=== PATIENT | female | born 1950 | race Caucasian/White ===

== ENCOUNTER → 2017-07-19 | Outpatient (CLI) | payer OTHER ==
[~2017-07-19] MED LIST: ATOR10TA82 PO; BSP/5 PO; BUPR200T2 PO; CETI10TA84 PO
[2017-07-19 13:04] LABS: BLOOD UREA NITROGEN 17 mg/dl (7-18); BUN/CREATININE RATIO 17.2 (10-20); CALCIUM 8.8 mg/dl (8.5-10.1); CARBON DIOXIDE 24 mmol/L (21-32); CHLORIDE 106 mmol/L (98-107); CREATININE 0.99 mg/dl (0.60-1.20); GLUCOSE 88 mg/dl (70-99); SODIUM 138 mmol/L (136-145)
[2017-07-19 13:10] LABS: CHOLESTEROL 180 mg/dl (0-200); CHOLESTEROL/HDL RATIO 3.9; HDL CHOLESTEROL 46 mg/dl; LDL CHOLESTEROL CALCULATED 110 mg/dl; TRIGLYCERIDES 121 mg/dl (0-150); VERY LOW DENSITY LIPOPROT CALC 24 mg/dl
== END | disposition home or self-care (01) ==
LOC: C.LABPBG 08:06
PROVIDERS: ATTEND Family Medicine
DX: E78.5 Hyperlipidemia, unspecified (principal); I10 Essential (primary) hypertension

== ENCOUNTER → 2017-12-26 | Outpatient (CLI) | payer OTHER ==
[2017-12-26 18:56] LABS: BLOOD UREA NITROGEN 10 mg/dl (7-18); CALCIUM 8.7 mg/dl (8.5-10.1); CARBON DIOXIDE 28 mmol/L (21-32); CREATININE 0.91 mg/dl (0.60-1.20); GLUCOSE 101 mg/dl (70-99); POTASSIUM 3.9 mmol/L (3.5-5.1); SODIUM 139 mmol/L (136-145)
[2017-12-26 19:00] LABS: ALT/SGPT 18 U/L (12-78); CHOLESTEROL 126 mg/dl (0-200); LDL CHOLESTEROL CALCULATED 71 mg/dl
== END | disposition home or self-care (01) ==
LOC: C.LABPBG 12:58
PROVIDERS: ATTEND Family Medicine
DX: F32.9 Major depressive disorder, single episode, unspecified (principal); E78.5 Hyperlipidemia, unspecified

== ENCOUNTER → 2018-01-03 | Outpatient (CLI) | payer OTHER ==
--- NOTE | 2018-01-03 09:32 | DIAGNOSTIC IMAGING REPORT ---
CT LUNG SCREENING, LOW DOSE WITH COMPUTER-AIDED DETECTION (CAD) CLINICAL HISTORY: Significant smoking history. Nicotine dependence. COMPARISON STUDY: Chest CT October 11, 2010. CT DOSE: 77.10 mGycm TECHNIQUE: Low-dose helical CT was acquired without intravenous contrast from lung apices to bases and reconstructed at 2.5 mm every 2 mm. CAD was utilized for this study. A dose lowering technique was utilized adhering to the principles of ALARA. FINDINGS: The size of the heart is normal. There is no pericardial effusion. A mildly enlarged precarinal lymph node measures 1.1 cm in short axis diameter. No pneumothorax or pleural effusion is noted. No suspicious pulmonary nodules are noted. There is mild upper lobe predominant emphysema. There is mild consolidation within the right lower lobe with irregular airspace opacity. Bronchial wall thickening and secretions within the airways are noted. There is no cavitation. No suspicious osseous lesion is identified within the bony thorax. Note is made of a mild compression deformities of the superior endplates of T4 and T5. Lobulated contour of the liver surface with enlargement of the lateral segment is again noted. IMPRESSION: 1. Mild right lower lobe consolidation which suggests pneumonia. A follow-up chest CT in 6-8 weeks to ensure resolution is recommended. 2. No suspicious pulmonary nodules. This is considered a Lung-RADS 2 exam. If follow-up chest CT demonstrates resolution of pneumonia, continued annual screening low dose CT in 12 months on January 03, 2019 is recommended. 3. Mild emphysema. 4. Mildly enlarged precarinal lymph node which may be reactive. This can be assessed on follow-up CT. CAD FINDINGS: Overall Lung RADS Category: Lung RADS Management Recommendation: Continue annual lung cancer screening. Lung RADS Follow Up Date: Lung RADS Nodule ID: Electronically signed by: Elia Johnston M.D. 01/03/2018 9:31 AM Dictated Date/Time: 01/03/2018 9:06 AM
== END | disposition home or self-care (01) ==
LOC: C.CTS 08:26
PROVIDERS: ATTEND Family Medicine
DX: Z87.891 Personal history of nicotine dependence (principal); Z12.2 Encounter for screening for malignant neoplasm of respiratory organs

== ENCOUNTER → 2018-03-26 | Outpatient (CLI) | payer OTHER ==
[~2018-03-26] MED LIST changes: +OPTIRAY 320 IV PRN
--- NOTE | 2018-03-26 11:49 | DIAGNOSTIC IMAGING REPORT ---
CT ANGIOGRAM OF THE ABDOMEN, PELVIS, BILATERAL LOWER EXTREMITIES HISTORY: Peripheral vascular disease. Bilateral leg pain. TECHNIQUE: Multiaxial CT images of the abdomen, pelvis, bilateral large ovaries were performed following the use of intravenous contrast to evaluate the major dural structures. Maximum intensity projection images also obtained. COMPARISON STUDY: Abdomen and pelvis CT 09/27/2010. FINDINGS: The heart is mildly enlarged. Mild to moderate calcified plaque within the normal caliber abdominal aorta and common iliac arteries. There is also mild right and moderate left proximal renal artery calcification. However, no significant stenosis. The celiac, superior mesenteric, and inferior mesenteric arteries are patent. Moderate calcified plaque within the bilateral external iliac and common femoral arteries. There is a segment of 70% stenosis within the mid to distal left external iliac artery best seen on image 314. Mild narrowing of less than 50% within the mid to distal right external iliac artery. Less than 50% narrowing throughout the bilateral common femoral arteries. With in the left lower extremity there is calcified plaque throughout the arterial system resulting in multifocal areas of mild narrowing. No high-grade stenosis or occlusion identified within the left lower extremity arterial system. There is 3 vessel runoff within the left leg. Within the right lower extremity there is a long stent within the proximal to mid right superficial femoral artery. Proximal to the stent there is approximately 70% focal stenosis best seen on image 388. There is thrombus within the stent resulting in multifocal areas of mild to moderate narrowing. This is most pronounced on image 463 which demonstrates approximately 70-80% focal stenosis. Scattered calcified plaque within the distal superficial femoral artery and remaining distal right lower extremity arterial structures. This results in areas of multifocal mild narrowing. No high-grade stenosis or occlusion identified within the remaining portions of the right lower extremity. There is 3 vessel runoff within the right lower leg. The lung bases are clear. No pneumoperitoneum. No pneumatosis. No fractures within the visualized osseous structures. Scattered subcentimeter hypervascular foci within the liver. These are indeterminate on this study but could represent small flash filling hemangiomas or transient hepatic attenuation differences. The spleen, right adrenal gland, and pancreas are unremarkable. There are few punctate stones within the gallbladder. There is mild left adrenal gland thickening. Bilateral cortical renal scarring. No hydronephrosis. Punctate stone within the right kidney. Subcentimeter retroperitoneal and mesenteric lymph nodes do not meet CT criteria for pathologic involvement. There are few mildly enlarged periportal and gastrohepatic lymph nodes which are nonspecific and unchanged. The long-term stability favors a benign process. Borderline bladder wall thickening, unchanged. The uterus is surgically absent. No bowel wall thickening or obstruction. Normal appendix. IMPRESSION: 1. There is a long stent within the proximal to mid right superficial femoral artery which contains thrombus and multifocal narrowing to up to 70-80% stenosis. 2. There is 70% focal stenosis within the proximal right superficial femoral artery immediately proximal to the stent. 3. Otherwise, the remaining bilateral lower extremity arterial systems demonstrate multifocal areas of mild narrowing with bilateral three-vessel runoff. 4. There is 70% stenosis involving the mid to distal left external iliac artery. 5. Additional findings as described above. Electronically signed by: Destin Clifton M.D. 03/26/2018 11:48 AM Dictated Date/Time: 03/26/2018 11:24 AM
== END | disposition home or self-care (01) ==
LOC: C.CTS 10:44
PROVIDERS: ATTEND Internal Medicine Interventional Cardiology
DX: T82.868A Thrombosis due to vascular prosthetic devices, implants and grafts, initial encounter (principal); Y83.1 Surgical operation with implant of artificial internal device as the cause of abnormal reaction of the patient, or of later complication, without mention of misadventure at the time of the procedure; I70.291 Other atherosclerosis of native arteries of extremities, right leg; I70.8 Atherosclerosis of other arteries

== ENCOUNTER → 2018-04-25 | Outpatient (CLI) | payer OTHER ==
[~2018-04-25] MED LIST changes: +ASPI81TA28 PO; +CLOP1TAB15 PO; +LISI-729 PO; -OPTIRAY 320 IV PRN
[2018-04-25 16:42] LABS: HEMATOCRIT 43.5 % (37-47); HEMOGLOBIN 13.9 g/dL (12.0-16.0); MEAN CELL VOLUME 92.4 fL (80-100); MEAN CORPUSCULAR HEMOGLOBIN 29.5 pg (25-34); MEAN PLATELET VOLUME 9.3 fL (7.4-10.4); PLATELET COUNT 242 K/uL (130-400); RED CELL DISTRIBUTION WIDTH CV 14.3 % (11.5-14.5); RED CELL DISTRIBUTION WIDTH SD 48.5 fL (36.4-46.3); WHITE BLOOD COUNT 7.14 K/uL (4.8-10.8)
[2018-04-25 16:52] LABS: BLOOD UREA NITROGEN 19 mg/dl (7-18); CALCIUM 8.6 mg/dl (8.5-10.1); CARBON DIOXIDE 27 mmol/L (21-32); CREATININE 0.98 mg/dl (0.60-1.20); GLUCOSE 79 mg/dl (70-99); POTASSIUM 4.9 mmol/L (3.5-5.1); SODIUM 140 mmol/L (136-145)
[2018-04-25 16:53] LABS: INR 0.9 (0.9-1.1); PTT PATIENT 27.5 SECONDS (21.0-31.0)
== END | disposition home or self-care (01) ==
LOC: C.LABPBG 11:06
PROVIDERS: ATTEND Internal Medicine Interventional Cardiology
DX: Z01.818 Encounter for other preprocedural examination (principal)

== ENCOUNTER 2023-12-15 17:07 | Inpatient (IN) ==
--- NOTE | 2023-12-15 17:52 | Emergency Department Note ---
Impression & Plan Acute GI bleeding, Abdominal pain, Nausea & vomiting ED Provider Note HISTORY OF PRESENT ILLNESS: Patient is a 73-year-old female presenting with nausea, generalized abdominal pain and dark tarry stools. Patient reports that she has been feeling generally unwell for the last 48 hours. She starts that she started having dark, tarry stools in the last 48 hours. She is on Plavix. She denies any chest pain but does report some associated shortness of breath with exertion. She reports feeling nauseous and has had multiple episodes of vomiting. Denies any recent fevers. Denies any history of abdominal surgeries. Locates the pain diffusely across her abdomen. Denies any recent sick contact exposures. She does report some diarrhea, and states that this is black and tarry in color. ROS: as above PHYSICAL EXAM: Constitutional: Patient appears in no acute distress. HENT: Head: Normocephalic and atraumatic. Eyes: EOMI, PERRL Mouth/Throat: Mucous membranes moist. Neck: Trachea midline. Neck supple. Cardiovascular: RRR, No murmurs, rubs or gallops. Intact distal pulses. Pulmonary/Chest: No respiratory distress. Breath sounds clear and equal bilaterally. No wheezes or rales. Abdominal: Abdomen soft, no rebound or guarding. Generalized tenderness to palpation Rectal: Chaperoned by nursing staff. No palpable masses or hemorrhoids. Wisam melena on glove. Hemoccult positive. Musculoskeletal: No edema, tenderness or deformity noted. Skin: Warm and dry. No rash, erythema, pallor or cyanosis Psychiatric: Appropriate mood and affect for situation. Neurological: Alert and keenly responsive. CN II-XII grossly intact, moving all extremities equally and fully. MDM: - Vitals signs stable - History obtained via patient. History as above. - Chronic conditions affecting care: HTN; HLD; peripheral artery disease (s/p stents. on plavix); COPD - Differential diagnoses include, but are not limited to: upper GI bleed; duodenal bleed; hemorrhoids; diverticulitis; small bowel obstruction - Order placed for continuous cardiac monitoring. At this time, monitor showed rate of 110 bpm with normal sinus rhythm, per my interpretation. - External medical records reviewed. Primary care visit note dated 12/04/2023 was reviewed. Patient follows in their clinic for low back pain and COPD. - Laboratory workup interpreted by myself showed normal WBC; chronic anemia; elevated anion gap (13 - likely from vomiting); elevated troponin (15.4); normal lipase - CT abdomen/pelvis with IV contrast negative for bowel obstruction. Noted to have chronic renal artery stenosis. - Patient given 1L NS, 40 mg IV protonix and 4 mg IV zofran in ER. - Patient is on plavix and having obvious melena. Will admit to hospitalist service for GI consultation and further evaluation and management - Discussion was had with field nurse case manager about patient's case and need for - Hospitalist consulted for admission - Patient admitted to [facility] hospitalist service for further evaluation and management. 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 "well controlled" Lung nodule s/p radiation treatments Following with [facility] radiation oncology- monitoring, "stable" Esophageal reflux Occasional Osteoporosis Anxiety Hx of cirrhosis Hx ETOH abuse/alcoholism per records (0-2 drinks/wine per day per PAT RN phone assessment 05/01/23) Peripheral artery disease S/P SFA stent (2013) S/P right femoral artery endarterectomy/stent (2017) Taking Plavix Depression Hypertension Hyperlipidemia Hepatic encephalopathy Remote hx Surgical History (Updated 12/04/23 @ 20:02 by Katarina Jimenes MD) S/P excision of lipoma (05/09/23) Excision of Intramuscular Back Lipoma - Suraj Kincaid, DO, FACS History of dilatation and curettage History of knee surgery R knee repair (patella fracture) History of back surgery lumbar discectomy History of foot surgery Debridement of left foot ulcer (09/09/18): LMA#4.0 unique, atraumatic at [facility] H/O adenoidectomy History of surgery Radical removal of vulva, partial History of laryngoscopy With biopsy History of tooth extraction History of endarterectomy Right femoral artery endarterectomy/stent (05/31/18): Grade view 1, MAC#3, ETT 7.5 at [facility] History of surgery SFA stent (2013) per records Hx of hysterectomy + USO History of throat surgery Benign growth removal History of tonsillectomy Family History Mother , 72yo Smoker "Bad circulation" Father , in his 70s Alzheimer disease Brother No problems noted. Sister No problems noted. Sister No problems noted. Son No problems noted. Daughter No problems noted. Daughter No problems noted. Aunt Cancer Other No pertinent family history Denies family history of Ovarian cancer Prostate cancer Myocardial infarction Breast cancer Colorectal cancer Social History Smoking Status: Current every day smoker Tobacco Type: Cigarettes Age Started Using Tobacco: 15; packs per day: 0.5; Cigarettes Per Day: 0.5ppd; Second Hand Exposure: Yes; Do You Dip or Chew Tobacco: No; Hx Alcohol Use: Yes Alcohol type: wine Alcohol Intake Frequency: 4 or More x per/Week Alcohol Intake Frequency Comment: 2 glasses at dinner. Hx Substance Use: No Preferred Language: Ukrainian Communication Ability: Effective Visual Impairment: No Limitations Hearing Ability: Normal Internal Specialist Required: No Beliefs That Will Affect Care: None marital status: Current Living Situation: Spouse and Family Current Living Situation Comment: her 2 daughters and 1 granddaughter also live with her current occupational status: retired current occupation: Retired [employer] Feels Safe at Home: Yes Childhood Exposure to Second-Hand Smoke: Yes Diet: regular caffeine: Yes (coffee) during the past year weight has: remained stable Dental Care, Regularly: No Physical Activity Frequency: Does not Exercise Seatbelt Use: always Sunscreen Use: No Assistive Devices: Denture - Upper Allergies Allergies Allergy/AdvReac Type Severity Reaction Status Date / Time hydromorphone [From Dilaudid] AdvReac Intermediate Vomiting Verified 12/04/23 10:40 baclofen AdvReac Confusion Verified 12/04/23 10:40 Home Meds Home Medications Medication Instructions Recorded Confirmed aspirin 81 mg tablet,delayed 81 mg PO QAM 05/16/18 12/15/23 release acetaminophen 500 mg capsule 1,000 mg PO Q8H PRN Pain 02/17/22 12/15/23 ibuprofen 600 mg tablet 600 mg PO Q8H PRN Pain 11/08/23 12/15/23 methocarbamol 750 mg tablet 750 mg PO TID PRN Muscle Spasm 12/04/23 12/15/23 albuterol sulfate 90 mcg/actuation 2 puff inhalation UD PRN as 12/15/23 12/15/23 aerosol inhaler (Ventolin HFA) directed clonidine HCl 0.2 mg tablet 0.2 mg PO BID PRN Anxiety 12/15/23 12/15/23 lisinopril 20 mg tablet 20 mg PO QAM 12/15/23 12/15/23 Previous Rx's Medication Instructions Recorded clopidogrel 75 mg tablet (Plavix) 75 mg PO QAM #30 tabs 06/19/23 bupropion HCl 150 mg tablet,12 hr 150 mg PO BID #60 ea 08/13/23 sustained-release atorvastatin 20 mg tablet 20 mg PO QAM #90 tabs 11/26/23 gabapentin 300 mg capsule 300 mg PO TID #90 caps 12/04/23 levalbuterol tartrate 45 2 inh inhalation Q4H PRN shortness 12/07/23 mcg/actuation aerosol inhaler of breath or wheezing #15 grams Results & Data (ED) Vital Signs Vital Signs - 24 hr 12/15/23 17:10 12/15/23 17:43 12/15/23 17:43 Temperature 36.2 C L Temperature Source Temporal Artery Scan Pulse Rate 72 Pulse Rate [Apical] 107 H Pulse Rhythm Regular Pulse Rhythm [Apical] Pulse Strength Normal Pulse Strength [Apical] Respiratory Rate 20 24 Respiratory Effort / Characteristics Non-Labored Spontaneous Respiratory Depth Normal Blood Pressure 128/52 L Blood Pressure [Right Arm] 170/90 H Blood Pressure Mean 77 Blood Pressure Mean [Right Arm] 116 Pulse Oximetry 100 98 Oxygen Delivery Method Room Air Room Air Room Air Sepsis Recent Fever Within 48 Hours No Sepsis New/Unexplained Change in Mental Status N/A Sepsis Action Taken by Nursing No Action Required 12/15/23 18:03 12/15/23 19:13 Temperature Temperature Source Pulse Rate 105 H Pulse Rate [Apical] 111 H Pulse Rhythm Pulse Rhythm [Apical] Regular Pulse Strength Pulse Strength [Apical] Normal Respiratory Rate 22 Respiratory Effort / Characteristics Non-Labored Spontaneous Respiratory Depth Normal Blood Pressure Blood Pressure [Right Arm] 157/108 H Blood Pressure Mean Blood Pressure Mean [Right Arm] 124 Pulse Oximetry 99 Oxygen Delivery Method Room Air Sepsis Recent Fever Within 48 Hours Sepsis New/Unexplained Change in Mental Status Sepsis Action Taken by Nursing Laboratory Data 12/15/23 17:38 12/15/23 17:38 Lab Results 12/15/23 Range/Units 17:38 WBC 9.07 (4.8-10.8) K/ul RBC 3.80 L (4.20-5.40) M/uL Hgb 10.0 L (12.0-16.0) g/dl Hct 32.8 L (37.0-47.0) % MCV 86.3 (80.0-100.0) fL MCH 26.3 (25.0-34.0) pg MCHC 30.5 L (32.0-36.0) g/dL RDW Std Deviation 46.5 H (36.4-46.3) fL RDW Coeff of Narendra 14.8 H (11.5-14.5) % Plt Count 486 H (130-400) K/uL MPV 8.4 L (9.4-12.4) fL Immature Gran % (Auto) 1.0 % Neut % (Auto) 78.6 % Lymph % (Auto) 12.3 % [place] % (Auto) 7.1 % Eos % (Auto) 0.3 % Baso % (Auto) 0.7 % Neut # (Auto) 7.13 H (1.40-6.50) K/uL Lymph # (Auto) 1.12 L (1.20-3.40) K/uL [place] # (Auto) 0.64 H (0.11-0.59) K/uL Eos # (Auto) 0.03 (0.00-0.50) K/uL Baso # (Auto) 0.06 (0.00-0.20) K/uL Immature Gran # (Auto) 0.09 (0.01-0.20) K/uL PT 10.3 (9.0-12.0) Seconds INR 0.9 (0.9-1.1) Sodium 133 L (136-145) mmol/L Potassium 5.0 (3.5-5.1) mmol/L Chloride 101 (98-107) mmol/L Carbon Dioxide 19 L (21-32) mmol/L Anion Gap 13 H (3-11) BUN 21 (6-23) mg/dl Creatinine 0.91 (0.6-1.2) mg/dl Est Cr Clr Drug Dosing Not Reportable Est GFR ( Amer) 73.1 ml/min Est GFR (Non-Af Amer) 63.0 ml/min BUN/Creatinine Ratio 23.1 H (10-20) Glucose 100 H (70-99(Fasting)) mg/dl Calcium 8.7 (8.6-10.3) mg/dl Total Bilirubin 0.2 (0.2-1.0) mg/dl AST 23 (13-39) U/L ALT 16 (7-52) U/L Alkaline Phosphatase 94 (34-104) U/L Troponin I High Sens 15.4 H (0-14) pg/ml Total Protein 7.8 (6.0-8.3) gm/dl Albumin 4.9 (3.4-5.0) gm/dl Globulin 2.9 (2.5-4.0) gm/dl Albumin/Globulin Ratio 1.7 (0.9-2) Lipase 20 (11-82) U/L Blood Type A Negative Antibody Screen NEGATIVE Administered Medications Sodium Chloride (Nss) 1,000 mls @ 999 mls/hr IV .Q1H1M ONE Stop: 12/15/23 20:02 Last Admin: 12/15/23 19:10 Dose: 999 mls/hr Documented By: STEPHANIE Discontinued Medications Pantoprazole Sodium 40 mg/ (Syringe) 10 mls @ 5 mls/min IV NOW ONE Stop: 12/15/23 17:53 Last Admin: 12/15/23 19:10 Dose: 5 mls/min Documented By: STEPHANIE Ioversol (Optiray 320 100ml) 93 ml IV ONCE ONE Stop: 12/15/23 18:38 Last Admin: 12/15/23 18:39 Dose: 93 ml Documented By: NEYMAR Ondansetron HCl (Ondansetron Inj 2 Mg/Ml 2 Ml Vial) 4 mg IV NOW STA Stop: 12/15/23 17:53 Last Admin: 12/15/23 17:59 Dose: 4 mg Documented By: [facility] Imaging Data Radiologist's Impression: Abdomen/Pelvis CT 12/15/23 18:[address] WITH IV CONTRAST CT DOSE: 500.5 mGy.cm HISTORY: Acute generalized abdominal pain with nausea and vomiting generalized abdominal pain; vomiting TECHNIQUE: Multiaxial CT images of the abdomen and pelvis were performed following the IV administration of 93 cc of Optiray, A dose lowering technique was utilized adhering to the principles of ALARA. COMPARISON STUDY: Chest CT 06/28/2023, PET/CT 01/24/2001, CT abdomen and pelvis 11/20/2020 FINDINGS: Partially imaged chronic tree-in-bud and groundglass densities of the basal right lower lobe. No free air. Markable spleen, mildly atrophic pancreas and right adrenal gland. Left adrenal gland thickening suggestive of hyperplasia again noted. Cholelithiasis. Hepatic steatosis. No biliary ductal dilation or hepatic mass. Patency of the hepatic and portal veins. Multifocal cortical scarring with areas of parenchymal thinning again noted within the bilateral kidneys. Bilateral renal calcifications are redemonstrated, most of which appear to be vascular in origin. Heterogeneous enhancement of the kidneys is a chronic finding. Ureteral calculi or hydronephrosis. Partially decompressed bladder with wall thickening, most pronounced anteriorly. Hysterectomy. Atherosclerosis of the aorta with multifocal high-grade stenoses of the left greater than right renal arteries again noted. A right femoral graft is suboptimally evaluated secondary to phase of contrast however appears to be occluded. There is multifocal high-grade stenoses of the bilateral external iliac and left femoral arteries. No bowel obstruction or bowel wall thickening. Colonic diverticulosis. Normal appendix. No ascites or mesenteric inflammation. Tiny fat filled umbilical hernia. Unchanged mild lymphadenopathy within the periportal distribution. No acute fracture. Lumbar levoscoliosis. IMPRESSION: 1. No bowel obstruction, bowel wall thickening or pneumoperitoneum 2. Chronic renal arterial stenosis, left greater than right with multifocal cortical scarring and parenchymal thinning of the kidneys demonstrating heterogeneous enhancement. 3. Cholelithiasis. 4. Hepatic steatosis. 5. Age-indeterminate occlusion of the right superficial femoral arterial stent, new from the 2020 comparison. 6. Additional findings as above. ACT 112: Negative or not required by law. The above report was generated using voice recognition software. It may contain grammatical, syntax or spelling errors. Electronically signed by: Musa Saini M.D. 12/15/2023 6:58 PM Discharge Plan Visit Data Chief Complaint: Vomiting Stated Complaint: BACK PAIN, VOMITING, BLACK EMESIS & STOOL ED Provider: Lluvia Saeed Discharge Problem: Acute GI bleeding, Abdominal pain, Nausea & vomiting Forms Stand Alone Forms: [facility] Prescriptions Prescriptions: No Action acetaminophen 500 mg capsule 1,000 mg PO Q8H PRN (Reason: Pain) Rx Instructions: Take 3 times per day to lessen pain. ibuprofen 600 mg tablet 600 mg PO Q8H PRN (Reason: Pain) methocarbamol 750 mg tablet 750 mg PO TID PRN (Reason: Muscle Spasm) gabapentin 300 mg capsule 300 mg PO TID Qty: 90 5RF clopidogrel [Plavix] 75 mg tablet 75 mg PO QAM Qty: 30 5RF Hold Instructions: Resume on 05/10/23. bupropion HCl 150 mg tablet sustained-release 12 hr 150 mg PO BID Qty: 60 5RF atorvastatin 20 mg tablet 20 mg PO QAM Qty: 90 1RF levalbuterol tartrate 45 mcg/actuation HFA aerosol inhaler 2 inh inhalation Q4H PRN (Reason: shortness of breath or wheezing) Qty: 15 2RF aspirin 81 mg Tablet,Delayed Release (Dr/Ec) 81 mg PO QAM albuterol sulfate [Ventolin HFA] 90 mcg/actuation HFA aerosol inhaler 2 puff INHALATION UD PRN (Reason: as directed) clonidine HCl 0.2 mg tablet 0.2 mg PO BID PRN (Reason: Anxiety) Rx Instructions: TAKE ONE TABLET BY MOUTH TWICE DAILY NEEDED for anxiety lisinopril 20 mg tablet 20 mg PO QAM Referrals Referrals: Katarina Jimenes MD [Primary Care Provider] -
[2023-12-15] MEDS: ONDANSETRON INJ 2 MG/ML 2 ML VIAL IV STA ×2 (17:59→20:38)
[2023-12-15 18:04] LABS: Basophils # (auto) 0.06 K/uL (0.00-0.20); Basophils % (auto) 0.7 %; Eosinophils # (auto) 0.03 K/uL (0.00-0.50); Eosinophils % (auto) 0.3 %; Hematocrit (blood only) 32.8 % (37.0-47.0); Immature Granulocytes # (auto) 0.09 K/uL (0.01-0.20); Lymphocytes # (auto) 1.12 K/uL (1.20-3.40); Lymphocytes % (auto) 12.3 %; Mean Corpuscular Hemoglobin 26.3 pg (25.0-34.0); Mean Corpuscular Hgb Conc 30.5 g/dL (32.0-36.0); Mean Corpuscular Volume 86.3 fL (80.0-100.0); Mean Platelet Volume 8.4 fL (9.4-12.4); Monocytes # (auto) 0.64 K/uL (0.11-0.59); Monocytes % (auto) 7.1 %; Neutrophils # (auto) 7.13 K/uL (1.40-6.50); Neutrophils % (auto) 78.6 %; Platelet Count 486 K/uL (130-400); RDW Coefficient of Variation 14.8 % (11.5-14.5); RDW Standard Deviation 46.5 fL (36.4-46.3); White Blood Count 9.07 K/ul (4.8-10.8)
[2023-12-15 18:21] LABS: Alanine Aminotransferase 16 U/L (7-52); Albumin Globulin Ratio 1.7 (0.9-2); Albumin Level 4.9 gm/dl (3.4-5.0); Alkaline Phosphatase 94 U/L (34-104); Anion Gap 13 (3-11); Aspartate Aminotransferase 23 U/L (13-39); BUN Creatinine Ratio 23.1 (10-20); Bilirubin,Total 0.2 mg/dl (0.2-1.0); Blood Urea Nitrogen 21 mg/dl (6-23); Calcium 8.7 mg/dl (8.6-10.3); Carbon Dioxide 19 mmol/L (21-32); Chloride 101 mmol/L (98-107); Est GFR (African American) 73.1 ml/min; Globulin 2.9 gm/dl (2.5-4.0); Glucose 100 mg/dl (70-99(Fasting)); Lipase 20 U/L (11-82); Sodium 133 mmol/L (136-145); Total Protein 7.8 gm/dl (6.0-8.3)
[2023-12-15 18:28] LABS: Troponin I High Sensitivity 15.4 pg/ml (0-14)
[2023-12-15 18:38] LABS: INR 0.9 (0.9-1.1); Prothrombin Time 10.3 Seconds (9.0-12.0)
[2023-12-15] MEDS: OPTIRAY 320 100ml IV ONE (18:39)
--- NOTE | 2023-12-15 19:01 | CT Scan Report ---
ABDOMEN AND PELVIS CT WITH IV CONTRAST CT DOSE: 500.5 mGy.cm HISTORY: Acute generalized abdominal pain with nausea and vomiting generalized abdominal pain; vomit ing TECHNIQUE: Multiaxial CT images of the abdomen and pelvis were performed following the IV administrat ion of 93 cc of Optiray, A dose lowering technique was utilized adhering to the principles of ALARA. COMPARISON STUDY: Chest CT 06/28/2023, PET/CT 01/24/2001, CT abdomen and pelvis 11/20/2020 FINDINGS: Partially imaged chronic tree-in-bud and groundglass densities of the basal right lower lob e. No free air. Markable spleen, mildly atrophic pancreas and right adrenal gland. Left adrenal gland thickening suggestive of hyperplasia again noted. Cholelithiasis. Hepatic steatosis. No biliary duct al dilation or hepatic mass. Patency of the hepatic and portal veins. Multifocal cortical scarring with areas of parenchymal thinning again noted within the bilateral kidn eys. Bilateral renal calcifications are redemonstrated, most of which appear to be vascular in origin . Heterogeneous enhancement of the kidneys is a chronic finding. Ureteral calculi or hydronephrosis. Partially decompressed bladder with wall thickening, most pronounced anteriorly. Hysterectomy. Athero sclerosis of the aorta with multifocal high-grade stenoses of the left greater than right renal arter ies again noted. A right femoral graft is suboptimally evaluated secondary to phase of contrast howev er appears to be occluded. There is multifocal high-grade stenoses of the bilateral external iliac an d left femoral arteries. No bowel obstruction or bowel wall thickening. Colonic diverticulosis. Normal appendix. No ascites or mesenteric inflammation. Tiny fat filled umbilical hernia. Unchanged mild lymphadenopathy within the periportal distribution. No acute fracture. Lumbar levoscoliosis. IMPRESSION: 1. No bowel obstruction, bowel wall thickening or pneumoperitoneum 2. Chronic renal arterial stenosis, left greater than right with multifocal cortical scarring and par enchymal thinning of the kidneys demonstrating heterogeneous enhancement. 3. Cholelithiasis. 4. Hepatic steatosis. 5. Age-indeterminate occlusion of the right superficial femoral arterial stent, new from the 2020 [facility]. 6. Additional findings as above. ACT 112: Negative or not required by law. The above report was generated using voice recognition software. It may contain grammatical, syntax o r spelling errors. Electronically signed by: Musa Saini M.D. 12/15/2023 6:58 PM
[2023-12-15] MEDS: SODIUM CHLORIDE 0.9% 1,000 ML IV ONE (19:10)
[2023-12-15] MEDS: PANTOprazole 40 MG in SYRINGE 0 ML IV ONE (19:10)
--- NOTE | 2023-12-15 19:40 | History & Physical Report ---
Date of Service December 15, 2023 Assessment & Plan (1) Acute GI bleeding: Plan: Acute onset of generalized abdominal pain on 12/14 Patient's daughter noticed black, tarry stool in the a.m. that morning; patient denies any BRB in stool Patient's notes diarrhea x 2 days Patient reports she has been taking ibuprofen 200mg x ~6tabs daily for her ongoing upper back pain A/P CT revealed no bowel obstruction, but did note chronic renal artery stenosis, and occlusion of right superficial femoral artery stent BUN/creatinine elevated at 23.1 Hgb 10.0-->8.4 on arrival Suspect upper GI bleed in the setting of recent NSAID use Given significant generalized abdominal pain out of proportion to exam, also suspect a component of vasculopathy A/P CT was done with contrast, but would consider CTA for new/worsening of symptoms No prior hx of blood transfusion Trend H&H q4h Blood form consent obtained; 2u pRBCs ordered, held Given pre-existing coronary artery disease, recommend transfusion at <8g/dL Strict n.p.o., including p.o. medications (except clonidine) Protonix drip Zofran as needed for nausea/vomiting Gastroenterology consulted A.m. CBC, BMP (2) Peripheral artery disease: Plan: S/p SFA stent in 2013 S/p right femoral artery endarterectomy and stent in 2018 Patient takes aspirin and Plavix daily for her stents Hold antiplatelets in setting of acute GI bleed (3) Thoracic back pain: Plan: Patient endorses 10/10 upper back pain on arrival Per , this pain in her upper back is not new, has been ongoing issue for the past year Last chest CT in June 2023 revealed extensive coronary artery calcifications, and atherosclerosis of the thoracic aorta without aneurysm Heat application daily Lidocaine patch as needed Acetaminophen and Morphine for pain Note: Dilaudid listed in patient's allergy list (4) Hypocalcemia: Plan: Ca 8.7-->7.5 on arrival Corrected Ca for albumin (of 4.9) would be Ca 6.8 ?Secondary to hyperventilation Could be contributing factor to muscle spasms Calcium gluconate 1 g IV ordered Trend calcium q4h overnight (5) Smoker: Plan: Patient is a current everyday tobacco cigarette smoker; <1 PPD She would like a nicotine patch 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 HS (and as needed) for anxiety This could be clonidine withdrawal syndrome / rebound HTN Discussed with Dr. Yeung; will give night-time p.o. dose x 1 rather than attempt transition to clonidine patch PCU status (8) Anxiety: Plan: Normally takes clonidine 0.2mg p.o. HS and as needed; will give 0.2mg x 1, then hold for now Valium 2mg IV q6h PRN (9) Sinus tachycardia: Plan Disposition: Admit to PCU telemetry DNR/DNI Keep strict n.p.o. for now VTE PPx: hold chemical DVT PPx in setting of acute upper GI bleed; hold mechanical DVT PX in the setting of extensive leg PAD History of Present Illness Chief Complaint: Dry heaves, upper back pain, generalized abdominal pain Primary Care Provider: Katarina Jimenes MD Lilibeth is a 73-year-old female with PMH of HLD, COPD, anxiety, PAD, and HTN. She presented for dark stools x 2 days, as well as abdominal pain, upper back pain, nausea, and dry heaves the morning of 12/14. Patient is writhing in pain at time of admission. Both patient's and daughter are in the room and provide most of the history; they report that this is the "worst pain they have ever seen her in". Patient endorses 10/10 upper left back pain at present. Patient also endorses generalized abdominal pain that started acutely this morning. Patient started feeling sick to her stomach last night, but then daughter found her on the ground this afternoon. Patient denies falling, but reports she was just too weak and went slowly to the ground. Daughter found dark, tarry stool in the bathroom. No orion or bright red blood in stool. Patient has been having ongoing back pain over the past year ever since she had a lipoma from her left upper back. She has been applying medicated patches, as well as a heating pad with the pain, that comes and goes intermittently. She is also been taking ibuprofen 200 mg x 6 tablets daily for the pain; as well as methocarbamol TID for muscle spasms. Patient has not vomited today, she endorses nausea, hacking cough with mucus, and constant dry heaves. She is a current everyday tobacco cigarette smokers; she rolls her own cigarettes; < 1 PPD. Patient is unsure if she took her regular morning medicines today; no recent change in medicines, but she does note she takes aspirin and Plavix daily for the stent in her right leg. Stent was placed "years ago". Patient also drinks 1 to 2 glasses of wine per day. She takes clonidine at bedtime (and as needed) for her anxiety. Patient's does note that she started having diarrhea 2 days ago. Patient is hypertensive at 157/108 and tachycardic at 111bpm at time of evaluation. ED course: NSS 1000 mL IV Protonix 40 mg IV Zofran 4 mg IV ROS: Patient endorses chills, intractable upper back pain, acute onset of generalized abdominal pain, dry heaving, gagging, nausea, Patient denies fever, night-sweats, dizziness, lightheadedness, GARCIA, vomiting, hematemesis, Allergies Allergy/AdvReac Type Severity Reaction Status Date / Time hydromorphone [From Dilaudid] AdvReac Intermediate Vomiting Verified 12/04/23 10:40 baclofen AdvReac Confusion Verified 12/04/23 10:40 Home Medications Medication Instructions Recorded Confirmed Type aspirin 81 mg tablet,delayed 81 mg PO QAM 05/16/18 12/15/23 History release acetaminophen 500 mg capsule 1,000 mg PO Q8H PRN Pain 02/17/22 12/15/23 History clopidogrel 75 mg tablet (Plavix) 75 mg PO QAM #30 tabs 06/19/23 12/15/23 Rx bupropion HCl 150 mg tablet,12 hr 150 mg PO BID #60 ea 08/13/23 12/15/23 Rx sustained-release ibuprofen 600 mg tablet 600 mg PO Q8H PRN Pain 11/08/23 12/15/23 History atorvastatin 20 mg tablet 20 mg PO QAM #90 tabs 11/26/23 12/15/23 Rx gabapentin 300 mg capsule 300 mg PO TID #90 caps 12/04/23 12/15/23 Rx levalbuterol tartrate 45 2 inh inhalation Q4H PRN shortness 12/07/23 12/15/23 Rx mcg/actuation aerosol inhaler of breath or wheezing #15 grams albuterol sulfate 90 mcg/actuation 2 puff inhalation UD PRN as 12/15/23 12/15/23 History aerosol inhaler (Ventolin HFA) directed clonidine HCl 0.2 mg tablet 0.2 mg PO BID PRN Anxiety 12/15/23 12/15/23 History lisinopril 20 mg tablet 20 mg PO QAM 12/15/23 12/15/23 History methocarbamol 750 mg tablet 750 mg PO TID PRN Muscle Spasm #45 12/15/23 Rx tabs Past Med/Surg History Medical History (Updated 12/15/23 @ 23:36 by Destin Sunshine PA-C) Myofascial pain Thoracic back pain History of ankle fracture (10/13/22) Right ankle, Distal fibula avulsion fx, chronic anterior tibia avulsion fx History of anemia Ankle fracture 10/2022, recommended boot > ASO brace per ortho records Sciatica Footdrop Left Vulvar cancer Remote hx "years ago", treated surgically Cervical cancer Approximately 1979, treated surgically Degenerative disc disease, lumbar Chronic sinusitis 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 "well controlled" Lung nodule s/p radiation treatments [facility]ology- monitoring, "stable" Esophageal reflux Occasional Osteoporosis Anxiety Hx of cirrhosis Hx ETOH abuse/alcoholism per records (0-2 drinks/wine per day per PAT RN phone assessment 05/01/23) Peripheral artery disease S/P SFA stent (2013) S/P right femoral artery endarterectomy/stent (2017) Taking Plavix Depression Hypertension Hyperlipidemia Hepatic encephalopathy Remote hx Surgical History (Updated 12/04/23 @ 20:02 by Katarina Jimenes MD) S/P excision of lipoma (05/09/23) Excision of Intramuscular Back Lipoma - Suraj Kincaid, DO, FACS History of dilatation and curettage History of knee surgery R knee repair (patella fracture) History of back surgery lumbar discectomy History of foot surgery Debridement of left foot ulcer (09/09/18): LMA#4.0 unique, atraumatic at [facility] H/O adenoidectomy History of surgery Radical removal of vulva, partial History of laryngoscopy With biopsy History of tooth extraction History of endarterectomy Right femoral artery endarterectomy/stent (05/31/18): Grade view 1, MAC#3, ETT 7.5 at [facility] History of surgery SFA stent (2013) per records Hx of hysterectomy + USO History of throat surgery Benign growth removal History of tonsillectomy Family History Mother , 72yo Smoker "Bad circulation" Father , in his 70s Alzheimer disease Brother No problems noted. Sister No problems noted. Sister No problems noted. Son No problems noted. Daughter No problems noted. Daughter No problems noted. Aunt Cancer Other No pertinent family history Denies family history of Ovarian cancer Prostate cancer Myocardial infarction Breast cancer Colorectal cancer Social History Smoking Status: Current every day smoker Tobacco Type: Cigarettes Age Started Using Tobacco: 15; packs per day: 0.5; Cigarettes Per Day: 20; Second Hand Exposure: Yes; Do You Dip or Chew Tobacco: No; Hx Alcohol Use: Yes Alcohol type: wine Alcohol Intake Frequency: 4 or More x per/Week Alcohol Intake Frequency Comment: 2 glasses at dinner. Hx Substance Use: No Preferred Language: Nepali Communication Ability: Effective Visual Impairment: No Limitations Hearing Ability: Normal Frame Tender Required: No Beliefs That Will Affect Care: None marital status: Current Living Situation: Spouse Current Living Situation Comment: From home with current occupational status: retired current occupation: Retired [employer] Other Information That Helps Us Care for You: No Feels Safe at Home: Yes Safety Concerns: Feels Safe At This Time Childhood Exposure to Second-Hand Smoke: Yes Diet: regular caffeine: Yes (coffee) during the past year weight has: remained stable Dental Care, Regularly: No Physical Activity Frequency: Does not Exercise Seatbelt Use: always Sunscreen Use: No Assistive Devices: Denture - Upper Review of Systems Review of Systems: See HPI above Physical Exam Physical Exam: General: Patient is writhing in pain; anxious; SpO2 100% on RA HEENT: normocephalic, atraumatic; no scleral icterus; PERRLA w/ EOMs intact; moist mucus membrane; vision and hearing grossly intact Neck: supple; no lymphadenopathy; trachea midline Skin: warm, dry without signs of tenting; no cyanosis; no rashes, bruising, lesions, or erythema noted CV: chest wall NTP; RR, tachycardic around 110bpm; S1/S2 normal; no mu rmurs/rubs/gallops; pulses intact and symmetric at radial, DP, and PT Lungs: Hacking, mucousy cough; conversationally dyspneic; symmetrical chest wall expansion; clear breath sounds across all lung krishnamurthy w/o adventitious sounds; no wheezing ABD: Soft, NTP; generalized abdominal pain NTP, and patient appears to be having pain out of proportion to clinical exam; BS present; no rebound/guarding; moderate distention; no signs of bruising, rashes, or active bleeding Back: Scar on upper left back at site where lipoma was removed; upper spine NTP; lower spine NTP; negative CVA tenderness MSK: no tics or fasciculations; no edema noted in the LEs b/l, nonerythematous Neuro: A&Ox3; no focal deficits; sensation grossly intact in the LEs b/l Results & Data Results & Data Vital Signs (Past 12 Hours) Vital Signs Temp Pulse Pulse Resp BP BP Pulse Ox 12/15/23 19:13 111 H 22 157/108 H 99 12/15/23 18:03 105 H 12/15/23 17:43 12/15/23 17:43 107 H 24 170/90 H 98 12/15/23 17:10 36.2 C L 72 20 128/52 L 100 O2 Del Method 12/15/23 19:13 Room Air 12/15/23 18:03 12/15/23 17:43 Room Air 12/15/23 17:43 Room Air 12/15/23 17:10 Room Air Laboratory Results Abnormal lab results 12/15/23 Range/Units 17:38 RBC 3.80 L (4.20-5.40) M/uL Hgb 10.0 L (12.0-16.0) g/dl Hct 32.8 L (37.0-47.0) % MCHC 30.5 L (32.0-36.0) g/dL RDW Std Deviation 46.5 H (36.4-46.3) fL RDW Coeff of Narendra 14.8 H (11.5-14.5) % Plt Count 486 H (130-400) K/uL MPV 8.4 L (9.4-12.4) fL Neut # (Auto) 7.13 H (1.40-6.50) K/uL Lymph # (Auto) 1.12 L (1.20-3.40) K/uL [place] # (Auto) 0.64 H (0.11-0.59) K/uL Sodium 133 L (136-145) mmol/L Carbon Dioxide 19 L (21-32) mmol/L Anion Gap 13 H (3-11) BUN/Creatinine Ratio 23.1 H (10-20) Glucose 100 H (70-99(Fasting)) mg/dl Troponin I High Sens 15.4 H (0-14) pg/ml Diagnostic Findings Abdomen/Pelvis CT 12/15/23 18:[address] WITH IV CONTRAST CT DOSE: 500.5 mGy.cm HISTORY: Acute generalized abdominal pain with nausea and vomiting generalized abdominal pain; vomiting TECHNIQUE: Multiaxial CT images of the abdomen and pelvis were performed following the IV administration of 93 cc of Optiray, A dose lowering technique was utilized adhering to the principles of ALARA. COMPARISON STUDY: Chest CT 06/28/2023, PET/CT 01/24/2001, CT abdomen and pelvis 11/20/2020 FINDINGS: Partially imaged chronic tree-in-bud and groundglass densities of the basal right lower lobe. No free air. Markable spleen, mildly atrophic pancreas and right adrenal gland. Left adrenal gland thickening suggestive of hyperplasia again noted. Cholelithiasis. Hepatic steatosis. No biliary ductal dilation or hepatic mass. Patency of the hepatic and portal veins. Multifocal cortical scarring with areas of parenchymal thinning again noted within the bilateral kidneys. Bilateral renal calcifications are redemonstrated, most of which appear to be vascular in origin. Heterogeneous enhancement of the kidneys is a chronic finding. Ureteral calculi or hydronephrosis. Partially decompressed bladder with wall thickening, most pronounced anteriorly. Hysterectomy. Atherosclerosis of the aorta with multifocal high-grade stenoses of the left greater than right renal arteries again noted. A right femoral graft is suboptimally evaluated secondary to phase of contrast however appears to be occluded. There is multifocal high-grade stenoses of the bilateral external iliac and left femoral arteries. No bowel obstruction or bowel wall thickening. Colonic diverticulosis. Normal appendix. No ascites or mesenteric inflammation. Tiny fat filled umbilical hernia. Unchanged mild lymphadenopathy within the periportal distribution. No acute fracture. Lumbar levoscoliosis. IMPRESSION: 1. No bowel obstruction, bowel wall thickening or pneumoperitoneum 2. Chronic renal arterial stenosis, left greater than right with multifocal cortical scarring and parenchymal thinning of the kidneys demonstrating heteroge neous enhancement. 3. Cholelithiasis. 4. Hepatic steatosis. 5. Age-indeterminate occlusion of the right superficial femoral arterial stent, new from the 2020 comparison. 6. Additional findings as above. ACT 112: Negative or not required by law. The above report was generated using voice recognition software. It may contain grammatical, syntax or spelling errors. Electronically signed by: Musa Saini M.D. 12/15/2023 6:58 PM ECG Additional Comments: ECG revealed sinus tachycardia with occasional PVCs at 107 bpm; QTc 464 Per review of past EKGs, unclear if worsening of T wave inversion in the anterior lateral leads; tall, peaked T waves in V6 on prior EKGs Code Status & VTE Plan Code Status DNR/DNI (discussed with patient, patient's daughter, and patient's at bedside; patient was of sound mind at this time) VTE Prophylaxis Plan VTE Prophylaxis will be ordered: Yes Critical Care Time 45 minutes of critical care time spent managing this patient directly. Supervising Physician Co-Signing Physician Notes Patient seen and examined, chart reviewed, case discussed with BEN Sunshine and I agree with the assessment and plan as above. In brief, patient is a 73yo female with history of PAD, chronic pain, COPD, GERD, HTN and HLP presenting with GIB. Patient has had dark stools x 2 days as well as upper abdominal pain, nausea and dry heaving which started today. She has had dome weakness as well. Patient has been having worsening upper back pain for which she has been taking Ibuprofen 200mg tablets x 6 daily. Patient also on ASA and Plavix for a stent in her right leg. Patient's main complaint conveyed to BEN Sunshine is upper back pain which is severe 10/10. During my encounter, patient's states that her back pain is chronic and intermittent and she follows with pain management. She mostly reported lower abdominal pain to me, 10/10, cramping. She later reported to nursing that her main complaint was leg spasms in her upper thighs. In the ER she is tachycardic and hypertensive, in moderate distress secondary to various pains described above. No further episodes of melena witnessed by nursing She has been given - Zofran 4mg IV x 2, Protonix 40mg IV then 80mg IV followed by drip, NSS x 1L, Acetaminophen 1gm IV, Lidoderm patch, Phenergan 6.25mg, Morphine 2mg, Labetalol 5mg IV, Calcium gluconate 1gm IV, Clonidine 0.2mg IV On exam patient is uncomfortable, able to answer some questions HEENT -MMM, Neck supple, MMM Heart - +S1/S2, regular, tachycardic, no m/r/g Lungs - CTA, no rales/rhonchi/wheezes Abd - +BS, diminished, soft, tender in the lower abdomen with some voluntary guarding, no masses or organomegaly Pain with palpation of thoracic paraspinal musculature, tense muscles Ext - warm, well perfused Neuro - moving all extremities, answers questions appropriately Labs and images reviewed Normochromic/normocytic anemia with Hgb of 10 --> 8.4 --> 8 following 1L fluid Normal WBC count, elevated N:L indicative of systemic stress VBG with metabolic acidosis, pH=7.31, pCO2=37 (no respiratory component, no anion gap on repeat chemistry) Lactate - concern for mesenteric ischemia - normal at 1.9 Troponin 15.4 --> 18.1 CT of the abdomen as above with chronic changes. No acute findings to explain patient's pain EKG with ST at 107, PVCs, no acute ischemic changes Assessment/Plan Suspect UGIB, likely secondary to increased NSAID use for upper back pain. Patient is on ASA and Plavix for PAD. She has note of cirrhosis in her chart, however, imaging and laboratory findings do not support this diagnosis. She does have fatty liver on CT, no evidence of synthetic liver dysfunction on labs. -Protonix gtt -Trend CBC. Transfuse for active bleed, symptomatic anemia or Hgb <8 -GI consult appreciated Back pain -Heat, Lidoderm, IV Tylenol and morphine PRN -Valium PRN muscle spasm/pain Hypertension -Pain control as above, morphine PRN -Labetalol 5mg IV q 4 hours PRN -Patient takes nightly Clonidine for anxiety - will continue to avoid rebound hypertension -Monitor for EtOH withdrawal - patient reports drinking 2 drinks daily. Will give 100mg thiamine now x 1 dose Remainder as above PG Care Time/CCT Total # of Minutes Spent Total Time Spent with Patient: Total time spent is greater than 50% in coordination of care (as documented) at patient's floor/unit and/or counseling patient: Coding Level of Care Code Established Pt None Patient Type Established Medical Decision Making High Complexity Diagnoses Acute GI bleeding K92.2 Peripheral artery disease I73.9 Chronic bilateral thoracic back pain M54.6; G89.29 Back pain laterality: bilateral Chronicity: chronic Hypocalcemia E83.51 Smoker F17.200 Elevated troponin R79.89 Hypertension I10 Hypertension type: essential hypertension Anxiety F41.9 Sinus tachycardia R00.0 (3) Thoracic back pain Back pain laterality: bilateral Chronicity: chronic Qualified Code(s): M54.6 - Pain in thoracic spine; G89.29 - Other chronic pain (7) Hypertension Hypertension type: essential hypertension Qualified Code(s): I10 - Essential (primary) hypertension
[2023-12-15] MEDS ORDERED: SODIUM CHLORIDE 0.9% 250 ML IV PRN (20:20)
[2023-12-15] MEDS: ACETAMINOPHEN 1,000 MG/100 ML VIAL IV STA (20:38)
[2023-12-15] MEDS: LIDOCAINE 5% 1 PATCH TD STA (20:38)
[2023-12-15] MEDS: LIDOCAINE 5% 1 PATCH TD ONE (20:39)
[2023-12-15] MEDS: PROMETHAZINE 6.25 MG/50.25 ML BAG IV STA (21:01)
[2023-12-15 21:42] LABS: HCO3 VBG 19 mmol/L; Oxygen Saturation VBG < 60.0 %; PCO2 VBG 37 mmHg (38-50); PO2 VBG 32 mmHg; pH VBG 7.31 (7.36-7.41)
[2023-12-15 21:50] LABS: Hematocrit (blood only) 27.3 % (37.0-47.0); Hemoglobin 8.4 g/dl (12.0-16.0)
[2023-12-15 22:08] LABS: BUN Creatinine Ratio 27.2 (10-20); Calcium 7.5 mg/dl (8.6-10.3); Creatinine Clr Calc Pharmacy 49.7 ml/min; Est GFR (African American) 84.1 ml/min; Est GFR (Non-African American) 72.6 ml/min; Potassium 4.7 mmol/L (3.5-5.1)
[2023-12-15] MEDS ORDERED: PANTOPRAZOLE BOLUS/DRIP IV STA (22:15)
[2023-12-15 22:16] LABS: Troponin I High Sensitivity 18.1 pg/ml (0-14)
[2023-12-15] MEDS: MoRPHine SULFATE 2 MG/ML CARP IV STA (22:27)
[2023-12-15] MEDS ORDERED: STAT IV/IM STA (22:40)
[2023-12-15 23:04] LABS: Magnesium 1.8 mg/dl (1.7-2.4)
[2023-12-15] MEDS ORDERED: diazePAM 5 MG/ML 10ML VIAL IV PRN (23:37)
[2023-12-15] MEDS ORDERED: ONDANSETRON INJ 2 MG/ML 2 ML VIAL IV PRN (23:37)
[2023-12-15] MEDS ORDERED: MoRPHine SULFATE 4 MG/ML 1 ML CARP\\VIAL IV PRN (23:37)
[2023-12-15] MEDS ORDERED: MoRPHine SULFATE 2 MG/ML CARP IV PRN (23:37)
[2023-12-15] MEDS ORDERED: LEVALBUTEROL TARTRATE 15 GM HFA.AER.AD INH PRN (23:37)
[2023-12-15] MEDS ORDERED: ALBUTEROL HFA 8 GM INHALER INH PRN (23:37)
[2023-12-15] MEDS ORDERED: ACETAMINOPHEN 1,000 MG/100 ML VIAL IV PRN (23:37)
[2023-12-15] MEDS: PANTOprazole 80 MG in DEXTROSE 5% 100 ML IV ONE (23:41)
[2023-12-15] MEDS: PANTOprazole 40 MG in DEXTROSE 5% MINI-B 100 ML IV SCH (23:57)
[2023-12-15] MEDS: LABETALOL HCL IV 5 MG/ML 20ML IV STA (23:59)
[2023-12-16] MEDS: CALCIUM GLUCONATE 1,000 MG/60 ML BAG IV ONE (00:21)
[2023-12-16] MEDS: cloNIDine HCL 0.1 MG TAB PO ONE (00:42)
[2023-12-16] MEDS: diazePAM 5 MG/ML 10ML VIAL IV STA (00:55)
[2023-12-16 01:40] LABS: Appearance Urine Clear (Clear); Bacteria Urine Automated None Seen (None Seen); Bilirubin Urine Negative (Negative); Blood Urine Trace (Negative); Cast Urine Automated 0-2 /lpf (0-2); Color Urine Yellow; Epithelial Cell Urine Auto 0-2 /hpf (0-2); Glucose Urine UA Negative (Negative); Ketones Urine Trace (Negative); Leukocyte Esterase Urine Negative (Negative); Nitrite Urine Negative (Negative); Protein Urine Trace (Negative); RBC Urine Automated 0-2 /hpf (0-2); Specific Gravity Urine 1.037 (1.000-1.030); Urobilinogen Urine Negative (Negative); WBC Urine Automated 0-5 /hpf (0-5)
[2023-12-16 01:52] LABS: Hematocrit (blood only) 25.8 % (37.0-47.0)
[2023-12-16] MEDS: THIAMINE HCL 100 MG in SYRINGE 9 ML IV STA (03:19)
[2023-12-16 06:46] LABS: Basophils # (auto) 0.03 K/uL (0.00-0.20); Basophils % (auto) 0.4 %; Hematocrit (blood only) 24.1 % (37.0-47.0); Hemoglobin 7.6 g/dl (12.0-16.0); Immature Granulocytes # (auto) 0.03 K/uL (0.01-0.20); Immature Granulocytes % (auto) 0.4 %; Lymphocytes # (auto) 1.14 K/uL (1.20-3.40); Lymphocytes % (auto) 13.9 %; Mean Corpuscular Hemoglobin 26.7 pg (25.0-34.0); Mean Corpuscular Hgb Conc 31.5 g/dL (32.0-36.0); Mean Corpuscular Volume 84.6 fL (80.0-100.0); Mean Platelet Volume 8.6 fL (9.4-12.4); Monocytes # (auto) 1.33 K/uL (0.11-0.59); Monocytes % (auto) 16.3 %; Neutrophils # (auto) 5.65 K/uL (1.40-6.50); Platelet Count 326 K/uL (130-400); RDW Coefficient of Variation 14.7 % (11.5-14.5); RDW Standard Deviation 45.8 fL (36.4-46.3); Red Blood Count 2.85 M/uL (4.20-5.40); White Blood Count 8.18 K/ul (4.8-10.8)
[2023-12-16] MEDS ORDERED: SODIUM CHLORIDE 0.9% 250 ML IV PRN (06:58)
--- NOTE | 2023-12-16 07:03 | Hospitalist Progress Note ---
Date of Service December 16, 2023 Assessment & Plan (1) Acute GI bleeding: Plan: Acute onset of generalized abdominal pain on 12/14 with black, tarry stool, diarrhea in setting of ibuprofen 200mg x ~6tabs daily A/P CT IV contrast:chronic renal artery stenosis, and occlusion of right superficial femoral artery stent BUN/creatinine elevated at 23.1 Hgb 10.0-->7.6, in setting of CAD was transfused 1U blood 1U blood on hold, recommend transfusion at <8g/dL Protonix drip Zofran as needed for nausea/vomiting Gastroenterology consulted clear liquid diet for now NPO midnight plan EGD repeat H&H 10pm (2) Peripheral artery disease: Plan: S/p SFA stent in 2013 S/p right femoral artery endarterectomy and stent in 2017 Patient takes aspirin and Plavix daily for her stents Hold antiplatelets in setting of acute GI bleed (3) Thoracic back pain: Plan: Patient endorses 10/10 upper back pain, chronic Last chest CT in June 2023 revealed extensive coronary artery calcifications, and atherosclerosis of the thoracic aorta without aneurysm Heat application daily Lidocaine patch as needed Acetaminophen and Morphine for pain (4) Hypocalcemia: Plan: repleted (5) Smoker: Plan: Patient is a current everyday tobacco cigarette smoker; <1 PPD She would like a nicotine patch while inpatient 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 HS (and as needed) for anxiety This could be clonidine withdrawal syndrome / rebound HTN, hold off any transition to clonidine patch at this time. PCU status (8) Anxiety: Plan: Normally takes clonidine 0.2mg p.o. HS and as needed; will give 0.2mg x 1, then hold for now Valium 2mg IV q6h PRN (9) Sinus tachycardia: Plan Disposition: Admit to PCU telemetry DNR/DNI clear liquid diet, NPO midnight VTE PPx: hold chemical DVT PPx in setting of acute upper GI bleed; hold mechanical DVT PX in the setting of extensive leg PAD Admission and Anticipated Discharge Date Admission Date: December 15, 2023 Supervising Physician Co-Signing Physician Notes I personally examined the patient and verified all james points of history and exam, discussed case, and agree with decision making with Dr Miranda Feeling better. Stomach pain better. Tolerating clear liquids without pain or difficulty. Back pain currently better, leg pain currently better. Vitals noted, in general she is awake and alert pleasant no distress. HEENT normocephalic atraumatic mucous membranes moist. Abdomen is soft she does have mild epigastric tenderness with very mild voluntary guarding no rebound no rigidity. Bilateral lower extremities show no cyanosis clubbing or edema no calf tenderness no cords. Neuro without focal deficits. Upper GI bleeding, presumed PUDimproved on Protonix drip. Acute blood loss anemia requiring 1 unit transfusion earlier todayappears to be hemodynamically stable and symptoms appear to have resolved. Continue current care, anticipate EGD tomorrow. Will need to work on alternate regimen for back pain to avoid NSAIDs. Discussed smoke cessation. DVT proph -pharmacologic obviously contraindicated due to GI bleeding. Ambulation as possible. (mechanical of dubious benefit and possible risks (falls/skin breakdown) Subjective Patient seen at bedside, calm comfortable cooperative. Pain well controlled at this time. Denies any SOB fever N/V D/C. Understands we are awaiting GI for possible colonoscopy/EGD Physical Exam Constitutional: WD/WN, vitals as above ENMT: external ear and nose normal, oropharynx normal Respiratory: normal respiratory effort, lungs clear to auscultation Cardiovascular: Rate/Rhythm: regular rate and regular rhythm Gastrointestinal (Abdomen): Inspection/Auscultation: abdomen normal to inspection Percussion/Palpation: abdomen soft; abdomen nontender Skin: no rashes, warm and dry Results & Data Results & Data Vital Signs (Past 12 Hours) Vital Signs Temp Pulse Pulse Resp BP BP Pulse Ox 12/16/23 02:38 37.3 C 98 H 20 193/79 H 98 12/16/23 00:15 101 H 208/92 H 12/15/23 23:59 106 H 209/80 H 12/15/23 23:45 12/15/23 23:38 108 H 12/15/23 23:37 37.1 C 106 H 20 209/80 H 99 12/15/23 23:22 12/15/23 21:01 109 H 22 182/94 H 100 12/15/23 19:13 111 H 22 157/108 H 99 O2 Del Method 12/16/23 02:38 Room Air 12/16/23 00:15 12/15/23 23:59 12/15/23 23:45 Room Air 12/15/23 23:38 12/15/23 23:37 Room Air 12/15/23 23:22 Room Air 12/15/23 21:01 Room Air 12/15/23 19:13 Room Air Resident Activity Tracking Resident Involvement: Resident Care Provided Care Provided: Adult Hospital Medicine (3) Thoracic back pain Back pain laterality: bilateral Chronicity: chronic Qualified Code(s): M54.6 - Pain in thoracic spine; G89.29 - Other chronic pain (7) Hypertension Hypertension type: essential hypertension Qualified Code(s): I10 - Essential (primary) hypertension
[2023-12-16 07:12] LABS: BUN Creatinine Ratio 21.2 (10-20); Calcium 8.5 mg/dl (8.6-10.3); Creatinine Clr Calc Pharmacy 47.3 ml/min; Est GFR (African American) 79.3 ml/min; Est GFR (Non-African American) 68.5 ml/min; Potassium 4.5 mmol/L (3.5-5.1)
--- NOTE | 2023-12-16 07:18 | Electrocardiogram Report ---
Test Reason : Blood Pressure : / mmHG Vent. Rate : 107 BPM Atrial Rate : 107 BPM P-R Int : 154 ms QRS Dur : 072 ms QT Int : 348 ms P-R-T Axes : 083 064 082 degrees QTc Int : 464 ms Sinus tachycardia with occasional Premature ventricular complexes Otherwise normal ECG When compared with ECG of 09-MAY-2023 09:47, No significant change was found Confirmed by Americo Grey ([id number]) on 12/16/2023 7:18:13 AM Referred By: REFERRED SELF Confirmed By:Troy Grey
[2023-12-16 07:22] LABS: Troponin I High Sensitivity 30.5 pg/ml (0-14)
[2023-12-16] MEDS: NICOTINE 14 MG/24 HR PATCH TD SCH (08:51)
[2023-12-16] MEDS: buPROPion SR 150 MG TABCR PO SCH (08:51)
[2023-12-16 09:15] LABS: RBC Morphology Unremarkable
--- NOTE | 2023-12-16 13:06 | Gastrointestinal Consultation ---
Date of Consultation December 16, 2023 Assessment & Plan (1) Melena: No signs of ongoing GI bleeding VSS, actually quite hypertensive Ok with Liquids, NPO after MN EGD with Dr. Dewitt or [facility] in the AM Continue ppi gtt would suggest chest/thoracic imaging given history of suspected lung ca and upper back pain Call with questions History of Present Illness Attending Physician: Cm Sanchez, DO History of Present Illness 73 yo with below past medical history but specifically a nonbx but suspected bronchogenic carcinoma s/p isolated radiation treatment who has had c/o 1 week of severe upper back pain followed by nausea, non bilious non bloody emesis, diarrhea, and concern of melena based upon description of dark stools occurring frequently but none since 430 pm yesterday She presented with a drop in her hb of 8.4 down from 10 falling to 7.6 today without any output and iv hydration. She is receiving 1 unit during interview and is very frustrated about being in the hospital as well as having her BP checked so frequently. She has significant vascular disease as well complicating her history and has been taking ibuprofen for these back pains for quite some time. Feels overall improved, started on PPI gtt, no further GI oupt since admission. Allergies Allergy/AdvReac Type Severity Reaction Status Date / Time hydromorphone [From Dilaudid] AdvReac Intermediate Vomiting Verified 12/04/23 10:40 baclofen AdvReac Confusion Verified 12/04/23 10:40 Home Medications Medication Instructions Recorded Confirmed Type aspirin 81 mg tablet,delayed 81 mg PO QAM 05/16/18 12/15/23 History release acetaminophen 500 mg capsule 1,000 mg PO Q8H PRN Pain 02/17/22 12/15/23 History clopidogrel 75 mg tablet (Plavix) 75 mg PO QAM #30 tabs 06/19/23 12/15/23 Rx bupropion HCl 150 mg tablet,12 hr 150 mg PO BID #60 ea 08/13/23 12/15/23 Rx sustained-release ibuprofen 600 mg tablet 600 mg PO Q8H PRN Pain 11/08/23 12/15/23 History atorvastatin 20 mg tablet 20 mg PO QAM #90 tabs 11/26/23 12/15/23 Rx gabapentin 300 mg capsule 300 mg PO TID #90 caps 12/04/23 12/15/23 Rx levalbuterol tartrate 45 2 inh inhalation Q4H PRN shortness 12/07/23 12/15/23 Rx mcg/actuation aerosol inhaler of breath or wheezing #15 grams albuterol sulfate 90 mcg/actuation 2 puff inhalation UD PRN as 12/15/23 12/15/23 History aerosol inhaler (Ventolin HFA) directed clonidine HCl 0.2 mg tablet 0.2 mg PO BID PRN Anxiety 12/15/23 12/15/23 History lisinopril 20 mg tablet 20 mg PO QAM 12/15/23 12/15/23 History methocarbamol 750 mg tablet 750 mg PO TID PRN Muscle Spasm #45 12/15/23 Rx tabs Patient History Medical History Myofascial pain Thoracic back pain History of ankle fracture (10/13/22) Right ankle, Distal fibula avulsion fx, chronic anterior tibia avulsion fx History of anemia Ankle fracture 10/2022, recommended boot > ASO brace per ortho records Sciatica Footdrop Left Vulvar cancer Remote hx "years ago", treated surgically Cervical cancer Approximately 1979, treated surgically Degenerative disc disease, lumbar Chronic sinusitis 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 "well controlled" Lung nodule s/p radiation treatments Following with [facility] [place] oncology- monitoring, "stable" Esophageal reflux Occasional Osteoporosis Anxiety Hx of cirrhosis Hx ETOH abuse/alcoholism per records (0-2 drinks/wine per day per PAT RN phone assessment 05/01/23) Peripheral artery disease S/P SFA stent (2013) S/P right femoral artery endarterectomy/stent (2017) Taking Plavix Depression Hypertension Hyperlipidemia Hepatic encephalopathy Remote hx Surgical History S/P excision of lipoma (05/09/23) Excision of Intramuscular Back Lipoma - Suraj Kincaid, DO, FACS History of dilatation and curettage History of knee surgery R knee repair (patella fracture) History of back surgery lumbar discectomy History of foot surgery Debridement of left foot ulcer (09/09/18): LMA#4.0 unique, atraumatic at [facility] H/O adenoidectomy History of surgery Radical removal of vulva, partial History of laryngoscopy With biopsy History of tooth extraction History of endarterectomy Right femoral artery endarterectomy/stent (05/31/18): Grade view 1, MAC#3, ETT 7.5 at [facility] History of surgery SFA stent (2013) per records Hx of hysterectomy + USO History of throat surgery Benign growth removal History of tonsillectomy Family History Mother , 72yo Smoker "Bad circulation" Father , in his 70s Alzheimer disease Brother No problems noted. Sister No problems noted. Sister No problems noted. Son No problems noted. Daughter No problems noted. Daughter No problems noted. Aunt Cancer Other No pertinent family history Denies family history of Ovarian cancer Prostate cancer Myocardial infarction Breast cancer Colorectal cancer Social History Smoking Status: Current every day smoker Tobacco Type: Cigarettes Age Started Using Tobacco: 15; packs per day: 0.5; Cigarettes Per Day: 20; Second Hand Exposure: Yes; Do You Dip or Chew Tobacco: No; Hx Alcohol Use: Yes Alcohol type: wine Alcohol Intake Frequency: 4 or More x per/Week Alcohol Intake Frequency Comment: 2 glasses at dinner. 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 Other Information That Helps Us Care for You: No Feels Safe at Home: Yes Safety Concerns: Feels Safe At This Time Childhood Exposure to Second-Hand Smoke: Yes Diet: regular caffeine: Yes (coffee) during the past year weight has: remained stable Dental Care, Regularly: No Physical Activity Frequency: Does not Exercise Seatbelt Use: always Sunscreen Use: No Assistive Devices: Denture - Upper Review of Systems Review of Systems: 10 system view negative except for as ab ove Physical Exam Physical Exam: restless nad RRR CTABL Nabs/soft/nt/nd no edema Results & Data Vital Signs (Past 12 Hours) Vital Signs Temp Pulse Pulse Resp BP BP Pulse Ox 12/16/23 11:01 36.7 C 88 20 142/77 H 99 12/16/23 10:51 101 H 175/99 H 12/16/23 10:30 99 H 183/103 H 12/16/23 10:00 99 H 163/87 H 12/16/23 09:45 95 H 171/75 H 12/16/23 09:27 37.1 C 103 H 175/74 H 98 12/16/23 07:08 37.0 C 100 H 20 163/74 H 100 12/16/23 02:38 37.3 C 98 H 20 193/79 H 98 O2 Del Method 12/16/23 11:01 Room Air 12/16/23 10:51 12/16/23 10:30 12/16/23 10:00 12/16/23 09:45 12/16/23 09:27 12/16/23 07:08 Room Air 12/16/23 02:38 Room Air
--- NOTE | 2023-12-16 14:28 | Billing Data ---
Date of Service December 16, 2023 Coding Level of Care Code 39493 SUB INP/OBS CARE MIN
[2023-12-16 14:46] LABS: Hematocrit (blood only) 29.3 % (37.0-47.0); Hemoglobin 9.5 g/dl (12.0-16.0)
[2023-12-16] MEDS: LABETALOL HCL IV 5 MG/ML 20ML IV PRN (22:59)
[2023-12-16] MEDS: cloNIDine HCL 0.1 MG TAB PO PRN (23:25)
[2023-12-16 23:33] LABS: Hematocrit (blood only) 31.2 % (37.0-47.0); Hemoglobin 9.9 g/dl (12.0-16.0)
[2023-12-17 07:19] LABS: Basophils # (auto) 0.03 K/uL (0.00-0.20); Basophils % (auto) 0.5 %; Eosinophils # (auto) 0.05 K/uL (0.00-0.50); Eosinophils % (auto) 0.9 %; Hematocrit (blood only) 30.2 % (37.0-47.0); Hemoglobin 9.5 g/dl (12.0-16.0); Immature Granulocytes # (auto) 0.02 K/uL (0.01-0.20); Immature Granulocytes % (auto) 0.4 %; Mean Corpuscular Hgb Conc 31.5 g/dL (32.0-36.0); Mean Corpuscular Volume 85.8 fL (80.0-100.0); Mean Platelet Volume 8.6 fL (9.4-12.4); Monocytes # (auto) 0.75 K/uL (0.11-0.59); Monocytes % (auto) 13.3 %; Neutrophils # (auto) 3.89 K/uL (1.40-6.50); Neutrophils % (auto) 68.9 %; Platelet Count 276 K/uL (130-400); RDW Coefficient of Variation 14.9 % (11.5-14.5); RDW Standard Deviation 46.2 fL (36.4-46.3); Red Blood Count 3.52 M/uL (4.20-5.40); White Blood Count 5.64 K/ul (4.8-10.8)
[2023-12-17 07:41] LABS: BUN Creatinine Ratio 11.1 (10-20); Calcium 8.6 mg/dl (8.6-10.3); Creatinine Clr Calc Pharmacy 55.9 ml/min; Est GFR (Non-African American) 83.7 ml/min; Potassium 3.8 mmol/L (3.5-5.1)
--- NOTE | 2023-12-17 08:12 | Anesthesiology Consultation ---
Date of Service December 17, 2023 Assessment & Plan Chart Review Chart Review: Acceptable Risk for Surgery and Patient NOT seen in Pre Admission Testing Consults Requested none ASA ASA4 Proposed Anesthesia Anesthesia Type: MAC History Surgery Operation Date: 12/17/23 16:30 Proposed Procedures p Esophagogastroduodenoscopy Dr Dewitt - Ap [place] Case, DO Height/Weight Height: 5 ft 2 in Weight: 57.2 kg Allergies Allergy/AdvReac Type Severity Reaction Status Date / Time hydromorphone [From Dilaudid] AdvReac Intermediate Vomiting Verified 12/04/23 10:40 baclofen AdvReac Confusion Verified 12/04/23 10:40 Medications Home Medications Medication Instructions Recorded Confirmed Last Taken aspirin 81 mg tablet,delayed 81 mg PO QAM 05/16/18 12/15/23 05/02/23 release acetaminophen 500 mg capsule 1,000 mg PO Q8H PRN Pain 02/17/22 12/15/23 05/08/23 08:30 clopidogrel 75 mg tablet (Plavix) 75 mg PO QAM #30 tabs 06/19/23 12/15/23 Unknown bupropion HCl 150 mg tablet,12 hr 150 mg PO BID #60 ea 08/13/23 12/15/23 Unknown sustained-release ibuprofen 600 mg tablet 600 mg PO Q8H PRN Pain 11/08/23 12/15/23 Unknown atorvastatin 20 mg tablet 20 mg PO QAM #90 tabs 11/26/23 12/15/23 Unknown gabapentin 300 mg capsule 300 mg PO TID #90 caps 12/04/23 12/15/23 Unknown levalbuterol tartrate 45 2 inh inhalation Q4H PRN shortness 12/07/23 12/15/23 Unknown mcg/actuation aerosol inhaler of breath or wheezing #15 grams albuterol sulfate 90 mcg/actuation 2 puff inhalation UD PRN as 12/15/23 12/15/23 Unknown aerosol inhaler (Ventolin HFA) directed clonidine HCl 0.2 mg tablet 0.2 mg PO BID PRN Anxiety 12/15/23 12/15/23 Unknown lisinopril 20 mg tablet 20 mg PO QAM 12/15/23 12/15/23 Unknown methocarbamol 750 mg tablet 750 mg PO TID PRN Muscle Spasm #45 12/15/23 Unknown tabs Active Medications Generic Name Dose Route Start Last Admin Trade Name Freq PRN Reason Stop Dose Admin Bupropion HCl 150 mg 12/16/23 09:00 12/17/23 07:50 Bupropion Sr 150 Mg Tabcr PO 01/15/24 08:59 150 mg BID RONNIE Administration Clonidine HCl 0.2 mg 12/16/23 02:50 12/16/23 23:25 Clonidine Hcl 0.1 Mg Tab PO 01/15/24 02:49 0.2 mg BID PRN Administration Anxiety Pantoprazole Sodium 40 mg/ 100 mls @ 20 mls/hr 12/15/23 22:45 12/17/23 04:14 Dextrose IV 01/14/24 22:44 8 mg/hr Q5H RONNIE 20 mls/hr Administration 8 MG/HR Labetalol HCl 5 mg 12/16/23 04:00 12/16/23 22:59 Labetalol Hcl Iv 5 Mg/Ml 20ml IV 01/15/24 03:59 5 mg Q4H PRN Administration HTN emergency Miscellaneous 1 each 12/16/23 09:00 12/17/23 07:51 Remove Lidoderm Patch N/A 01/15/24 08:59 1 each DAILY@0900 RONNIE Administration Miscellaneous 1 each 12/16/23 08:59 12/17/23 07:50 Remove Nicoderm Patch N/A 01/15/24 08:58 1 each DAILY@0859 RONNIE Administration Nicotine 14 mg 12/16/23 09:00 12/17/23 07:50 Nicotine 14 Mg/24 Hr Patch TD 01/15/24 08:59 14 mg QAM RONNIE Administration Past Medical History Medical History Myofascial pain Thoracic back pain History of ankle fracture (10/13/22) Right ankle, Distal fibula avulsion fx, chronic anterior tibia avulsion fx History of anemia Ankle fracture 10/2022, recommended boot > ASO brace per ortho records Sciatica Footdrop Left Vulvar cancer Remote hx "years ago", treated surgically Cervical cancer Approximately 1979, treated surgically Degenerative disc disease, lumbar Chronic sinusitis 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 "well controlled" Lung nodule s/p radiation treatments Following with [facility] [place] radiation oncology- monitoring, "stable" Esophageal reflux Occasional Osteoporosis Anxiety Hx of cirrhosis Hx ETOH abuse/alcoholism per records (0-2 drinks/wine per day per PAT RN phone assessment 05/01/23) Peripheral artery disease S/P SFA stent (2013) S/P right femoral artery endarterectomy/stent (2017) Taking Plavix Depression Hypertension Hyperlipidemia Hepatic encephalopathy Remote hx Exercise / Class Metabolic Activity III < 4 Walking/Shop/Light housework Past Family History Family History Mother , 72yo Smoker "Bad circulation" Father , in his 70s Alzheimer disease Brother No problems noted. Sister No problems noted. Sister No problems noted. Son No problems noted. Daughter No problems noted. Daughter No problems noted. Aunt Cancer Other No pertinent family history Denies family history of Ovarian cancer Prostate cancer Myocardial infarction Breast cancer Colorectal cancer Past Surgical History Surgical History S/P excision of lipoma (05/09/23) Excision of Intramuscular Back Lipoma - Suraj Kincaid, DO, FACS History of dilatation and curettage History of knee surgery R knee repair (patella fracture) History of back surgery lumbar discectomy History of foot surgery Debridement of left foot ulcer (09/09/18): LMA#4.0 unique, atraumatic at [facility] H/O adenoidectomy History of surgery Radical removal of vulva, partial History of laryngoscopy With biopsy History of tooth extraction History of endarterectomy Right femoral artery endarterectomy/stent (05/31/18): Grade view 1, MAC#3, ETT 7.5 at [facility] History of surgery SFA stent (2013) per records Hx of hysterectomy + USO History of throat surgery Benign growth removal History of tonsillectomy Past Anesthesia History No Hx of Anesthesia Complications and No Family Hx of Anesthesia Complications History of PONV No Hx of PONV and No Hx of Motion Sickness Social History Smoking Status: Current every day smoker tobacco type: cigarettes Smoking cigarettes per day: 20 Do You Dip or Chew Tobacco: No Hx Alcohol Use: Yes Alcohol type: wine alcohol intake frequency: 3 or more drinks per day Alcohol Intake Frequency Comment: Last drink 12/15/23 1000 Hx Substance Use: No substance use type: does not use Physical Exam Vital Signs Last Vital Signs Temp 36.8 C 12/17/23 07:07 Pulse 90 12/17/23 07:07 Resp 18 12/17/23 07:07 BP 185/80 H 12/17/23 07:07 Pulse Ox 96 12/17/23 07:07 O2 Del Method Room Air 12/17/23 07:07 Testing Laboratory Results 12/17/23 06:22 12/17/23 06:22 PT 10.3 Seconds (9.0-12.0) 12/15/23 17:38 INR 0.9 (0.9-1.1) 12/15/23 17:38 Urine Color Yellow 12/16/23 01:26 Urine Appearance Clear (Clear) 12/16/23 01:26 Urine pH 6.0 (4.5-7.5) 12/16/23 01:26 Ur Specific [place] 1.037 (1.000-1.030) H 12/16/23 01:26 Urine Protein Trace (Negative) H 12/16/23 01:26 Urine Glucose (UA) Negative (Negative) 12/16/23 01:26 Urine Ketones Trace (Negative) H 12/16/23 01:26 Urine Nitrite Negative (Negative) 12/16/23 01:26 Ur Leukocyte Esterase Negative (Negative) 12/16/23 01:26 Urine WBC (Auto) 0-5 /hpf (0-5) 12/16/23 01:26 Urine RBC (Auto) 0-2 /hpf (0-2) 12/16/23 01:26 U Hyaline Cast (Auto) 0-2 /lpf (0-2) 12/16/23 01:26 U Epithel Cells (Auto) 0-2 /hpf (0-2) 12/16/23 01:26 Urine Bacteria (Auto) None Seen (None Seen) 12/16/23 01:26 Blood Type A Negative 12/15/23 17:38 Antibody Screen NEGATIVE 12/15/23 17:38 Electrocardiogram Date: 12/15/23 Findings: + ST @ (@ 107 w/ occas. pvc's) Chest X-Ray Date: 04/23/23 Findings: + atherosclerosis of thoracic aorta c/w copd/emphysema Pulmonary Function Test Date: 02/21/22 Findings: + DLCO (mildly decreased) moderate obstruction
[2023-12-17] MEDS ORDERED: ePHEDrine sulfate 50 MG/ML AMP IV PRN (08:20)
[2023-12-17] MEDS ORDERED: ATROPINE SULFATE 0.1 MG/ML 10ML SYR IV PRN (08:20)
--- NOTE | 2023-12-17 08:49 | Communication Note ---
Date of Service: December 17, 2023 S: No further melena. No abd pain, fevers, chills, nausea, vomiting or diarrhea. She states that she feels better today. O: Gen: A+O x3, cooperative CVS: RRR Pulm: CTA b/l Abd: Soft, NT, ND, +BS A/P: 73 yo CF who presented with acute blood loss anemia and melena. Continue current therapy and supportive care Proceed with EGD now.
--- NOTE | 2023-12-17 09:13 | GI REPORT ---
Patient Name: Lilibeth Yeager Procedure Date: 12/17/2023 8:43 AM Date of : 1950 Admit Type: Inpatient Age: 73 Gender: Female Attending MD: pA Dewitt DO, Procedure: Upper GI endoscopy Providers: Ap Dewitt DO Referring MD: Cm Sanchez Indications: Acute post hemorrhagic anemia, Melena Medicines: Monitored Anesthesia Care Complications: No immediate complications. Estimated Blood Loss: Estimated blood loss: none. Procedure: Pre-Anesthesia Assessment: - Prior to the procedure, a History and Physical was performed, and patient medications and allergies were reviewed. The patient's tolerance of previous anesthesia was also reviewed. The risks and benefits of the procedure and the sedation options and risks were discussed with the patient. All questions were answered, and informed consent was obtained. Prior Anticoagulants: The patient has taken Plavix (clopidogrel), last dose was 2 days prior to procedure. ASA Grade Assessment: IV - A patient with severe systemic disease that is a constant threat to life. After reviewing the risks and benefits, the patient was deemed in satisfactory condition to undergo the procedure. After obtaining informed consent, the endoscope was passed under direct vision. Throughout the procedure, the patient's blood pressure, pulse, and oxygen saturations were monitored continuously. The Endoscope was introduced through the mouth, and advanced to the second part of duodenum. The upper GI endoscopy was accomplished without difficulty. The patient tolerated the procedure well. Findings: The esophagus was normal. A small hiatal hernia was present. Localized mild inflammation characterized by erythema was found in the gastric antrum. The examined duodenum was normal. Impression: - Normal esophagus. - Small hiatal hernia. - Gastritis. - Normal examined duodenum. - No specimens collected. Recommendation: - Return patient to [facility] for [facility] care. - Advance diet as tolerated. - Continue present medications. Ap Dewitt DO 12/17/2023 9:12:52 AM This report has been signed electronically. Note Initiated On: 12/17/2023 8:43 AM Number of Addenda: 0 I attest to the content of the Intraoperative Record and orders documented therein, exceptions below {[id number]}
[2023-12-17 09:29] VITALS: RESP 18
--- NOTE | 2023-12-17 09:33 | Anesthesiology Progress Note ---
Date of Service December 17, 2023 Anesthesia Post Procedure Vital Signs Vital Signs: Temp Pulse Pulse Pulse Resp BP BP 12/17/23 09:25 81 18 178/73 H 12/17/23 09:10 90 16 152/97 H 12/17/23 08:03 36.8 C 99 H 16 197/92 H 12/17/23 07:07 36.8 C 90 18 185/80 H 12/17/23 02:49 36.7 C 77 18 165/77 H 12/16/23 23:16 81 205/71 H 12/16/23 22:59 95 H 227/86 H 12/16/23 22:56 36.7 C 95 H 20 227/86 H 12/16/23 22:26 91 H 12/16/23 19:56 12/16/23 19:00 36.9 C 92 H 16 204/81 H 12/16/23 15:39 36.9 C 91 H 18 196/80 H 12/16/23 13:56 12/16/23 11:01 36.7 C 88 20 142/77 H 12/16/23 10:51 101 H 175/99 H 12/16/23 10:30 99 H 183/103 H 12/16/23 10:00 99 H 163/87 H 12/16/23 09:45 95 H 171/75 H Pulse Ox O2 Del Method 12/17/23 09:25 98 Room Air 12/17/23 09:10 100 Room Air 12/17/23 08:03 99 Room Air 12/17/23 07:07 96 Room Air 12/17/23 02:49 97 Room Air 12/16/23 23:16 12/16/23 22:59 12/16/23 22:56 98 Room Air 12/16/23 22:26 12/16/23 19:56 Room Air 12/16/23 19:00 95 Room Air 12/16/23 15:39 97 Room Air 12/16/23 13:56 Room Air 12/16/23 11:01 99 Room Air 12/16/23 10:51 12/16/23 10:30 12/16/23 10:00 12/16/23 09:45 Transfer of Care Handoff Completed per policy Notes Mental Status: alert / awake / arousable Patient Amnestic to Procedure: Yes Nausea / Vomiting: adequately controlled Pain: adequately controlled Airway Patency, RR, SpO2: stable & adequate BP & HR: stable & adequate Hydration State: stable & adequate Anesthetic Complications: no major complications apparent
[2023-12-17] MEDS: SODIUM CHLORIDE 0.9% 500 ML IV SCH (10:03)
[2023-12-17] MEDS: LIDOCAINE 2% 2 ML VIAL/AMP(20MG/ML) INFIL ONE (10:04)
[2023-12-17] MEDS: PROPOFOL IV EMULSION 10 MG/ML 20 ML VIAL IV ONE (10:04)
[2023-12-17 15:57] VITALS: BP 189/99; TEMP 98.2; O2SAT 99
[2023-12-17 16:09] VITALS: PULSE 99
--- NOTE | 2023-12-17 16:37 | Discharge Summary ---
Discharge Summary Date of Service December 17, 2023 Notes For Next Care Provider Medication Changes From Visit asa/plavix on hold for now; protonix 40mg bid; stop ibuprofen Admission HPI Per Admitting Provider Lilibeht is a 73-year-old female with PMH of HLD, COPD, anxiety, PAD, and HTN. She presented for dark stools x 2 days, as well as abdominal pain, upper back pain, nausea, and dry heaves the morning of 12/14. Patient is writhing in pain at time of admission. Both patient's and daughter are in the room and provide most of the history; they report that this is the "worst pain they have ever seen her in". Patient endorses 10/10 upper left back pain at present. Patient also endorses generalized abdominal pain that started acutely this morning. Patient started feeling sick to her stomach last night, but then daughter found her on the ground this afternoon. Patient denies falling, but reports she was just too weak and went slowly to the ground. Daughter found dark, tarry stool in the bathroom. No orion or bright red blood in stool. Patient has been having ongoing back pain over the past year ever since she had a lipoma from her left upper back. She has been applying medicated patches, as well as a heating pad with the pain, that comes and goes intermittently. She is also been taking ibuprofen 200 mg x 6 tablets daily for the pain; as well as methocarbamol TID for muscle spasms. Patient has not vomited today, she endorses nausea, hacking cough with mucus, and constant dry heaves. She is a current everyday tobacco cigarette smokers; she rolls her own cigarettes; < 1 PPD. Patient is unsure if she took her regular morning medicines today; no recent change in medicines, but she does note she takes aspirin and Plavix daily for the stent in her right leg. Stent was placed "years ago". Patient also drinks 1 to 2 glasses of wine per day. She takes clonidine at bedtime (and as needed) for her anxiety. Patient's does note that she started having diarrhea 2 days ago. Patient is hypertensive at 157/108 and tachycardic at 111bpm at time of evaluation. ED course: NSS 1000 mL IV Protonix 40 mg IV Zofran 4 mg IV ROS: Patient endorses chills, intractable upper back pain, acute onset of generalized abdominal pain, dry heaving, gagging, nausea, Patient denies fever, night-sweats, dizziness, lightheadedness, GARCIA, vomiting, hematemesis, Principal Dx & Hospital Course #1 = Principal Diagnosis (1) Acute GI bleeding: Acute onset of generalized abdominal pain on 12/14 with black, tarry stool, diarrhea in setting of ibuprofen 200mg x ~6tabs daily A/P CT IV contrast:chronic renal artery stenosis, and occlusion of right superficial femoral artery stent EGD w gastritis ---improved on protonix; hold asa/plavix for now, continue protonix --->stop ibuprofen (and ideally smoking) entirely indefinitely; if doing well can resume plavix in a few days (suggested 12/19) and asa by next week (if PCP f/u, repeat CBC suggests she's doing well) --->strongly consider colo somewhat electively as outpt ---had acute blood loss anemia w hemodynamics requiring 1 unit PRBC (2) Peripheral artery disease: S/p SFA stent in 2013 S/p right femoral artery endarterectomy and stent in 2018 Patient takes aspirin and Plavix daily for her stents having to hold antiplatelets for now given bleeding requiring transfusion - resume as quickly as safely can since severe PAD (3) Thoracic back pain: following actively w pain management; endorses no concern on being off ibuprofen. for MRI this week and follow up w pain management in near future. discussed high likelihood of biomechanical pain and benefit of trigger point injections if this is the case (can also refer for OMT if trigger point management alone isn't enough) (4) Hypocalcemia: repleted (5) Smoker: Patient is a current everyday tobacco cigarette smoker; <1 PPD repeatedly encouraged smoke cessation (6) Elevated troponin: very mild demand ischemia due to bleeding. troponin peaked at 30.5 (7) Hypertension: outpt f/u, home meds for now (8) Anxiety: (9) Sinus tachycardia: Plan safe/stable for home, outpt f/u Discharge Exam gen aaox3 pleasant nad heent nc at mmm breathing unlabored no accessory muscles good efffort skin no rashes no pallor or icterus neuro no focal deficits Updated Medication List Medication Instructions Recorded Confirmed Type aspirin 81 mg tablet,delayed 81 mg PO QAM 05/16/18 12/15/23 History release acetaminophen 500 mg capsule 1,000 mg PO Q8H PRN Pain 02/17/22 12/15/23 History clopidogrel 75 mg tablet (Plavix) 75 mg PO QAM #30 tabs 06/19/23 12/15/23 Rx bupropion HCl 150 mg tablet,12 hr 150 mg PO BID #60 ea 08/13/23 12/15/23 Rx sustained-release atorvastatin 20 mg tablet 20 mg PO QAM #90 tabs 11/26/23 12/15/23 Rx gabapentin 300 mg capsule 300 mg PO TID #90 caps 12/04/23 12/15/23 Rx levalbuterol tartrate 45 2 inh inhalation Q4H PRN shortness 12/07/23 12/15/23 Rx mcg/actuation aerosol inhaler of breath or wheezing #15 grams albuterol sulfate 90 mcg/actuation 2 puff inhalation UD PRN as 12/15/23 12/15/23 History aerosol inhaler (Ventolin HFA) directed clonidine HCl 0.2 mg tablet 0.2 mg PO BID PRN Anxiety 12/15/23 12/15/23 History lisinopril 20 mg tablet 20 mg PO QAM 12/15/23 12/15/23 History methocarbamol 750 mg tablet 750 mg PO TID PRN Muscle Spasm #45 12/15/23 Rx tabs pantoprazole 40 mg tablet,delayed 40 mg PO BID #60 tabs 12/17/23 Rx release Hospital Stay Data Consultations 12/15/23 19:23 ED Decision to Admit Stat 12/15/23 23:37 Consult Gastroenterology Routine Procedures Performed Operation Date: 12/17/23 16:30 Actual Procedures p Esophagogastroduodenoscopy - Ap [place] Case, DO Diagnostic Imagining Performed 12/15/23 18:14 CT Abd and Pelvis [CT abd pelvis IV con only] Stat Pending Results Patient Have Any Pending Studies at Discharge: No Discharge Instructions Given to Patient (Per Discharging Provider) gastritis - gastritis is essentially a breakdown of your stomach lining, if you think of an ulcer as a gallops, think of gastritis like a "brush burn"this was most likely where the bleeding was coming from. Fortunately the bleeding appears to have stopped, your vital signs look good, and your blood counts came up nicely with the transfusion. - The main reasons you would get gastritis/the main reasons you would have your stomach lining breakdown would be the effects of anti-inflammatories (the ibuprofen far more than the aspirin, but with elements of both) and the impaired blood flow that comes from smoking (making it harder for your stomach to heal over) - definitely stop taking the ibuprofen (see below under "back pain") and ideally stop smoking - we will have you on Protonix (pantoprazole) a medicine that reduces how acidic the environment is in your stomachand allow things to heal over faster. You will be on it 40 mg twice a day for a month, and then depending on how you are doing, most likely Dr. Jimenes will be able to reduce it to daily in a month, and hopefully be able to stop it altogether in a few months. - We will have you follow-up in Dr. Jimenes's office next weekand in the office follow-up today we will check lab work (CBCblood counts). - For now, hold off on both your aspirin and Plavix (clopidogrel). By (12/19) as long as you are feeling well/stomach is feeling better/you have not noticed any more dark/black stoolsresume your Plavix (clopidogrel). After you have been seen in the office/after Dr. Jimenes has been able to review your lab work, you will likely be able to resume your aspirin as soon as next week - as we discussed, the gastritis is most likely the "smoking gun" for the bleeding, but you were blood loss seemed a little bit disproportionate to the severity of the gastritis seen. It is still most likely that the gastritis is the culprit, but as we discussed, it would be fairly reasonable to consider having a colonoscopy done sometime in the next several months simply to round out the picture. Back pain - follow through with the MRI that Ned Ramesh has set up. If he sees anything that requires direct intervention based off the MRI, follow his guidance. If there is nothing on the MRI that really directly explains her pain, it is exceedingly common that people with chronic low back pain have much more of a muscular and ligamentous pain then a bone/disc/nerve pain. In that respect, Ned is also very skilled trigger point injections, and that is a very effective way at getting ahead of the muscular side of back pain. If it appears to be muscular, and trigger point injections alone are not helping enough, Dr. Jimenes could refer you within her office to Dr. Oden who, as a DO, does a lot of manipulative medicine to work on muscular back pain. To Do: -stop ibuprofen -stop smoking -don't take aspirin or plavix for the next few days -take protonix (pantoprazole) 40mg twice a day until directed otherwise by Dr Jimenes --->if things are going well start plavix on 12/19 -follow up at Dr Jimenes's office next week for a follow up visit and labwork (CBC) ---->if she "gives you the green light" then restart aspirin next week ---->consider / discuss w Dr Jimenes possibly a colonoscopy in the next few months to round out the picture Total Time Total Time Spent Total Time Spent (In Minutes): <30
--- NOTE | 2023-12-17 16:43 | Billing Data ---
Date of Service December 17, 2023 Coding Level of Care Code 38912 IN/OBS DISCH 30 MIN/LESS
== END 2023-12-17 16:38 | disposition home or self-care (01) | DRG 378 ==
LOC: SUATTDRO → ED 17:07 → 2S 21:34 → SUATTDRO 21:34 → 2S 23:22

== ENCOUNTER 2024-02-17 22:40 | Observation (INO) ==
[2024-02-17] MEDS: SODIUM CHLORIDE 0.9% 1,000 ML IV ONE (23:02)
[2024-02-17 23:16] LABS: Basophils # (auto) 0.05 K/uL (0.00-0.20); Basophils % (auto) 0.5 %; Eosinophils # (auto) 0.09 K/uL (0.00-0.50); Eosinophils % (auto) 0.8 %; Hematocrit (blood only) 29.7 % (37.0-47.0); Hemoglobin 9.6 g/dl (12.0-16.0); Immature Granulocytes # (auto) 0.12 K/uL (0.01-0.20); Immature Granulocytes % (auto) 1.1 %; Lymphocytes # (auto) 0.99 K/uL (1.20-3.40); Lymphocytes % (auto) 9.2 %; Mean Corpuscular Hemoglobin 26.3 pg (25.0-34.0); Mean Corpuscular Hgb Conc 32.3 g/dL (32.0-36.0); Mean Corpuscular Volume 81.4 fL (80.0-100.0); Mean Platelet Volume 9.3 fL (9.4-12.4); Monocytes % (auto) 10.2 %; Neutrophils # (auto) 8.41 K/uL (1.40-6.50); Neutrophils % (auto) 78.2 %; Nucleated RBC # (auto) 0.03 K/uL (0.00-0.12); Nucleated RBC % (auto) 0.3 %; Platelet Count 315 K/uL (130-400); RDW Coefficient of Variation 18.4 % (11.5-14.5); RDW Standard Deviation 53.1 fL (36.4-46.3); Red Blood Count 3.65 M/uL (4.20-5.40); White Blood Count 10.76 K/ul (4.8-10.8)
[2024-02-17 23:32] LABS: Albumin Globulin Ratio 1.6 (0.9-2); Albumin Level 4.6 gm/dl (3.4-5.0); BUN Creatinine Ratio 40.2 (10-20); Bilirubin,Total 0.5 mg/dl (0.2-1.0); Calcium 10.3 mg/dl (8.6-10.3); Creatinine Clr Calc Pharmacy 46.2 ml/min; Est GFR (African American) 77.1 ml/min; Est GFR (Non-African American) 66.6 ml/min; Globulin 2.8 gm/dl (2.5-4.0); Potassium 4.7 mmol/L (3.5-5.1); Total Protein 7.4 gm/dl (6.0-8.3)
[2024-02-17 23:39] LABS: Prothrombin Time 10.8 Seconds (9.0-12.0)
--- NOTE | 2024-02-17 23:47 | Emergency Department Note ---
Impression & Plan Acute upper gastrointestinal bleeding, Melena, Coffee ground emesis ED Provider Note HISTORY OF PRESENT ILLNESS: Patient is a 73-year-old female presenting with dark tarry stool and dark vomitus. Reports that symptoms started at 1800 this evening. She states she has not been having any dark tarry stools in the last 48 hours, today was her first bowel movement at 6 PM. States that she is on Plavix. She does report feeling generally unwell in the last 48 hours, with nausea and some upper abdominal discomfort. Denies any chest pain or shortness of breath. She does report that she has felt dizzy and lightheaded this evening, and with her dark discolored vomit she decided to come get evaluated. She does have a history of a GI bleed. She was admitted previously to the hospital and had a blood transfusion at that time. ROS: as above PHYSICAL EXAM: Constitutional: Patient appears in no acute distress. HENT: Head: Normocephalic and atraumatic. Eyes: EOMI, PERRL Mouth/Throat: Mucous membranes moist. Neck: Trachea midline. Neck supple. Cardiovascular: Tachycardic with regular rhythm. No murmurs, rubs or gallops. Intact distal pulses. Pulmonary/Chest: No respiratory distress. Breath sounds clear and equal bilaterally. No wheezes or rales. Abdominal: Abdomen soft, no tenderness, rebound or guarding. Rectal: Gross melena on glove. Hemoccult positive. Musculoskeletal: No edema, tenderness or deformity noted. Skin: Warm and dry. No rash, erythema, pallor or cyanosis Psychiatric: Appropriate mood and affect for situation. Neurological: Alert and keenly responsive. CN II-XII grossly intact, moving all extremities equally and fully. MDM: - Vitals signs showed hypertension and tachycardia - History obtained via patient. History as above. - Chronic conditions affecting care: COPD; PAD (S/p stent); HTN; HLD - Differential diagnoses include, but are not limited to: bleeding gastric ulcer; duodenal ulcer; gastritis; ACS - Order placed for continuous cardiac monitoring. At this time, monitor showed rate of 92 bpm with normal sinus rhythm, per my interpretation. - External medical records reviewed. Discharge summary dated 12/17/2023 was reviewed. Patient was admitted at that time for acute GI bleeding. EGD performed showed gastritis. EMS run sheet was reviewed. Patient was brought in by [facility]. She was tachycardic and route with them with a heart rate ranging from 100 to 106 bpm. She was given 4 mg of Zofran prehospital. - EKG interpreted by myself showed normal sinus rhythm. Rate tachycardic at 112 bpm. QT 306. No acute ischemic changes. - Laboratory workup interpreted by myself showed normal WBC; chronic anemia (Hgb 9.6); normal PT/INR; stable electrolytes; elevated BUN (35); normal creatinine; normal lipase; elevated glucose (121) - CXR negative for pneumonia, per my interpretation - Patient given 1L NS, 80 mg IV protonix and 20 mg IV pepcid. - Viral respiratory panel negative. - Discussion was had with briefcase sewer about patient's case and need for admission - Hospitalist consulted for admission - Patient admitted to [facility] for further evaluation and management. ASSESSMENT AND PLAN: Diagnosis: upper GI bleed; melena; coffee ground emesis Plan: admit Past Med/Surg History Problem List (Updated 02/18/24 @ 01:10 by Lluvia Saeed MD) Coffee ground emesis (Acute) Melena (Acute) Acute upper gastrointestinal bleeding (Acute) Thoracic facet syndrome Melena Sinus tachycardia Hypocalcemia Acute GI bleeding (Acute) Myofascial pain Thoracic back pain Smoker Chronic obstructive pulmonary disease Footdrop Left Lung nodule (Chronic) s/p radiation treatments [place] [facility], "stable" Anxiety Peripheral artery disease S/P SFA stent (2013) S/P right femoral artery endarterectomy/stent (2017) Taking Plavix Hypertension Hyperlipidemia Medical History (Updated 02/18/24 @ 01:10 by Lluvia Saeed MD) History of left foot drop "not anymore, resolved" Hypocalcemia pt unsure about this dx, "stated it may have been when she was in the hospital in december 2023" Peripheral arterial disease S/P SFA stent (2013) S/P right femoral artery endarterectomy/stent (2017) Taking Plavix Lung nodule s/p radiation treatments [place] [facility] [place] [place] monitoring, "stable" Hyperlipidemia Hypertension Anxiety History of GI bleed 12/2023, had EGD Hx of sinus tachycardia no occupational therapist aide, 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 Cardiac murmur "has had since she was a child, no issues with"; no occupational therapist aide Thoracic facet syndrome History of ankle fracture (10/13/22) Right ankle, Distal fibula avulsion fx, chronic anterior tibia avulsion fx History of anemia Sciatica ongoing Vulvar cancer Remote hx "years ago", treated surgically Cervical cancer Approximately 1979, treated surgically Degenerative disc disease, lumbar Chronic sinusitis Lumbar disc herniation sx to correct COPD (chronic obstructive pulmonary disease) with emphysema "well controlled"; inh prn x2>uses maybe twice per week if at all Esophageal reflux Occasional Osteoporosis Hx of cirrhosis Hx ETOH abuse/alcoholism per records (0-2 drinks/wine per day per PAT RN phone assessment 05/01/23) Depression Hepatic encephalopathy Remote hx Surgical History History of left cataract extraction History of esophagogastroduodenoscopy (EGD) S/P excision of lipoma (05/09/23) Excision of Intramuscular Back Lipoma - Suraj Kincaid, DO, FACS History of dilatation and curettage History of knee surgery R knee repair (patella fracture) History of back surgery lumbar discectomy History of foot surgery Debridement of left foot ulcer (09/09/18): LMA#4.0 unique, atraumatic at [facility] H/O adenoidectomy removed w/tonsils History of surgery Radical removal of vulva, partial History of laryngoscopy With biopsy History of tooth extraction History of endarterectomy Right femoral artery endarterectomy/stent (05/31/18): Grade view 1, MAC#3, ETT 7.5 at [facility] History of surgery SFA stent (2013) per records Hx of hysterectomy + USO History of throat surgery Benign growth removal History of tonsillectomy Family History Mother Smoker Father Alzheimer disease Brother No problems noted. Sister No problems noted. Sister No problems noted. Son No problems noted. Daughter No problems noted. Daughter No problems noted. Aunt Cancer Other No pertinent family history Denies family history of Ovarian cancer Prostate cancer Myocardial infarction Breast cancer Colorectal cancer Social History Smoking Status: Current every day smoker Tobacco Type: Cigarettes Age Started Using Tobacco: 15; packs per day: 0.5; Cigarettes Per Day: 10; Second Hand Exposure: Yes; Do You Dip or Chew Tobacco: No; Hx Alcohol Use: Yes Alcohol type: wine Alcohol Intake Frequency: 4 or More x per/Week Alcohol Intake Frequency Comment: 2 glasses at dinner. 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 Feels Safe at Home: Yes Childhood Exposure to Second-Hand Smoke: Yes Diet: regular caffeine: Yes (coffee) during the past year weight has: remained stable Dental Care, Regularly: No Physical Activity Frequency: Does not Exercise Seatbelt Use: always Sunscreen Use: No Assistive Devices: Denture - Upper Allergies Allergies Allergy/AdvReac Type Severity Reaction Status Date / Time hydromorphone [From Dilaudid] AdvReac Intermediate Vomiting Verified 02/12/24 11:21 baclofen AdvReac Confusion Verified 02/12/24 11:21 Home Meds Home Medications Medication Instructions Recorded Confirmed aspirin 81 mg tablet,delayed 81 mg PO QAM 05/16/18 02/18/24 release acetaminophen 500 mg capsule 1,000 mg PO Q8H PRN Pain 02/17/22 02/18/24 albuterol sulfate 90 mcg/actuation 2 puff inhalation UD PRN as 12/15/23 02/18/24 aerosol inhaler (Ventolin HFA) directed clonidine HCl 0.2 mg tablet 0.2 mg PO BID PRN Anxiety 12/15/23 02/18/24 levalbuterol tartrate 45 2 inh inhalation Q4H PRN shortness 01/17/24 02/18/24 mcg/actuation aerosol inhaler of breath or wheezing pantoprazole 40 mg tablet,delayed 40 mg PO QAM 01/18/24 02/18/24 release moxifloxacin 0.5 % eye drops See Rx Instructions .Route .COMPLEX 02/18/24 02/18/24 prednisolone acetate 1 % eye See Rx Instructions .Route .COMPLEX 02/18/24 02/18/24 drops,suspension Previous Rx's Medication Instructions Recorded atorvastatin 20 mg tablet 20 mg PO QAM #90 tabs 11/26/23 gabapentin 300 mg capsule 300 mg PO TID #90 caps 12/04/23 clopidogrel 75 mg tablet (Plavix) 75 mg PO QAM #30 tabs 12/26/23 lisinopril 20 mg tablet 20 mg PO QAM #90 tabs 01/23/24 bupropion HCl 150 mg tablet,12 hr 150 mg PO BID #180 ea 01/29/24 sustained-release tizanidine 2 mg tablet 2 mg PO TID PRN muscle spasticity 02/16/24 #270 tabs Results & Data (ED) Vital Signs Vital Signs - 24 hr 02/17/24 22:45 02/17/24 22:49 02/17/24 22:54 Temperature 36.9 C Temperature Source Oral Pulse Rate 107 H 108 H Pulse Rate [Apical] 107 H Respiratory Rate 16 22 Blood Pressure 170/132 H Blood Pressure [Right Arm] 170/132 H Blood Pressure Mean 144 Blood Pressure Mean [Right Arm] 144 Pulse Oximetry 96 97 Oxygen Delivery Method Room Air Room Air Sepsis Recent Fever Within 48 Hours No Sepsis New/Unexplained Change in Mental Status N/A Sepsis Action Taken by Nursing No Action Required 02/17/24 22:58 02/18/24 00:00 Temperature Temperature Source Pulse Rate 113 H Pulse Rate [Apical] 92 H Respiratory Rate 21 14 Blood Pressure Blood Pressure [Right Arm] 168/129 H Blood Pressure Mean Blood Pressure Mean [Right Arm] 142 Pulse Oximetry 97 98 Oxygen Delivery Method Room Air Room Air Sepsis Recent Fever Within 48 Hours Sepsis New/Unexplained Change in Mental Status Sepsis Action Taken by Nursing Laboratory Data 02/17/24 22:50 02/17/24 22:50 Lab Results 02/17/24 02/17/24 Range/Units 22:50 22:59 WBC 10.76 (4.8-10.8) K/ul RBC 3.65 L (4.20-5.40) M/uL Hgb 9.6 L (12.0-16.0) g/dl Hct 29.7 L (37.0-47.0) % MCV 81.4 (80.0-100.0) fL MCH 26.3 (25.0-34.0) pg MCHC 32.3 (32.0-36.0) g/dL RDW Std Deviation 53.1 H (36.4-46.3) fL RDW Coeff of Narendra 18.4 H (11.5-14.5) % Plt Count 315 (130-400) K/uL MPV 9.3 L (9.4-12.4) fL Immature Gran % (Auto) 1.1 % Neut % (Auto) 78.2 % Lymph % (Auto) 9.2 % Barrow % (Auto) 10.2 % Eos % (Auto) 0.8 % Baso % (Auto) 0.5 % Neut # (Auto) 8.41 H (1.40-6.50) K/uL Lymph # (Auto) 0.99 L (1.20-3.40) K/uL Barrow # (Auto) 1.10 H (0.11-0.59) K/uL Eos # (Auto) 0.09 (0.00-0.50) K/uL Baso # (Auto) 0.05 (0.00-0.20) K/uL Immature Gran # (Auto) 0.12 (0.01-0.20) K/uL Absolute Nucleated RBC 0.03 (0.00-0.12) K/uL Nucleated RBC % (auto) 0.3 % PT 10.8 (9.0-12.0) Seconds INR 1.0 (0.9-1.1) Sodium 137 (136-145) mmol/L Potassium 4.7 (3.5-5.1) mmol/L Chloride 100 (98-107) mmol/L Carbon Dioxide 27 (21-32) mmol/L Anion Gap 10 (3-11) BUN 35 H (6-23) mg/dl Creatinine 0.87 (0.6-1.2) mg/dl Est Cr Clr Drug Dosing 46.2 ml/min Est GFR ( Amer) 77.1 ml/min Est GFR (Non-Af Amer) 66.6 ml/min BUN/Creatinine Ratio 40.2 H (10-20) Glucose 121 H (70-99(Fasting)) mg/dl Calcium 10.3 (8.6-10.3) mg/dl Total Bilirubin 0.5 (0.2-1.0) mg/dl AST 21 (13-39) U/L ALT 16 (7-52) U/L Alkaline Phosphatase 76 (34-104) U/L Total Protein 7.4 (6.0-8.3) gm/dl Albumin 4.6 (3.4-5.0) gm/dl Globulin 2.8 (2.5-4.0) gm/dl Albumin/Globulin Ratio 1.6 (0.9-2) Lipase 29 (11-82) U/L Adenovirus (PCR) Not Detected (NotDetected) B. pertussis DNA (PCR) Not Detected (NotDetected) B.parapertussis DNA PCR Not Detected (NotDetected) C. pneumoniae DNA (PCR) Not Detected (NotDetected) Coronavirus OC43 (PCR) Not Detected (NotDetected) Coronavirus HKU1 (PCR) Not Detected (NotDetected) Coronavirus 229E (PCR) Not Detected (NotDetected) SARS-CoV-2 (PCR) Not Detected (NotDetected) Coronavirus NL63 (PCR) Not Detected (NotDetected) Human Metapneumovir PCR Not Detected (NotDetected) Influenza Type A (PCR) Not Detected (NotDetected) Influenza Type B (PCR) Not Detected (NotDetected) M. pneumoniae (PCR) Not Detected (NotDetected) Parainfluenza 1 (PCR) Not Detected (NotDetected) Parainfluenza 2 (PCR) Not Detected (NotDetected) Parainfluenza 3 (PCR) Not Detected (NotDetected) Parainfluenza 4 (PCR) Not Detected (NotDetected) RSV (PCR) Not Detected (NotDetected) Entero/Rhino (PCR) Not Detected (NotDetected) Administered Medications Discontinued Medications Sodium Chloride (Nss) 1,000 mls @ 999 mls/hr IV .Q1H1M ONE Stop: 02/17/24 23:55 Last Infusion: 02/18/24 00:56 Dose: Infused Documented By: Admin: 02/17/24 23:02 Dose: 999 mls/hr Documented By: CÉSAR Pantoprazole Sodium 80 mg/ (Dextrose) 120 mls @ 480 mls/hr IV ONE STA Stop: 02/17/24 23:46 Last Infusion: 02/18/24 00:56 Dose: Infused Documented By: Admin: 02/18/24 00:22 Dose: 480 mls/hr Documented By: CÉSAR Famotidine (Pepcid 20mg Iv Push) 20 mg in 5 mls @ 2.5 mls/min IV NOW STA Stop: 02/17/24 23:33 Last Admin: 02/18/24 00:22 Dose: 2.5 mls/min Documented By: CÉSAR Discharge Plan Visit Data Chief Complaint: GI Assessment Stated Complaint: Near Syncope, Coffee Ground Emesis, Diarrhea ED Provider: Lluvia Saeed Discharge Problem: Acute upper gastrointestinal bleeding, Melena, Coffee ground emesis Forms Stand Alone Forms: [facility] Prescriptions Prescriptions: No Action acetaminophen 500 mg capsule 1,000 mg PO Q8H PRN (Reason: Pain) Rx Instructions: Take 3 times per day to lessen pain. gabapentin 300 mg capsule 300 mg PO TID Qty: 90 5RF levalbuterol tartrate 45 mcg/actuation HFA aerosol inhaler 2 inh inhalation Q4H PRN (Reason: shortness of breath or wheezing) Patient Comments: per pt she never picked up atorvastatin 20 mg tablet 20 mg PO QAM Qty: 90 1RF clopidogrel [Plavix] 75 mg tablet 75 mg PO QAM Qty: 30 5RF Hold Instructions: UNTIL 12/19 lisinopril 20 mg tablet 20 mg PO QAM Qty: 90 1RF bupropion HCl 150 mg tablet sustained-release 12 hr 150 mg PO BID Qty: 180 1RF tizanidine 2 mg tablet 2 mg PO TID PRN (Reason: muscle spasticity) Qty: 270 1RF aspirin 81 mg Tablet,Delayed Release (Dr/Ec) 81 mg PO QAM Hold Instructions: UNTIL SEEN BY PCP/REPEAT LABS albuterol sulfate [Ventolin HFA] 90 mcg/actuation HFA aerosol inhaler 2 puff INHALATION UD PRN (Reason: as directed) clonidine HCl 0.2 mg tablet 0.2 mg PO BID PRN (Reason: Anxiety) Rx Instructions: TAKE ONE TABLET BY MOUTH TWICE DAILY NEEDED for anxiety pantoprazole 40 mg tablet,delayed release (DR/EC) 40 mg PO QAM prednisolone acetate 1 % drops,suspension See Rx Instructions .ROUTE .COMPLEX Rx Instructions: drp moxifloxacin 0.5 % drops See Rx Instructions .ROUTE .COMPLEX Rx Instructions: drp Referrals Referrals: Katarina Jimenes MD [Primary Care Provider] -
[2024-02-18] MEDS: PANTOprazole 80 MG in DEXTROSE 5% 100 ML IV STA (00:22)
[2024-02-18] MEDS: FAMOTIDINE 20MG IV PUSH 20 MG/5 ML SYR IV STA (00:22)
[2024-02-18 01:23] LABS: Adenovirus PCR Not Detected (NotDetected); Bordetella parapertussis PCR Not Detected (NotDetected); Bordetella pertussis PCR Not Detected (NotDetected); Chlamydia pneumoniae PCR Not Detected (NotDetected); Coronavirus 229E PCR Not Detected (NotDetected); Coronavirus CoV-2 (COVID19)PCR Not Detected (NotDetected); Coronavirus HKU1 PCR Not Detected (NotDetected); Coronavirus NL63 PCR Not Detected (NotDetected); Coronavirus OC43PCR Not Detected (NotDetected); Human Metapneumovirus PCR Not Detected (NotDetected); Influenza A PCR Not Detected (NotDetected); Influenza B PCR Not Detected (NotDetected); Mycoplasma pneumoniae PCR Not Detected (NotDetected); Parainfluenza Virus 1 PCR Not Detected (NotDetected); Parainfluenza Virus 2 PCR Not Detected (NotDetected); Parainfluenza Virus 3 PCR Not Detected (NotDetected); Parainfluenza Virus 4 PCR Not Detected (NotDetected); Respiratory Syncytial VirusPCR Not Detected (NotDetected); Rhinovirus/Enterovirus PCR Not Detected (NotDetected)
[2024-02-18 01:59] LABS: Appearance Urine Clear (Clear); Bacteria Urine Automated None Seen (None Seen); Bilirubin Urine Negative (Negative); Blood Urine Negative (Negative); Cast Urine Automated 0-2 /lpf (0-2); Color Urine Yellow; Epithelial Cell Urine Auto 0-2 /hpf (0-2); Glucose Urine UA Negative (Negative); Ketones Urine Trace (Negative); Leukocyte Esterase Urine Negative (Negative); Nitrite Urine Negative (Negative); Protein Urine Trace (Negative); RBC Urine Automated 0-2 /hpf (0-2); Specific Gravity Urine 1.016 (1.000-1.030); Urobilinogen Urine Negative (Negative); WBC Urine Automated 0-5 /hpf (0-5)
[2024-02-18] MEDS ORDERED: ONDANSETRON INJ 2 MG/ML 2 ML VIAL IV PRN (02:00)
--- NOTE | 2024-02-18 02:12 | History & Physical Report ---
Date of Service February 18, 2024 Assessment & Plan (1) Coffee ground emesis: (2) Melena: (3) Acute upper gastrointestinal bleeding: (4) Chronic obstructive pulmonary disease: (5) Anxiety: (6) Peripheral artery disease: (7) Hypertension: (8) Hyperlipidemia: Plan Coffee-ground emesis/melena- The patient will be admitted to telemetry for serial cardiac enzymes, serial EKG's, cardiac rhythm monitoring and a 2-D echocardiogram with Dopplers. The patient was most recently admitted to [facility] from 12/14-12/17/2023 for upper GI bleed EGD on 12/17/2023 showed a small hiatal hernia and gastritis. Since that time patient has been taking pantoprazole 40 mg daily, and avoided ibuprofen or any other NSAIDs. Patient has continued to take Plavix and aspirin for her PAD, which will be held for now NPO Received pantoprazole 80 mg IV and famotidine 20 mg IV from the ED Pantoprazole 40 mg IV every 12 hours Ceftriaxone 1 g IV every 24 hours H&H every 4 hours Hemoglobin is 9.6 on admission, with most recent 9.5. Platelets are normal at 315 Patient reports that she had 48 hours of a prodrome type of symptoms, and BioFire testing performed was negative today Consult gastroenterology Case PAD- History of SFA stent in 2013 and right FA stent in 2018 Patient has continued on Plavix and aspirin since that time Consideration for consult to vascular surgery regarding continued need for Plavix and aspirin Hypertension- While n.p.o., hold clonidine and lisinopril Lopressor 5 mg IV every 4 hours Tobacco use disorder- NicoDerm patch History of Present Illness Chief Complaint: The patient reports about 48 hours of the general not feeling well, and then developed dizziness and lightheadedness this a.m. Later today she coffee-ground emesis, and had dark tarry stools. This was similar to an episode that required admission from 12/14-12/17/2023, but the previous episode had more pain, and this episode had coffee-ground emesis. Primary Care Provider: Katarina Jimenes MD The patient is a 73-year-old female with a past medical history including tobacco use, COPD, foot drop, anxiety, PAD status post SFA stent in 2013 and right femoral artery stent in 2018, hypertension, hyperlipidemia and admission from 12/14-12/17/2023 for upper GI bleed. EGD on 12/17/2023 showed small hiatal hernia, gastritis and at which time she had ibuprofen use, which she has not had since that time. Allergies Allergy/AdvReac Type Severity Reaction Status Date / Time hydromorphone [From Dilaudid] AdvReac Intermediate Vomiting Verified 02/12/24 11:21 baclofen AdvReac Confusion Verified 02/12/24 11:21 Home Medications Medication Instructions Recorded Confirmed Type aspirin 81 mg tablet,delayed 81 mg PO QAM 05/16/18 02/18/24 History release acetaminophen 500 mg capsule 1,000 mg PO Q8H PRN Pain 02/17/22 02/18/24 History atorvastatin 20 mg tablet 20 mg PO QAM #90 tabs 11/26/23 02/18/24 Rx gabapentin 300 mg capsule 300 mg PO TID #90 caps 12/04/23 02/18/24 Rx albuterol sulfate 90 mcg/actuation 2 puff inhalation UD PRN as 12/15/23 02/18/24 History aerosol inhaler (Ventolin HFA) directed clonidine HCl 0.2 mg tablet 0.4 mg PO HS 12/15/23 02/18/24 History clopidogrel 75 mg tablet (Plavix) 75 mg PO QAM #30 tabs 12/26/23 02/18/24 Rx pantoprazole 40 mg tablet,delayed 40 mg PO QAM 01/18/24 02/18/24 History release lisinopril 20 mg tablet 20 mg PO QAM #90 tabs 01/23/24 02/18/24 Rx bupropion HCl 150 mg tablet,12 hr 150 mg PO BID #180 ea 01/29/24 02/18/24 Rx sustained-release tizanidine 2 mg tablet 2 mg PO TID PRN muscle spasticity 02/16/24 02/18/24 Rx #270 tabs ketorolac 0.5 % eye drops 1 drp ophthalmic (eye) UD 02/18/24 02/18/24 History lidocaine 4 % topical patch 1 patch topical QAM 02/18/24 02/18/24 History (Salonpas (lidocaine)) moxifloxacin 0.5 % eye drops 1 drp ophthalmic (eye) UD 02/18/24 02/18/24 History prednisolone acetate 1 % eye 1 drp ophthalmic (eye) UD 02/18/24 02/18/24 History drops,suspension Past Med/Surg History Problem List (Updated 02/18/24 @ 01:10 by Lluvia Saeed MD) Coffee ground emesis (Acute) Melena (Acute) Acute upper gastrointestinal bleeding (Acute) Thoracic facet syndrome Melena Sinus tachycardia Hypocalcemia Acute GI bleeding (Acute) Myofascial pain Thoracic back pain Smoker Chronic obstructive pulmonary disease Footdrop Left Lung nodule (Chronic) s/p radiation treatments [place] [facility] [place]- monitoring, "stable" Anxiety Peripheral artery disease S/P SFA stent (2013) S/P right femoral artery endarterectomy/stent (2018) Taking Plavix Hypertension Hyperlipidemia Medical History (Updated 02/18/24 @ 01:10 by Lluvia Saeed MD) History of left foot drop "not anymore, resolved" Hypocalcemia pt unsure about this dx, "stated it may have been when she was in the hospital in december 2023" Peripheral arterial disease S/P SFA stent (2013) S/P right femoral artery endarterectomy/stent (2017) Taking Plavix Lung nodule s/p radiation treatments [place] [facility] [place]- monitoring, "stable" Hyperlipidemia Hypertension Anxiety History of GI bleed 12/2023, had EGD Hx of sinus tachycardia no game technician, 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 Cardiac murmur "has had since she was a child, no issues with"; no game technician Thoracic facet syndrome History of ankle fracture (10/13/22) Right ankle, Distal fibula avulsion fx, chronic anterior tibia avulsion fx History of anemia Sciatica ongoing Vulvar cancer Remote hx "years ago", treated surgically Cervical cancer Approximately 1979, treated surgically Degenerative disc disease, lumbar Chronic sinusitis Lumbar disc herniation sx to correct COPD (chronic obstructive pulmonary disease) with emphysema "well controlled"; inh prn x2>uses maybe twice per week if at all Esophageal reflux Occasional Osteoporosis Hx of cirrhosis Hx ETOH abuse/alcoholism per records (0-2 drinks/wine per day per PAT RN phone assessment 05/01/23) Depression Hepatic encephalopathy Remote hx Surgical History History of left cataract extraction History of esophagogastroduodenoscopy (EGD) S/P excision of lipoma (05/09/23) Excision of Intramuscular Back Lipoma - Suraj Kincaid, DO, FACS History of dilatation and curettage History of knee surgery R knee repair (patella fracture) History of back surgery lumbar discectomy History of foot surgery Debridement of left foot ulcer (09/09/18): LMA#4.0 unique, atraumatic at [facility] H/O adenoidectomy removed w/tonsils History of surgery Radical removal of vulva, partial History of laryngoscopy With biopsy History of tooth extraction History of endarterectomy Right femoral artery endarterectomy/stent (05/31/18): Grade view 1, MAC#3, ETT 7.5 at [facility] History of surgery SFA stent (2013) per records Hx of hysterectomy + USO History of throat surgery Benign growth removal History of tonsillectomy Family History Mother Smoker Father Alzheimer disease Brother No problems noted. Sister No problems noted. Sister No problems noted. Son No problems noted. Daughter No problems noted. Daughter No problems noted. Aunt Cancer Other No pertinent family history Denies family history of Ovarian cancer Prostate cancer Myocardial infarction Breast cancer Colorectal cancer Social History Smoking Status: Current every day smoker Tobacco Type: Cigarettes Age Started Using Tobacco: 15; packs per day: 0.5; Cigarettes Per Day: 10; Second Hand Exposure: Yes; Do You Dip or Chew Tobacco: No; Hx Alcohol Use: Yes Alcohol type: wine Alcohol Intake Frequency: 4 or More x per/Week Alcohol Intake Frequency Comment: 2 glasses at dinner. 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 Feels Safe at Home: Yes Childhood Exposure to Second-Hand Smoke: Yes Diet: regular caffeine: Yes (coffee) during the past year weight has: remained stable Dental Care, Regularly: No Physical Activity Frequency: Does not Exercise Seatbelt Use: always Sunscreen Use: No Assistive Devices: Denture - Upper Review of Systems Review of Systems: The patient denies chest pain, palpitations, shortness of breath, dyspnea on exertion, cough, lower extremity swelling, sore throat, fevers, chills, sweats, diarrhea, constipation, abdominal pain, pelvic pain, blood in urine or stool, dysuria, urinary frequency or urgency, memory loss, loss of consciousness, imbalance, focal weakness, numbness or tingling in arms or legs, generalized arthralgias or myalgias, back or neck pain, or night sweats. The review of systems is otherwise negative other than for that already noted above, and at least 10 systems have been reviewed. Physical Exam Physical Exam: The patient is awake, alert and oriented 3, well developed and well nourished, normocephalic and atraumatic, lying in bed and in no acute distress. HEENT--PERRL, EOMI, mucous membranes and oropharynx dry. Neck--supple. No JVD. No bruits. Thyroid normal, trachea midline, no adenopathy. Heart--normal S1 and S2. No murmurs, rubs or gallops. Lungs--clear bilaterally, no respiratory distress, no accessory muscle use. Abdomen--normal bowel sounds and soft. Nontender. Nondistended Extremities--No edema. Dermatologic--normal skin turgor, normal color, no abnormal lymph nodes, no rash. Neurologic--cranial nerves II through XII grossly intact. Rheumatologic--normal range of motion. Psychiatric--normal affect. Results & Data Results & Data Vital Signs (Past 12 Hours) Vital Signs Temp Pulse Pulse Resp BP BP Pulse Ox 02/18/24 00:00 92 H 14 168/129 H 98 02/17/24 22:58 113 H 21 97 02/17/24 22:54 108 H 02/17/24 22:49 107 H 22 170/132 H 97 02/17/24 22:45 36.9 C 107 H 16 170/132 H 96 O2 Del Method 02/18/24 00:00 Room Air 02/17/24 22:58 Room Air 02/17/24 22:54 02/17/24 22:49 Room Air 02/17/24 22:45 Room Air Laboratory Results Laboratory Results WBC 10.76 K/ul (4.8-10.8) 02/17/24 22:50 RBC 3.65 M/uL (4.20-5.40) L 02/17/24 22:50 Hgb 9.6 g/dl (12.0-16.0) L 02/17/24 22:50 Hct 29.7 % (37.0-47.0) L 02/17/24 22:50 MCV 81.4 fL (80.0-100.0) 02/17/24 22:50 MCH 26.3 pg (25.0-34.0) 02/17/24 22:50 MCHC 32.3 g/dL (32.0-36.0) 02/17/24 22:50 RDW Std Deviation 53.1 fL (36.4-46.3) H 02/17/24 22:50 RDW Coeff of Narendra 18.4 % (11.5-14.5) H 02/17/24 22:50 Plt Count 315 K/uL (130-400) 02/17/24 22:50 MPV 9.3 fL (9.4-12.4) L 02/17/24 22:50 Immature Gran % (Auto) 1.1 % 02/17/24 22:50 Neut % (Auto) 78.2 % 02/17/24 22:50 Lymph % (Auto) 9.2 % 02/17/24 22:50 [place] % (Auto) 10.2 % 02/17/24 22:50 Eos % (Auto) 0.8 % 02/17/24 22:50 Baso % (Auto) 0.5 % 02/17/24 22:50 Neut # (Auto) 8.41 K/uL (1.40-6.50) H 02/17/24 22:50 Lymph # (Auto) 0.99 K/uL (1.20-3.40) L 02/17/24 22:50 [place] # (Auto) 1.10 K/uL (0.11-0.59) H 02/17/24 22:50 Eos # (Auto) 0.09 K/uL (0.00-0.50) 02/17/24 22:50 Baso # (Auto) 0.05 K/uL (0.00-0.20) 02/17/24 22:50 Immature Gran # (Auto) 0.12 K/uL (0.01-0.20) 02/17/24 22:50 Absolute Nucleated RBC 0.03 K/uL (0.00-0.12) 02/17/24 22:50 Nucleated RBC % (auto) 0.3 % 02/17/24 22:50 PT 10.8 Seconds (9.0-12.0) 02/17/24 22:50 INR 1.0 (0.9-1.1) 02/17/24 22:50 Sodium 137 mmol/L (136-145) 02/17/24 22:50 Potassium 4.7 mmol/L (3.5-5.1) 02/17/24 22:50 Chloride 100 mmol/L (98-107) 02/17/24 22:50 Carbon Dioxide 27 mmol/L (21-32) 02/17/24 22:50 Anion Gap 10 (3-11) 02/17/24 22:50 BUN 35 mg/dl (6-23) H 02/17/24 22:50 Creatinine 0.87 mg/dl (0.6-1.2) 02/17/24 22:50 Est Cr Clr Drug Dosing 46.2 ml/min 02/17/24 22:50 Est GFR ( Amer) 77.1 ml/min 02/17/24 22:50 Est GFR (Non-Af Amer) 66.6 ml/min 02/17/24 22:50 BUN/Creatinine Ratio 40.2 (10-20) H 02/17/24 22:50 Glucose 121 mg/dl (70-99(Fasting)) H 02/17/24 22:50 Calcium 10.3 mg/dl (8.6-10.3) 02/17/24 22:50 Total Bilirubin 0.5 mg/dl (0.2-1.0) 02/17/24 22:50 AST 21 U/L (13-39) 02/17/24 22:50 ALT 16 U/L (7-52) 02/17/24 22:50 Alkaline Phosphatase 76 U/L (34-104) 02/17/24 22:50 Total Protein 7.4 gm/dl (6.0-8.3) 02/17/24 22:50 Albumin 4.6 gm/dl (3.4-5.0) 02/17/24 22:50 Globulin 2.8 gm/dl (2.5-4.0) 02/17/24 22:50 Albumin/Globulin Ratio 1.6 (0.9-2) 02/17/24 22:50 Lipase 29 U/L (11-82) 02/17/24 22:50 Urine Color Yellow 02/18/24 01:37 Urine Appearance Clear (Clear) 02/18/24 01:37 Urine pH 7.0 (4.5-7.5) 02/18/24 01:37 Ur Specific [place] 1.016 (1.000-1.030) 02/18/24 01:37 Urine Protein Trace (Negative) H 02/18/24 01:37 Urine Glucose (UA) Negative (Negative) 02/18/24 01:37 Urine Ketones Trace (Negative) H 02/18/24 01:37 Urine Blood Negative (Negative) 02/18/24 01:37 Urine Nitrite Negative (Negative) 02/18/24 01:37 Urine Bilirubin Negative (Negative) 02/18/24 01:37 Urine Urobilinogen Negative (Negative) 02/18/24 01:37 Ur Leukocyte Esterase Negative (Negative) 02/18/24 01:37 Urine WBC (Auto) 0-5 /hpf (0-5) 02/18/24 01:37 Urine RBC (Auto) 0-2 /hpf (0-2) 02/18/24 01:37 U Hyaline Cast (Auto) 0-2 /lpf (0-2) 02/18/24 01:37 U Epithel Cells (Auto) 0-2 /hpf (0-2) 02/18/24 01:37 Urine Bacteria (Auto) None Seen (None Seen) 02/18/24 01:37 Adenovirus (PCR) Not Detected (NotDetected) 02/17/24 22:59 B. pertussis DNA (PCR) Not Detected (NotDetected) 02/17/24 22:59 B.parapertussis DNA PCR Not Detected (NotDetected) 02/17/24 22:59 C. pneumoniae DNA (PCR) Not Detected (NotDetected) 02/17/24 22:59 Coronavirus OC43 (PCR) Not Detected (NotDetected) 02/17/24 22:59 Coronavirus HKU1 (PCR) Not Detected (NotDetected) 02/17/24 22:59 Coronavirus 229E (PCR) Not Detected (NotDetected) 02/17/24 22:59 SARS-CoV-2 (PCR) Not Detected (NotDetected) 02/17/24 22:59 Coronavirus NL63 (PCR) Not Detected (NotDetected) 02/17/24 22:59 Human Metapneumovir PCR Not Detected (NotDetected) 02/17/24 22:59 Influenza Type A (PCR) Not Detected (NotDetected) 02/17/24 22:59 Influenza Type B (PCR) Not Detected (NotDetected) 02/17/24 22:59 M. pneumoniae (PCR) Not Detected (NotDetected) 02/17/24 22:59 Parainfluenza 1 (PCR) Not Detected (NotDetected) 02/17/24 22:59 Parainfluenza 2 (PCR) Not Detected (NotDetected) 02/17/24 22:59 Parainfluenza 3 (PCR) Not Detected (NotDetected) 02/17/24 22:59 Parainfluenza 4 (PCR) Not Detected (NotDetected) 02/17/24 22:59 RSV (PCR) Not Detected (NotDetected) 02/17/24 22:59 Entero/Rhino (PCR) Not Detected (NotDetected) 02/17/24 22:59 Code Status & VTE Plan Code Status Full code VTE Prophylaxis Plan VTE Prophylaxis will be ordered: Yes PG Care Time/CCT Total # of Minutes Spent Total Time Spent with Patient: Total time spent is greater than 50% in coordination of care (as documented) at patient's floor/unit and/or counseling patient: Coding Level of Care Code 55881 INT INP/OBS CARE 3/75MIN Diagnoses Coffee ground emesis K92.0 Melena K92.1 Acute upper gastrointestinal bleeding K92.2 Chronic obstructive pulmonary disease J44.9 Anxiety F41.9 Peripheral artery disease I73.9 Hypertension I10 Hypertension type: essential hypertension Hyperlipidemia E78.5 (7) Hypertension Hypertension type: essential hypertension Qualified Code(s): I10 - Essential (primary) hypertension
[2024-02-18] MEDS: cefTRIAXone SODIUM 1,000 MG/50 ML BAG IV STA (03:37)
[2024-02-18] MEDS: SODIUM CHLORIDE 0.9% 1,000 ML IV SCH (04:42)
[2024-02-18] MEDS ORDERED: Nursing to Pharmacy Communication SCH (05:00)
[2024-02-18] MEDS: NICOTINE 14 MG/24 HR PATCH TD STA (06:03)
[2024-02-18 06:33] LABS: Hematocrit (blood only) 24.1 % (37.0-47.0); Hemoglobin 7.6 g/dl (12.0-16.0)
[2024-02-18 06:53] LABS: Albumin Level 3.8 gm/dl (3.4-5.0); BUN Creatinine Ratio 43.2 (10-20); Calcium 8.7 mg/dl (8.6-10.3); Creatinine Clr Calc Pharmacy 54.3 ml/min; Est GFR (African American) 93.8 ml/min; Est GFR (Non-African American) 80.9 ml/min; Magnesium 1.7 mg/dl (1.7-2.4); Phosphorus 3.7 mg/dl (2.5-4.9); Potassium 4.5 mmol/L (3.5-5.1)
--- NOTE | 2024-02-18 07:23 | XRay Report ---
XR chest 1V portable HISTORY: 73 years-old Female vomiting; epigastric pain COMPARISON: 04/23/2023 TECHNIQUE: AP view of the chest FINDINGS: Atherosclerosis of the aorta. Cardiac size is unchanged. Edema. No pneumothorax, pleural effusion or pulmonary edema. Bones appear grossly intact. IMPRESSION: Emphysema without acute process of the chest. ACT 112: Negative or not required by law. The above report was generated using voice recognition software. It may contain grammatical, syntax o r spelling errors. Electronically signed by: Musa Saini M.D. 02/18/2024 7:22 AM
[2024-02-18] MEDS: PANTOprazole 40 MG in SYRINGE 0 ML IV SCH (08:16)
[2024-02-18] MEDS: NICOTINE 14 MG/24 HR PATCH TD SCH (08:16)
[2024-02-18] MEDS: METOPROLOL TARTRATE 1 MG/ML VIAL IV SCH (08:16)
--- NOTE | 2024-02-18 08:23 | Hospitalist Progress Note ---
Date of Service February 18, 2024 Assessment & Plan (1) Coffee ground emesis: Plan: concern for acute upper GI bleed, with also c/o melena The patient was most recently admitted to [facility] [address] from 12/14-12/17/2023 for upper GI bleed EGD on 12/17/2023 showed a small hiatal hernia and gastritis. Since that time patient has been taking pantoprazole 40 mg daily, and avoided ibuprofen or any other NSAIDs. Patient has continued to take Plavix and aspirin for her PAD, which will be held for now Received pantoprazole 80 mg IV and famotidine 20 mg IV from the ED Pantoprazole 40 mg change to po daily Ceftriaxone 1 g IV every 24 hours will continue in case this is a lower GI bleed awaiting stability of hemoglobin and resolution of melena Hemoglobin is 9.6 on admission, with most recent 9.5. Platelets are normal at 315 Patient reports that she had 48 hours of a upper respiratory prodrome type of symptoms, and BioFire testing performed was negative today Consult gastroenterology EGD performed the afternoon of 02/17 without source of upper GI bleed (2) Peripheral artery disease: Plan: PAD- History of SFA stent in 2013 and right FA stent in 2018 Patient has continued on Plavix and aspirin since that time will likely hold antiplatelet agents with the presumption she is a lower GI bleed and resume likely in 1 week (3) Hypertension: Plan: resume clonidine and lisinopril discontinue IV metoprolol continue IV hydralazine as needed for blood pressure control (4) Chronic obstructive pulmonary disease: Plan: Continued tobacco use, not typically on inhalers follows with Rad onc for pulmonary nodules Admission and Anticipated Discharge Date Admission Date: February 18, 2024 Subjective Patient was seen prior to endoscopy she had no persistent hematemesis or hematochezia. She is having some chronic daily back pain and requests reinstitution of medications as soon as possible. Throughout the day having difficulty controlling blood pressure with reinstitution of oral antihypertensive medications will be a big help Physical Exam Physical Exam: Despite having a low hemoglobin patient is not pale appearing She is not tachycardic but is receiving beta-pilar card exam sounds to be regular Lungs are clear without wheezes or crackles Abdomen NABS she is not having any epigastric tenderness or left lower quadrant tenderness Results & Data Results & Data Vital Signs (Past 12 Hours) Vital Signs Temp Pulse Pulse Resp BP BP Pulse Ox 02/18/24 07:25 91 H 02/18/24 07:18 99.1 F 100 H 19 171/74 H 96 02/18/24 05:12 96 H 02/18/24 04:55 98.6 F 94 H 173/70 H 99 02/18/24 03:00 94 H 20 129/94 97 02/18/24 02:52 96 H 02/18/24 00:00 92 H 14 168/129 H 98 02/17/24 22:58 113 H 21 97 02/17/24 22:54 108 H 02/17/24 22:49 107 H 22 170/132 H 97 02/17/24 22:45 98.4 F 107 H 16 170/132 H 96 O2 Del Method 02/18/24 07:25 02/18/24 07:18 Room Air 02/18/24 05:12 02/18/24 04:55 Room Air 02/18/24 03:00 02/18/24 02:52 02/18/24 00:00 Room Air 02/17/24 22:58 Room Air 02/17/24 22:54 02/17/24 22:49 Room Air 02/17/24 22:45 Room Air Laboratory Results Reviewed CBC, had patient signed blood consent as her hemoglobin is in the mid sevens. Repeat in the afternoon was also stable Reviewed chemistry Reviewed EGD report no sources of upper GI blood loss was identified PG Care Time/CCT Total # of Minutes Spent Total Time Spent with Patient: Total time spent is greater than 50% in coordination of care (as documented) at patient's floor/unit and/or counseling patient: Coding Level of Care Code 49886 SUB INP/OBS CARE 3/50MIN Diagnoses Coffee ground emesis K92.0 Peripheral artery disease I73.9 Hypertension I10 Hypertension type: essential hypertension Chronic obstructive pulmonary disease J44.9 (3) Hypertension Hypertension type: essential hypertension Qualified Code(s): I10 - Essential (primary) hypertension
--- NOTE | 2024-02-18 11:06 | Gastrointestinal Consultation ---
Date of Consultation February 18, 2024 Assessment & Plan (1) Coffee ground emesis: (2) Anemia: Plan -Keep NPO -Proceed with EGD today -Continue to monitor H/H -Continue IV Protonix 40 mg BID for now. Can make further recommendations pending EGD results. Supervising Physician Co-Signing Physician Notes Recent hematemesis and worsening of chronic anemia. ? History of alcoholic liver disease, cirrhosis as per patient. The most recent EGD from 12/2023 was unremarkable without esophageal varices. Labs show chronic anemia, platelet count of 300 k and normal LFTs. Agree with EGD today History of Present Illness Reason for Consultation: Coffee ground emesis, tarry stools Attending Physician: Wilber Chan MD History of Present Illness Patient is a 73 yo female with PMH of COPD, tobacco abuse, anxiety, PAD s/p SFA stent in 2013 and R femoral artery stent in 2017, HTN, and HLD who presents due to coffee ground emesis & dark tarry stools that occurred on 02/17/24. She notes this was similar to previous episodes that led to an admission in December. At that time, she had an EGD without findings to explain her symptoms. She notes she wasn't having as much abdominal pain this time, but rather just felt generally not well. She notes lightheadedness. She was taking Protonix 40 mg daily at home. She is on Aspirin 81 mg and Plavix daily. She denies heartburn or reflux at present. H/H is down from previously. Hgb was 9.6, but this AM she is noted to have an H/H of 7.6/24.1. BUN 32. She notes she has been NPO since 02/17/24. She denies further episodes at present. BP is high at 170/108. Allergies Allergy/AdvReac Type Severity Reaction Status Date / Time hydromorphone [From Dilaudid] AdvReac Intermediate Vomiting Verified 02/18/24 14:07 baclofen AdvReac Confusion Verified 02/18/24 14:07 Home Medications Medication Instructions Recorded Confirmed Type aspirin 81 mg tablet,delayed 81 mg PO QAM 05/16/18 02/18/24 History release acetaminophen 500 mg capsule 1,000 mg PO Q8H PRN Pain 02/17/22 02/18/24 History atorvastatin 20 mg tablet 20 mg PO QAM #90 tabs 03/25/24 06/17/24 Rx gabapentin 300 mg capsule 300 mg PO TID #90 caps 12/04/23 02/18/24 Rx albuterol sulfate 90 mcg/actuation 2 puff inhalation UD PRN as 12/15/23 02/18/24 History aerosol inhaler (Ventolin HFA) directed clonidine HCl 0.2 mg tablet 0.4 mg PO HS 12/15/23 02/18/24 History clopidogrel 75 mg tablet (Plavix) 75 mg PO QAM #30 tabs 12/26/23 02/18/24 Rx pantoprazole 40 mg tablet,delayed 40 mg PO QAM 01/18/24 02/18/24 History release lisinopril 20 mg tablet 20 mg PO QAM #90 tabs 01/23/24 02/18/24 Rx bupropion HCl 150 mg tablet,12 hr 150 mg PO BID #180 ea 01/29/24 02/18/24 Rx sustained-release tizanidine 2 mg tablet 2 mg PO TID PRN muscle spasticity 02/16/24 02/18/24 Rx #270 tabs ketorolac 0.5 % eye drops 1 drp ophthalmic (eye) UD 02/18/24 02/18/24 History lidocaine 4 % topical patch 1 patch topical QAM 02/18/24 02/18/24 History (Salonpas (lidocaine)) moxifloxacin 0.5 % eye drops 1 drp ophthalmic (eye) UD 02/18/24 02/18/24 History prednisolone acetate 1 % eye 1 drp ophthalmic (eye) UD 02/18/24 02/18/24 History drops,suspension Patient History Medical History (Updated 02/18/24 @ 11:06 by Justyna Griffin PA-C) History of left foot drop "not anymore, resolved" Hypocalcemia pt unsure about this dx, "stated it may have been when she was in the hospital in december 2023" Peripheral arterial disease S/P SFA stent (2013) S/P right femoral artery endarterectomy/stent (2017) Taking Plavix Lung nodule s/p radiation treatments Following with [facility] [place]- monitoring, "stable" Hyperlipidemia Hypertension Anxiety History of GI bleed 12/2023, had EGD Hx of sinus tachycardia no edge molder, 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 Cardiac murmur "has had since she was a child, no issues with"; no edge molder Thoracic facet syndrome History of ankle fracture (10/13/22) Right ankle, Distal fibula avulsion fx, chronic anterior tibia avulsion fx History of anemia Sciatica ongoing Vulvar cancer Remote hx "years ago", treated surgically Cervical cancer Approximately 1979, treated surgically Degenerative disc disease, lumbar Chronic sinusitis Lumbar disc herniation sx to correct COPD (chronic obstructive pulmonary disease) with emphysema "well controlled"; inh prn x2>uses maybe twice per week if at all Esophageal reflux Occasional Osteoporosis Hx of cirrhosis Hx ETOH abuse/alcoholism per records (0-2 drinks/wine per day per PAT RN phone assessment 05/01/23) Depression Hepatic encephalopathy Remote hx Surgical History History of left cataract extraction History of esophagogastroduodenoscopy (EGD) S/P excision of lipoma (05/09/23) Excision of Intramuscular Back Lipoma - Suraj Kincaid, DO, FACS History of dilatation and curettage History of knee surgery R knee repair (patella fracture) History of back surgery lumbar discectomy History of foot surgery Debridement of left foot ulcer (09/09/18): LMA#4.0 unique, atraumatic at [facility] H/O adenoidectomy removed w/tonsils History of surgery Radical removal of vulva, partial History of laryngoscopy With biopsy History of tooth extraction History of endarterectomy Right femoral artery endarterectomy/stent (05/31/18): Grade view 1, MAC#3, ETT 7.5 at [facility] History of surgery SFA stent (2013) per records Hx of hysterectomy + USO History of throat surgery Benign growth removal History of tonsillectomy Family History Mother Smoker Father Alzheimer disease Brother No problems noted. Sister No problems noted. Sister No problems noted. Son No problems noted. Daughter No problems noted. Daughter No problems noted. Aunt Cancer Other No pertinent family history Denies family history of Ovarian cancer Prostate cancer Myocardial infarction Breast cancer Colorectal cancer Social History Smoking Status: Current every day smoker Tobacco Type: Cigarettes Age Started Using Tobacco: 15; packs per day: 0.5; Cigarettes Per Day: pack a day; Second Hand Exposure: Yes; Do You Dip or Chew Tobacco: No; Tobacco Cessation Education Requested by Patient: No Hx Alcohol Use: Yes Alcohol type: wine Alcohol Intake Frequency: 4 or More x per/Week Alcohol Intake Frequency Comment: 2 glasses at dinner. 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 Other Information That Helps Us Care for You: No Feels Safe at Home: Yes Safety Concerns: Feels Safe At This Time Childhood Exposure to Second-Hand Smoke: Yes Diet: regular caffeine: Yes (coffee) during the past year weight has: remained stable Dental Care, Regularly: No Physical Activity Frequency: Does not Exercise Seatbelt Use: always Sunscreen Use: No Assistive Devices: Denture - Upper Review of Systems Constitutional: no fever and no chills Respiratory: no cough and no dyspnea Cardiovascular: no chest pain Gastrointestinal: + coffee ground emesis and + melena; no abdominal pain Psychiatric: no problem reported Physical Exam Constitutional: well developed Respiratory: normal respiratory effort Cardiovascular: Rate/Rhythm: regular rate Gastrointestinal (Abdomen): normal bowel sounds, soft, nontender, no hepatosplenomegaly Psychiatric: Orientation: alert and oriented x 3 Results & Data Vital Signs (Past 12 Hours) Vital Signs Temp Pulse Pulse Resp BP BP Pulse Ox 02/18/24 08:31 82 170/108 H 02/18/24 08:16 91 H 172/74 H 02/18/24 07:25 91 H 02/18/24 07:18 37.3 C 100 H 19 171/74 H 96 02/18/24 05:12 96 H 02/18/24 04:55 37 C 94 H 173/70 H 99 02/18/24 03:00 94 H 20 129/94 97 02/18/24 02:52 96 H 02/18/24 00:00 92 H 14 168/129 H 98 O2 Del Method 02/18/24 08:31 02/18/24 08:16 02/18/24 07:25 02/18/24 07:18 Room Air 02/18/24 05:12 02/18/24 04:55 Room Air 02/18/24 03:00 02/18/24 02:52 02/18/24 00:00 Room Air PG Care Time/CCT Total # of Minutes Spent Total Time Spent with Patient: Total time spent is greater than 50% in coordination of care (as documented) at patient's floor/unit and/or counseling patient: Coding Level of Care Code 96361 INT INP/OBS CARE 3/75MIN Diagnoses Coffee ground emesis K92.0 Anemia D64.9
[2024-02-18] MEDS: hydrALAZINE HCL 20 MG/ML VIAL IV PRN (11:18)
--- NOTE | 2024-02-18 14:15 | History & Physical Bridge Note ---
Date of Service February 18, 2024 History & Physical Bridge Note I have examined the patient, reviewed the History & Physical and in the interval since the performance of the History & Physical I have noted the following changes of clinical significance: no changes noted
--- NOTE | 2024-02-18 14:36 | Anesthesiology Consultation ---
Date of Service February 18, 2024 Assessment & Plan Chart Review Chart Review: Acceptable Risk for Surgery and Patient NOT seen in Pre Admission Testing Consults Requested none History Surgery Operation Date: 02/18/24 17:40 Proposed Procedures p Esophagogastroduodenoscopy Claudy Loco MD Height/Weight Height: 5 ft 2 in Weight: 57.606 kg Allergies Allergy/AdvReac Type Severity Reaction Status Date / Time hydromorphone [From Dilaudid] AdvReac Intermediate Vomiting Verified 02/18/24 14:07 baclofen AdvReac Confusion Verified 02/18/24 14:07 Medications Home Medications Medication Instructions Recorded Confirmed Last Taken aspirin 81 mg tablet,delayed 81 mg PO QAM 05/16/18 02/18/24 02/11/24 release acetaminophen 500 mg capsule 1,000 mg PO Q8H PRN Pain 02/17/22 02/18/24 05/08/23 08:30 atorvastatin 20 mg tablet 20 mg PO QAM #90 tabs 11/26/23 02/18/24 02/11/24 gabapentin 300 mg capsule 300 mg PO TID #90 caps 12/04/23 02/18/24 02/11/24 albuterol sulfate 90 mcg/actuation 2 puff inhalation UD PRN as 12/15/23 02/18/24 02/12/24 07:30 aerosol inhaler (Ventolin HFA) directed clonidine HCl 0.2 mg tablet 0.4 mg PO HS 12/15/23 02/18/24 Unknown clopidogrel 75 mg tablet (Plavix) 75 mg PO QAM #30 tabs 12/26/23 02/18/24 02/11/24 pantoprazole 40 mg tablet,delayed 40 mg PO QAM 01/18/24 02/18/24 02/11/24 release lisinopril 20 mg tablet 20 mg PO QAM #90 tabs 01/23/24 02/18/24 02/11/24 bupropion HCl 150 mg tablet,12 hr 150 mg PO BID #180 ea 01/29/24 02/18/24 02/11/24 sustained-release tizanidine 2 mg tablet 2 mg PO TID PRN muscle spasticity 02/16/24 02/18/24 Unknown #270 tabs ketorolac 0.5 % eye drops 1 drp ophthalmic (eye) UD 02/18/24 02/18/24 Unknown lidocaine 4 % topical patch 1 patch topical QAM 02/18/24 02/18/24 Unknown (Salonpas (lidocaine)) moxifloxacin 0.5 % eye drops 1 drp ophthalmic (eye) UD 02/18/24 02/18/24 Unknown prednisolone acetate 1 % eye 1 drp ophthalmic (eye) UD 02/18/24 02/18/24 Unknown drops,suspension Active Medications Generic Name Dose Route Start Last Admin Trade Name Freq PRN Reason Stop Dose Admin Hydralazine HCl 10 mg 02/18/24 10:25 02/18/24 11:18 Hydralazine Hcl 20 Mg/Ml Vial IV 03/19/24 10:24 10 mg Q8 PRN Administration sbp>185 or dbp>95 Pantoprazole Sodium 40 mg/ 10 mls @ 5 mls/min 02/18/24 09:00 02/18/24 08:16 Syringe IV 03/19/24 08:59 5 mls/min BID RONNIE Administration Sodium Chloride 1,000 mls @ 80 mls/hr 02/18/24 02:15 02/18/24 04:42 Nss IV 02/19/24 03:14 80 mls/hr .[id number] RONNIE Administration Metoprolol Tartrate 5 mg 02/18/24 08:00 02/18/24 12:28 Metoprolol Tartrate 1 Mg/Ml Vial IV 03/19/24 07:59 5 mg Q4 RONNIE Administration Miscellaneous 1 each 02/18/24 08:59 02/18/24 08:17 Remove Nicoderm Patch N/A 03/19/24 08:58 1 each DAILY@0859 RONNIE Administration Nicotine 1 patch 02/18/24 09:00 02/18/24 08:16 Nicotine 14 Mg/24 Hr Patch TD 03/19/24 08:59 1 patch QAM RONNIE Administration NPO Date Last Intake of Fluids: 02/17/24 Time Last Intake of Fluids: 19:00 Date Last Intake of Solids: 02/17/24 Time Last Intake of Solids: 12:00 Past Medical History Medical History (Updated 02/18/24 @ 11:06 by Justyna Griffin PA-C) History of left foot drop "not anymore, resolved" Hypocalcemia pt unsure about this dx, "stated it may have been when she was in the hospital in december 2023" Peripheral arterial disease S/P SFA stent (2013) S/P right femoral artery endarterectomy/stent (2017) Taking Plavix Lung nodule s/p radiation treatments Following with [facility] [place] oncology- monitoring, "stable" Hyperlipidemia Hypertension Anxiety History of GI bleed 12/2023, had EGD Hx of sinus tachycardia no shovel logger, 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 Cardiac murmur "has had since she was a child, no issues with"; no shovel logger Thoracic facet syndrome History of ankle fracture (10/13/22) Right ankle, Distal fibula avulsion fx, chronic anterior tibia avulsion fx History of anemia Sciatica ongoing Vulvar cancer Remote hx "years ago", treated surgically Cervical cancer Approximately 1979, treated surgically Degenerative disc disease, lumbar Chronic sinusitis Lumbar disc herniation sx to correct COPD (chronic obstructive pulmonary disease) with emphysema "well controlled"; inh prn x2>uses maybe twice per week if at all Esophageal reflux Occasional Osteoporosis Hx of cirrhosis Hx ETOH abuse/alcoholism per records (0-2 drinks/wine per day per PAT RN phone assessment 05/01/23) Depression Hepatic encephalopathy Remote hx Past Family History Family History Mother Smoker Father Alzheimer disease Brother No problems noted. Sister No problems noted. Sister No problems noted. Son No problems noted. Daughter No problems noted. Daughter No problems noted. Aunt Cancer Other No pertinent family history Denies family history of Ovarian cancer Prostate cancer Myocardial infarction Breast cancer Colorectal cancer Past Surgical History Surgical History History of left cataract extraction History of esophagogastroduodenoscopy (EGD) S/P excision of lipoma (05/09/23) Excision of Intramuscular Back Lipoma - Suraj Kincaid, DO, FACS History of dilatation and curettage History of knee surgery R knee repair (patella fracture) History of back surgery lumbar discectomy History of foot surgery Debridement of left foot ulcer (09/09/18): LMA#4.0 unique, atraumatic at [facility] H/O adenoidectomy removed w/tonsils History of surgery Radical removal of vulva, partial History of laryngoscopy With biopsy History of tooth extraction History of endarterectomy Right femoral artery endarterectomy/stent (05/31/18): Grade view 1, MAC#3, ETT 7.5 at [facility] History of surgery SFA stent (2013) per records Hx of hysterectomy + USO History of throat surgery Benign growth removal History of tonsillectomy Social History Smoking Status: Current every day smoker tobacco type: cigarettes Smoking cigarettes per day: pack a day Do You Dip or Chew Tobacco: No Hx Alcohol Use: Yes Alcohol type: wine alcohol intake frequency: 0-2 drinks per day Hx Substance Use: No substance use type: does not use Physical Exam Vital Signs Last Vital Signs Temp 37.4 C 02/18/24 14:07 Pulse 90 02/18/24 14:07 Resp 16 02/18/24 14:07 BP 187/78 H 02/18/24 14:07 Pulse Ox 99 02/18/24 14:07 O2 Del Method Room Air 02/18/24 14:07 Testing Laboratory Results 02/18/24 12:52 02/18/24 05:42 PT 10.8 Seconds (9.0-12.0) 02/17/24 22:50 INR 1.0 (0.9-1.1) 02/17/24 22:50 Urine Color Yellow 02/18/24 01:37 Urine Appearance Clear (Clear) 02/18/24 01:37 Urine pH 7.0 (4.5-7.5) 02/18/24 01:37 Ur Specific [place] 1.016 (1.000-1.030) 02/18/24 01:37 Urine Protein Trace (Negative) H 02/18/24 01:37 Urine Glucose (UA) Negative (Negative) 02/18/24 01:37 Urine Ketones Trace (Negative) H 02/18/24 01:37 Urine Nitrite Negative (Negative) 02/18/24 01:37 Ur Leukocyte Esterase Negative (Negative) 02/18/24 01:37 Urine WBC (Auto) 0-5 /hpf (0-5) 02/18/24 01:37 Urine RBC (Auto) 0-2 /hpf (0-2) 02/18/24 01:37 U Hyaline Cast (Auto) 0-2 /lpf (0-2) 02/18/24 01:37 U Epithel Cells (Auto) 0-2 /hpf (0-2) 02/18/24 01:37 Urine Bacteria (Auto) None Seen (None Seen) 02/18/24 01:37
--- NOTE | 2024-02-18 15:44 | GI REPORT ---
[facility] Patient: BONIFACIO FATIMA : 1950 Sex at : Female Age: 73 Years Procedure: Upper GI endoscopy Date: 02/18/2024 Attending Physician: Matt Loco MD Referring MD: Wilber Chan; Katarina Jimenes Md Indications: - Coffee-ground emesis - melena - worsening of anemia Medications: - Monitored Anesthesia Care Complications: - No immediate complications. Estimated Blood Loss: - Estimated blood loss: none. Procedure: - The egd scope was introduced through the mouth and advanced to the second part of the duodenum. - The upper GI endoscopy was accomplished without difficulty. Findings: - The examined esophagus was normal. No evidence of varices, esophagitis or Koroma's mucosa - The Z-line was irregular and was found 37 cm from the incisors. - The entire examined stomach was normal. No evidence of gastric varices or portal gastropathy - The examined duodenum was normal. Impression: - Normal esophagus. - No evidence of varices, esophagitis or Koroma's mucosa - Z-line irregular, 37 cm from the incisors. - Normal stomach. - No evidence of gastric varices or portal gastropathy - Normal examined duodenum. - No specimens collected. Recommendation: - Advance diet - Monitor CBC - Follow up with GI office in 4-6 weeks Procedure Code(s): - 96482, Esophagogastroduodenoscopy, flexible, transoral; diagnostic, including collection of specimen(s) by brushing or washing, when performed (separate procedure) Diagnosis Code(s): - K92.0, Hematemesis - K22.89, Other specified disease of esophagus CPT(R) - 2023 copyright [employer]. All Rights Reserved. The CPT codes, CCI edits and ICD codes generated are intended as suggestions and were generated based on input data. These codes are preliminary and upon surgical coder review may be revised to meet current compliance and payer requirements. The provider is responsible for the final determination of appropriate codes, and modifiers. Matt Loco M.D. This document has been electronically signed. Note Initiated:02/18/2024 Note Completed:02/18/2024 3:43 PM [id number]
--- NOTE | 2024-02-18 15:46 | Communication Note ---
Date of Service: February 18, 2024 EGD was normal. OK to advance diet, change protonix to po. Monitor H/H. Follow up as outpt in few weeks in the GI office
--- NOTE | 2024-02-18 16:23 | Hospitalist Progress Note ---
Date of Service February 18, 2024 Assessment & Plan (1) Coffee ground emesis: Plan: concern for acute upper GI bleed, with also c/o melena The patient was most recently admitted to [facility] from 12/14-12/17/2023 for upper GI bleed EGD on 12/17/2023 showed a small hiatal hernia and gastritis. Since that time patient has been taking pantoprazole 40 mg daily, and avoided ibuprofen or any other NSAIDs. Patient has continued to take Plavix and aspirin for her PAD, which will be held for now Received pantoprazole 80 mg IV and famotidine 20 mg IV from the ED Pantoprazole 40 mg change to po daily Ceftriaxone 1 g IV every 24 hours will continue in case this is a lower GI bleed awaiting stability of hemoglobin and resolution of melena Hemoglobin is 9.6 on admission, with most recent 9.5. Platelets are normal at 315 Patient reports that she had 48 hours of a upper respiratory prodrome type of symptoms, and [employer] testing performed was negative today Consult gastroenterology EGD performed the afternoon of 02/17 without source of upper GI bleed (2) Peripheral artery disease: Plan: PAD- History of SFA stent in 2013 and right FA stent in 2018 Patient has continued on Plavix and aspirin since that time will likely hold antiplatelet agents with the presumption she is a lower GI bleed and resume likely in 1 week Patient is at significant risk his CT scan from December 2023 shows chronic renal artery stenosis left greater than right with multifocal cortical scarring but also an age-indeterminate occlusion of the right superficial femoral artery stent (3) Hypertension: Plan: resume clonidine and lisinopril discontinue IV metoprolol continue IV hydralazine as needed for blood pressure control (4) Chronic obstructive pulmonary disease: Plan: Continued tobacco use, not typically on inhalers follows with Rad onc for pulmonary nodules Admission and Anticipated Discharge Date Admission Date: February 18, 2024 Results & Data Results & Data Vital Signs (Past 12 Hours) Vital Signs Temp Pulse Pulse Resp BP BP Pulse Ox 02/18/24 15:59 90 18 185/74 H 100 02/18/24 15:44 90 18 178/59 H 99 02/18/24 15:29 95 H 16 148/65 H 99 02/18/24 14:07 99.3 F 90 16 187/78 H 99 02/18/24 12:43 93 H 186/76 H 02/18/24 12:28 86 150/76 H 02/18/24 12:10 150/76 H 02/18/24 11:08 99.1 F 85 20 201/72 H 99 02/18/24 08:31 82 170/108 H 02/18/24 08:16 91 H 172/74 H 02/18/24 07:25 91 H 02/18/24 07:18 99.1 F 100 H 19 171/74 H 96 02/18/24 05:12 96 H 02/18/24 04:55 98.6 F 94 H 173/70 H 99 O2 Del Method 02/18/24 15:59 Room Air 02/18/24 15:44 Room Air 02/18/24 15:29 Room Air 02/18/24 14:07 Room Air 02/18/24 12:43 02/18/24 12:28 02/18/24 12:10 02/18/24 11:08 Room Air 02/18/24 08:31 02/18/24 08:16 02/18/24 07:25 02/18/24 07:18 Room Air 02/18/24 05:12 02/18/24 04:55 Room Air PG Care Time/CCT Total # of Minutes Spent Total Time Spent with Patient: Total time spent is greater than 50% in coordination of care (as documented) at patient's floor/unit and/or counseling patient: Coding Level of Care Code None Diagnoses Coffee ground emesis K92.0 Peripheral artery disease I73.9 Hypertension I10 Hypertension type: essential hypertension Chronic obstructive pulmonary disease J44.9 (3) Hypertension Hypertension type: essential hypertension Qualified Code(s): I10 - Essential (primary) hypertension
--- NOTE | 2024-02-18 16:28 | Anesthesiology Progress Note ---
Date of Service February 18, 2024 Anesthesia Post Procedure Vital Signs Vital Signs: Temp Pulse Pulse Resp BP BP Pulse Ox 02/18/24 15:59 90 18 185/74 H 100 02/18/24 15:44 90 18 178/59 H 99 02/18/24 15:29 95 H 16 148/65 H 99 02/18/24 14:07 37.4 C 90 16 187/78 H 99 02/18/24 12:43 93 H 186/76 H 02/18/24 12:28 86 150/76 H 02/18/24 12:10 150/76 H 02/18/24 11:08 37.3 C 85 20 201/72 H 99 02/18/24 08:31 82 170/108 H 02/18/24 08:16 91 H 172/74 H 02/18/24 07:25 91 H 02/18/24 07:18 37.3 C 100 H 19 171/74 H 96 02/18/24 05:12 96 H 02/18/24 04:55 37 C 94 H 173/70 H 99 02/18/24 03:00 94 H 20 129/94 97 02/18/24 02:52 96 H 02/18/24 00:00 92 H 14 168/129 H 98 02/17/24 22:58 113 H 21 97 02/17/24 22:54 108 H 02/17/24 22:49 107 H 22 170/132 H 97 02/17/24 22:45 36.9 C 107 H 16 170/132 H 96 O2 Del Method 02/18/24 15:59 Room Air 02/18/24 15:44 Room Air 02/18/24 15:29 Room Air 02/18/24 14:07 Room Air 02/18/24 12:43 02/18/24 12:28 02/18/24 12:10 02/18/24 11:08 Room Air 02/18/24 08:31 02/18/24 08:16 02/18/24 07:25 02/18/24 07:18 Room Air 02/18/24 05:12 02/18/24 04:55 Room Air 02/18/24 03:00 02/18/24 02:52 02/18/24 00:00 Room Air 02/17/24 22:58 Room Air 02/17/24 22:54 02/17/24 22:49 Room Air 02/17/24 22:45 Room Air Transfer of Care Handoff Completed per policy Notes Mental Status: alert / awake / arousable and participated in evaluation Patient Amnestic to Procedure: Yes Nausea / Vomiting: adequately controlled Pain: adequately controlled Airway Patency, RR, SpO2: stable & adequate BP & HR: stable & adequate Hydration State: stable & adequate Anesthetic Complications: no major complications apparent and Pt Satisfied with anesthetic care
[2024-02-18] MEDS: LIDOCAINE 5% 1 PATCH TD SCH (16:41)
[2024-02-18] MEDS: GABAPENTIN 300 MG CAP PO SCH (16:42)
[2024-02-18] MEDS: LIDOCAINE 2% 2 ML VIAL/AMP(20MG/ML) INFIL ONE ×2 (16:43)
[2024-02-18] MEDS: PROPOFOL IV EMULSION 10 MG/ML 20 ML VIAL IV ONE (16:43)
[2024-02-18] MEDS: lisinopril 5 MG TAB PO ONE (17:00)
--- NOTE | 2024-02-18 17:06 | Electrocardiogram Report ---
Test Reason : Blood Pressure : / mmHG Vent. Rate : 112 BPM Atrial Rate : 112 BPM P-R Int : 136 ms QRS Dur : 062 ms QT Int : 306 ms P-R-T Axes : 080 064 079 degrees QTc Int : 417 ms Sinus tachycardia Otherwise normal ECG When compared with ECG of 15-DEC-2023 21:01, Premature ventricular complexes are no longer Present Confirmed by Kaden Delcid ([id number]) on 02/18/2024 5:05:40 PM Referred By: REFERRED SELF Confirmed By:Kaden Delcid
--- NOTE | 2024-02-18 17:11 | Electrocardiogram Report ---
Test Reason : Blood Pressure : / mmHG Vent. Rate : 089 BPM Atrial Rate : 089 BPM P-R Int : 150 ms QRS Dur : 070 ms QT Int : 358 ms P-R-T Axes : 072 044 065 degrees QTc Int : 435 ms Sinus rhythm with occasional Premature ventricular complexes Nonspecific T wave abnormality Abnormal ECG When compared with ECG of 17-FEB-2024 22:47, (unconfirmed) Premature ventricular complexes are now Present Confirmed by Kaden Delcid ([id number]) on 02/18/2024 5:10:48 PM Referred By: REFERRED SELF Confirmed By:Kaden Delcid
[2024-02-18] MEDS ORDERED: lisinopril 5 MG TAB PO ONE (20:00)
[2024-02-18] MEDS: buPROPion SR 150 MG TABCR PO SCH (20:16)
[2024-02-18] MEDS: cloNIDine HCL 0.1 MG TAB PO SCH (20:16)
[2024-02-19] MEDS: cefTRIAXone SODIUM 1,000 MG/50 ML BAG IV SCH (02:02)
[2024-02-19 06:58] LABS: Basophils # (auto) 0.03 K/uL (0.00-0.20); Basophils % (auto) 0.5 %; Eosinophils % (auto) 1.7 %; Hematocrit (blood only) 23.2 % (37.0-47.0); Hemoglobin 7.3 g/dl (12.0-16.0); Immature Granulocytes # (auto) 0.04 K/uL (0.01-0.20); Immature Granulocytes % (auto) 0.7 %; Lymphocytes # (auto) 1.03 K/uL (1.20-3.40); Lymphocytes % (auto) 17.8 %; Mean Corpuscular Hemoglobin 26.6 pg (25.0-34.0); Mean Corpuscular Hgb Conc 31.5 g/dL (32.0-36.0); Mean Corpuscular Volume 84.7 fL (80.0-100.0); Mean Platelet Volume 9.1 fL (9.4-12.4); Monocytes # (auto) 0.76 K/uL (0.11-0.59); Monocytes % (auto) 13.1 %; Neutrophils # (auto) 3.82 K/uL (1.40-6.50); Neutrophils % (auto) 66.2 %; Platelet Count 227 K/uL (130-400); RDW Coefficient of Variation 19.8 % (11.5-14.5); RDW Standard Deviation 57.1 fL (36.4-46.3); Red Blood Count 2.74 M/uL (4.20-5.40); White Blood Count 5.78 K/ul (4.8-10.8)
[2024-02-19 07:04] VITALS: RESP 20
[2024-02-19 07:16] LABS: Albumin Level 3.6 gm/dl (3.4-5.0); BUN Creatinine Ratio 20.3 (10-20); Calcium 8.2 mg/dl (8.6-10.3); Creatinine Clr Calc Pharmacy 63.1 ml/min; Est GFR (African American) 100.8 ml/min; Magnesium 1.7 mg/dl (1.7-2.4); Phosphorus 2.9 mg/dl (2.5-4.9); Potassium 3.8 mmol/L (3.5-5.1)
[2024-02-19 07:20] LABS: Hypochromasia Present
[2024-02-19] MEDS: lisinopril 10 MG TAB PO SCH (08:03)
[2024-02-19] MEDS: PANTOprazole 40 MG TAB PO SCH (08:03)
[2024-02-19] MEDS: tiZANidine HCL 4 MG TABLET PO PRN (08:48)
[2024-02-19] MEDS: ACETAMINOPHEN 1,000 MG/100 ML VIAL IV PRN (08:51)
--- NOTE | 2024-02-19 10:02 | Gastroenterology Progress Note ---
Date of Service February 19, 2024 Assessment & Plan (1) Anemia: Plan: 73 year old female w/ history of COPD, tobacco abuse, anxiety, PAD s/p SFA stent in 2014 and R femoral artery stent in 2018, HTN, and HLD admitted with anemia, dark stools and coffee ground emesis s/p EGD 02/18/24 without any source of bleeding identified No GI contraindication to diet/discharge if remains hemodynamically stable Trend H&H PO PPI No NSAIDs Ok for ASA, Plavix She should follow up after discharge to continunation of her GI workup I spent a total of 30 minutes on the date of service in review of patient's record, and previously obtained information in person and appropriate medical visit, discussion and education of plan, with patient and/or caregiver, placing orders for tests/referral/procedures as medically necessary and documentation of pertinent clinical information in patient's medical records for their visit today. Admission and Anticipated Discharge Date Admission Date: February 18, 2024 Subjective Pt was seen and evaluated, chart reviewed. Feeling well. No abd pain. No nausea, vomiting. Tolerating PO intake well. Denies any black or bloody stools in the last 24 hours HGB 7.6 --> 7.8 --> 7.3 BUN 14 EGD 2023: - Normal esophagus. - No evidence of varices, esophagitis or Koroma's mucosa - Z-line irregular, 37 cm from the incisors. - Normal stomach. - No evidence of gastric varices or portal gastropathy - Normal examined duodenum. - No specimens collected. Review of Systems Review of Systems: All other findings negative except as noted in HPI. Physical Exam Constitutional: WD/WN, vitals as above Respiratory: normal respiratory effort, lungs clear to auscultation Cardiovascular: Rate/Rhythm: regular rate and regular rhythm Gastrointestinal (Abdomen): normal bowel sounds, soft, nontender, no hepatosplenomegaly Skin: no rashes, warm and dry Results & Data Results & Data Vital Signs (Past 12 Hours) Vital Signs Temp Pulse Pulse Resp BP Pulse Ox O2 Del Method 02/19/24 07:30 89 02/19/24 07:03 36.5 C 94 H 20 180/67 H 100 Room Air 02/19/24 02:53 36.7 C 101 H 18 146/75 H 100 Room Air 02/18/24 22:59 36.7 C 82 18 143/74 H 97 Room Air PG Care Time/CCT Total # of Minutes Spent Total Time Spent with Patient: Total time spent is greater than 50% in coordination of care (as documented) at patient's floor/unit and/or counseling patient: Coding Level of Care Code 69741 SUB INP/OBS CARE /25MIN Diagnoses Anemia, unspecified type D64.9 Anemia type: unspecified type (1) Anemia Anemia type: unspecified type Qualified Code(s): D64.9 - Anemia, unspecified
[2024-02-19 11:01] VITALS: BP 134/54; PULSE 85; TEMP 98.6; O2SAT 97
--- NOTE | 2024-02-19 11:48 | Communication Note ---
Date of Service: February 19, 2024 By CMS guidelines, a determination that the admission or continued stay is not medically necessary has been made by a member of the UR committee and a phys ician for this hospital stay, therefore a Code 44 will be completed and the Inpatient admission will be changed to outpatient.
--- NOTE | 2024-02-19 11:59 | Communication Note ---
Date of Service: February 19, 2024 By CMS guidelines, a determination that the admission or continued stay is not medically necessary has been made by a member of the UR committee and a physi adne for this hospital stay, therefore a Code 44 will be completed and the Inpatient admission will be changed to outpatient.
--- NOTE | 2024-02-19 17:22 | Discharge Summary ---
Discharge Summary Date of Service February 19, 2024 Principal Dx & Hospital Course #1 = Principal Diagnosis (1) Coffee ground emesis: concern for acute upper GI bleed, with also c/o melena however endoscopy on 02/18/2024 did not show any upper GI stigmata of bleeding. Likely this might be small bowel or lower bowel which would be encouraged by her dual antiplatelet therapy. Since no stigmata of appreciably AT the patient be discharged to continue to be taking pantoprazole 40 mg daily, and avoided ibuprofen or any other NSAIDs. Patient will have her aspirin and Plavix held at discharge resuming her Plavix on the and aspirin on 27 February Patient has no exam consistent with diverticulitis flare no pain in her lower quadrant subsequently antibiotics not be continued at this time. Patient does have acute blood loss anemia it is stable in the low 7 range she is recommended to take a vitamin or 2 [place] vitamins a day to improve her anemia and will have outpatient follow-up with her primary care provider Patient reports that she had 48 hours of a upper respiratory prodrome type of symptoms, and [employer] testing performed was negative on admission (2) Peripheral artery disease: PAD- History of SFA stent in 2013 and right FA stent in 2017 Patient has continued on Plavix and aspirin since that time will likely hold antiplatelet agents with the presumption she is a lower GI bleed and resume Plavix on 02/20 and aspirin on 02/28/2024 Patient is at significant risk his CT scan from December 2023 shows chronic renal artery stenosis left greater than right with multifocal cortical scarring but also an age-indeterminate occlusion of the right superficial femoral artery stent (3) Hypertension: resume clonidine and lisinopril for blood pressure control (4) Chronic obstructive pulmonary disease: Continued tobacco use, not typically on inhalers follows with Rad onc for pulmonary nodules Notes For Next Care Provider Patient likely may benefit from surveillance of her anemia. She also will need referral to gastroenterology she is unclear which group she wants to go to for capsule or perhaps colonoscopy. Restarting antiplatelets is challenging however with her significant peripheral artery disease with chronic occlusion seen risk may outweigh benefit in restarting medications in a stepwise fashion has been ordered however will defer to primary if they wish to change the telly or timing of restarting of aspirin Encourage smoking cessation again to reduce the risk of multiple health issues Admission HPI Per Admitting Provider The patient is a 73-year-old female with a past medical history including tobacco use, COPD, foot drop, anxiety, PAD status post SFA stent in 2014 and right femoral artery stent in 2018, hypertension, hyperlipidemia and admission from 12/14-12/17/2023 for upper GI bleed. EGD on 12/17/2023 showed small hiatal hernia, gastritis and at which time she had ibuprofen use, which she has not had since that time. Discharge Exam Patient is pleasant she does not appear pale as would be expected given her anemia Her abdomen was examined its nontender soft normal bowel sounds Updated Medication List Medication Instructions Recorded Confirmed Type aspirin 81 mg tablet,delayed 81 mg PO QAM 05/16/18 02/18/24 History release acetaminophen 500 mg capsule 1,000 mg PO Q8H PRN Pain 02/17/22 02/18/24 History atorvastatin 20 mg tablet 20 mg PO QAM #90 tabs 11/26/23 02/18/24 Rx gabapentin 300 mg capsule 300 mg PO TID #90 caps 12/04/23 02/18/24 Rx albuterol sulfate 90 mcg/actuation 2 puff inhalation UD PRN as 12/15/23 02/18/24 History aerosol inhaler (Ventolin HFA) directed clonidine HCl 0.2 mg tablet 0.4 mg PO HS 12/15/23 02/18/24 History clopidogrel 75 mg tablet (Plavix) 75 mg PO QAM #30 tabs 12/26/23 02/18/24 Rx pantoprazole 40 mg tablet,delayed 40 mg PO QAM 01/18/24 02/18/24 History release lisinopril 20 mg tablet 20 mg PO QAM #90 tabs 01/23/24 02/18/24 Rx bupropion HCl 150 mg tablet,12 hr 150 mg PO BID #180 ea 01/29/24 02/18/24 Rx sustained-release tizanidine 2 mg tablet 2 mg PO TID PRN muscle spasticity 02/16/24 02/18/24 Rx #270 tabs ketorolac 0.5 % eye drops 1 drp ophthalmic (eye) UD 02/18/24 02/18/24 History lidocaine 4 % topical patch 1 patch topical QAM 02/18/24 02/18/24 History (Salonpas (lidocaine)) moxifloxacin 0.5 % eye drops 1 drp ophthalmic (eye) UD 02/18/24 02/18/24 History prednisolone acetate 1 % eye 1 drp ophthalmic (eye) UD 02/18/24 02/18/24 History drops,suspension Hospital Stay Data Consultations 02/18/24 01:13 ED Decision to Admit Stat 02/18/24 02:04 Consult Gastroenterology Routine Procedures Performed Operation Date: 02/18/24 17:40 Actual Procedures p Esophagogastroduodenoscopy - Matt Loco MD Pending Results Patient Have Any Pending Studies at Discharge: No Discharge Instructions Given to Patient (Per Discharging Provider) please have a nutritious diet and good hydration you are anemic and will need to take a vitamin for at least 6 weeks or longer to build up your blood counts, take a vitamin or 2 flinstones chewable a day since your aspirin and Plavix do create a risk of bleeding again, please do not restart these until 02/21/24, at that time start the plavix and then one week later 02/28/24 restart the aspirin If you have any re occurrence please report back to the hospital Total Time Total Time Spent Total Time Spent (In Minutes): It required greater than 30 minutes to prepare this patient for discharge. Coding Level of Care Code 83383 INP/OBS DISCH >30 MIN Diagnoses Coffee ground emesis K92.0 Peripheral artery disease I73.9 Hypertension I10 Hypertension type: essential hypertension Chronic obstructive pulmonary disease J44.9
== END 2024-02-19 12:43 | disposition home or self-care (01) ==
LOC: ED 22:40 → INTOOBSV 02-18 02:08 → SUATTDRO 02-18 02:08 → 2S 02-18 02:08

== ENCOUNTER 2024-07-23 15:04 | Observation (INO) ==
--- NOTE | 2024-07-23 15:13 | ED Triage Note ---
Date of Service July 23, 2024 Provider in Triage Author: Yaakov Rouse History of Present Illness This patient was briefly evaluated while in triage. An abbreviated physical exam was performed. This patient is a 73-year-old Female who presents to the ED for evaluation Hx of COPD, lipids, PAD on ASA and Plavix feeling fatigue, left leg weakness, confusion, off balance, blurry vision in right eye started 0830 Physical Exam GENERAL: NAD seated in wheelchair CARDIOVASCULAR: RRR RESPIRATORY: CTA NEURO: speech clear, no facial droop, no extremity weakness Initial orders for labs and / or imaging were placed and patient was placed in the waiting area until a bed is available. Please see further documentation for the full ED course.
[2024-07-23 16:22] LABS: Basophils # (auto) 0.05 K/uL (0.00-0.20); Basophils % (auto) 0.7 %; Eosinophils % (auto) 2.7 %; Hematocrit (blood only) 28.4 % (37.0-47.0); Hemoglobin 8.4 g/dl (12.0-16.0); Immature Granulocytes # (auto) 0.04 K/uL (0.01-0.20); Immature Granulocytes % (auto) 0.5 %; Lymphocytes # (auto) 1.36 K/uL (1.20-3.40); Lymphocytes % (auto) 18.5 %; Mean Corpuscular Hemoglobin 23.5 pg (25.0-34.0); Mean Corpuscular Hgb Conc 29.6 g/dL (32.0-36.0); Mean Corpuscular Volume 79.6 fL (80.0-100.0); Mean Platelet Volume 8.2 fL (9.4-12.4); Monocytes % (auto) 12.2 %; Neutrophils # (auto) 4.81 K/uL (1.40-6.50); Neutrophils % (auto) 65.4 %; Platelet Count 379 K/uL (130-400); RDW Coefficient of Variation 17.5 % (11.5-14.5); RDW Standard Deviation 51.3 fL (36.4-46.3); Red Blood Count 3.57 M/uL (4.20-5.40); White Blood Count 7.36 K/ul (4.8-10.8)
[2024-07-23] MEDS: OPTIRAY 320 125ml IV ONE (16:30)
--- NOTE | 2024-07-23 16:39 | CT Scan Report ---
Clinical History: Possible stroke. Technique: Axial computed tomography images were obtained of the brain from the vertex to the skull base without intravenous contrast. Findings: There is no sign of intracranial hemorrhage. There is normal ocasio-white matter differentiation with no sign of acute or old infarction. No midline shift or other form of herniation is identified. There is no hydrocephalus. No obvious mass lesion is seen on this noncontrast examination. The visualized portions of the orbits and paranasal sinuses appear unremarkable. The mastoid air cells appear clear Impression: Unremarkable noncontrast CT of the brain Electronically signed by Greg Montes 07-23-2024 4:39 PM
--- NOTE | 2024-07-23 16:41 | CT Scan Report ---
Clinical history: Possible stroke Technique: Axial computed tomography images were obtained of the brain after the administration of intravenous contrast according to the CT angiogram protocol Findings: There is calcified plaque within the cavernous and supraclinoid segments of the internal carotid arteries bilaterally, without apparent stenosis No definite stenosis or aneurysm is seen of the anterior, middle, or posterior cerebral artery circulations. The visualized vertebral arteries and the basilar artery appear unremarkable Impression: No definite stenosis or aneurysm of the intracranial arteries Electronically signed by Greg Montes 07-23-2024 4:41 PM
[2024-07-23 16:44] LABS: INR 0.9 (0.9-1.1); Partial Thromboplastin Ratio 0.9; Partial Thromboplastin Time 25 Seconds (21-31); Prothrombin Time 9.9 Seconds (9.0-12.0)
--- NOTE | 2024-07-23 16:49 | CT Scan Report ---
Clinical history: Possible stroke Technique: Axial computed tomography images were obtained of the neck after the administration of intravenous contrast according to the CT angiogram protocol Findings: There is a moderate severity stenosis of the proximal left common carotid artery. There is a severe stenosis of the distal left common carotid artery. There is mild plaque in the left carotid bulb without significant stenosis. There is a mild stenosis of the proximal left internal carotid artery with approximately 30% diameter narrowing. There is a mild stenosis of the proximal left external carotid artery There is a severe stenosis at the origin of the right common carotid artery with near occlusion due to irregular calcified plaque. There is an approximately 50% diameter stenosis of the right carotid bulb due to calcified plaque. No significant stenosis is seen of the remainder of the right internal carotid artery. There is a moderate severity stenosis of the origin of the right external carotid artery. There is a severe stenosis at the origin of the left vertebral artery. There are mild stenoses of the proximal and mid left vertebral artery with up to 40% diameter narrowing. The left vertebral artery is dominant. There is a severe stenosis of the origin of the right vertebral artery with near occlusion due to extensive calcified plaque. There is a moderate severity stenosis of the mid right vertebral artery. There is an approximately 50% diameter stenosis of the distal right vertebral artery at the level of C1. There is a mild stenosis at the origin of the left subclavian artery. There is a mild stenosis of the mid left subclavian artery. The visualized thoracic aorta appears unremarkable There is multilevel degenerative disc disease and osteoarthritis of the cervical spine. Impression: 1. Severe stenosis of the origin of the right CCA and approximately 50% stenosis of the right carotid bulb 2. Moderate severity stenosis of the proximal left CCA, severe stenosis of the distal left CCA, and mild stenosis of the proximal left ICA 3. Severe stenoses of the origins of the vertebral arteries bilaterally. There are additional mild to moderate severity stenoses of the vertebral arteries 4. Mild stenoses of the left subclavian artery Electronically signed by Greg Montes 07-23-2024 4:49 PM
--- NOTE | 2024-07-23 17:12 | Emergency Department Note ---
History of Present Illness General Chief complaint: TIA Symptoms Stated complaint: RT EYE BLURRY/COMES AND GOES,SLURRED SPEECH, DIZZY Time Seen by Provider: 07/23/24 15:56 Source: patient and family (Daughter) History of Present Illness Provider complaint: Strokelike symptoms 73-year-old female presents emergency department for strokelike symptoms. Patient's here with her daughter at bedside. Daughter reports that the patient is being increasing confused, having dysarthria, and weakness in her left lower extremity that is worse today. Patient reports chronic left lower extremity weakness. Patient states she thinks her symptoms began at 830. Daughter states that the patient's woke up at 8:30 in the morning and is when the symptoms were first noticed. Patient or daughter unable to give an exact time as to when the symptoms started. Patient does drink alcohol regularly, usually 2 glasses of wine a day and smokes. She states she not drink any alcohol yet today. Home Medications Medication Instructions Recorded Confirmed Type aspirin 81 mg tablet,delayed 81 mg PO QAM 05/16/18 07/23/24 History release acetaminophen 500 mg capsule 1,000 mg PO Q8H PRN Pain 02/17/22 07/23/24 History clopidogrel 75 mg tablet (Plavix) 75 mg PO QAM #30 tabs 12/26/23 07/23/24 Rx tizanidine 2 mg tablet 2 mg PO TID PRN muscle spasticity 02/16/24 07/23/24 Rx #270 tabs lidocaine 4 % topical patch 1 patch topical QAM 02/18/24 07/23/24 History (Salonpas (lidocaine)) gabapentin 400 mg capsule 400 mg PO TID #90 caps 05/01/24 07/23/24 Rx albuterol sulfate 90 mcg/actuation 2 puff inhalation UD PRN as 05/19/24 07/23/24 Rx aerosol inhaler (Ventolin HFA) directed #6.7 grams atorvastatin 20 mg tablet 20 mg PO QAM #90 tabs 06/17/24 07/23/24 Rx bupropion HCl 150 mg tablet,12 hr 150 mg PO BID 90 days #180 ea 06/30/24 07/23/24 Rx sustained-release lisinopril 20 mg tablet 20 mg PO QAM #90 tabs 07/10/24 07/23/24 Rx pantoprazole 40 mg tablet,delayed 40 mg PO QAM #30 tabs 07/22/24 07/23/24 Rx release clonidine HCl 0.2 mg tablet 0.2 mg PO UD PRN Anxiety 07/23/24 07/23/24 History Allergies Allergy/AdvReac Type Severity Reaction Status Date / Time hydromorphone [From Dilaudid] AdvReac Intermediate Vomiting Verified 07/09/24 13:25 baclofen AdvReac Confusion Verified 07/09/24 13:25 Past Med/Surg History Problem List (Updated 07/23/24 @ 23:31 by Milton Gill MD) Stroke-like symptoms (Acute) Degenerative lumbar spinal stenosis Anemia Thoracic facet syndrome Melena Sinus tachycardia Hypocalcemia Myofascial pain Thoracic back pain Smoker Chronic obstructive pulmonary disease Footdrop Left Lung nodule (Chronic) s/p radiation treatments Following with [facility] [place]- monitoring, "stable" Peripheral artery disease S/P SFA stent (2013) S/P right femoral artery endarterectomy/stent (2017) Taking Plavix Medical History Anxiety Hypertension Hyperlipidemia History of left foot drop "not anymore, resolved" Hypocalcemia pt unsure about this dx, "stated it may have been when she was in the hospital in december 2023" Peripheral arterial disease S/P SFA stent (2013) S/P right femoral artery endarterectomy/stent (2017) Taking Plavix Lung nodule s/p radiation treatments Following with [facility] [place]- monitoring, "stable" History of GI bleed 12/2023, had EGD Hx of sinus tachycardia 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, 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 Cardiac murmur "has had since she was a child, no issues with"; 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 Thoracic facet syndrome History of ankle fracture (10/13/22) Right ankle, Distal fibula avulsion fx, chronic anterior tibia avulsion fx History of anemia Sciatica ongoing Vulvar cancer Remote hx "years ago", treated surgically Cervical cancer Approximately 1979, treated surgically Degenerative disc disease, lumbar Chronic sinusitis Lumbar disc herniation sx to correct COPD (chronic obstructive pulmonary disease) with emphysema "well controlled"; inh prn x2>uses maybe twice per week if at all Esophageal reflux Occasional Osteoporosis Hx of cirrhosis Hx ETOH abuse/alcoholism per records (0-2 drinks/wine per day per PAT RN phone assessment 05/01/23) Depression Hepatic encephalopathy Remote hx Surgical History History of left cataract extraction History of esophagogastroduodenoscopy (EGD) S/P excision of lipoma (05/09/23) Excision of Intramuscular Back Lipoma - Suraj Kincaid, DO, FACS History of dilatation and curettage History of knee surgery R knee repair (patella fracture) History of back surgery lumbar discectomy History of foot surgery Debridement of left foot ulcer (09/09/18): LMA#4.0 unique, atraumatic at [facility] H/O adenoidectomy removed w/tonsils History of surgery Radical removal of vulva, partial History of laryngoscopy With biopsy History of tooth extraction History of endarterectomy Right femoral artery endarterectomy/stent (05/31/18): Grade view 1, MAC#3, ETT 7.5 at [facility] History of surgery SFA stent (2013) per records Hx of hysterectomy + USO History of throat surgery Benign growth removal History of tonsillectomy Family History Mother , 72yo Smoker "Bad circulation" Father , in his 70s Alzheimer disease Brother No problems noted. Sister No problems noted. Sister No problems noted. Son No problems noted. Daughter No problems noted. Daughter No problems noted. Aunt Cancer Other No pertinent family history Denies family history of Ovarian cancer Prostate cancer Myocardial infarction Breast cancer Colorectal cancer Social History Smoking Status: Current every day smoker Tobacco Type: Cigarettes Age Started Using Tobacco: 15; packs per day: 0.5; Cigarettes Per Day: 20; Second Hand Exposure: Yes; Do You Dip or Chew Tobacco: No; Hx Alcohol Use: Yes Alcohol type: wine Alcohol Intake Frequency: 4 or More x per/Week Alcohol Intake Frequency Comment: 2 glasses at dinner. 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 How many Children do You have: 3 Other Information That Helps Us Care for You: No Feels Safe at Home: Yes Safety Concerns: Feels Safe At This Time Childhood Exposure to Second-Hand Smoke: Yes Diet: regular caffeine: Yes (coffee) during the past year weight has: remained stable Dental Care, Regularly: No Physical Activity Frequency: Does not Exercise Seatbelt Use: always Sunscreen Use: No Assistive Devices: Glasses and Walker Physical Exam Vital Signs Vital Signs - 24 hr 07/23/24 15:08 07/23/24 16:18 07/23/24 16:50 Temperature 36.1 C L Temperature Source Temporal Artery Scan Pulse Rate 94 H 78 Pulse Rate [Apical] 64 Pulse Rhythm [Apical] Pulse Strength [Apical] Respiratory Rate 18 14 Respiratory Effort / Characteristics Non-Labored Spontaneous Non-Labored Spontaneous Respiratory Depth Normal Respiratory Pattern Regular Blood Pressure 125/79 Blood Pressure [Left Arm] 167/102 H Blood Pressure Mean 94 Blood Pressure Mean [Left Arm] 123 Blood Pressure Position [Left Arm] Lying Pulse Oximetry 90 90 Oxygen Delivery Method Room Air Room Air Sepsis Recent Fever Within 48 Hours No Sepsis New/Unexplained Change in Mental Status N/A Sepsis Action Taken by Nursing No Action Required 07/23/24 18:00 07/23/24 20:00 Temperature Temperature Source Pulse Rate Pulse Rate [Apical] 76 70 Pulse Rhythm [Apical] Regular Pulse Strength [Apical] Normal Respiratory Rate 18 20 Respiratory Effort / Characteristics Non-Labored Spontaneous Non-Labored Spontaneous Respiratory Depth Normal Respiratory Pattern Regular Blood Pressure Blood Pressure [Left Arm] 190/87 H 158/100 H Blood Pressure Mean Blood Pressure Mean [Left Arm] 121 119 Blood Pressure Position [Left Arm] Lying Pulse Oximetry 98 98 Oxygen Delivery Method Room Air Room Air Sepsis Recent Fever Within 48 Hours Sepsis New/Unexplained Change in Mental Status Sepsis Action Taken by Nursing Physical Exam GENERAL: She is oriented to person, place, and time. HENT: Exam performed. -Head: Normocephalic and atraumatic. -Right Ear: External ear normal. No mastoid erythema -Left Ear: External ear normal. No mastoid erythema -Mouth/Throat: The oropharynx is clear and moist. No trismus in the jaw. No dental abscesses or uvula swelling. No oropharyngeal exudate or tonsillar abscesses. EYES: Conjunctivae and EOM are normal. Pupils are equal, round, and reactive to light. Right eye exhibits no discharge. Left eye exhibits no discharge. No scleral icterus. NECK: Normal range of motion. Neck supple. No JVD present. No spinous process tenderness present. No rigidity. No tracheal deviation and normal range of motion present. CV: Normal rate, regular rhythm, systolic murmur. There is no peripheral edema. PULM/CHEST: Effort normal and breath sounds normal. No respiratory distress. No stridor. She has no wheezes. She has no rales. -Chest Wall: She exhibits no tenderness. ABD: The abdomen is soft. There is no tenderness. There is no rebound, no guarding, no Fong's sign and no tenderness at McBurney's point. Rovsig negative NEURO: She is alert and oriented to person, place, and time. She has normal strength. No cranial nerve deficit or sensory deficit. Mild dysarthria. GCS eye subscore is 4. GCS verbal subscore is 5. Cerebellar tests wnl. NIHSS: 1 (10:1). Mild asterixis present. Course Course 1556: The patient was evaluated in room A4. A complete history and physical exam was performed Cardiac monitoring: An order was placed for continuous cardiac monitoring. The monitor shows a rate of 70 with sinus rhythm interpreted by me No code stroke was called as it is unclear when the patient's symptoms actually began as the symptoms were first noticed by her when he woke up at 8:30 in the morning. Patient is not a candidate for TNKase. 1800: vital signs stable. Labs and imaging are unremarkable. [facility] for strokelike symptoms. Administered Medications Discontinued Medications Bupropion HCl (Bupropion Sr 150 Mg Tabcr) 150 mg PO NOW STA Stop: 07/23/24 20:01 Last Admin: 07/23/24 20:48 Dose: 150 mg Documented By: JUICE Gabapentin (Gabapentin 800 Mg Tab) 800 mg PO NOW STA Stop: 07/23/24 20:04 Last Admin: 07/23/24 20:48 Dose: 800 mg Documented By: JUICE Ioversol (Optiray 320 125ml) 119 ml IV ONCE ONE Stop: 07/23/24 16:31 Last Admin: 07/23/24 16:30 Dose: 119 ml Documented By: NEYMAR Nicotine (Nicotine 14 Mg/24 Hr Patch) 1 patch TD NOW ONE Stop: 07/23/24 20:46 Last Admin: 07/23/24 20:48 Dose: 1 patch Documented By: JUICE Medical Decision Making Laboratory Data Attestation: I reviewed the patient's lab results. 07/23/24 16:05 07/23/24 16:05 Lab Results 07/23/24 07/23/24 07/23/24 Range/Units 16:03 16:05 16:56 WBC 7.36 (4.8-10.8) K/ul RBC 3.57 L (4.20-5.40) M/uL Hgb 8.4 L (12.0-16.0) g/dl Hct 28.4 L (37.0-47.0) % MCV 79.6 L (80.0-100.0) fL MCH 23.5 L (25.0-34.0) pg MCHC 29.6 L (32.0-36.0) g/dL RDW Std Deviation 51.3 H (36.4-46.3) fL RDW Coeff of Narendra 17.5 H (11.5-14.5) % Plt Count 379 (130-400) K/uL MPV 8.2 L (9.4-12.4) fL Immature Gran % (Auto) 0.5 % Neut % (Auto) 65.4 % Lymph % (Auto) 18.5 % Broome % (Auto) 12.2 % Eos % (Auto) 2.7 % Baso % (Auto) 0.7 % Neut # (Auto) 4.81 (1.40-6.50) K/uL Lymph # (Auto) 1.36 (1.20-3.40) K/uL Broome # (Auto) 0.90 H (0.11-0.59) K/uL Eos # (Auto) 0.20 (0.00-0.50) K/uL Baso # (Auto) 0.05 (0.00-0.20) K/uL Immature Gran # (Auto) 0.04 (0.01-0.20) K/uL PT 9.9 (9.0-12.0) Seconds INR 0.9 (0.9-1.1) APTT 25 (21-31) Seconds PTT Ratio 0.9 Sodium 132 L (136-145) mmol/L Potassium 5.1 (3.5-5.1) mmol/L Chloride 100 (98-107) mmol/L Carbon Dioxide 23 (21-32) mmol/L Anion Gap 9 (3-11) BUN 13 (6-23) mg/dl Creatinine 0.84 (0.6-1.2) mg/dl Est Cr Clr Drug Dosing 52.4 ml/min eGFR 73.79 BUN/Creatinine Ratio 15.5 (10-20) Glucose 100 H (70-99(Fasting)) mg/dl POC Glucose 119 H (70-99) mg/dl Calcium 9.4 (8.6-10.3) mg/dl Magnesium 1.8 (1.7-2.4) mg/dl Total Bilirubin 0.4 (0.2-1.0) mg/dl AST 18 (13-39) U/L ALT 12 (7-52) U/L Alkaline Phosphatase 69 (34-104) U/L Ammonia (18-72) umol/L Troponin I High Sens 8.9 (0-14) pg/ml Total Protein 7.4 (6.0-8.3) gm/dl Albumin 4.4 (3.4-5.0) gm/dl Globulin 3.0 (2.5-4.0) gm/dl Albumin/Globulin Ratio 1.5 (0.9-2) Lipase 22 (11-82) U/L Urine Color Urine Appearance (Clear) Urine pH (4.5-7.5) Ur Specific [place] (1.000-1.030) Urine Protein (Negative) Urine Glucose (UA) (Negative) Urine Ketones (Negative) Urine Blood (Negative) Urine Nitrite (Negative) Urine Bilirubin (Negative) Urine Urobilinogen (Negative) Ur Leukocyte Esterase (Negative) Ethyl Alcohol mg/dL < 10.0 (<10.0) mg/dl 07/23/24 07/23/24 Range/Units 17:00 17:31 WBC (4.8-10.8) K/ul RBC (4.20-5.40) M/uL Hgb (12.0-16.0) g/dl Hct (37.0-47.0) % MCV (80.0-100.0) fL MCH (25.0-34.0) pg MCHC (32.0-36.0) g/dL RDW Std Deviation (36.4-46.3) fL RDW Coeff of Narendra (11.5-14.5) % Plt Count (130-400) K/uL MPV (9.4-12.4) fL Immature Gran % (Auto) % Neut % (Auto) % Lymph % (Auto) % Broome % (Auto) % Eos % (Auto) % Baso % (Auto) % Neut # (Auto) (1.40-6.50) K/uL Lymph # (Auto) (1.20-3.40) K/uL Broome # (Auto) (0.11-0.59) K/uL Eos # (Auto) (0.00-0.50) K/uL Baso # (Auto) (0.00-0.20) K/uL Immature Gran # (Auto) (0.01-0.20) K/uL PT (9.0-12.0) Seconds INR (0.9-1.1) APTT (21-31) Seconds PTT Ratio Sodium (136-145) mmol/L Potassium (3.5-5.1) mmol/L Chloride (98-107) mmol/L Carbon Dioxide (21-32) mmol/L Anion Gap (3-11) BUN (6-23) mg/dl Creatinine (0.6-1.2) mg/dl Est Cr Clr Drug Dosing ml/min eGFR BUN/Creatinine Ratio (10-20) Glucose (70-99(Fasting)) mg/dl POC Glucose (70-99) mg/dl Calcium (8.6-10.3) mg/dl Magnesium (1.7-2.4) mg/dl Total Bilirubin (0.2-1.0) mg/dl AST (13-39) U/L ALT (7-52) U/L Alkaline Phosphatase (34-104) U/L Ammonia 15.0 L (18-72) umol/L Troponin I High Sens (0-14) pg/ml Total Protein (6.0-8.3) gm/dl Albumin (3.4-5.0) gm/dl Globulin (2.5-4.0) gm/dl Albumin/Globulin Ratio (0.9-2) Lipase (11-82) U/L Urine Color Yellow Urine Appearance Clear (Clear) Urine pH 6.5 (4.5-7.5) Ur Specific [place] 1.016 (1.000-1.030) Urine Protein Negative (Negative) Urine Glucose (UA) Negative (Negative) Urine Ketones Negative (Negative) Urine Blood Negative (Negative) Urine Nitrite Negative (Negative) Urine Bilirubin Negative (Negative) Urine Urobilinogen Negative (Negative) Ur Leukocyte Esterase Negative (Negative) Ethyl Alcohol mg/dL (<10.0) mg/dl Imaging Data Radiologist's Impression: Head CT 07/23/24 15:13 Clinical History: Possible stroke. Technique: Axial computed tomography images were obtained of the brain from the vertex to the skull base without intravenous contrast. Findings: There is no sign of intracranial hemorrhage. There is normal ocasio-white matter differentiation with no sign of acute or old infarction. No midline shift or other form of herniation is identified. There is no hydrocephalus. No obvious mass lesion is seen on this noncontrast examination. The visualized portions of the orbits and paranasal sinuses appear unremarkable. The mastoid air cells appear clear Impression: Unremarkable noncontrast CT of the brain Electronically signed by Greg Montes 07-23-2024 4:39 PM Head CTA 07/23/24 15:13 Clinical history: Possible stroke Technique: Axial computed tomography images were obtained of the brain after the administration of intravenous contrast according to the CT angiogram protocol Findings: There is calcified plaque within the cavernous and supraclinoid segments of the internal carotid arteries bilaterally, without apparent stenosis No definite stenosis or aneurysm is seen of the anterior, middle, or posterior cerebral artery circulations. The visualized vertebral arteries and the basilar artery appear unremarkable Impression: No definite stenosis or aneurysm of the intracranial arteries Electronically signed by Greg Montes 07-23-2024 4:41 PM Neck CTA 07/23/24 15:13 Clinical history: Possible stroke Technique: Axial computed tomography images were obtained of the neck after the administration of intravenous contrast according to the CT angiogram protocol Findings: There is a moderate severity stenosis of the proximal left common carotid artery. There is a severe stenosis of the distal left common carotid artery. There is mild plaque in the left carotid bulb without significant stenosis. There is a mild stenosis of the proximal left internal carotid artery with approximately 30% diameter narrowing. There is a mild stenosis of the proximal left external carotid artery There is a severe stenosis at the origin of the right common carotid artery with near occlusion due to irregular calcified plaque. There is an approximately 50% diameter stenosis of the right carotid bulb due to calcified plaque. No significant stenosis is seen of the remainder of the right internal carotid artery. There is a moderate severity stenosis of the origin of the right external carotid artery. There is a severe stenosis at the origin of the left vertebral artery. There are mild stenoses of the proximal and mid left vertebral artery with up to 40% diameter narrowing. The left vertebral artery is dominant. There is a severe stenosis of the origin of the right vertebral artery with near occlusion due to extensive calcified plaque. There is a moderate severity stenosis of the mid right vertebral artery. There is an approximately 50% diameter stenosis of the distal right vertebral artery at the level of C1. There is a mild stenosis at the origin of the left subclavian artery. There is a mild stenosis of the mid left subclavian artery. The visualized thoracic aorta appears unremarkable There is multilevel degenerative disc disease and osteoarthritis of the cervical spine. Impression: 1. Severe stenosis of the origin of the right CCA and approximately 50% stenosis of the right carotid bulb 2. Moderate severity stenosis of the proximal left CCA, severe stenosis of the distal left CCA, and mild stenosis of the proximal left ICA 3. Severe stenoses of the origins of the vertebral arteries bilaterally. There are additional mild to moderate severity stenoses of the vertebral arteries 4. Mild stenoses of the left subclavian artery Electronically signed by Greg Montes 07-23-2024 4:49 PM ECG Data Attestation: I personally reviewed and interpreted this ECG as follows: Rate (beats per minute): 70 Rhythm: + normal sinus ECG Intervals/blocks: + Normal [place] and + Normal QT-c ECG ST segments: + Normal ST segments Additional Comments: QRS 64 MDM Narrative 1556: The patient was evaluated in room A4. A complete history and physical exam was performed Cardiac monitoring: An order was placed for continuous cardiac monitoring. The monitor shows a rate of 70 with sinus rhythm interpreted by me No code stroke was called as it is unclear when the patient's symptoms actually began as the symptoms were first noticed by her when he woke up at 8:30 in the morning. Patient is not a candidate for TNKase. 1800: vital signs stable. Labs and imaging are unremarkable. [facility] for strokelike symptoms. Impression & Plan Stroke-like symptoms Discharge Plan Visit Data Chief Complaint: TIA Symptoms Stated Complaint: RT EYE BLURRY/COMES AND GOES,SLURRED SPEECH, DIZZY ED Provider: Milton Gill Discharge Problem: Stroke-like symptoms Patient Disposition: Admitted As Inpatient Discharge Instructions Interventions: ED Discharge Assessment Last Done: 07/23/24 21:15
[2024-07-23 17:18] LABS: Troponin I High Sensitivity 8.9 pg/ml (0-14)
[2024-07-23 17:21] LABS: Albumin Level 4.4 gm/dl (3.4-5.0); Bilirubin,Total 0.4 mg/dl (0.2-1.0); Calcium 9.4 mg/dl (8.6-10.3); Magnesium 1.8 mg/dl (1.7-2.4); Potassium 5.1 mmol/L (3.5-5.1)
[2024-07-23 17:27] LABS: Albumin Globulin Ratio 1.5 (0.9-2); BUN Creatinine Ratio 15.5 (10-20); Creatinine Clr Calc Pharmacy 52.4 ml/min; Total Protein 7.4 gm/dl (6.0-8.3)
[2024-07-23 18:05] LABS: Appearance Urine Clear (Clear); Bilirubin Urine Negative (Negative); Blood Urine Negative (Negative); Color Urine Yellow; Glucose Urine UA Negative (Negative); Ketones Urine Negative (Negative); Leukocyte Esterase Urine Negative (Negative); Nitrite Urine Negative (Negative); Protein Urine Negative (Negative); Specific Gravity Urine 1.016 (1.000-1.030); Urobilinogen Urine Negative (Negative); pH Urine 6.5 (4.5-7.5)
--- NOTE | 2024-07-23 20:15 | History & Physical Report ---
Date of Service July 23, 2024 Assessment & Plan (1) Stroke-like symptoms: (2) Peripheral artery disease: (3) Cerebrovascular disease: (4) Smoker: Plan Strokelike symptoms/cerebrovascular disease- The patient will be admitted to telemetry for serial cardiac enzymes, serial EKG's, cardiac rhythm monitoring and a 2-D echocardiogram with Dopplers. Patient presented with symptoms of difficulty with speech, confusion, variable right eye vision, and possibly slight worsening of chronic left lower extremity weakness. CT scan of head without contrast was negative CTA of head was negative CTA of neck showed severe R CCA stenosis at the origin and 50% right carotid bulb stenosis CTA of neck showed moderately severe proximal L CCA stenosis, and severe distal L CCA stenosis CTA of neck showed severe stenosis of bilateral vertebral arteries MRI brain without contrast was negative Stroke without thrombolytic order set Continue aspirin 81 mg daily and clopidogrel 75 mg daily, presently being used for treatment of PAD Hold lisinopril and allow permissive hypertension Peripheral arterial disease/complete stenosis of right femoral artery stent- Patient has more significant symptoms in the left lower extremity, which her daughter reports occasionally gets cold and turns blue Lower extremity arterial duplex performed on 07/15/2024, showed severe arterial insufficiency bilaterally, with right toe pressure adequate for healing, left toe pressure absent. Discussed with family possibility of starting Pletal 100 mg twice daily, but we will leave that up to vascular surgery Patient does need orthopedic fit arch supports and shoes, as she was complaining of occasional left heel discomfort, and walks around barefoot at home Tobacco use disorder- Nicotine patch Cessation counseling Alcohol use disorder- Alcohol level negative No suggestion of withdrawal at this at this time, however, would have a low threshold for starting AWSS protocol Start thiamine 100 mg p.o. every morning, and folic acid 1 mg p.o. every morning There may be a Wernicke's component to her chronically worsening mental functioning/ confusion History of Present Illness Chief Complaint: The patient was brought to the emergency department by her daughter, due to concerns regarding increasing confusion, difficulty with speech, variable vision in her right eye, and chronic left lower extremity weakness that may be a little bit worse today. The patient has not had any change in her usual alcohol intake of 2 glasses of wine a day, and smoking regularly. Primary Care Provider: Katarina Jimenes MD The patient is a 73-year-old female with past medical history including lumbar stenosis, anemia, thoracic facet syndrome, melena due to excessive ibuprofen use, COPD, hyperlipidemia, foot drop and PAD, with history of occluded right femoral artery stent. She presents to the emergency department with symptoms as noted above, and the daughter's concerns regarding a possible stroke. Allergies Allergy/AdvReac Type Severity Reaction Status Date / Time hydromorphone [From Dilaudid] AdvReac Intermediate Vomiting Verified 07/09/24 13:25 baclofen AdvReac Confusion Verified 07/09/24 13:25 Home Medications Medication Instructions Recorded Confirmed Type aspirin 81 mg tablet,delayed 81 mg PO QAM 05/16/18 07/23/24 History release acetaminophen 500 mg capsule 1,000 mg PO Q8H PRN Pain 02/17/22 07/23/24 History clopidogrel 75 mg tablet (Plavix) 75 mg PO QAM #30 tabs 12/26/23 07/23/24 Rx tizanidine 2 mg tablet 2 mg PO TID PRN muscle spasticity 02/16/24 07/23/24 Rx #270 tabs lidocaine 4 % topical patch 1 patch topical QAM 02/18/24 07/23/24 History (Salonpas (lidocaine)) gabapentin 400 mg capsule 400 mg PO TID #90 caps 05/01/24 07/23/24 Rx albuterol sulfate 90 mcg/actuation 2 puff inhalation UD PRN as 05/19/24 07/23/24 Rx aerosol inhaler (Ventolin HFA) directed #6.7 grams atorvastatin 20 mg tablet 20 mg PO QAM #90 tabs 06/17/24 07/23/24 Rx bupropion HCl 150 mg tablet,12 hr 150 mg PO BID 90 days #180 ea 06/30/24 07/23/24 Rx sustained-release lisinopril 20 mg tablet 20 mg PO QAM #90 tabs 07/10/24 07/23/24 Rx pantoprazole 40 mg tablet,delayed 40 mg PO QAM #30 tabs 07/22/24 07/23/24 Rx release clonidine HCl 0.2 mg tablet 0.2 mg PO UD PRN Anxiety 07/23/24 07/23/24 History Past Med/Surg History Problem List (Updated 07/24/24 @ 02:21 by Jaspreet Bridges MD) Cerebrovascular disease Stroke-like symptoms (Acute) Degenerative lumbar spinal stenosis Anemia Thoracic facet syndrome Melena Sinus tachycardia Hypocalcemia Myofascial pain Thoracic back pain Smoker Chronic obstructive pulmonary disease Footdrop Left Lung nodule (Chronic) s/p radiation treatments [place] [facility] [place]- monitoring, "stable" Peripheral artery disease S/P SFA stent (2013) S/P right femoral artery endarterectomy/stent (2017) Taking Plavix Medical History Anxiety Hypertension Hyperlipidemia History of left foot drop "not anymore, resolved" Hypocalcemia pt unsure about this dx, "stated it may have been when she was in the hospital in december 2023" Peripheral arterial disease S/P SFA stent (2013) S/P right femoral artery endarterectomy/stent (2018) Taking Plavix Lung nodule s/p radiation treatments Following with [facility] [place]- monitoring, "stable" History of GI bleed 12/2023, had EGD Hx of sinus tachycardia 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, 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 Cardiac murmur "has had since she was a child, no issues with"; 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 Thoracic facet syndrome History of ankle fracture (10/13/22) Right ankle, Distal fibula avulsion fx, chronic anterior tibia avulsion fx History of anemia Sciatica ongoing Vulvar cancer Remote hx "years ago", treated surgically Cervical cancer Approximately 1979, treated surgically Degenerative disc disease, lumbar Chronic sinusitis Lumbar disc herniation sx to correct COPD (chronic obstructive pulmonary disease) with emphysema "well controlled"; inh prn x2>uses maybe twice per week if at all Esophageal reflux Occasional Osteoporosis Hx of cirrhosis Hx ETOH abuse/alcoholism per records (0-2 drinks/wine per day per PAT RN phone assessment 05/01/23) Depression Hepatic encephalopathy Remote hx Surgical History History of left cataract extraction History of esophagogastroduodenoscopy (EGD) S/P excision of lipoma (05/09/23) Excision of Intramuscular Back Lipoma - Suraj Kincaid, DO, FACS History of dilatation and curettage History of knee surgery R knee repair (patella fracture) History of back surgery lumbar discectomy History of foot surgery Debridement of left foot ulcer (09/09/18): LMA#4.0 unique, atraumatic at [facility] H/O adenoidectomy removed w/tonsils History of surgery Radical removal of vulva, partial History of laryngoscopy With biopsy History of tooth extraction History of endarterectomy Right femoral artery endarterectomy/stent (05/31/18): Grade view 1, MAC#3, ETT 7.5 at [facility] History of surgery SFA stent (2013) per records Hx of hysterectomy + USO History of throat surgery Benign growth removal History of tonsillectomy Family History Mother , 72yo Smoker "Bad circulation" Father , in his 70s Alzheimer disease Brother No problems noted. Sister No problems noted. Sister No problems noted. Son No problems noted. Daughter No problems noted. Daughter No problems noted. Aunt Cancer Other No pertinent family history Denies family history of Ovarian cancer Prostate cancer Myocardial infarction Breast cancer Colorectal cancer Social History Smoking Status: Current every day smoker Tobacco Type: Cigarettes Age Started Using Tobacco: 15; packs per day: 0.5; Cigarettes Per Day: pack a day; Second Hand Exposure: Yes; Do You Dip or Chew Tobacco: No; Hx Alcohol Use: Yes Alcohol type: wine Alcohol Intake Frequency: 4 or More x per/Week Alcohol Intake Frequency Comment: 2 glasses at dinner. 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 How many Children do You have: 3 Feels Safe at Home: Yes Childhood Exposure to Second-Hand Smoke: Yes Diet: regular caffeine: Yes (coffee) during the past year weight has: remained stable Dental Care, Regularly: No Physical Activity Frequency: Does not Exercise Seatbelt Use: always Sunscreen Use: No Assistive Devices: Cane, Walker and Other Review of Systems Review of Systems: The patient denies chest pain, palpitations, shortness of breath, dyspnea on exertion, cough, lower extremity swelling, sore throat, fevers, chills, sweats, nausea, vomiting, diarrhea , constipation, abdominal pain, pelvic pain, blood in urine or stool, dysuria, urinary frequency or urgency, lightheadedness, dizziness, headache, loss of consciousness, rash, abnormal bruising or bleeding, focal or weakness, numbness or tingling in arms, generalized arthralgias or myalgias, back or neck pain, or night sweats. The review of systems is otherwise negative other than for that already noted above, and at least 10 systems have been reviewed. Physical Exam Physical Exam: The patient is awake, alert, normocephalic and atraumatic, lying in bed and in no acute distress. HEENT--PERRL, EOMI, mucous membranes and oropharynx dry. Neck--supple. No JVD. No bruits. Thyroid normal, trachea midline, no adenopathy. Heart--normal S1 and S2. No murmurs, rubs or gallops. Lungs--clear bilaterally, no respiratory distress, no accessory muscle use. Abdomen--normal bowel sounds and soft. Nontender. Nondistended, no hernias or masses, no organomegaly. Extremities-- No edema. Dermatologic--skin is dry. Neurologic--cranial nerves II through XII grossly intact. Rheumatologic--normal range of motion. Psychiatric--normal affect. Results & Data Results & Data Vital Signs (Past 12 Hours) Vital Signs Temp Pulse Pulse Resp BP BP Pulse Ox 07/23/24 18:00 76 18 190/87 H 98 07/23/24 16:50 78 07/23/24 16:18 64 14 167/102 H 90 07/23/24 15:08 36.1 C L 94 H 18 125/79 90 O2 Del Method 07/23/24 18:00 Room Air 07/23/24 16:50 07/23/24 16:18 Room Air 07/23/24 15:08 Room Air Laboratory Results Laboratory Results WBC 7.36 K/ul (4.8-10.8) 07/23/24 16:05 RBC 3.57 M/uL (4.20-5.40) L 07/23/24 16:05 Hgb 8.4 g/dl (12.0-16.0) L 07/23/24 16:05 Hct 28.4 % (37.0-47.0) L 07/23/24 16:05 MCV 79.6 fL (80.0-100.0) L 07/23/24 16:05 MCH 23.5 pg (25.0-34.0) L 07/23/24 16:05 MCHC 29.6 g/dL (32.0-36.0) L 07/23/24 16:05 RDW Std Deviation 51.3 fL (36.4-46.3) H 07/23/24 16:05 RDW Coeff of Narendra 17.5 % (11.5-14.5) H 07/23/24 16:05 Plt Count 379 K/uL (130-400) 07/23/24 16:05 MPV 8.2 fL (9.4-12.4) L 07/23/24 16:05 Immature Gran % (Auto) 0.5 % 07/23/24 16:05 Neut % (Auto) 65.4 % 07/23/24 16:05 Lymph % (Auto) 18.5 % 07/23/24 16:05 [place] % (Auto) 12.2 % 07/23/24 16:05 Eos % (Auto) 2.7 % 07/23/24 16:05 Baso % (Auto) 0.7 % 07/23/24 16:05 Neut # (Auto) 4.81 K/uL (1.40-6.50) 07/23/24 16:05 Lymph # (Auto) 1.36 K/uL (1.20-3.40) 07/23/24 16:05 [place] # (Auto) 0.90 K/uL (0.11-0.59) H 07/23/24 16:05 Eos # (Auto) 0.20 K/uL (0.00-0.50) 07/23/24 16:05 Baso # (Auto) 0.05 K/uL (0.00-0.20) 07/23/24 16:05 Immature Gran # (Auto) 0.04 K/uL (0.01-0.20) 07/23/24 16:05 PT 9.9 Seconds (9.0-12.0) 07/23/24 16:05 INR 0.9 (0.9-1.1) 07/23/24 16:05 APTT 25 Seconds (21-31) 07/23/24 16:05 PTT Ratio 0.9 07/23/24 16:05 Sodium 132 mmol/L (136-145) L 07/23/24 16:05 Potassium 5.1 mmol/L (3.5-5.1) 07/23/24 16:05 Chloride 100 mmol/L (98-107) 07/23/24 16:05 Carbon Dioxide 23 mmol/L (21-32) 07/23/24 16:05 Anion Gap 9 (3-11) 07/23/24 16:05 BUN 13 mg/dl (6-23) 07/23/24 16:05 Creatinine 0.84 mg/dl (0.6-1.2) 07/23/24 16:05 Est Cr Clr Drug Dosing 52.4 ml/min 07/23/24 16:05 eGFR 73.79 07/23/24 16:05 BUN/Creatinine Ratio 15.5 (10-20) 07/23/24 16:05 Glucose 100 mg/dl (70-99(Fasting)) H 07/23/24 16:05 POC Glucose 119 mg/dl (70-99) H 07/23/24 16:03 Calcium 9.4 mg/dl (8.6-10.3) 07/23/24 16:05 Magnesium 1.8 mg/dl (1.7-2.4) 07/23/24 16:05 Total Bilirubin 0.4 mg/dl (0.2-1.0) 07/23/24 16:05 AST 18 U/L (13-39) 07/23/24 16:05 ALT 12 U/L (7-52) 07/23/24 16:05 Alkaline Phosphatase 69 U/L (34-104) 07/23/24 16:05 Ammonia 15.0 umol/L (18-72) L 07/23/24 17:00 Troponin I High Sens 8.9 pg/ml (0-14) 07/23/24 16:05 Total Protein 7.4 gm/dl (6.0-8.3) 07/23/24 16:05 Albumin 4.4 gm/dl (3.4-5.0) 07/23/24 16:05 Globulin 3.0 gm/dl (2.5-4.0) 07/23/24 16:05 Albumin/Globulin Ratio 1.5 (0.9-2) 07/23/24 16:05 Lipase 22 U/L (11-82) 07/23/24 16:56 Urine Color Yellow 07/23/24 17:31 Urine Appearance Clear (Clear) 07/23/24 17:31 Urine pH 6.5 (4.5-7.5) 07/23/24 17:31 Ur Specific [place] 1.016 (1.000-1.030) 07/23/24 17:31 Urine Protein Negative (Negative) 07/23/24 17:31 Urine Glucose (UA) Negative (Negative) 07/23/24 17:31 Urine Ketones Negative (Negative) 07/23/24 17: Urine Blood Negative (Negative) 07/23/24 17: Urine Nitrite Negative (Negative) 07/23/24 17: Urine Bilirubin Negative (Negative) 07/23/24 17: Urine Urobilinogen Negative (Negative) 07/23/24 17:31 Ur Leukocyte Esterase Negative (Negative) 07/23/24 17: Ethyl Alcohol mg/dL < 10.0 mg/dl (<10.0) 07/23/24 16:[address] 07/23/24 15:13 Clinical History: Possible stroke. Technique: Axial computed tomography images were obtained of the brain from the vertex to the skull base without intravenous contrast. Findings: There is no sign of intracranial hemorrhage. There is normal ocasio-white matter differentiation with no sign of acute or old infarction. No midline shift or other form of herniation is identified. There is no hydrocephalus. No obvious mass lesion is seen on this noncontrast examination. The visualized portions of the orbits and paranasal sinuses appear unremarkable. The mastoid air cells appear clear Impression: Unremarkable noncontrast CT of the brain Electronically signed by Greg Montes 07-23-2024 4:39 PM Head CTA 07/23/24 15:13 Clinical history: Possible stroke Technique: Axial computed tomography images were obtained of the brain after the administration of intravenous contrast according to the CT angiogram protocol Findings: There is calcified plaque within the cavernous and supraclinoid segments of the internal carotid arteries bilaterally, without apparent stenosis No definite stenosis or aneurysm is seen of the anterior, middle, or posterior cerebral artery circulations. The visualized vertebral arteries and the basilar artery appear unremarkable Impression: No definite stenosis or aneurysm of the intracranial arteries Electronically signed by Greg Montes 07-23-2024 4:41 PM Neck CTA 07/23/24 15:13 Clinical history: Possible stroke Technique: Axial computed tomography images were obtained of the neck after the administration of intravenous contrast according to the CT angiogram protocol Findings: There is a moderate severity stenosis of the proximal left common carotid artery. There is a severe stenosis of the distal left common carotid artery. There is mild plaque in the left carotid bulb without significant stenosis. There is a mild stenosis of the proximal left internal carotid artery with approximately 30% diameter narrowing. There is a mild stenosis of the proximal left external carotid artery There is a severe stenosis at the origin of the right common carotid artery with near occlusion due to irregular calcified plaque. There is an approximately 50% diameter stenosis of the right carotid bulb due to calcified plaque. No significant stenosis is seen of the remainder of the right internal carotid artery. There is a moderate severity stenosis of the origin of the right external carotid artery. There is a severe stenosis at the origin of the left vertebral artery. There are mild stenoses of the proximal and mid left vertebral artery with up to 40% diameter narrowing. The left vertebral artery is dominant. There is a severe stenosis of the origin of the right vertebral artery with near occlusion due to extensive calcified plaque. There is a moderate severity stenosis of the mid right vertebral artery. There is an approximately 50% diameter stenosis of the distal right vertebral artery at the level of C1. There is a mild stenosis at the origin of the left subclavian artery. There is a mild stenosis of the mid left subclavian artery. The visualized thoracic aorta appears unremarkable There is multilevel degenerative disc disease and osteoarthritis of the cervical spine. Impression: 1. Severe stenosis of the origin of the right CCA and approximately 50% stenosis of the right carotid bulb 2. Moderate severity stenosis of the proximal left CCA, severe stenosis of the distal left CCA, and mild stenosis of the proximal left ICA 3. Severe stenoses of the origins of the vertebral arteries bilaterally. There are additional mild to moderate severity stenoses of the vertebral arteries 4. Mild stenoses of the left subclavian artery Electronically signed by Greg Montes 07-23-2024 4:49 PM Brain MRI 07/23/24 20:05 Exam(s): MRI HEAD Without Contrast EXAM: MR Head Without Intravenous Contrast CLINICAL HISTORY: Reason for exam: vision change. TECHNIQUE: Magnetic resonance images of the head/brain without intravenous contrast in multiple planes. COMPARISON: Prior head CT from July 23, 2024. FINDINGS: Brain: Mild nonspecific white matter changes. No mass. No hemorrhage. No acute infarct. The flow voids of the base of the brain are intact. Ventricles: Unremarkable. No ventriculomegaly. Bones/joints: Unremarkable. No acute fracture. Sinuses: There is debris and fluid in the dependent left axillary sinus. No acute sinusitis. Mastoid air cells: Unremarkable as visualized. No mastoid effusion. Orbits: Bilateral lens replacements. IMPRESSION: No evidence of acute intracranial pathology. Electronically signed by: Luba Bell MD 07/24/24 00:01 AM Code Status & VTE Plan Code Status Full code VTE Prophylaxis Plan VTE Prophylaxis will be ordered: Yes PG Care Time/CCT Total # of Minutes Spent Total Time Spent with Patient: Total time spent is greater than 50% in coordination of care (as documented) at patient's floor/unit and/or counseling patient: Coding Level of Care Code 71694 INT INP/OBS CARE 3/75MIN Diagnoses Stroke-like symptoms R29.90 Peripheral artery disease I73.9 Cerebrovascular disease I67.9 Smoker F17.200
[2024-07-23] MEDS: NICOTINE 14 MG/24 HR PATCH TD ONE (20:48)
[2024-07-23] MEDS: buPROPion SR 150 MG TABCR PO STA (20:48)
[2024-07-23] MEDS: GABAPENTIN 800 MG TAB PO STA (20:48)
--- NOTE | 2024-07-23 21:52 | Electrocardiogram Report ---
Test Reason : Blood Pressure : */* mmHG Vent. Rate : 66 BPM Atrial Rate : 66 BPM P-R Int : 158 ms QRS Dur : 64 ms QT Int : 414 ms P-R-T Axes : 76 31 57 degrees QTcB Int : 434 ms Normal sinus rhythm Low voltage QRS Borderline ECG When compared with ECG of 18-Feb-2024 06:14, Premature ventricular complexes are no longer Present Confirmed by Preston Prado ([id number]) on 07/23/2024 9:52:15 PM Referred By: Confirmed By: Preston Prado
[2024-07-23] MEDS ORDERED: ALBUTEROL HFA 8 GM INHALER INH PRN (21:58)
[2024-07-23] MEDS ORDERED: ONDANSETRON INJ 2 MG/ML 2 ML VIAL IV PRN (21:58)
--- NOTE | 2024-07-24 00:02 | Magnetic Resonance Report ---
Exam(s): MRI HEAD Without Contrast EXAM: MR Head Without Intravenous Contrast CLINICAL HISTORY: Reason for exam: vision change. TECHNIQUE: Magnetic resonance images of the head/brain without intravenous contrast in multiple planes. COMPARISON: Prior head CT from July 23, 2024. FINDINGS: Brain: Mild nonspecific white matter changes. No mass. No hemorrhage. No acute infarct. The flow voids of the base of the brain are intact. Ventricles: Unremarkable. No ventriculomegaly. Bones/joints: Unremarkable. No acute fracture. Sinuses: There is debris and fluid in the dependent left axillary sinus. No acute sinusitis. Mastoid air cells: Unremarkable as visualized. No mastoid effusion. Orbits: Bilateral lens replacements. IMPRESSION: No evidence of acute intracranial pathology. Electronically signed by: Luba Bell MD 07/24/24 00:01 AM
[2024-07-24 08:07] LABS: Basophils # (auto) 0.04 K/uL (0.00-0.20); Basophils % (auto) 0.8 %; Eosinophils # (auto) 0.16 K/uL (0.00-0.50); Hematocrit (blood only) 26.9 % (37.0-47.0); Hemoglobin 7.9 g/dl (12.0-16.0); Immature Granulocytes # (auto) 0.02 K/uL (0.01-0.20); Immature Granulocytes % (auto) 0.4 %; Lymphocytes # (auto) 0.78 K/uL (1.20-3.40); Lymphocytes % (auto) 14.7 %; Mean Corpuscular Hemoglobin 23.4 pg (25.0-34.0); Mean Corpuscular Hgb Conc 29.4 g/dL (32.0-36.0); Mean Corpuscular Volume 79.6 fL (80.0-100.0); Mean Platelet Volume 8.6 fL (9.4-12.4); Monocytes # (auto) 0.87 K/uL (0.11-0.59); Monocytes % (auto) 16.4 %; Neutrophils # (auto) 3.42 K/uL (1.40-6.50); Neutrophils % (auto) 64.7 %; Platelet Count 321 K/uL (130-400); RDW Coefficient of Variation 17.5 % (11.5-14.5); RDW Standard Deviation 51.4 fL (36.4-46.3); Red Blood Count 3.38 M/uL (4.20-5.40); White Blood Count 5.29 K/ul (4.8-10.8)
[2024-07-24 08:28] LABS: Hypochromasia Present; Stomatocytes 1+; Tear Drop Cells 1+
[2024-07-24 08:30] LABS: Albumin Globulin Ratio 1.5 (0.9-2); Albumin Level 3.9 gm/dl (3.4-5.0); BUN Creatinine Ratio 14.7 (10-20); Bilirubin,Total 0.2 mg/dl (0.2-1.0); Creatinine Clr Calc Pharmacy 53.6 ml/min; Globulin 2.6 gm/dl (2.5-4.0); Magnesium 1.8 mg/dl (1.7-2.4); Potassium 4.4 mmol/L (3.5-5.1); Total Protein 6.5 gm/dl (6.0-8.3)
[2024-07-24] MEDS: NICOTINE 14 MG/24 HR PATCH TD SCH (08:34)
[2024-07-24] MEDS: FOLIC ACID 1 MG TAB PO SCH (08:34)
[2024-07-24] MEDS: PANTOprazole 40 MG TAB PO SCH (08:35)
[2024-07-24] MEDS: ATORVASTATIN 20 MG TAB PO SCH (08:35)
[2024-07-24] MEDS: CLOPIDOGREL BISULFATE 75 MG TAB PO SCH (08:35)
[2024-07-24] MEDS: ASPIRIN 81 MG ECTAB PO SCH (08:35)
[2024-07-24] MEDS: GABAPENTIN 400 MG CAP PO SCH (08:35)
[2024-07-24] MEDS: buPROPion SR 150 MG TABCR PO SCH (08:35)
[2024-07-24] MEDS: THIAMINE HCL 100 MG TAB PO SCH (08:36)
[2024-07-24] MEDS ORDERED: LIDOCAINE 4% TOP SCH (09:00)
[2024-07-24] MEDS ORDERED: [UNRECOGNIZED DRUG - OTHER] TOP SCH (09:00)
--- NOTE | 2024-07-24 09:38 | Neurology Consultation ---
Date of Consultation July 24, 2024 Assessment & Plan (1) Stroke-like symptoms: History of Present Illness Attending Physician: Thom Silva MD History of Present Illness pt this morning AOx4, no confusion. no visual change which she had it few weeks ago and PCP evaluated and likely from her cataract surgery and visual aura from migraine. mri brain negative. asked to see for stroke like symptoms. chart reviewed. labs normal. admission HPI: 73-year-old female presents emergency department for strokelike symptoms. Patient's here with her daughter at bedside. Daughter reports that the patient is being increasing confused, having dysarthria, and weakness in her left lower extremity that is worse today. Patient reports chronic left lower extremity weakness. Patient states she thinks her symptoms began at 830. Daughter states that the patient's woke up at 8:30 in the morning and is when the symptoms were first noticed. Patient or daughter unable to give an exact time as to when the symptoms started. Patient does drink alcohol regularly, usually 2 glasses of wine a day and smokes. She states she not drink any alcohol yet today. Allergies Allergy/AdvReac Type Severity Reaction Status Date / Time hydromorphone [From Dilaudid] AdvReac Intermediate Vomiting Verified 07/09/24 13:25 baclofen AdvReac Confusion Verified 07/09/24 13:25 Home Medications Medication Instructions Recorded Confirmed Type aspirin 81 mg tablet,delayed 81 mg PO QAM 05/16/18 07/23/24 History release acetaminophen 500 mg capsule 1,000 mg PO Q8H PRN Pain 02/17/22 07/23/24 History clopidogrel 75 mg tablet (Plavix) 75 mg PO QAM #30 tabs 12/26/23 07/23/24 Rx tizanidine 2 mg tablet 2 mg PO TID PRN muscle spasticity 02/16/24 07/23/24 Rx #270 tabs lidocaine 4 % topical patch 1 patch topical QAM 02/18/24 07/23/24 History (Salonpas (lidocaine)) gabapentin 400 mg capsule 400 mg PO TID #90 caps 05/01/24 07/23/24 Rx albuterol sulfate 90 mcg/actuation 2 puff inhalation UD PRN as 05/19/24 07/23/24 Rx aerosol inhaler (Ventolin HFA) directed #6.7 grams atorvastatin 20 mg tablet 20 mg PO QAM #90 tabs 06/17/24 07/23/24 Rx bupropion HCl 150 mg tablet,12 hr 150 mg PO BID 90 days #180 ea 06/30/24 07/23/24 Rx sustained-release lisinopril 20 mg tablet 20 mg PO QAM #90 tabs 07/10/24 07/23/24 Rx pantoprazole 40 mg tablet,delayed 40 mg PO QAM #30 tabs 07/22/24 07/23/24 Rx release clonidine HCl 0.2 mg tablet 0.2 mg PO UD PRN Anxiety 07/23/24 07/23/24 History Patient History Medical History Anxiety Hypertension Hyperlipidemia History of left foot drop "not anymore, resolved" Hypocalcemia pt unsure about this dx, "stated it may have been when she was in the hospital in december 2023" Peripheral arterial disease S/P SFA stent (2013) S/P right femoral artery endarterectomy/stent (2017) Taking Plavix Lung nodule s/p radiation treatments Following with [facility] radiation oncology- monitoring, "stable" History of GI bleed 12/2023, had EGD Hx of sinus tachycardia no fish checker, 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 Cardiac murmur "has had since she was a child, no issues with"; no fish checker Thoracic facet syndrome History of ankle fracture (10/13/22) Right ankle, Distal fibula avulsion fx, chronic anterior tibia avulsion fx History of anemia Sciatica ongoing Vulvar cancer Remote hx "years ago", treated surgically Cervical cancer Approximately 1979, treated surgically Degenerative disc disease, lumbar Chronic sinusitis Lumbar disc herniation sx to correct COPD (chronic obstructive pulmonary disease) with emphysema "well controlled"; inh prn x2>uses maybe twice per week if at all Esophageal reflux Occasional Osteoporosis Hx of cirrhosis Hx ETOH abuse/alcoholism per records (0-2 drinks/wine per day per PAT RN phone assessment 05/01/23) Depression Hepatic encephalopathy Remote hx Surgical History History of left cataract extraction History of esophagogastroduodenoscopy (EGD) S/P excision of lipoma (05/09/23) Excision of Intramuscular Back Lipoma - Suraj Kincaid, DO, FACS History of dilatation and curettage History of knee surgery R knee repair (patella fracture) History of back surgery lumbar discectomy History of foot surgery Debridement of left foot ulcer (09/09/18): LMA#4.0 unique, atraumatic at [facility] H/O adenoidectomy removed w/tonsils History of surgery Radical removal of vulva, partial History of laryngoscopy With biopsy History of tooth extraction History of endarterectomy Right femoral artery endarterectomy/stent (05/31/18): Grade view 1, MAC#3, ETT 7.5 at [facility] History of surgery SFA stent (2013) per records Hx of hysterectomy + USO History of throat surgery Benign growth removal History of tonsillectomy Family History Mother , 72yo Smoker "Bad circulation" Father , in his 70s Alzheimer disease Brother No problems noted. Sister No problems noted. Sister No problems noted. Son No problems noted. Daughter No problems noted. Daughter No problems noted. Aunt Cancer Other No pertinent family history Denies family history of Ovarian cancer Prostate cancer Myocardial infarction Breast cancer Colorectal cancer Social History Smoking Status: Current every day smoker Tobacco Type: Cigarettes Age Started Using Tobacco: 15; packs per day: 0.5; Cigarettes Per Day: 20; Second Hand Exposure: Yes; Do You Dip or Chew Tobacco: No; Hx Alcohol Use: Yes Alcohol type: wine Alcohol Intake Frequency: 4 or More x per/Week Alcohol Intake Frequency Comment: 2 glasses at dinner. 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 fluent speech, normal comprehension, no apraxia, no L/R confusion, no neglect CN: PERRL, Full EOM, symmetric face, midline T/U/P, grossly full ROM neck Motor: No abnormal movements, normal tone, 5/5 t/o bilaterally Sens: intact to touch b/l grossly Coord: intact FNT b/l DTR: 2+ sym b/l Gait: per pt she walked this morning. Impression: 73 yo female with resolved transient confusion without clear etiology in setting of chronic alcohol consumption. MRI brain negative. normal neuro exam. DDx including TIA event with alcohol intake and perhaps med side effects (taking bupropion and gabapentin with alcohol). Recommendations: finish TIA work up as planned, consider getting group home cardiac monitoring for arrhythmia. work on reducing alcohol intakes and cessation close watch for possible alcohol dementia onset, currently no suggestion. not much to add from neurology otherwise. call again if new question. Chart reviewed I have spent more than 50% educating patient about potential diagnosis and neurological evaluation and coordinating care with patient's treatment team. Total time spent (including chart review and coordination of care): 45 min (this includes chart review). Results & Data Vital Signs (Past 12 Hours) Vital Signs Temp Pulse Pulse Resp BP BP Pulse Ox 07/24/24 08:28 37.2 C 90 18 171/57 H 98 07/24/24 07:29 101 H 07/24/24 05:26 160/82 H 07/24/24 03:43 36.5 C 100 H 18 188/93 H 97 07/23/24 22:10 07/23/24 22:02 36.4 C L 92 H 17 179/75 H 99 07/23/24 21:53 87 O2 Del Method 07/24/24 08:28 Room Air 07/24/24 07:29 07/24/24 05:26 07/24/24 03:43 Room Air 07/23/24 22:10 Room Air 07/23/24 22:02 Room Air 07/23/24 21:53 PG Care Time/CCT Total # of Minutes Spent Total Time Spent with Patient: Total time spent is greater than 50% in coordination of care (as documented) at patient's floor/unit and/or counseling patient: Coding Level of Care Code 56743 IN/OBS CONSULT LVL 3,45M Diagnoses Stroke-like symptoms R29.90
[2024-07-24 09:58] LABS: iSTAT Creatinine 0.9 mg/dl (0.6-1.3); iSTAT Hemoglobin 10.2 g/dl (12.0-16.0); iSTAT Ionized Calcium 1.16 mmol/l (1.12-1.32)
[2024-07-24] MEDS: tiZANidine HCL 4 MG TABLET PO PRN (11:50)
[2024-07-24] MEDS: ACETAMINOPHEN 325 MG TAB PO PRN (11:56)
--- NOTE | 2024-07-24 12:25 | Hospitalist Progress Note ---
Date of Service July 24, 2024 Assessment & Plan (1) Stroke-like symptoms: (2) Peripheral artery disease: (3) Cerebrovascular disease: (4) Smoker: Plan Strokelike symptoms/cerebrovascular disease- Patient presented with symptoms of difficulty with speech, confusion, variable right eye vision, and possibly slight worsening of chronic left lower extremity weakness. CT scan of head without contrast was negative CTA of head was negative CTA of neck showed severe R CCA stenosis at the origin and 50% right carotid bulb stenosis CTA of neck showed moderately severe proximal L CCA stenosis, and severe distal L CCA stenosis CTA of neck showed severe stenosis of bilateral vertebral arteries MRI brain without contrast was negative Stroke without thrombolytic order set Continue aspirin 81 mg daily and clopidogrel 75 mg daily, presently being used for treatment of PAD Resume lisinopril. No stroke. No reason for permissive hypertension Symptoms recovered Neurology on board This could be a TIA event with alcohol intake versus medication side effects (bupropion and gabapentin with alcohol) Emphasized the importance of reducing alcohol intake and smoking cessation Echocardiogram pending Monitor on telemetry Peripheral arterial disease/complete stenosis of right femoral artery stent- Patient has more significant symptoms in the left lower extremity, which her daughter reports occasionally gets cold and turns blue Lower extremity arterial duplex performed on 07/15/2024, showed severe arterial insufficiency bilaterally, with right toe pressure adequate for healing, left toe pressure absent. Discussed with family possibility of starting Pletal 100 mg twice daily, but we will leave that up to vascular surgery Patient does need orthopedic fit arch supports and shoes, as she was complaining of occasional left heel discomfort, and walks around barefoot at home Tobacco use disorder- Nicotine patch Cessation counseling Alcohol use disorder- Alcohol level negative No suggestion of withdrawal at this at this time, however, would have a low threshold for starting AWSS protocol Start thiamine 100 mg p.o. every morning, and folic acid 1 mg p.o. every morning There may be a Wernicke's component to her chronically worsening mental functioning/ confusion Admission and Anticipated Discharge Date Admission Date: July 23, 2024 Subjective Patient was seen and examined at 11:35 AM. She denies chest pain or shortness of breath. She says that her right eye vision is now intact. She is able to see clearly out of the right eye since last night. Review of Systems Review of Systems: All systems reviewed & are unremarkable except as noted in Subjective Physical Exam Physical Exam: General: Awake, conversant Heart: S1, S2/regular rate and rhythm, no murmur rubs or gallops Lungs: Clear to auscultation bilaterally. Normal effort Abdomen: Soft/nontender/nondistended. No hepatosplenomegaly Extremities: No clubbing/cyanosis. No edema Behavior: Appropriate, cooperative Results & Data Results & Data Vital Signs (Past 12 Hours) Vital Signs Temp Pulse Pulse Resp BP BP Pulse Ox 07/24/24 11:15 36.5 C 89 18 168/111 H 98 07/24/24 08:28 37.2 C 90 18 171/57 H 98 07/24/24 07:29 101 H 07/24/24 05:26 160/82 H 07/24/24 03:43 36.5 C 100 H 18 188/93 H 97 O2 Del Method 07/24/24 11:15 Room Air 07/24/24 08:28 Room Air 07/24/24 07:29 07/24/24 05:26 07/24/24 03:43 Room Air Laboratory Results Abnormal lab results 07/23/24 07/23/24 07/23/24 Range/Units 16:03 16:05 16:11 RBC 3.57 L (4.20-5.40) M/uL Hgb 8.4 L (12.0-16.0) g/dl POC Hgb 10.2 L (12.0-16.0) g/dl Hct 28.4 L (37.0-47.0) % POC Hct 30 L (37-47) % MCV 79.6 L (80.0-100.0) fL MCH 23.5 L (25.0-34.0) pg MCHC 29.6 L (32.0-36.0) g/dL RDW Std Deviation 51.3 H (36.4-46.3) fL RDW Coeff of Narendra 17.5 H (11.5-14.5) % MPV 8.2 L (9.4-12.4) fL Lymph # (Auto) (1.20-3.40) K/uL [place] # (Auto) 0.90 H (0.11-0.59) K/uL POC Sodium 132 L (135-144) mmol/L Sodium 132 L (136-145) mmol/L POC Chloride 100 L (101-112) mmol/L POC Total CO2 21 L (24-31) mmol/L Glucose 100 H (70-99(Fasting)) mg/dl POC Glucose 119 H (70-99) mg/dl POC Glucose (other) 107 H (70-99) mg/dl Ammonia (18-72) umol/L 07/23/24 07/24/24 Range/Units 17:00 07:16 RBC 3.38 L (4.20-5.40) M/uL Hgb 7.9 L (12.0-16.0) g/dl POC Hgb (12.0-16.0) g/dl Hct 26.9 L (37.0-47.0) % POC Hct (37-47) % MCV 79.6 L (80.0-100.0) fL MCH 23.4 L (25.0-34.0) pg MCHC 29.4 L (32.0-36.0) g/dL RDW Std Deviation 51.4 H (36.4-46.3) fL RDW Coeff of Narendra 17.5 H (11.5-14.5) % MPV 8.6 L (9.4-12.4) fL Lymph # (Auto) 0.78 L (1.20-3.40) K/uL [place] # (Auto) 0.87 H (0.11-0.59) K/uL POC Sodium (135-144) mmol/L Sodium (136-145) mmol/L POC Chloride (101-112) mmol/L POC Total CO2 (24-31) mmol/L Glucose 125 H (70-99(Fasting)) mg/dl POC Glucose (70-99) mg/dl POC Glucose (other) (70-99) mg/dl Ammonia 15.0 L (18-72) umol/L Diagnostic Findings Head CT 07/23/24 15:13 Clinical History: Possible stroke. Technique: Axial computed tomography images were obtained of the brain from the vertex to the skull base without intravenous contrast. Findings: There is no sign of intracranial hemorrhage. There is normal ocasio-white matter differentiation with no sign of acute or old infarction. No midline shift or other form of herniation is identified. There is no hydrocephalus. No obvious mass lesion is seen on this noncontrast examination. The visualized portions of the orbits and paranasal sinuses appear unremarkable. The mastoid air cells appear clear Impression: Unremarkable noncontrast CT of the brain Electronically signed by Greg Montes 07-23-2024 4:39 PM Head CTA 07/23/24 15:13 Clinical history: Possible stroke Technique: Axial computed tomography images were obtained of the brain after the administration of intravenous contrast according to the CT angiogram protocol Findings: There is calcified plaque within the cavernous and supraclinoid segments of the internal carotid arteries bilaterally, without apparent stenosis No definite stenosis or aneurysm is seen of the anterior, middle, or posterior cerebral artery circulations. The visualized vertebral arteries and the basilar artery appear unremarkable Impression: No definite stenosis or aneurysm of the intracranial arteries Electronically signed by Greg Montes 07-23-2024 4:41 PM Neck CTA 07/23/24 15:13 Clinical history: Possible stroke Technique: Axial computed tomography images were obtained of the neck after the administration of intravenous contrast according to the CT angiogram protocol Findings: There is a moderate severity stenosis of the proximal left common carotid artery. There is a severe stenosis of the distal left common carotid artery. There is mild plaque in the left carotid bulb without significant stenosis. There is a mild stenosis of the proximal left internal carotid artery with approximately 30% diameter narrowing. There is a mild stenosis of the proximal left external carotid artery There is a severe stenosis at the origin of the right common carotid artery with near occlusion due to irregular calcified plaque. There is an approximately 50% diameter stenosis of the right carotid bulb due to calcified plaque. No significant stenosis is seen of the remainder of the right internal carotid artery. There is a moderate severity stenosis of the origin of the right external carotid artery. There is a severe stenosis at the origin of the left vertebral artery. There are mild stenoses of the proximal and mid left vertebral artery with up to 40% diameter narrowing. The left vertebral artery is dominant. There is a severe stenosis of the origin of the right vertebral artery with near occlusion due to extensive calcified plaque. There is a moderate severity stenosis of the mid right vertebral artery. There is an approximately 50% diameter stenosis of the distal right vertebral artery at the level of C1. There is a mild stenosis at the origin of the left subclavian artery. There is a mild stenosis of the mid left subclavian artery. The visualized thoracic aorta appears unremarkable There is multilevel degenerative disc disease and osteoarthritis of the cervical spine. Impression: 1. Severe stenosis of the origin of the right CCA and approximately 50% stenosis of the right carotid bulb 2. Moderate severity stenosis of the proximal left CCA, severe stenosis of the distal left CCA, and mild stenosis of the proximal left ICA 3. Severe stenoses of the origins of the vertebral arteries bilaterally. There are additional mild to moderate severity stenoses of the vertebral arteries 4. Mild stenoses of the left subclavian artery Electronically signed by Greg Montes 07-23-2024 4:49 PM Brain MRI 07/23/24 20:05 Exam(s): MRI HEAD Without Contrast EXAM: MR Head Without Intravenous Contrast CLINICAL HISTORY: Reason for exam: vision change. TECHNIQUE: Magnetic resonance images of the head/brain without intravenous contrast in multiple planes. COMPARISON: Prior head CT from July 23, 2024. FINDINGS: Brain: Mild nonspecific white matter changes. No mass. No hemorrhage. No acute infarct. The flow voids of the base of the brain are intact. Ventricles: Unremarkable. No ventriculomegaly. Bones/joints: Unremarkable. No acute fracture. Sinuses: There is debris and fluid in the dependent left axillary sinus. No acute sinusitis. Mastoid air cells: Unremarkable as visualized. No mastoid effusion. Orbits: Bilateral lens replacements. IMPRESSION: No evidence of acute intracranial pathology. Electronically signed by: Luba Bell MD 07/24/24 00:[address] 07/23/24 15:13 Clinical History: Possible stroke. Technique: Axial computed tomography images were obtained of the brain from the vertex to the skull base without intravenous contrast. Findings: There is no sign of intracranial hemorrhage. There is normal ocasio-white matter differentiation with no sign of acute or old infarction. No midline shift or other form of herniation is identified. There is no hydrocephalus. No obvious mass lesion is seen on this noncontrast examination. The visualized portions of the orbits and paranasal sinuses appear unremarkable. The mastoid air cells appear clear Impression: Unremarkable noncontrast CT of the brain Electronically signed by Greg Montes 07-23-2024 4:39 PM Head CTA 07/23/24 15:13 Clinical history: Possible stroke Technique: Axial computed tomography images were obtained of the brain after the administration of intravenous contrast according to the CT angiogram protocol Findings: There is calcified plaque within the cavernous and supraclinoid segments of the internal carotid arteries bilaterally, without apparent stenosis No definite stenosis or aneurysm is seen of the anterior, middle, or posterior cerebral artery circulations. The visualized vertebral arteries and the basilar artery appear unremarkable Impression: No definite stenosis or aneurysm of the intracranial arteries Electronically signed by Greg Montes 07-23-2024 4:41 PM Neck CTA 07/23/24 15:13 Clinical history: Possible stroke Technique: Axial computed tomography images were obtained of the neck after the administration of intravenous contrast according to the CT angiogram protocol Findings: There is a moderate severity stenosis of the proximal left common carotid artery. There is a severe stenosis of the distal left common carotid artery. There is mild plaque in the left carotid bulb without significant stenosis. There is a mild stenosis of the proximal left internal carotid artery with approximately 30% diameter narrowing. There is a mild stenosis of the proximal left external carotid artery There is a severe stenosis at the origin of the right common carotid artery with near occlusion due to irregular calcified plaque. There is an approximately 50% diameter stenosis of the right carotid bulb due to calcified plaque. No significant stenosis is seen of the remainder of the right internal carotid artery. There is a moderate severity stenosis of the origin of the right external carotid artery. There is a severe stenosis at the origin of the left vertebral artery. There are mild stenoses of the proximal and mid left vertebral artery with up to 40% diameter narrowing. The left vertebral artery is dominant. There is a severe stenosis of the origin of the right vertebral artery with near occlusion due to extensive calcified plaque. There is a moderate severity stenosis of the mid right vertebral artery. There is an approximately 50% diameter stenosis of the distal right vertebral artery at the level of C1. There is a mild stenosis at the origin of the left subclavian artery. There is a mild stenosis of the mid left subclavian artery. The visualized thoracic aorta appears unremarkable There is multilevel degenerative disc disease and osteoarthritis of the cervical spine. Impression: 1. Severe stenosis of the origin of the right CCA and approximately 50% stenosis of the right carotid bulb 2. Moderate severity stenosis of the proximal left CCA, severe stenosis of the distal left CCA, and mild stenosis of the proximal left ICA 3. Severe stenoses of the origins of the vertebral arteries bilaterally. There are additional mild to moderate severity stenoses of the vertebral arteries 4. Mild stenoses of the left subclavian artery Electronically signed by Greg Montes 07-23-2024 4:49 PM Brain MRI 07/23/24 20:05 Exam(s): MRI HEAD Without Contrast EXAM: MR Head Without Intravenous Contrast CLINICAL HISTORY: Reason for exam: vision change. TECHNIQUE: Magnetic resonance images of the head/brain without intravenous contrast in multiple planes. COMPARISON: Prior head CT from July 23, 2024. FINDINGS: Brain: Mild nonspecific white matter changes. No mass. No hemorrhage. No acute infarct. The flow voids of the base of the brain are intact. Ventricles: Unremarkable. No ventriculomegaly. Bones/joints: Unremarkable. No acute fracture. Sinuses: There is debris and fluid in the dependent left axillary sinus. No acute sinusitis. Mastoid air cells: Unremarkable as visualized. No mastoid effusion. Orbits: Bilateral lens replacements. IMPRESSION: No evidence of acute intracranial pathology. Electronically signed by: Luba Bell MD 07/24/24 00:01 AM PG Care Time/CCT Total # of Minutes Spent Total Time Spent with Patient: Total time spent is greater than 50% in coordination of care (as documented) at patient's floor/unit and/or counseling patient: Coding Level of Care Code 34548 SUB INP/OBS CARE 2/35MIN Diagnoses Stroke-like symptoms R29.90 Peripheral artery disease I73.9 Cerebrovascular disease I67.9 Smoker F17.200
[2024-07-24] MEDS: lisinopril 20 MG TAB PO SCH (13:19)
[2024-07-24] MEDS: LIDOCAINE 5% 1 PATCH TD SCH (14:02)
--- NOTE | 2024-07-24 18:14 | XCELERA ---
[id number]
[2024-07-24] MEDS: LABETALOL HCL 100 MG TAB PO ONE (20:57)
[2024-07-25 07:01] LABS: Basophils # (auto) 0.05 K/uL (0.00-0.20); Basophils % (auto) 0.9 %; Eosinophils # (auto) 0.18 K/uL (0.00-0.50); Eosinophils % (auto) 3.1 %; Hematocrit (blood only) 28.9 % (37.0-47.0); Hemoglobin 8.5 g/dl (12.0-16.0); Immature Granulocytes # (auto) 0.02 K/uL (0.01-0.20); Immature Granulocytes % (auto) 0.3 %; Lymphocytes # (auto) 1.05 K/uL (1.20-3.40); Lymphocytes % (auto) 17.9 %; Mean Corpuscular Hemoglobin 23.5 pg (25.0-34.0); Mean Corpuscular Hgb Conc 29.4 g/dL (32.0-36.0); Mean Corpuscular Volume 80.1 fL (80.0-100.0); Mean Platelet Volume 8.4 fL (9.4-12.4); Monocytes # (auto) 0.87 K/uL (0.11-0.59); Monocytes % (auto) 14.8 %; Neutrophils # (auto) 3.71 K/uL (1.40-6.50); Platelet Count 336 K/uL (130-400); RDW Coefficient of Variation 17.5 % (11.5-14.5); RDW Standard Deviation 51.3 fL (36.4-46.3); Red Blood Count 3.61 M/uL (4.20-5.40); White Blood Count 5.88 K/ul (4.8-10.8)
[2024-07-25 07:33] LABS: Albumin Globulin Ratio 1.4 (0.9-2); Albumin Level 4.2 gm/dl (3.4-5.0); BUN Creatinine Ratio 12.3 (10-20); Bilirubin,Total 0.4 mg/dl (0.2-1.0); Calcium 9.1 mg/dl (8.6-10.3); Creatinine Clr Calc Pharmacy 55.1 ml/min; Globulin 2.9 gm/dl (2.5-4.0); Magnesium 1.8 mg/dl (1.7-2.4); Potassium 4.4 mmol/L (3.5-5.1); Total Protein 7.1 gm/dl (6.0-8.3)
[2024-07-25 07:51] VITALS: PULSE 98; RESP 18; TEMP 97.7; O2SAT 97
--- NOTE | 2024-07-25 07:51 | Consultation ---
Date of Consultation July 24, 2024 Assessment & Plan (1) Bilateral carotid artery stenosis: I do not think her symptoms are secondary to carotid disease. Would continue her plavix. We will follow up on her carotid disease as an outpatient. (2) Aortoiliac occlusive disease: Patient has significant claudication of the lower extremities. Non invasives suggest left iliac occlusion, right sfa occlusion and left sfa stenosis. Will order cta to better define the lesions. Most likely will need some sort in intervention once cta completed. Her disease is not limb threatening at this point, so any intervention can be done as an outpatient. Thank you very much for letting us participate in the care of this patient. History of Present Illness Reason for Consultation: Stroke like symptoms Attending Physician: Thom Silva MD History of Present Illness Ms Yeager is a 73-year-old female presents emergency department for strokelike symptoms. Patient says that the became increasing confused, having dysarthria, and weakness in her left lower extremity that is worse today. Patient reports chronic left lower extremity weakness. Patient states she thinks her symptoms began at 830 day of admission. Patient does drink alcohol regularly, usually 2 glasses of wine a day and smokes. She states she not drink any alcohol yet today. She now claims that all her symptoms have resolved. She also has significant claudication of the lower extremities, left worse than right. She did have a right sfa stent previously which is occluded. She denies any ulcerations of her feet or rest pain at night. CTA of the neck shows mulitple areas of stenosis of her prox right cca, left prox and disal cca and mod bilateral ica stenosis. Allergies Allergy/AdvReac Type Severity Reaction Status Date / Time hydromorphone [From Dilaudid] AdvReac Intermediate Vomiting Verified 07/09/24 13:25 baclofen AdvReac Confusion Verified 07/09/24 13:25 Home Medications Medication Instructions Recorded Confirmed Type aspirin 81 mg tablet,delayed 81 mg PO QAM 05/16/18 07/23/24 History release acetaminophen 500 mg capsule 1,000 mg PO Q8H PRN Pain 02/17/22 07/23/24 History clopidogrel 75 mg tablet (Plavix) 75 mg PO QAM #30 tabs 12/26/23 07/23/24 Rx tizanidine 2 mg tablet 2 mg PO TID PRN muscle spasticity 02/16/24 07/23/24 Rx #270 tabs lidocaine 4 % topical patch 1 patch topical QAM 02/18/24 07/23/24 History (Salonpas (lidocaine)) gabapentin 400 mg capsule 400 mg PO TID #90 caps 05/01/24 07/23/24 Rx albuterol sulfate 90 mcg/actuation 2 puff inhalation UD PRN as 05/19/24 07/23/24 Rx aerosol inhaler (Ventolin HFA) directed #6.7 grams atorvastatin 20 mg tablet 20 mg PO QAM #90 tabs 06/17/24 07/23/24 Rx bupropion HCl 150 mg tablet,12 hr 150 mg PO BID 90 days #180 ea 06/30/24 07/23/24 Rx sustained-release lisinopril 20 mg tablet 20 mg PO QAM #90 tabs 07/10/24 07/23/24 Rx pantoprazole 40 mg tablet,delayed 40 mg PO QAM #30 tabs 07/22/24 07/23/24 Rx release clonidine HCl 0.2 mg tablet 0.2 mg PO UD PRN Anxiety 07/23/24 07/23/24 History Patient History Medical History Anxiety Hypertension Hyperlipidemia History of left foot drop "not anymore, resolved" Hypocalcemia pt unsure about this dx, "stated it may have been when she was in the hospital in december 2023" Peripheral arterial disease S/P SFA stent (2013) S/P right femoral artery endarterectomy/stent (2017) Taking Plavix Lung nodule s/p radiation treatments Following with [facility] radiation oncology- monitoring, "stable" History of GI bleed 12/2023, had EGD Hx of sinus tachycardia 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, 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 Cardiac murmur "has had since she was a child, no issues with"; 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 Thoracic facet syndrome History of ankle fracture (10/13/22) Right ankle, Distal fibula avulsion fx, chronic anterior tibia avulsion fx History of anemia Sciatica ongoing Vulvar cancer Remote hx "years ago", treated surgically Cervical cancer Approximately 1979, treated surgically Degenerative disc disease, lumbar Chronic sinusitis Lumbar disc herniation sx to correct COPD (chronic obstructive pulmonary disease) with emphysema "well controlled"; inh prn x2>uses maybe twice per week if at all Esophageal reflux Occasional Osteoporosis Hx of cirrhosis Hx ETOH abuse/alcoholism per records (0-2 drinks/wine per day per PAT RN phone assessment 05/01/23) Depression Hepatic encephalopathy Remote hx Surgical History History of left cataract extraction History of esophagogastroduodenoscopy (EGD) S/P excision of lipoma (05/09/23) Excision of Intramuscular Back Lipoma - Suraj Kincaid, DO, FACS History of dilatation and curettage History of knee surgery R knee repair (patella fracture) History of back surgery lumbar discectomy History of foot surgery Debridement of left foot ulcer (09/09/18): LMA#4.0 unique, atraumatic at [facility] H/O adenoidectomy removed w/tonsils History of surgery Radical removal of vulva, partial History of laryngoscopy With biopsy History of tooth extraction History of endarterectomy Right femoral artery endarterectomy/stent (05/31/18): Grade view 1, MAC#3, ETT 7.5 at [facility] History of surgery SFA stent (2013) per records Hx of hysterectomy + USO History of throat surgery Benign growth removal History of tonsillectomy Family History Mother , 72yo Smoker "Bad circulation" Father , in his 70s Alzheimer disease Brother No problems noted. Sister No problems noted. Sister No problems noted. Son No problems noted. Daughter No problems noted. Daughter No problems noted. Aunt Cancer Other No pertinent family history Denies family history of Ovarian cancer Prostate cancer Myocardial infarction Breast cancer Colorectal cancer Social History Smoking Status: Current every day smoker Tobacco Type: Cigarettes Age Started Using Tobacco: 15; packs per day: 0.5; Cigarettes Per Day: 20; Second Hand Exposure: Yes; Do You Dip or Chew Tobacco: No; Hx Alcohol Use: Yes Alcohol type: wine Alcohol Intake Frequency: 4 or More x per/Week Alcohol Intake Frequency Comment: 2 glasses at dinner. 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 How many Children do You have: 3 Other Information That Helps Us Care for You: No Feels Safe at Home: Yes Safety Concerns: Feels Safe At This Time Childhood Exposure to Second-Hand Smoke: Yes Diet: regular caffeine: Yes (coffee) during the past year weight has: remained stable Dental Care, Regularly: No Physical Activity Frequency: Does not Exercise Seatbelt Use: always Sunscreen Use: No Assistive Devices: None Review of Systems Review of Systems: All systems reviewed & are unremarkable except as noted in HPI & below Physical Exam Constitutional: WD/WN, vitals as above Respiratory: normal respiratory effort, lungs clear to auscultation Cardiovascular: RRR, no murmur, no edema Rate/Rhythm: regular rate and regular rhythm Vessels: + femoral pulses abnormal (not palpable on left), + posterior tibial pulses abnormal and + dorsalis pedis pulses abnormal Gastrointestinal (Abdomen): Inspection/Auscultation: abdomen normal to inspection; abdomen not distended Percussion/Palpation: abdomen soft; abdomen nontender Neurologic: CN's II-XI intact bilaterally and moves all extremities Psychiatric: A+Ox3, euthymic affect Results & Data Vital Signs (Past 12 Hours) Vital Signs Temp Pulse Pulse Resp BP BP Pulse Ox 07/25/24 07:20 94 H 07/25/24 04:00 36.4 C L 86 16 179/74 H 96 07/24/24 22:44 36.9 C 16 136/81 97 07/24/24 21:45 78 07/24/24 20:21 36.8 C 101 H 18 191/80 H 206/80 H 97 O2 Del Method 07/25/24 07:20 07/25/24 04:00 Room Air 07/24/24 22:44 Room Air 07/24/24 21:45 07/24/24 20:21 Room Air
[2024-07-25] MEDS: lisinopril 40 MG TAB PO SCH (09:05)
[2024-07-25 10:11] VITALS: BP 143/77
--- NOTE | 2024-07-25 10:54 | Discharge Summary ---
Date of Service July 25, 2024 Admission HPI Per Admitting Provider The patient is a 73-year-old female with past medical history including lumbar stenosis, anemia, thoracic facet syndrome, melena due to excessive ibuprofen use, COPD, hyperlipidemia, foot drop and PAD, with history of occluded right femoral artery stent. She presents to the emergency department with symptoms as noted above, and the daughter's concerns regarding a possible stroke. Admission Exam Per Admitting Provider The patient is awake, alert, normocephalic and atraumatic, lying in bed and in no acute distress. HEENT--PERRL, EOMI, mucous membranes and oropharynx dry. Neck--supple. No JVD. No bruits. Thyroid normal, trachea midline, no adenopathy. Heart--normal S1 and S2. No murmurs, rubs or gallops. Lungs--clear bilaterally, no respiratory distress, no accessory muscle use. Abdomen--normal bowel sounds and soft. Nontender. Nondistended, no hernias or masses, no organomegaly. Extremities-- No edema. Dermatologic--skin is dry. Neurologic--cranial nerves II through XII grossly intact. Rheumatologic--normal range of motion. Psychiatric--normal affect. Principal Diagnosis - Likely TIA - Peripheral Vascular Disease Discharge Exam General: Awake, conversant Heart: S1, S2/regular rate and rhythm, no murmur rubs or gallops Lungs: Clear to auscultation bilaterally. Normal effort Abdomen: Soft/nontender/nondistended. No hepatosplenomegaly Extremities: No clubbing/cyanosis. No edema Behavior: Appropriate, cooperative Discharge Data Allergies Allergy/AdvReac Type Severity Reaction Status Date / Time hydromorphone [From Dilaudid] AdvReac Intermediate Vomiting Verified 07/09/24 13:25 baclofen AdvReac Confusion Verified 07/09/24 13:25 Consultations 07/23/24 18:03 ED Decision to Admit Stat 07/23/24 21:58 Consult Vascular Surgery Routine 07/24/24 02:25 Consult Neurology Routine Ordered Studies Head CT 07/23/24 15:13 Clinical History: Possible stroke. Technique: Axial computed tomography images were obtained of the brain from the vertex to the skull base without intravenous contrast. Findings: There is no sign of intracranial hemorrhage. There is normal ocasio-white matter differentiation with no sign of acute or old infarction. No midline shift or other form of herniation is identified. There is no hydrocephalus. No obvious mass lesion is seen on this noncontrast examination. The visualized portions of the orbits and paranasal sinuses appear unremarkable. The mastoid air cells appear clear Impression: Unremarkable noncontrast CT of the brain Electronically signed by Greg Montes 07-23-2024 4:39 PM Head CTA 07/23/24 15:13 Clinical history: Possible stroke Technique: Axial computed tomography images were obtained of the brain after the administration of intravenous contrast according to the CT angiogram protocol Findings: There is calcified plaque within the cavernous and supraclinoid segments of the internal carotid arteries bilaterally, without apparent stenosis No definite stenosis or aneurysm is seen of the anterior, middle, or posterior cerebral artery circulations. The visualized vertebral arteries and the basilar artery appear unremarkable Impression: No definite stenosis or aneurysm of the intracranial arteries Electronically signed by Greg Montse 07-23-2024 4:41 PM Neck CTA 07/23/24 15:13 Clinical history: Possible stroke Technique: Axial computed tomography images were obtained of the neck after the administration of intravenous contrast according to the CT angiogram protocol Findings: There is a moderate severity stenosis of the proximal left common carotid artery. There is a severe stenosis of the distal left common carotid artery. There is mild plaque in the left carotid bulb without significant stenosis. There is a mild stenosis of the proximal left internal carotid artery with approximately 30% diameter narrowing. There is a mild stenosis of the proximal left external carotid artery There is a severe stenosis at the origin of the right common carotid artery with near occlusion due to irregular calcified plaque. There is an approximately 50% diameter stenosis of the right carotid bulb due to calcified plaque. No significant stenosis is seen of the remainder of the right internal carotid artery. There is a moderate severity stenosis of the origin of the right external carotid artery. There is a severe stenosis at the origin of the left vertebral artery. There are mild stenoses of the proximal and mid left vertebral artery with up to 40% diameter narrowing. The left vertebral artery is dominant. There is a severe stenosis of the origin of the right vertebral artery with near occlusion due to extensive calcified plaque. There is a moderate severity stenosis of the mid right vertebral artery. There is an approximately 50% diameter stenosis of the distal right vertebral artery at the level of C1. There is a mild stenosis at the origin of the left subclavian artery. There is a mild stenosis of the mid left subclavian artery. The visualized thoracic aorta appears unremarkable There is multilevel degenerative disc disease and osteoarthritis of the cervical spine. Impression: 1. Severe stenosis of the origin of the right CCA and approximately 50% stenosis of the right carotid bulb 2. Moderate severity stenosis of the proximal left CCA, severe stenosis of the distal left CCA, and mild stenosis of the proximal left ICA 3. Severe stenoses of the origins of the vertebral arteries bilaterally. There are additional mild to moderate severity stenoses of the vertebral arteries 4. Mild stenoses of the left subclavian artery Electronically signed by Greg Montes 07-23-2024 4:49 PM Brain MRI 07/23/24 20:05 Exam(s): MRI HEAD Without Contrast EXAM: MR Head Without Intravenous Contrast CLINICAL HISTORY: Reason for exam: vision change. TECHNIQUE: Magnetic resonance images of the head/brain without intravenous contrast in multiple planes. COMPARISON: Prior head CT from July 23, 2024. FINDINGS: Brain: Mild nonspecific white matter changes. No mass. No hemorrhage. No acute infarct. The flow voids of the base of the brain are intact. Ventricles: Unremarkable. No ventriculomegaly. Bones/joints: Unremarkable. No acute fracture. Sinuses: There is debris and fluid in the dependent left axillary sinus. No acute sinusitis. Mastoid air cells: Unremarkable as visualized. No mastoid effusion. Orbits: Bilateral lens replacements. IMPRESSION: No evidence of acute intracranial pathology. Electronically signed by: Luba Bell MD 07/24/24 00:01 AM 07/23/24 15:13 CT angio head w con Stat CT angio neck with con Stat CT head/brain wo con Stat 07/23/24 20:05 MRI Brain [MR brain wo con] Stat 07/25/24 07:35 CTA abd aorta runof w con [CT ang AA runof w inc wo ifdon] Routine Hospital Course (1) Stroke-like symptoms: (2) Peripheral artery disease: (3) Cerebrovascular disease: (4) Smoker: Plan Strokelike symptoms/cerebrovascular disease- Patient presented with symptoms of difficulty with speech, confusion, variable right eye vision, and possibly slight worsening of chronic left lower extremity weakness. CT scan of head without contrast was negative CTA of head was negative CTA of neck showed severe R CCA stenosis at the origin and 50% right carotid bulb stenosis CTA of neck showed moderately severe proximal L CCA stenosis, and severe distal L CCA stenosis CTA of neck showed severe stenosis of bilateral vertebral arteries MRI brain without contrast was negative Stroke without thrombolytic order set Continue aspirin 81 mg daily and clopidogrel 75 mg daily, presently being used for treatment of PAD Resume lisinopril at a higher dosage for better control of blood pressure. Symptoms recovered Neurology on board This could be a TIA event with alcohol intake versus medication side effects (bupropion and gabapentin with alcohol) Emphasized the importance of reducing alcohol intake and smoking cessation Echocardiogram unremarkable Monitor on telemetry Peripheral arterial disease/complete stenosis of right femoral artery stent- Patient has more significant symptoms in the left lower extremity, which her daughter reports occasionally gets cold and turns blue Lower extremity arterial duplex performed on 07/15/2024, showed severe arterial insufficiency bilaterally, with right toe pressure adequate for healing, left toe pressure absent. Discussed with family possibility of starting Pletal 100 mg twice daily, but we will leave that up to vascular surgery Patient does need orthopedic fit arch supports and shoes, as she was complaining of occasional left heel discomfort, and walks around barefoot at home Patient was seen in consultation by vascular surgery who did not recommend any surgical intervention at this time but would like to see the patient outpatient. A CT angiogram was done prior to discharge which will be followed up on by the vascular surgeon Tobacco use disorder- Nicotine patch Cessation counseling Alcohol use disorder- Alcohol level negative No suggestion of withdrawal at this at this time There may be a Wernicke's component to her chronically worsening mental functioning/ confusion Total Time Total Time Spent Total Time Spent (In Minutes): 35 Discharge Plan Discharge Items Patient Disposition: Home - Self-Care Reason For Visit: VISION LOSS, CONFUSION Discharge Diagnosis: - Likely TIA - Peripheral Vascular Disease Activity: Resume your previous activity Non-emergency contact: Primary Care Provider Call non-emergency contact if: you have any medication questions and your symptoms worsen Follow-up/Referrals: Katarina Jimenes MD [Primary Care Provider] - 08/04/24 4:00 pm (Hospital follow up scheduled August 04 at 4:00) Kt Zelaya MD [Physician] - Diet: Heart Healthy Addtl Attending Provider Instructions: Advised to follow-up with PCP in 1 week Advised to follow-up with vascular surgeon in 2 weeks Advised to cut down on alcohol drinking habits Advised on smoking cessation Pending Studies at Discharge: No Stand-Alone Forms: My [facility], Smoking Cessation Medications and DC Order Prescriptions: New lisinopril [Zestril] 40 mg Tablet 40 mg PO QAM 30 Days Qty: 30 0RF Continued acetaminophen 500 mg capsule 1,000 mg PO Q8H PRN (Reason: Pain) Rx Instructions: Take 3 times per day to lessen pain. clopidogrel [Plavix] 75 mg tablet 75 mg PO QAM Qty: 30 5RF Hold Instructions: Resume on 02/21/24. tizanidine 2 mg tablet 2 mg PO TID PRN (Reason: muscle spasticity) Qty: 270 1RF albuterol sulfate [Ventolin HFA] 90 mcg/actuation HFA aerosol inhaler 2 puff INHALATION UD PRN (Reason: as directed) Qty: 6.7 5RF atorvastatin 20 mg tablet 20 mg PO QAM Qty: 90 1RF pantoprazole 40 mg tablet,delayed release (DR/EC) 40 mg PO QAM Qty: 30 2RF gabapentin 400 mg capsule 400 mg PO TID Qty: 90 5RF bupropion HCl 150 mg tablet sustained-release 12 hr 150 mg PO BID 90 Days Qty: 180 3RF aspirin 81 mg Tablet,Delayed Release (Dr/Ec) 81 mg PO QAM Hold Instructions: Resume on 02/28/24. clonidine HCl 0.2 mg tablet 0.2 mg PO UD PRN (Reason: Anxiety) Rx Instructions: TAKE ONE TABLET BY MOUTH TWICE DAILY NEEDED for anxiety lidocaine [Salonpas (lidocaine)] 4 % Adhesive Patch,Medicated 1 patch TOPICAL QAM Discontinued lisinopril 20 mg tablet 20 mg PO QAM Qty: 90 1RF Discharge Orders: Discharge Order (Routine); Ordered 07/25/24 Ordered By: Thom Silva Admission Data Admit Date/Time: 07/23/24 20:14 Attending Provider: Thom Silva Admit Provider: Jaspreet Bridges Primary Care Provider: Katarina Jimenes Other Providers: Jaspreet Bridges; Kt Zelaya; Memo Lock Other Interventions: Discharge Summary Assessment (RN) Last Done: 07/25/24 11:16
[2024-07-25] MEDS: OPTIRAY 320 125ml IV ONE (10:56)
--- NOTE | 2024-07-25 13:26 | CT Scan Report ---
CT ang CHETNA bakre faraz HISTORY: 73 years-old Female severe claudication, aiod and sfao Peripheral arterial disease with sev ere pain of the lower legs. COMPARISON: CT abdomen and pelvis 12/15/2023, 11/20/2020 CT abdomen and pelvis. TECHNIQUE: CTA abdomen and pelvis with lower extremity runoff was obtained following the intravenous administration of 112 mL Optiray 320. 3-D coronal and sagittal MIPS were obtained and submitted for naima ash. All measurements were obtained utilizing NASCET criteria. A dose lowering technique was used c onsistent with the principals vijaya MARTE. FINDINGS: Study is motion degraded. CT ABDOMEN/PELVIS: Mild bronchial wall thickening. Mild patchy tree-in-bud nodules within the right lower lobe. No free air. Unremarkable spleen, mildly atrophic pancreas and right adrenal gland. Left adrenal gland thicke jan suggestive of hyperplasia again noted. Cholelithiasis. Hepatic steatosis. No biliary ductal dila tion or hepatic mass. Patency of the hepatic and portal veins. Multifocal cortical scarring with area s of parenchymal thinning again noted within the bilateral kidneys. Bilateral renal calcifications ar e redemonstrated, most of which appear to be vascular in origin. Heterogeneous enhancement of the kid neys is a chronic finding. Retroperitoneal, gastrohepatic and periportal lymph nodes measure up to 7-8 mm, similar to prior and nonspecific. No bowel obstruction or bowel wall thickening. Unremarkable urinary bladder. The uterus appears surgically absent. No acute fracture is identified. CTA: Mild cardiomegaly. Extensive atherosclerosis of the aorta and branch vessels. Moderate stenosis at the origin of the celiac trunk with mild stenosis at the origin of the superior mesenteric artery. Areas of up to 50% stenosis is noted involving the right renal artery. High-grade stenosis of the pr oximal left renal artery secondary to atherosclerosis. Doax-jd-gewhvpmp stenosis is noted within the inferior mesenteric artery. Multifocal high-grade stenoses of the right greater than left internal il iac arteries. Extensive atherosclerosis of the left common iliac artery causes high-grade stenosis on image 172. The right common iliac artery is patent. RIGHT LOWER EXTREMITY: Short focus of high-grade stenosis within the right external iliac artery on i mage 209. Flow within the common femoral artery with probable short segment dissection on image 261, which in retrospect is unchanged from 12/15/2023. Occlusion of the right superficial femoral arterial stent is redemonstrated. Flow is noted within the profunda femoris artery. There is reconstitution of the distal superficial femoral artery, distal to the stent with moderate to high-grade multifocal st enoses. Extensive atherosclerosis of the popliteal artery with moderate multifocal stenoses. Mild-to- moderate multifocal stenoses of the lower leg arteries with three-vessel flow extending to the level of the ankle. LEFT LOWER EXTREMITY: There is multifocal high-grade stenoses of the left external iliac artery with additional moderate to high-grade stenosis within the diminutive common femoral artery. Milwqsqx-yr-u evere multifocal luminal narrowing within the patent superficial femoral artery. Moderate multifocal narrowing of the popliteal artery secondary to calcified plaque. Three-vessel flow is noted to the le jose m of the ankle with pkck-wm-fejywhat multifocal stenoses of the lower leg arteries. IMPRESSION: 1. Extensive atherosclerosis with multifocal luminal narrowing as detailed above. 2. Occlusion of the right superficial femoral arterial graft, which was also noted on the 12/15/2023 s tudy, however as previously mentioned is new from the 2020 comparison. There is distal reconstitution of flow within the [place] superficial femoral artery. 3. Multifocal high-grade stenoses/occlusions of the right internal iliac artery branches. 4. Small chronic dissection flap within the right common femoral artery. 5. Three-vessel arterial flow extends to the ankles bilaterally. 6. Subsegmental tree-in-bud nodules of the right lower lobe, compatible with an infectious or inflamm atory bronchiolitis. 7. Additional findings as above. ACT 112: Negative or not required by law. The above report was generated using voice recognition software. It may contain grammatical, syntax o r spelling errors. Dictated: 07/25/2024 12:32 PM Transcribed: 07/25/2024 1:15 PM Rick [id number] [email or web address] Electronically signed by: Musa Saini M.D. 07/25/2024 1:23 PM
== END 2024-07-25 13:18 | disposition home or self-care (01) ==
LOC: 2E 15:04 → ED 15:04 → SUATTDRO 20:14 → 2E 21:15

== ENCOUNTER 2024-08-18 05:17 | Inpatient (IN) ==
[2024-08-18 06:12] LABS: Creatinine Clr Calc Pharmacy 58.3 ml/min
[2024-08-18] MEDS: SODIUM CHLORIDE 0.9% 1,000 ML IV SCH ×2 (06:14→16:15)
--- NOTE | 2024-08-18 07:40 | History & Physical Bridge Note ---
Date of Service August 18, 2024 History & Physical Bridge Note I have examined the patient, reviewed the History & Physical and in the interval since the performance of the History & Physical I have noted the following changes of clinical significance: no changes noted
--- NOTE | 2024-08-18 07:40 | History & Physical Report ---
Date of Service August 18, 2024 History of Present Illness Primary Care Provider: Brian Hyman DO Name: BONIFACIO FATIMA Patient Number: [id number] : 1950 Date of Service: 08/07/2024 Chief Complaint: _New patient consultation for PAD HPI: _Ms. Fatima is an elderly female presents to Dr. Zelaya's vascular surgery clinic today as a new patient in consultation for severe PAD. Patient is known to Dr. Zelaya's vascular surgery practice, having undergone a right leg DICER OPERATOR endarterectomy with bovine patch and PROPERTY INSURANCE AGENT and stenting of her SFA back in 2018. She did come for a follow-up visit, but canceled all of her subsequent visits after that point. She states that for the past year or so she has been suffering from severe hip thigh and buttock discomfort when ambulating which then goes down into her calf muscles as well. She states the left leg is worse than the right and always hurts first. She also complains of left foot pain and lower leg pain when she is laying in bed at night, this is relieved with hanging her leg off the side of the bed, or if she gets up and walks around. She has some intermittent numbness as well. She does not have rest pain in her right leg. She also states that she has a crack on the side of her left great toe which occurred a few weeks ago, but is not healing. She states she is able to ambulate between 20 to 40 feet before she has to stop, after resting for few minutes, she is able to ambulate again. She does also have some low back pain which she has had chronically for some years, but denies any electric or radiating pain down her legs. She denies headache, fever, chest pain, shortness of breath, abdominal pain, nausea, vomiting, other complaints. Review of systems: Total of 14 systems were reviewed and are negative aside from what is related in her HPI. Imaging: Patient did have a CTA abdomen pelvis with runoff performed at [facility] on 07/25/2024 which demonstrates severe aortoiliac and bilateral lower extremity disease. Her right external iliac artery does have stenosis, and she has an occlusion of her right SFA stents. Additionally she has a left common iliac artery occlusion and significant disease throughout the left leg as well. Current Home Meds: (Last Updated 08/07 10:22) albuterol (Ventolin HFA 90 mcg/inh inhalation aerosol) 2 puff inhaled qid PRN: as needed for wheezing aspirin (aspirin 81 mg oral delayed release tablet) 81 mg PO Daily atorvastatin (atorvastatin 10 mg oral tablet) 10 mg PO qhs buPROPion (buPROPion 150 mg/12 hours (SR) oral tablet, extended release) 150 mg PO bid cloNIDine (cloNIDine 0.2 mg oral tablet) 0.4 mg PO qhs clopidogrel (Plavix 75 mg oral tablet) 75 mg PO Daily gabapentin (Neurontin 400 mg oral capsule) 400 mg PO tid lisinopril (lisinopril 40 mg oral tablet) 40 mg PO Daily pantoprazole (pantoprazole 40 mg oral delayed release tablet) 40 mg PO Daily tiZANidine (tiZANidine 2 mg oral tablet) 8 mg PO q8h Allergies and Sensitivities: No Known Medication Allergies Past Medical History: Problems: Peripheral arterial disease with history of revascularization Atherosclerosis Tobacco user Neuropathy Dyslipidemia Hypertension COPD Carotid stenosis Gastroesophageal reflux disease Cervical cancer Anemia GI bleed Liver cirrhosis Osteoporosis Sciatica Surgical history: Positive for cataract extraction, EGD, excision of lipoma, dilation and curettage, knee surgery, back surgery, foot surgery, tonsillectomy/adenoidectomy, laryngoscopy, dental extraction, right DICER OPERATOR endarterectomy with bovine patch and PROPERTY INSURANCE AGENT and stenting of her SFA, hysterectomy, throat surgery, Family history: Positive for Alzheimer's disease in her father Social history: The patient is and lives at home with her . She smokes at least half a pack per day, she drinks 2 glasses of wine at dinner 4 nights a week. She denies any illicit drug use. OBJECTIVE Vitals: Last Updated 08/07/24 10:37 Date Temp BP Location Pulse RR SpO2 Pain 08/07/24 170/80 Right Arm 08/07/24 162/74 Left Arm 83 98 08/07/24 0 Vital Signs are the last 3 documented. No Orthostatic Data Available Height and Weight: Last Updated 05/13/18 14:01 Date BMI Wt(kg) Wt(lb) Method Ht(cm) (ft-in) Method 05/13/18 22.66 56.2 124 Standing Scale 157.48 5-2 Heights and Weights are the last 3 documented. Physical Exam Constitutional: In general patient is a thin but healthy-appearing well- nourished well-developed elderly female in no distress. She is alert and oriented with any focal deficits. Her carotids do demonstrate a bruit. Her heart is regular with a systolic ejection murmur. Her lungs are decreased throughout but clear. Her abdomen is soft and nontender with right bowel sounds in all 4 quadrants. Brachial and radial pulses are +2. Left femoral pulse is nonpalpable. Right femoral pulse is +1. Lower extremities the pulses are nonpalpable. Her right foot capillary refill is 5 seconds, her left foot capillary refill is 6 seconds. Her left foot does demonstrate dependent rubor, as well as pallor with elevation. Her left great toe does have a crack on the medial/plantar surface which appears to be shallow. ASSESSMENT: _ PLAN: _ 1 ) _aortoiliac occlusive disease Patient does appear to have significant aortoiliac disease, as well as peripheral arterial disease. She she is currently suffering from severe hip thigh buttock and calf claudication worse in the left leg than the right. She is also experiencing rest pain in the left foot and has a nonhealing crack in her great toe. Due to the symptoms and the appearance of her arteries on imaging, we recommend that she undergo an aortogram with runoff and left leg intervention at [facility]. The procedure benefits and alternatives were discussed with the patient. The risks of the procedure, including but not limited to bleeding, infection, vessel trauma, loss of limb, , reaction to medication or dye causing allergy or kidney failure, exposure to x-ray radiation, were discussed with the patient by myself at Dr. Zelaya's request. Patient expresses understanding and agreement to proceed. This will be scheduled in the next few weeks at the patient's convenience. 2 ) _severe peripheral arterial disease with rest pain See above I have personally spent_50__ minutes performing ndke-ug-ofrw and cwg-hetr-kp-face activities on this date of service.Time does not include separately reported services. Activities Include: x__ review of the medical record x__ obtaining a history x__ physical exam/evaluation _x_ review labs _x_ review radiology reports _x_ counseling/educating patient/family/caregiver __ discussion/referral to other healthcare professional _x_ documenting care in the medical record __ independent interpretation of results _x_ communication of results to patient/family/caregiver _x_ coordination of care Signature Line Electronic Signature on File CC: Katarina Jimenes MD [address] [place] [address] [place] [address] * Lauren Ames PA-C Author Signature Dt/Tm: 08/07/2024 11:35 AM [facility] [place] [address], [address] [place]. [address] LM Result Type: .Outpt Ltr Date of Service: August 07, 2024 11:16 EST Authorization Status: Final Author or Import Date: BEN Ames Lynn on August 07, 2024 11:35 EST Verified By: BEN Ames Lynn on August 07, 2024 11:35 EST Encounter info: [id number], [place] [address], Clinic, 08/07/2024 - 08/07/2024 Allergies Allergy/AdvReac Type Severity Reaction Status Date / Time hydromorphone [From Dilaudid] AdvReac Intermediate Vomiting Verified 08/18/24 05:44 baclofen AdvReac Confusion Verified 08/18/24 05:44 Home Medications Medication Instructions Recorded Confirmed Type aspirin 81 mg tablet,delayed 81 mg PO QAM 05/16/18 08/18/24 History release acetaminophen 500 mg capsule 1,000 mg PO Q8H PRN Pain 02/17/22 08/18/24 History clopidogrel 75 mg tablet (Plavix) 75 mg PO QAM #30 tabs 12/26/23 08/15/24 Rx tizanidine 2 mg tablet 2 mg PO TID PRN muscle spasticity 02/16/24 08/18/24 Rx #270 tabs lidocaine 4 % topical patch 1 patch topical QAM 02/18/24 08/18/24 History (Salonpas (lidocaine)) gabapentin 400 mg capsule 400 mg PO TID #90 caps 05/01/24 08/18/24 Rx albuterol sulfate 90 mcg/actuation 2 puff inhalation UD PRN as 05/19/24 08/18/24 Rx aerosol inhaler (Ventolin HFA) directed #6.7 grams atorvastatin 20 mg tablet 20 mg PO QAM #90 tabs 06/17/24 08/18/24 Rx bupropion HCl 150 mg tablet,12 hr 150 mg PO BID 90 days #180 ea 06/30/24 08/18/24 Rx sustained-release pantoprazole 40 mg tablet,delayed 40 mg PO QAM #30 tabs 07/22/24 08/18/24 Rx release clonidine HCl 0.2 mg tablet 0.2 mg PO UD PRN Anxiety 07/23/24 08/18/24 History lisinopril 40 mg tablet (Zestril) 40 mg PO QAM 1 month #30 tabs 07/25/24 08/18/24 Rx Past Med/Surg History Problem List Hyperlipidemia Hypertension Aortoiliac occlusive disease Bilateral carotid artery stenosis Cerebrovascular disease Stroke-like symptoms (Acute) Degenerative lumbar spinal stenosis Anemia Thoracic facet syndrome Melena Sinus tachycardia Hypocalcemia Myofascial pain Thoracic back pain Smoker Chronic obstructive pulmonary disease Footdrop Left Lung nodule (Chronic) s/p radiation treatments Following with [facility] [place]- monitoring, "stable" Peripheral artery disease S/P SFA stent (2013) S/P right femoral artery endarterectomy/stent (2017) Taking Plavix Medical History Anxiety Hypertension Hyperlipidemia History of left foot drop "not anymore, resolved" Hypocalcemia pt unsure about this dx, "stated it may have been when she was in the hospital in december 2023" Peripheral arterial disease S/P SFA stent (2013) S/P right femoral artery endarterectomy/stent (2017) Taking Plavix Lung nodule s/p radiation treatments Following with [facility] radiation oncology- monitoring, "stable" History of GI bleed 12/2023, had EGD Hx of sinus tachycardia no commercial account executive, 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 Cardiac murmur "has had since she was a child, no issues with"; no commercial account executive Thoracic facet syndrome History of ankle fracture (10/13/22) Right ankle, Distal fibula avulsion fx, chronic anterior tibia avulsion fx History of anemia Sciatica ongoing Vulvar cancer Remote hx "years ago", treated surgically Cervical cancer Approximately 1979, treated surgically Degenerative disc disease, lumbar Chronic sinusitis Lumbar disc herniation sx to correct COPD (chronic obstructive pulmonary disease) with emphysema "well controlled"; inh prn x2>uses maybe twice per week if at all Esophageal reflux Occasional Osteoporosis Hx of cirrhosis Hx ETOH abuse/alcoholism per records (0-2 drinks/wine per day per PAT RN phone assessment 05/01/23) Depression Hepatic encephalopathy Remote hx Surgical History History of left cataract extraction History of esophagogastroduodenoscopy (EGD) S/P excision of lipoma (05/09/23) History of dilatation and curettage History of knee surgery History of back surgery History of foot surgery H/O adenoidectomy History of surgery History of laryngoscopy History of tooth extraction History of endarterectomy History of surgery Hx of hysterectomy History of throat surgery History of tonsillectomy Family History Mother Smoker Father Alzheimer disease Brother No problems noted. Sister No problems noted. Sister No problems noted. Son No problems noted. Daughter No problems noted. Daughter No problems noted. Aunt Cancer Other No pertinent family history Denies family history of Ovarian cancer Prostate cancer Myocardial infarction Breast cancer Colorectal cancer Social History Smoking Status: Current every day smoker Tobacco Type: Cigarettes Age Started Using Tobacco: 15; packs per day: 0.5; Cigarettes Per Day: 20; Second Hand Exposure: Yes; Do You Dip or Chew Tobacco: No; Tobacco Cessation Education Requested by Patient: No Hx Alcohol Use: Yes Alcohol type: wine Alcohol Intake Frequency: 4 or More x per/Week Alcohol Intake Frequency Comment: 2 glasses at dinner. 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 How many Children do You have: 3 Other Information That Helps Us Care for You: No Feels Safe at Home: No Is there a partner from a previous relationship who is making you feel unsafe now?: No Any Concerns about Your Family Situation: No Would You Like to Speak to Someone About Your Situation: No Childhood Exposure to Second-Hand Smoke: Yes Diet: regular caffeine: Yes (coffee) during the past year weight has: remained stable Dental Care, Regularly: No Physical Activity Frequency: Does not Exercise Seatbelt Use: always Sunscreen Use: No Assistive Devices: None Results & Data Vital Signs (Past 12 Hours) Vital Signs Temp Pulse Resp BP Pulse Ox O2 Del Method 08/18/24 06:01 36.5 C 74 20 174/82 H 99 Room Air 08/18/24 05:42 36.5 C 74 20 174/82 H 99 Room Air
[2024-08-18] MEDS: CEFAZOLIN 2,000 MG/15 ML SYR IV SCH (07:48)
[2024-08-18] MEDS: MIDAZOLAM HCL 1 MG/ML 2ML VIAL ONE ×3 (08:15→09:31)
[2024-08-18] MEDS: fentaNYL citrate PF 100 MCG/2 ML VIAL ONE ×5 (08:15→18:32)
--- NOTE | 2024-08-18 08:16 | Pre Anesthesia Assessment ---
Date of Service August 18, 2024 Pre Sedation Assessment Vital Signs Temp Pulse Pulse Resp BP Pulse Ox O2 Del Method 08/18/24 08:07 82 16 174/100 H 100 Oxymask 08/18/24 06:01 36.5 C 74 20 174/82 H 99 Room Air 08/18/24 05:42 36.5 C 74 20 174/82 H 99 Room Air O2 Flow Rate 08/18/24 08:07 4 08/18/24 06:01 08/18/24 05:42 Cardiovascular RRR, no murmur, no edema Respiratory normal respiratory effort, lungs clear to auscultation Pre-Sedation Airway Assessment Smoking Status: Current every day smoker Hx Sleep Apnea: No Short, Thick Neck: Yes Thyromental Distance: < 3.5 Finger Breadths Oral Cavity: + WNL Mallampati Class: III ASA: ASA3 NPO Status Date of Last Intake of Fluids: 08/17/24 Time of Last Intake of Fluids: 20:00 Date of Last Intake of Solid Food: 08/17/24 Time of Last Intake of Solid Foods: 18:00 Procedure Planning Contraindications for Sedation: none Current Medications Reviewed: Yes Notes The planned sedation has been discussed with the patient. Informed Consent was obtained. I have identified the patient, determined the appropriateness of sedation and have assessed the patient immediately prior to the procedure. All medicine(s) and interventions are by my order.
[2024-08-18] MEDS: LIDOCAINE 1% LOCAL 20 ML VIAL ONE (08:20)
[2024-08-18] MEDS: VISIPAQUE IV PRN ×2 (09:28→15:52)
[2024-08-18] MEDS: HEPARIN SOD (PORCINE) 1000 UNIT/ML ONE (10:00)
--- NOTE | 2024-08-18 10:01 | Post Operative Brief Note ---
Immediate Post Op Note Date of Surgery August 18, 2024 Pre & Post Diagnosis Operation Date: 08/18/24 08:00 Pre-Op Diagnosis: Aortoiliac Occlusive Disease, Left Common Iliac and Popliteal Stenosis Post-Op Diagnosis: Aortoiliac Occlusive Disease, Left Common Iliac and Popliteal Stenosis I identified the patient and participated in the time-out.: Yes Procedure Operation Date: 08/18/24 08:00 Actual Procedures p Aortogram with Bilateral Runoff, Transluminal Angioplasty with Stenting of the Left Iliac Artery, Balloon Angioplasty of Right External Iliac Artery, Balloon Angioplasty Left Common Femoral Artery, Balloon Angioplasty of Left Popliteal Artery, Moderate Sedation 0816 - 1037(Bilateral) - Kt Zelaya MD Surgeon Kt Zelaya MD Dean Of Student Services DO Franky Estimated Blood Loss 20 Findings Consistent with Post-Op Diagnosis Anesthesia Type RN Sedation Complications none Disposition Accompanied Patient To Recovery: No Disposition: Recovery Room
--- NOTE | 2024-08-18 10:16 | Procedure Note ---
Angiogram Post Procedure Fluoroscopy Time (minutes): 15 Radiation (mGy): 260 Contrast: 130cc Post Operative Report Pre & Post Diagnosis Operation Date: 08/18/24 08:00 Pre-Op Diagnosis: Aortoiliac Occlusive Disease, Left Common Iliac and Popliteal Stenosis Post-Op Diagnosis: Aortoiliac Occlusive Disease, Left Common Iliac and Popliteal Stenosis I identified the patient and participated in the time-out.: Yes Procedure Operation Date: 08/18/24 08:00 Actual Procedures p Aortagram with Bilateral Runoff, Transluminal Angioplasty with Stenting of the Left Iliac Artery, Balloon Angioplasty of Right External Iliac Artery, Balloon Angioplastly Left Common Femoral Artery, Balloon Angioplsty of Left Popliteal Artery, Moderate Sedation 08:16 -1037(Bilateral) - Kt Zelaya MD Surgeon Kt Zelaya MD Road Tester DO Franky Estimated Blood Loss 20 Findings Consistent with Post-Op Diagnosis Aortogram demonstrated right renal artery stenosis, patent left renal artery without obvious stenosis. Aortoiliac angiogram demonstrated patent common iliac arteries with stenosis proximal to the take off of the hypograstric on the left common iliac, right external iliac stenosis . The left external iliac artery, common femoral artery, and popliteal artery were found to have flow limiting stenosis, there was two vessel runoff to the foot. Fluids Per anesthesia report Specimens No specimen Drains No drain Complications Right groin bleeding, RP hematoma on CT scan. Indications Aortoiliac occlusive disease. Description of Procedure The patient was brought to the operating room and placed in supine position. The abdomen and lower extremities were prepped and draped in sterile fashion. The right common femoral artery was punctured percutaneously under direct ultrasound visualization and a micropuncture sheath was introduced using a modified Seldinger technique. A 5F sheath was initially placed and then exchanged for a 6 [place] sheath. An pigtail catheter was placed in the aorta over a stiff angled glide wire. An aortogram angiogram was obtained and demonstrated right renal artery stenosis, patent left renal artery without obvious stenosis. The aortoiliac segment demonstrated patent common iliac arteries with stenosis proximal to the take off of the hypogastric left common iliac, and stenosis at the right external iliac. Runoff to the lower extremities demonstrated flow limiting stenosis at the left common femoral artery, and focal stenosis at the above knee popliteal. She had runoff to the left foot via the peroneal and posterior tibial. At this point the left groin was percutaneously accessed utilizing micropuncture technique and modified Seldinger technique. A 5F sheath was placed and then exchanged for a 6 [place] sheath over a stiff angled glide catheter. An angiogram through the left sheath was obtained and the common iliac artery stenosis was again visualized. A 29mm length VBX was then placed at the proximal left and ballooned to 8mm diameter. The distal end of the stent was flared with a [id number] armada balloon. Following this the common femoral artery was angioplastied with a 6x60mm [place] balloon. An angiogram from the sheath demonstrated good approximation of the iliac stent and improvement of the [employer] stenosis. Attention was then turned to the right groin. A stiff angled glide catheter was inserted through the sheath and a 6x60mm armada balloon was used to angioplasty the previously identified stenosed R EIA. A sheath angiogram was performed that demonstrated improvement of the the EIA stenosis. Following this, the left groin sheath was removed and pressure was held in a sterile fashion. At this point distal signals were difficult to at the L foot. We elected to utilize a rim to go up and over the aortic bifurcation with a stiff angled Glidewire. A selective left lower extremity angiogram was performed showing restenosis of the left [employer]. The short 6 fr sheath was then exchanged for 45cm 7 [place] destination sheath over the stiff wire. We then angioplastied the l [employer] again with the 6x60 armada. Repeat angioplasty demonstrated resolution of the [employer] stenosis. Next, we angioplastied the previously identified left popliteal stenosis. Completion an giography demonstrated improvement to the L pop stenosis and two vessel runoff to the left foot via the peroneal and posterior tibial arteries. We then removed our catheter and the sheath sheath was backed to the right groin over the stiff glide wire. The sheath was removed and manual pressure was held. The right groin did bleed after 15 minutes of pressure, and an additional 15 minutes of pressure was held. Dr. Zelaya was present for the entirety of the case. I attest to the content of the Intraoperative Record and any orders documented therein. Any exceptions are noted below.
[2024-08-18] MEDS: ONDANSETRON INJ 2 MG/ML 2 ML VIAL ONE (10:28)
[2024-08-18] MEDS ORDERED: SODIUM CHLORIDE 0.9% 100 ML IV PRN ×4 (11:39→23:54)
[2024-08-18] MEDS ORDERED: SODIUM CHLORIDE 0.9% 50 ML IV PRN ×4 (11:39→23:54)
--- NOTE | 2024-08-18 11:41 | CT Scan Report ---
CT OF THE ABDOMEN AND PELVIS WITHOUT CONTRAST CLINICAL HISTORY: Retroperitoneal hematoma. COMPARISON STUDY: CTA with runoff July 25, 2024. TECHNIQUE: Axial images of the abdomen and pelvis were obtained without IV contrast. Images were revi ewed in the axial, sagittal, and coronal planes. Automated exposure control was utilized for the lilly dy. A dose lowering technique was utilized adhering to the principles of ALARA. FINDINGS: An irregular right lower lobe density on image 1 of 349 is partially imaged. Visualized por tions are similar to chest CT of January 09, 2024. There is also mild groundglass opacity within the poste rior basal segment right lower lobe. Evaluation of the abdomen and pelvis is suboptimal on this unenh anced exam. No pneumatosis, free air or portal venous gas is present. There are gallstones within the gallbladder. There is no evidence for acute cholecystitis. There is hepatic steatosis. Slight lobula r contour of the liver is present. Unenhanced images of the spleen, adrenal glands and pancreas are u nremarkable. There is no evidence for a bowel obstruction. There is no hydronephrosis. There is moder ate bilateral renal cortical thinning with heterogeneous enhancement of both kidneys with striated/pe rsistent nephrograms. Contrast within the bladder from recent endovascular procedure is noted. An acu te right pelvic retroperitoneal/extraperitoneal hematoma measures 9.5 x 8 x 5.3 cm. This has mass eff ect on the bladder with leftward displacement of the bladder. Adjacent hypodense fluid within the rig ht hemipelvis extending into the right retroperitoneum is also present. This is consistent with hemor rhage. Hemorrhage within the right groin is present. No additional well-defined hematomas are present . Multilevel degenerative changes within the lumbar spine are present with severe disc space narrowin g and endplate osteophytosis. Endplate irregularity is similar to prior CTs. Minimal paravertebral ed dima is also similar prior CTs. Prominent retroperitoneal lymph nodes are unchanged. Right superficial femoral artery stent is partially imaged. IMPRESSION: 1. 9.5 x 8 x 5.3 cm acute right pelvic retroperitoneal/extraperitoneal hematoma with moderate associa felisha extraperitoneal/retroperitoneal hemorrhage, as described above. Small amount of hemorrhage within the right groin. Associated mass effect with leftward displacement of the bladder. No hydronephrosis . 2. Multifocal scarring within the kidneys with heterogeneous enhancement of both kidneys with striate d/persistent nephrograms. The findings could be correlated with renal function. 3. Partially visualized irregular right lower lobe density, as shown on prior chest CT of January 09, 2024 . This remains indeterminate and could represent postradiation change. However, recurrent tumor could appear similar and attention on follow-up chest CT is recommended. ACT 112: Negative or not required by law. Electronically signed by: Elia Johnston M.D. 08/18/2024 11:40 AM
[2024-08-18] MEDS ORDERED: ePHEDrine sulfate 50 MG/ML AMP IV PRN (11:44)
[2024-08-18] MEDS ORDERED: ATROPINE SULFATE 0.1 MG/ML 10ML SYR IV PRN (11:44)
--- NOTE | 2024-08-18 11:44 | Communication Note ---
Date of Service: August 18, 2024 Post procedure patient had a vagal vaso reaction secondary to a retroperitoneal bleed on the right side. 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 Recommend exploration with thrombectomy and possible endart. I have discussed the risks options and benefits of the procedure with the patient. The patient understands the risks options and benefits and agrees to the procedure.
--- NOTE | 2024-08-18 11:48 | Anesthesiology Consultation ---
Date of Service August 18, 2024 Assessment & Plan Chart Review Chart Review: Acceptable Risk for Surgery and Patient NOT seen in Pre Admission Testing History Surgery Operation Date: 08/18/24 08:00 Proposed Procedures p Aortagram with Runnoff, Left Leg Arteriogram with Possible Intervention - Kt Zelaya MD Operation Date: 08/18/24 13:10 Proposed Procedures p Left Leg Thrombectomy - Kt Zelaya MD Height/Weight Height: 5 ft 2 in Weight: 57.5 kg Allergies Allergy/AdvReac Type Severity Reaction Status Date / Time hydromorphone [From Dilaudid] AdvReac Intermediate Vomiting Verified 08/18/24 05:44 baclofen AdvReac Confusion Verified 08/18/24 05:44 Medications Home Medications Medication Instructions Recorded Confirmed Last Taken aspirin 81 mg tablet,delayed 81 mg PO QAM 05/16/18 08/18/24 08/17/24 08:00 release acetaminophen 500 mg capsule 1,000 mg PO Q8H PRN Pain 02/17/22 08/18/24 05/08/23 08:30 clopidogrel 75 mg tablet (Plavix) 75 mg PO QAM #30 tabs 12/26/23 08/15/24 08/17/24 08:00 tizanidine 2 mg tablet 2 mg PO TID PRN muscle spasticity 02/16/24 08/18/24 08/17/24 20:00 #270 tabs lidocaine 4 % topical patch 1 patch topical QAM 02/18/24 08/18/24 Unknown (Salonpas (lidocaine)) gabapentin 400 mg capsule 400 mg PO TID #90 caps 05/01/24 08/18/24 08/17/24 20:00 albuterol sulfate 90 mcg/actuation 2 puff inhalation UD PRN as 05/19/24 08/18/24 08/17/24 20:00 aerosol inhaler (Ventolin HFA) directed #6.7 grams atorvastatin 20 mg tablet 20 mg PO QAM #90 tabs 06/17/24 08/18/24 08/17/24 08:00 bupropion HCl 150 mg tablet,12 hr 150 mg PO BID 90 days #180 ea 06/30/24 08/18/24 08/17/24 20:00 sustained-release pantoprazole 40 mg tablet,delayed 40 mg PO QAM #30 tabs 07/22/24 08/18/24 08/17/24 08:00 release clonidine HCl 0.2 mg tablet 0.2 mg PO UD PRN Anxiety 07/23/24 08/18/24 08/17/24 20:00 lisinopril 40 mg tablet (Zestril) 40 mg PO QAM 1 month #30 tabs 07/25/24 08/18/24 08/18/24 03:30 Active Medications Generic Name Dose Route Start Last Admin Trade Name Freq PRN Reason Stop Dose Admin Cefazolin Sodium 2,000 mg in 15 mls @ 3.75 mls/min 08/18/24 06:00 08/18/24 07:48 Ancef 2000mg IV 08/18/24 18:00 3.75 mls/min PREOP RONNIE Administration Protocol Sodium Chloride 1,000 mls @ 15 mls/hr 08/18/24 06:15 08/18/24 07:57 Nss IV 08/19/24 06:14 Infused .Q24H RONNIE Infusion KVO Iodixanol 100 ml 08/18/24 08:11 08/18/24 09:28 Visipaque IV 08/22/24 08:10 130 ml UD PRN Administration Interaction Checking NPO Date Last Intake of Fluids: 08/17/24 Time Last Intake of Fluids: 20:00 Date Last Intake of Solids: 08/17/24 Time Last Intake of Solids: 18:00 Past Medical History Medical History Anxiety Hypertension Hyperlipidemia History of left foot drop "not anymore, resolved" Hypocalcemia pt unsure about this dx, "stated it may have been when she was in the hospital in december 2023" Peripheral arterial disease S/P SFA stent (2013) S/P right femoral artery endarterectomy/stent (2017) Taking Plavix Lung nodule s/p radiation treatments Following with [facility] radiation oncology- monitoring, "stable" History of GI bleed 12/2023, had EGD Hx of sinus tachycardia no appeals coordinator, 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 Cardiac murmur "has had since she was a child, no issues with"; no appeals coordinator Thoracic facet syndrome History of ankle fracture (10/13/22) Right ankle, Distal fibula avulsion fx, chronic anterior tibia avulsion fx History of anemia Sciatica ongoing Vulvar cancer Remote hx "years ago", treated surgically Cervical cancer Approximately 1979, treated surgically Degenerative disc disease, lumbar Chronic sinusitis Lumbar disc herniation sx to correct COPD (chronic obstructive pulmonary disease) with emphysema "well controlled"; inh prn x2>uses maybe twice per week if at all Esophageal reflux Occasional Osteoporosis Hx of cirrhosis Hx ETOH abuse/alcoholism per records (0-2 drinks/wine per day per PAT RN phone assessment 05/01/23) Depression Hepatic encephalopathy Remote hx Past Family History Family History Mother Smoker Father Alzheimer disease Brother No problems noted. Sister No problems noted. Sister No problems noted. Son No problems noted. Daughter No problems noted. Daughter No problems noted. Aunt Cancer Other No pertinent family history Denies family history of Ovarian cancer Prostate cancer Myocardial infarction Breast cancer Colorectal cancer Past Surgical History Surgical History History of left cataract extraction History of esophagogastroduodenoscopy (EGD) S/P excision of lipoma (05/09/23) History of dilatation and curettage History of knee surgery History of back surgery History of foot surgery H/O adenoidectomy History of surgery History of laryngoscopy History of tooth extraction History of endarterectomy History of surgery Hx of hysterectomy History of throat surgery History of tonsillectomy Social History Smoking Status: Current every day smoker tobacco type: cigarettes Smoking cigarettes per day: 20 Do You Dip or Chew Tobacco: No Hx Alcohol Use: Yes Alcohol type: wine alcohol intake frequency: a few times a week Hx Substance Use: Yes substance use type: does not use Physical Exam Vital Signs Last Vital Signs Temp 36.5 C 08/18/24 06:01 Pulse 109 H 08/18/24 10:27 Resp 16 08/18/24 10:27 BP 152/100 H 08/18/24 10:27 Pulse Ox 93 08/18/24 10:27 O2 Del Method Room Air 08/18/24 10:27 O2 Flow Rate 0 08/18/24 10:27 Testing Laboratory Results 08/18/24 05:37
[2024-08-18] MEDS: fentaNYL citrate PF 100 MCG/2 ML VIAL IV PRN (11:50)
[2024-08-18] MEDS ORDERED: PHENYLEPHRINE 100MCG/ML 5ML SYR ONE (11:56)
[2024-08-18] MEDS ORDERED: PROPOFOL IV EMULSION 10 MG/ML 20 ML VIAL IV ONE (11:56)
[2024-08-18] MEDS ORDERED: fentaNYL citrate PF 100 MCG/2 ML VIAL ONE ×2 (11:56→15:54)
[2024-08-18] MEDS ORDERED: LIDOCAINE 2% 2 ML VIAL/AMP(20MG/ML) INFIL ONE (11:56)
[2024-08-18] MEDS ORDERED: ROCURONIUM BROMIDE 10 MG/ML 5 ML VIAL IV ONE ×2 (11:56→16:15)
--- NOTE | 2024-08-18 12:06 | Post Anesthesia Assessment ---
Date of Service August 18, 2024 Post Sedation Assessment Vital Signs Temp Pulse Pulse Resp BP Pulse Ox O2 Del Method 08/18/24 10:27 109 H 16 152/100 H 93 Room Air 08/18/24 10:22 110 H 16 158/90 H 94 Room Air 08/18/24 10:20 107 H 16 134/82 97 Oxymask 08/18/24 10:15 108 H 16 143/89 H 98 Oxymask 08/18/24 10:10 106 H 16 148/83 H 99 Oxymask 08/18/24 10:05 115 H 16 133/83 99 Oxymask 08/18/24 10:00 109 H 16 136/88 98 Oxymask 08/18/24 09:55 105 H 16 177/92 H 95 Oxymask 08/18/24 09:50 105 H 16 179/101 H 94 Oxymask 08/18/24 09:45 104 H 16 199/97 H 92 Oxymask 08/18/24 09:40 105 H 16 172/99 H 92 Oxymask 08/18/24 09:35 98 H 16 174/103 H 92 Oxymask 08/18/24 09:30 91 H 16 179/88 H 97 Oxymask 08/18/24 09:25 92 H 16 196/108 H 97 Oxymask 08/18/24 09:20 91 H 16 209/101 H 97 Oxymask 08/18/24 09:15 94 H 16 194/111 H 96 Oxymask 08/18/24 09:10 97 H 16 196/99 H 98 Oxymask 08/18/24 09:05 91 H 16 180/99 H 98 Oxymask 08/18/24 09:00 92 H 16 191/87 H 98 Oxymask 08/18/24 08:55 88 16 177/78 H 97 Oxymask 08/18/24 08:50 91 H 16 180/100 H 98 Oxymask 08/18/24 08:45 84 16 167/91 H 99 Oxymask 08/18/24 08:40 84 16 153/100 H 96 Oxymask 08/18/24 08:35 82 16 163/97 H 99 Oxymask 08/18/24 08:30 81 16 160/89 H 99 Oxymask 08/18/24 08:25 88 16 155/78 H 97 Oxymask 08/18/24 08:20 79 16 161/80 H 98 Oxymask 08/18/24 08:15 76 16 157/88 H 100 Oxymask 08/18/24 08:07 82 16 174/100 H 100 Oxymask 08/18/24 06:01 36.5 C 74 20 174/82 H 99 Room Air 08/18/24 05:42 36.5 C 74 20 174/82 H 99 Room Air O2 Flow Rate 08/18/24 10:27 0 08/18/24 10:22 0 08/18/24 10:20 4 08/18/24 10:15 4 08/18/24 10:10 4 08/18/24 10:05 4 08/18/24 10:00 4 08/18/24 09:55 4 08/18/24 09:50 4 08/18/24 09:45 4 08/18/24 09:40 4 08/18/24 09:35 4 08/18/24 09:30 4 08/18/24 09:25 4 08/18/24 09:20 4 08/18/24 09:15 4 08/18/24 09:10 4 08/18/24 09:05 4 08/18/24 09:00 4 08/18/24 08:55 4 08/18/24 08:50 4 08/18/24 08:45 4 08/18/24 08:40 4 08/18/24 08:35 4 08/18/24 08:30 4 08/18/24 08:25 4 08/18/24 08:20 4 08/18/24 08:15 4 08/18/24 08:07 4 08/18/24 06:01 08/18/24 05:42 Recovery Score Activity: Moves 4 extremities Respiration: Deep Breath/Cough Circulation: +/-20% PreAnes Value Consciousness: Fully Awake Oxygen Saturation: > 92% On Room Air Post Anesthesia Score: 10 Discharge Sedation Level of Care: Phase I Post Sedation Plan On clinical assessment, the patient appears to have tolerated the sedation without complications. Patient is recovering as anticipated. Patient will continue to be monitored by nursing and may be discharged when sedation discharge criteria are met per below protocol. Upon Completions of procedure up to 15 minutes continue every 5 minute vital signs and the P.A.R. score; then discharge to a Phase I or Fast Track to Phase II per the following guidelines: * Discharge Patient to appropriate Phase II area if PAR is 8 or greater or return to pre- procedure baseline. The post - procedure orders will be as directed. * If PAR score is less than 8 or not return to pre-procedure baseline then patient will follow Phase I monitoring till PAR is reached for Phase II. The Phase I may be done in procedure room or may call to secure a Phase I area. * If naloxone or flumazenil are used for reversal, hold in Phase I for continued monitoring from when last reversal dose was given for a minimum of 60 minutes or longer pending the nurse and/or physician discretion of patient condition before discharge to Phase II. Please call the Sedation Physician to re-evaluate and complete post-note for discharge to Phase II area. Do NOT discharge from procedure sedation or Phase 1 until post- sedation evaluation note is complete by procedure /sedation MD Sedation Discharge Instructions to be given to the patient at discharge to home.
[2024-08-18 12:12] LABS: Hematocrit (blood only) 23.9 % (37.0-47.0); Hemoglobin 6.8 g/dl (12.0-16.0)
[2024-08-18] MEDS ORDERED: HEPARIN SOD (PORCINE) 1000 UNIT/ML ONE (12:26)
[2024-08-18 12:33] LABS: Calcium 7.7 mg/dl (8.6-10.3); Creatinine Clr Calc Pharmacy 59.1 ml/min; Potassium 5.1 mmol/L (3.5-5.1)
[2024-08-18] MEDS ORDERED: ALBUMIN HUMAN 5% 12.5 GM/250 ML VIAL IV ONE (12:34)
[2024-08-18] MEDS ORDERED: ETOMIDATE 2 MG/ML 20 ML VIAL IV ONE ×2 (12:36→14:08)
[2024-08-18] MEDS ORDERED: ceFAZolin 330 MG/ML 1 GM VIAL ONE (12:55)
[2024-08-18] MEDS: ceFAZolin 2000MG 2,000 MG/15 ML SYR IV ONE (12:59)
[2024-08-18] MEDS ORDERED: CALCIUM CHLORIDE 10% 10 ML SYR IV ONE (14:32)
[2024-08-18] MEDS ORDERED: PROTAMINE SULFATE 10 MG/ML 5 ML VIAL IV ONE (15:47)
[2024-08-18] MEDS: THROMBIN FOR SOLN 20000 UNIT KIT ONE (15:48)
[2024-08-18] MEDS: GELATIN SPONGE SZ 100 ONE (15:48)
[2024-08-18] MEDS: HEPARIN (PORCINE) 1000 UNIT/ML 10 ML (CATH LAB USE ONLY) ONE (15:50)
[2024-08-18] MEDS ORDERED: ONDANSETRON INJ 2 MG/ML 2 ML VIAL IV PRN (16:01)
[2024-08-18] MEDS ORDERED: MoRPHine SULFATE 4 MG/ML 1 ML CARP\\VIAL IV PRN (16:01)
[2024-08-18] MEDS: ceFAZolin 330 MG/ML 1 GM VIAL ONE (16:08)
[2024-08-18] MEDS ORDERED: tiZANidine HCL 4 MG TABLET PO PRN (16:10)
[2024-08-18] MEDS ORDERED: ALBUTEROL HFA 8 GM INHALER INH PRN (16:10)
--- NOTE | 2024-08-18 16:13 | Post Operative Brief Note ---
Immediate Post Op Note Date of Surgery August 18, 2024 Pre & Post Diagnosis Operation Date: 08/18/24 13:10 Pre-Op Diagnosis: Retroperitoneal bleed on the right side. Occluded left common femoral artery Post-Op Diagnosis: Retroperitoneal bleed on the right side. Occluded left common femoral artery I identified the patient and participated in the time-out.: Yes Procedure Operation Date: 08/18/24 13:10 Actual Procedures p Left Iliac artery Thrombectomy, Left Femoral Endarterectomy with Patch Graft(Left), stenting of left external iliac artery - Kt Zelaya MD Surgeon Kt Zelaya MD Supervisor [employer] DO Franky Estimated Blood Loss 150 Findings Consistent with Post-Op Diagnosis Drains Ellison Catheter Anesthesia Type General Complications none Disposition Accompanied Patient To Recovery: No Disposition: Recovery Room
[2024-08-18] MEDS ORDERED: SUGAMMADEX SODIUM 200 MG/2 ML VIAL IV ONE (16:15)
--- NOTE | 2024-08-18 16:56 | Operative Report ---
Post Operative Report Pre & Post Diagnosis Operation Date: 08/18/24 13:10 Pre-Op Diagnosis: Retroperitoneal bleed on the right side. Occluded left common femoral artery Post-Op Diagnosis: Retroperitoneal bleed on the right side. Occluded left common femoral artery I identified the patient and participated in the time-out.: Yes Procedure Operation Date: 08/18/24 13:10 Actual Procedures p Left groin exploration, left iliac thrombectomy, left femoral endarterectomy with patch graft.(Left) - Kt Zelaya MD Surgeon Kt Zelaya MD Felled Seam Operator DO Franky Estimated Blood Loss 150 Findings Consistent with Post-Op Diagnosis Left common femoral with acute occlusion. With passage of alfredo catheter proximally, fresh clot was retrieved. Passing of the alfredo distally additionally retrieved fresh clot. LLE angio demonstrated dissection just distal to prior stent. This segment was stented with good apposition of the stents and no obvious residual dissection. The pt had dopplerable PT and peroneal signals at conclusion of the case. Fluids Per anesthesia report Specimens No specimen Drains No drain Anesthesia Type General Complications None apparent. Indications Acute left common femoral artery occlusion. Description of Procedure The patient was brought to the operating room and placed on the operating table in supine position. Patient was sedated and intubated and had a Ellison catheter placed by nursing. The left groin and left lower extremity were prepped and draped in the usual sterile fashion. A vertical incision was made in the left groin and carried down with a combination of electrocautery and sharp dissection. A combination of electrocautery, clips and ties was used for control of superficial branches. The femoral sheath was then opened using Metzenbaum scissors and sharp dissection of the common femoral artery, superficial femoral artery, distal external iliac artery and profunda femoris was performed. The external iliac artery was encircled with a vessel loop. A Satinsky clamp was positioned at the distal external iliac artery after the patient was on therapeutic dose of heparin. The profunda and SFA were then clamped. A #11 blade was used to make a vertical arteriotomy which was then extended using Dubon scissors proximally and distally. A freer elevator was used to free up the occlusive plaque which encompassed the external iliac, common femoral, superficial femoral and profunda femoris arteries. A number 3 and number 4 alfredo catheter were passed proximally with retrieval of fresh clot with brisk back bleeding afterwards. A number 3 alfredo catheter was then passed distally with retrevial of fresh clot and good back bleeding. After all debris was cleared from the femoral artery posterior wall, the distal flaps of the endarterectomized intima were tacked with 3 6-0 prolene u-stitches. Then a bovine pericardial patch was sutured using 5-0 Prolene in a running fashion. Prior to completion of the patch angioplasty, the profunda femoris, superficial femoral artery and external iliac arteries were unclamped and allowed to be flushed. Thorough irrigation using heparinized saline flush was performed and the patch angioplasty was completed. At this time, our attention was turned to the endovascular portion of the procedure. A micropuncture needle was used to access the middle of the patch in a retrograde fashion. A micropuncture wire was advanced into the common femoral artery and the micropuncture needle was exchanged for a micropuncture sheath. A sheath shot demonstrated dissection from the prior placed common iliac stent to the distal external iliac artery. A stiff angled glide wire was advanced under fluoroscopic guidance into the abdominal aorta and the five moldovan sheath was exchanged for a 8 [place] sheath.. We then placed a 8x60 absolute pro self expanding stent in the distal external iliac just proximal to our endarterectomy. This was ballooned with a 6x60 armada. We then placed a 8x79mm VBX with overlap within the proximal common iliac stent and in our newly placed external iliac stent.. After deployment, a completion angiogram revealed the external iliac artery stent was patent with no evidence of flow limiting stenosis or residual stenosis.. The distal abdominal aorta and contralateral iliac system were also patent. At this time, the wire was removed from the left groin and 3 interupted 6-0 Prolene sutures were used to close the 8 [place] sheath insertion site. This appeared hemostatic with no na rrowing of the patch. Thrombin-soaked Gelfoam was applied to the left groin. Meticulous hemostasis using electrocautery and thrombin was achieved. Antibiotic irrigation was used to irrigate the groin. A multilayer closure of the left groin was completed using 2-0 Vicryl to approximate the femoral sheath as well as multiple layers of subcutaneous tissue. A 3-0 Vicryl suture was used to approximate the deep dermis and enriqueta were used to approximate the skin edges. A provena vac dressing was applied to the left groin. The patient had excellent peroneal and posterior signals in the left lower extremity at the end of the case and no change to baseline right lower extremity exam. This concluded the case and the patient was taken to recovery in stable condition. Dr Zelaya was present and scrubbed for the entirety of the procedure. Dr. Zelaya was present and scrubbed for the entire procedure. I attest to the content of the Intraoperative Record and any orders documented therein. Any exceptions are noted below.
--- NOTE | 2024-08-18 17:16 | Critical Care Consultation ---
Date of Consultation August 18, 2024 Assessment & Plan (1) Aortoiliac occlusive disease: (2) Chronic obstructive pulmonary disease: (3) Retroperitoneal hematoma: (4) Anemia: Plan Impression: 73-year-old female with peripheral vascular disease status post angioplasty and stenting of the left common femoral artery today complicated by retroperitoneal hematoma requiring reexploration and thrombectomy of the common femoral artery. Recommendations: 1. Retroperitoneal hematoma: [id number] serial hemoglobin and hematocrit. If hemoglobin continues to drop, additional management per vascular surgery. Unclear if the patient would be candidate for IR based therapies. Pain control per vascular surgery 2. Occluded left common femoral artery: Appears patent currently with stable pulses and neurovascular status. Continue to follow. Anticoagulation per vascular surgery. Hold DVT prophylaxis given RP bleed 3. Anemia: Status post 2 units packed cells. Follow-up hemoglobin pending. Continue every 6 hour hemoglobin and hematocrit. 4. COPD: Stable. No indication for steroids or antibiotics. Continue albuterol as needed. 5. Hypertension: Will hold antihypertensives for now pending lab studies and hemodynamics. 6. Prior history of lung cancer: Nodule is stable. No indication for additional evaluation currently. Will continue to observe overnight in the intensive care unit. History of Present Illness Attending Physician: Kt Zelaya MD History of Present Illness Asked by vascular surgery to assist in evaluation and postoperative management of this patient status post left iliac stent with angioplasty complicated by retroperitoneal hematoma with acute occlusion of the left common femoral artery status post exploration with thrombectomy and left femoral endarterectomy with patch graft. History is obtained from review the electronic medical record as well as brief discussion with the patient in the PACU. The patient is a 73-year-old female with multiple medical conditions including probable lung cancer status post XRT, hypertension, peripheral vascular disease, COPD who had previously undergone right femoral endarterectomy with stenting several years ago. She has developed increasing hip pain and claudication on the left. CT angiogram with runoff performed July 25, 2024 demonstrated severe aortic iliac and bilateral lower extremity disease with occlusion of the right superficial femoral artery stent. Left common iliac artery was occluded with significant disease throughout the left leg. She was felt to be a candidate for angioplasty and stenting and was taken to the OR today where the left iliac artery was stented and angioplasty was performed of the left popliteal artery as well. She was in PACU and had a vagal episode. Repeat CT of the abdomen demonstrated a large retroperitoneal hematoma with occlusion of the left common femoral artery. She was taken urgently back to the OR for reexploration and thrombectomy. This was accomplished with endarterectomy and bovine patch. She is in the PACU currently hemodynamically stable and complaining of some mild back pain. She did receive 2 units of packed cells in the OR. Repeat labs are currently pending. She appears neurovascularly intact. Allergies Allergy/AdvReac Type Severity Reaction Status Date / Time hydromorphone [From Dilaudid] AdvReac Intermediate Vomiting Verified 08/18/24 05:44 baclofen AdvReac Confusion Verified 08/18/24 05:44 Home Medications Medication Instructions Recorded Confirmed Type aspirin 81 mg tablet,delayed 81 mg PO QAM 05/16/18 08/18/24 History release acetaminophen 500 mg capsule 1,000 mg PO Q8H PRN Pain 02/17/22 08/18/24 History clopidogrel 75 mg tablet (Plavix) 75 mg PO QAM #30 tabs 12/26/23 08/15/24 Rx tizanidine 2 mg tablet 2 mg PO TID PRN muscle spasticity 02/16/24 08/18/24 Rx #270 tabs lidocaine 4 % topical patch 1 patch topical QAM 02/18/24 08/18/24 History (Salonpas (lidocaine)) gabapentin 400 mg capsule 400 mg PO TID #90 caps 05/01/24 08/18/24 Rx albuterol sulfate 90 mcg/actuation 2 puff inhalation UD PRN as 05/19/24 08/18/24 Rx aerosol inhaler (Ventolin HFA) directed #6.7 grams atorvastatin 20 mg tablet 20 mg PO QAM #90 tabs 06/17/24 08/18/24 Rx bupropion HCl 150 mg tablet,12 hr 150 mg PO BID 90 days #180 ea 06/30/24 08/18/24 Rx sustained-release pantoprazole 40 mg tablet,delayed 40 mg PO QAM #30 tabs 07/22/24 08/18/24 Rx release clonidine HCl 0.2 mg tablet 0.2 mg PO UD PRN Anxiety 07/23/24 08/18/24 History lisinopril 40 mg tablet (Zestril) 40 mg PO QAM 1 month #30 tabs 07/25/24 08/18/24 Rx Patient History Medical History Anxiety Hypertension Hyperlipidemia History of left foot drop "not anymore, resolved" Hypocalcemia pt unsure about this dx, "stated it may have been when she was in the hospital in december 2023" Peripheral arterial disease S/P SFA stent (2013) S/P right femoral artery endarterectomy/stent (2017) Taking Plavix Lung nodule s/p radiation treatments Following with [facility] radiation oncology- monitoring, "stable" History of GI bleed 12/2023, had EGD Hx of sinus tachycardia 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, 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 Cardiac murmur "has had since she was a child, no issues with"; 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 Thoracic facet syndrome History of ankle fracture (10/13/22) Right ankle, Distal fibula avulsion fx, chronic anterior tibia avulsion fx History of anemia Sciatica ongoing Vulvar cancer Remote hx "years ago", treated surgically Cervical cancer Approximately 1979, treated surgically Degenerative disc disease, lumbar Chronic sinusitis Lumbar disc herniation sx to correct COPD (chronic obstructive pulmonary disease) with emphysema "well controlled"; inh prn x2>uses maybe twice per week if at all Esophageal reflux Occasional Osteoporosis Hx of cirrhosis Hx ETOH abuse/alcoholism per records (0-2 drinks/wine per day per PAT RN phone assessment 05/01/23) Depression Hepatic encephalopathy Remote hx Surgical History History of left cataract extraction History of esophagogastroduodenoscopy (EGD) S/P excision of lipoma (05/09/23) History of dilatation and curettage History of knee surgery History of back surgery History of foot surgery H/O adenoidectomy History of surgery History of laryngoscopy History of tooth extraction History of endarterectomy History of surgery Hx of hysterectomy History of throat surgery History of tonsillectomy Family History Mother Smoker Father Alzheimer disease Brother No problems noted. Sister No problems noted. Sister No problems noted. Son No problems noted. Daughter No problems noted. Daughter No problems noted. Aunt Cancer Other No pertinent family history Denies family history of Ovarian cancer Prostate cancer Myocardial infarction Breast cancer Colorectal cancer Social History Smoking Status: Current every day smoker Tobacco Type: Cigarettes Age Started Using Tobacco: 15; packs per day: 0.5; Cigarettes Per Day: 20; Second Hand Exposure: Yes; Do You Dip or Chew Tobacco: No; Tobacco Cessation Education Requested by Patient: No Hx Alcohol Use: Yes Alcohol type: wine Alcohol Intake Frequency: 4 or More x per/Week Alcohol Intake Frequency Comment: 2 glasses at dinner. 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 How many Children do You have: 3 Other Information That Helps Us Care for You: No Feels Safe at Home: No Is there a partner from a previous relationship who is making you feel unsafe now?: No Any Concerns about Your Family Situation: No Would You Like to Speak to Someone About Your Situation: No Childhood Exposure to Second-Hand Smoke: Yes Diet: regular caffeine: Yes (coffee) during the past year weight has: remained stable Dental Care, Regularly: No Physical Activity Frequency: Does not Exercise Seatbelt Use: always Sunscreen Use: No Assistive Devices: None Review of Systems Review of Systems: Limited due to patient's emerging from anesthesia Physical Exam Constitutional: WD/WN, vitals as above Respiratory: normal respiratory effort, lungs clear to auscultation Cardiovascular: RRR, no murmur, no edema Rate/Rhythm: regular rate and regular rhythm Vessels: + femoral pulses abnormal (not palpable on left), + posterior tibial pulses abnormal and + dorsalis pedis pulses abnormal Gastrointestinal (Abdomen): Inspection/Auscultation: abdomen normal to inspection; abdomen not distended Percussion/Palpation: abdomen soft; abdomen nontender Neurologic: CN's II-XI intact bilaterally and moves all extremities Psychiatric: A+Ox3, euthymic affect Results & Data Results & Data Vital Signs (Past 12 Hours) Vital Signs Temp Pulse Pulse Pulse Resp BP BP 08/18/24 17:00 85 17 08/18/24 16:50 81 14 08/18/24 16:40 36.0 C L 72 16 163/73 H 08/18/24 12:35 112 H 15 150/58 H 08/18/24 12:25 110 H 22 163/72 H 08/18/24 12:15 106 H 14 181/73 H 08/18/24 12:05 102 H 17 132/108 H 08/18/24 11:55 98 H 22 143/123 H 08/18/24 11:45 97 H 18 125/72 08/18/24 11:35 97 H 16 108/69 08/18/24 11:25 97 H 15 103/64 08/18/24 11:19 92 H 15 85/64 L 08/18/24 10:27 109 H 16 152/100 H 08/18/24 10:22 110 H 16 158/90 H 08/18/24 10:20 107 H 16 134/82 08/18/24 10:15 108 H 16 143/89 H 08/18/24 10:10 106 H 16 148/83 H 08/18/24 10:05 115 H 16 133/83 08/18/24 10:00 109 H 16 136/88 08/18/24 09:55 105 H 16 177/92 H 08/18/24 09:50 105 H 16 179/101 H 08/18/24 09:45 104 H 16 199/97 H 08/18/24 09:40 105 H 16 172/99 H 08/18/24 09:35 98 H 16 174/103 H 08/18/24 09:30 91 H 16 179/88 H 08/18/24 09:25 92 H 16 196/108 H 08/18/24 09:20 91 H 16 209/101 H 08/18/24 09:15 94 H 16 194/111 H 08/18/24 09:10 97 H 16 196/99 H 08/18/24 09:05 91 H 16 180/99 H 08/18/24 09:00 92 H 16 191/87 H 08/18/24 08:55 88 16 177/78 H 08/18/24 08:50 91 H 16 180/100 H 08/18/24 08:45 84 16 167/91 H 08/18/24 08:40 84 16 153/100 H 08/18/24 08:35 82 16 163/97 H 08/18/24 08:30 81 16 160/89 H 08/18/24 08:25 88 16 155/78 H 08/18/24 08:20 79 16 161/80 H 08/18/24 08:15 76 16 157/88 H 08/18/24 08:07 82 16 174/100 H 08/18/24 06:01 36.5 C 74 20 174/82 H 08/18/24 05:42 36.5 C 74 20 174/82 H BP Pulse Ox O2 Del Method O2 Flow Rate 08/18/24 17:00 147/62 H 92 Nasal Cannula 2 08/18/24 16:50 205/106 H 98 Nasal Cannula 2 08/18/24 16:40 163/73 H 100 Oxymask 8 08/18/24 12:35 75/39 L 100 Nasal Cannula 2 08/18/24 12:25 132/77 100 Nasal Cannula 2 08/18/24 12:15 107/75 99 Nasal Cannula 2 08/18/24 12:05 163/65 H 97 Nasal Cannula 2 08/18/24 11:55 99 Nasal Cannula 2 08/18/24 11:45 93 Nasal Cannula 2 08/18/24 11:35 93 Nasal Cannula 2 08/18/24 11:25 93 Nasal Cannula 2 08/18/24 11:19 99 Room Air 08/18/24 10:27 93 Room Air 0 08/18/24 10:22 94 Room Air 0 08/18/24 10:20 97 Oxymask 4 08/18/24 10:15 98 Oxymask 4 08/18/24 10:10 99 Oxymask 4 08/18/24 10:05 99 Oxymask 4 08/18/24 10:00 98 Oxymask 4 08/18/24 09:55 95 Oxymask 4 08/18/24 09:50 94 Oxymask 4 08/18/24 09:45 92 Oxymask 4 08/18/24 09:40 92 Oxymask 4 08/18/24 09:35 92 Oxymask 4 08/18/24 09:30 97 Oxymask 4 08/18/24 09:25 97 Oxymask 4 08/18/24 09:20 97 Oxymask 4 08/18/24 09:15 96 Oxymask 4 08/18/24 09:10 98 Oxymask 4 08/18/24 09:05 98 Oxymask 4 08/18/24 09:00 98 Oxymask 4 08/18/24 08:55 97 Oxymask 4 08/18/24 08:50 98 Oxymask 4 08/18/24 08:45 99 Oxymask 4 08/18/24 08:40 96 Oxymask 4 08/18/24 08:35 99 Oxymask 4 08/18/24 08:30 99 Oxymask 4 08/18/24 08:25 97 Oxymask 4 08/18/24 08:20 98 Oxymask 4 08/18/24 08:15 100 Oxymask 4 08/18/24 08:07 100 Oxymask 4 08/18/24 06:01 99 Room Air 08/18/24 05:42 99 Room Air Critical Care Results & Data Vital Signs (Past 12 Hours) Vital Signs Temp Pulse Pulse Pulse Resp BP BP 08/18/24 17:10 80 20 08/18/24 17:00 85 17 08/18/24 16:50 81 14 08/18/24 16:40 36.0 C L 72 16 163/73 H 08/18/24 12:35 112 H 15 150/58 H 08/18/24 12:25 110 H 22 163/72 H 08/18/24 12:15 106 H 14 181/73 H 08/18/24 12:05 102 H 17 132/108 H 08/18/24 11:55 98 H 22 143/123 H 08/18/24 11:45 97 H 18 125/72 08/18/24 11:35 97 H 16 108/69 08/18/24 11:25 97 H 15 103/64 08/18/24 11:19 92 H 15 85/64 L 08/18/24 10:27 109 H 16 152/100 H 08/18/24 10:22 110 H 16 158/90 H 08/18/24 10:20 107 H 16 134/82 08/18/24 10:15 108 H 16 143/89 H 08/18/24 10:10 106 H 16 148/83 H 08/18/24 10:05 115 H 16 133/83 08/18/24 10:00 109 H 16 136/88 08/18/24 09:55 105 H 16 177/92 H 08/18/24 09:50 105 H 16 179/101 H 08/18/24 09:45 104 H 16 199/97 H 08/18/24 09:40 105 H 16 172/99 H 08/18/24 09:35 98 H 16 174/103 H 08/18/24 09:30 91 H 16 179/88 H 08/18/24 09:25 92 H 16 196/108 H 08/18/24 09:20 91 H 16 209/101 H 08/18/24 09:15 94 H 16 194/111 H 08/18/24 09:10 97 H 16 196/99 H 08/18/24 09:05 91 H 16 180/99 H 08/18/24 09:00 92 H 16 191/87 H 08/18/24 08:55 88 16 177/78 H 08/18/24 08:50 91 H 16 180/100 H 08/18/24 08:45 84 16 167/91 H 08/18/24 08:40 84 16 153/100 H 08/18/24 08:35 82 16 163/97 H 08/18/24 08:30 81 16 160/89 H 08/18/24 08:25 88 16 155/78 H 08/18/24 08:20 79 16 161/80 H 08/18/24 08:15 76 16 157/88 H 08/18/24 08:07 82 16 174/100 H 08/18/24 06:01 36.5 C 74 20 174/82 H 08/18/24 05:42 36.5 C 74 20 174/82 H BP Pulse Ox O2 Del Method O2 Flow Rate 08/18/24 17:10 149/65 H 92 Nasal Cannula 2 08/18/24 17:00 147/62 H 92 Nasal Cannula 2 08/18/24 16:50 205/106 H 98 Nasal Cannula 2 08/18/24 16:40 163/73 H 100 Oxymask 8 08/18/24 12:35 75/39 L 100 Nasal Cannula 2 08/18/24 12:25 132/77 100 Nasal Cannula 2 08/18/24 12:15 107/75 99 Nasal Cannula 2 08/18/24 12:05 163/65 H 97 Nasal Cannula 2 08/18/24 11:55 99 Nasal Cannula 2 08/18/24 11:45 93 Nasal Cannula 2 08/18/24 11:35 93 Nasal Cannula 2 08/18/24 11:25 93 Nasal Cannula 2 08/18/24 11:19 99 Room Air 08/18/24 10:27 93 Room Air 0 08/18/24 10:22 94 Room Air 0 08/18/24 10:20 97 Oxymask 4 08/18/24 10:15 98 Oxymask 4 08/18/24 10:10 99 Oxymask 4 08/18/24 10:05 99 Oxymask 4 08/18/24 10:00 98 Oxymask 4 08/18/24 09:55 95 Oxymask 4 08/18/24 09:50 94 Oxymask 4 08/18/24 09:45 92 Oxymask 4 08/18/24 09:40 92 Oxymask 4 08/18/24 09:35 92 Oxymask 4 08/18/24 09:30 97 Oxymask 4 08/18/24 09:25 97 Oxymask 4 08/18/24 09:20 97 Oxymask 4 08/18/24 09:15 96 Oxymask 4 08/18/24 09:10 98 Oxymask 4 08/18/24 09:05 98 Oxymask 4 08/18/24 09:00 98 Oxymask 4 08/18/24 08:55 97 Oxymask 4 08/18/24 08:50 98 Oxymask 4 08/18/24 08:45 99 Oxymask 4 08/18/24 08:40 96 Oxymask 4 08/18/24 08:35 99 Oxymask 4 08/18/24 08:30 99 Oxymask 4 08/18/24 08:25 97 Oxymask 4 08/18/24 08:20 98 Oxymask 4 08/18/24 08:15 100 Oxymask 4 08/18/24 08:07 100 Oxymask 4 08/18/24 06:01 99 Room Air 08/18/24 05:42 99 Room Air Lab & Micro Results (Past 24 Hours) RBC Pending 08/18/24 WBC Pending 08/18/24 Hgb 6.8 g/dl (12.0-16.0) L* 08/18/24 Hct 23.9 % (37.0-47.0) L 08/18/24 MCV Pending 08/18/24 MCH Pending 08/18/24 MCHC Pending 08/18/24 Plt Count Pending 08/18/24 Na 136 mmol/L (136-145) 08/18/24 K 5.1 mmol/L (3.5-5.1) 08/18/24 Cl 109 mmol/L (98-107) H 08/18/24 CO2 20 mmol/L (21-32) L 08/18/24 Anion Gap 7 (3-11) 08/18/24 BUN 7 mg/dl (6-23) 08/18/24 Creatinine 0.68 mg/dl (0.6-1.2) 08/18/24 Ca 7.7 mg/dl (8.6-10.3) L 08/18/24 Calcium Level 7.7 mg/dl (8.6-10.3) L 08/18/24 11:41 Diagnostic Findings (Past 24 Hours) Abdomen/Pelvis CT 08/18/24 10:52 CT OF THE ABDOMEN AND PELVIS WITHOUT CONTRAST CLINICAL HISTORY: Retroperitoneal hematoma. COMPARISON STUDY: CTA with runoff July 25, 2024. TECHNIQUE: Axial images of the abdomen and pelvis were obtained without IV contrast. Images were reviewed in the axial, sagittal, and coronal planes. Automated exposure control was utilized for the study. A dose lowering technique was utilized adhering to the principles of ALARA. FINDINGS: An irregular right lower lobe density on image 1 of 349 is partially imaged. Visualized portions are similar to chest CT of January 09, 2024. There is also mild groundglass opacity within the posterior basal segment right lower lobe. Evaluation of the abdomen and pelvis is suboptimal on this unenhanced exam. No pneumatosis, free air or portal venous gas is present. There are gallstones within the gallbladder. There is no evidence for acute cholecystitis. There is hepatic steatosis. Slight lobular contour of the liver is present. Unenhanced images of the spleen, adrenal glands and pancreas are unremarkable. There is no evidence for a bowel obstruction. There is no hydronephrosis. There is moderate bilateral renal cortical thinning with heterogeneous enhancement of both kidneys with striated/persistent nephrograms. Contrast within the bladder from recent endovascular procedure is noted. An acute right pelvic retroperitoneal/extraperitoneal hematoma measures 9.5 x 8 x 5.3 cm. This has mass effect on the bladder with leftward displacement of the bladder. Adjacent hypodense fluid within the right hemipelvis extending into the right retroperitoneum is also present. This is consistent with hemorrhage. Hemorrhage within the right groin is present. No additional well-defined hematomas are present. Multilevel degenerative changes within the lumbar spine are present with severe disc space narrowing and endplate osteophytosis. Endplate irregularity is similar to prior CTs. Minimal paravertebral edema is also similar prior CTs. Prominent retroperitoneal lymph nodes are unchanged. Right superficial femoral artery stent is partially imaged. IMPRESSION: 1. 9.5 x 8 x 5.3 cm acute right pelvic retroperitoneal/extraperitoneal hematoma with moderate associated extraperitoneal/retroperitoneal hemorrhage, as described above. Small amount of hemorrhage within the right groin. Associated mass effect with leftward displacement of the bladder. No hydronephrosis. 2. Multifocal scarring within the kidneys with heterogeneous enhancement of both kidneys with striated/persistent nephrograms. The findings could be correlated with renal function. 3. Partially visualized irregular right lower lobe density, as shown on prior chest CT of January 09, 2024. This remains indeterminate and could represent postradiation change. However, recurrent tumor could appear similar and attention on follow-up chest CT is recommended. ACT 112: Negative or not required by law. Electronically signed by: Elia Johnston M.D. 08/18/2024 11:40 AM I & O Totals 24 Hours 08/17/24 08/18/24 08/19/24 06:59 06:59 06:59 Intake Total 0 / 0 1900 / 1900 Output Total 700 / 700 Balance 0 / 0 1200 / 1200 Cumulative 08/08/24 11:20 thru 08/18/24 16:40 Intake Total 1900 Output Total 700 Balance 1200 RT Ventilator Mngmt (Last Documented) Ventilator Ordered Settings Respiratory Rate 20 08/18/24 17:10 Ventilator - PT Measurements Respiratory Rate 20 Coding Level of Care Code 78758 IN/OBS CONSULT LVL 4,60M Diagnoses Aortoiliac occlusive disease I74.09 Chronic obstructive pulmonary disease J44.9 Retroperitoneal hematoma K68.3 Anemia, unspecified type D64.9 Anemia type: unspecified type (4) Anemia Anemia type: unspecified type Qualified Code(s): D64.9 - Anemia, unspecified
[2024-08-18 17:20] LABS: Basophils # (auto) 0.05 K/uL (0.00-0.20); Basophils % (auto) 0.3 %; Eosinophils # (auto) 0.06 K/uL (0.00-0.50); Eosinophils % (auto) 0.4 %; Hematocrit (blood only) 27.8 % (37.0-47.0); Hemoglobin 8.7 g/dl (12.0-16.0); Immature Granulocytes # (auto) 0.17 K/uL (0.01-0.20); Lymphocytes # (auto) 1.04 K/uL (1.20-3.40); Lymphocytes % (auto) 6.1 %; Mean Corpuscular Hemoglobin 24.9 pg (25.0-34.0); Mean Corpuscular Hgb Conc 31.3 g/dL (32.0-36.0); Mean Corpuscular Volume 79.4 fL (80.0-100.0); Mean Platelet Volume 8.5 fL (9.4-12.4); Monocytes # (auto) 1.77 K/uL (0.11-0.59); Monocytes % (auto) 10.3 %; Neutrophils # (auto) 14.04 K/uL (1.40-6.50); Neutrophils % (auto) 81.9 %; Platelet Count 281 K/uL (130-400); RDW Coefficient of Variation 17.8 % (11.5-14.5); RDW Standard Deviation 51.5 fL (36.4-46.3); White Blood Count 17.13 K/ul (4.8-10.8)
--- NOTE | 2024-08-18 17:34 | Anesthesiology Progress Note ---
Date of Service August 18, 2024 Anesthesia Post Procedure Vital Signs Vital Signs: Temp Pulse Pulse Pulse Resp BP BP 08/18/24 17:10 80 20 08/18/24 17:00 85 17 08/18/24 16:50 81 14 08/18/24 16:40 36.0 C L 72 16 163/73 H 08/18/24 12:35 112 H 15 150/58 H 08/18/24 12:25 110 H 22 163/72 H 08/18/24 12:15 106 H 14 181/73 H 08/18/24 12:05 102 H 17 132/108 H 08/18/24 11:55 98 H 22 143/123 H 08/18/24 11:45 97 H 18 125/72 08/18/24 11:35 97 H 16 108/69 08/18/24 11:25 97 H 15 103/64 08/18/24 11:19 92 H 15 85/64 L 08/18/24 10:27 109 H 16 152/100 H 08/18/24 10:22 110 H 16 158/90 H 08/18/24 10:20 107 H 16 134/82 08/18/24 10:15 108 H 16 143/89 H 08/18/24 10:10 106 H 16 148/83 H 08/18/24 10:05 115 H 16 133/83 08/18/24 10:00 109 H 16 136/88 08/18/24 09:55 105 H 16 177/92 H 08/18/24 09:50 105 H 16 179/101 H 08/18/24 09:45 104 H 16 199/97 H 08/18/24 09:40 105 H 16 172/99 H 08/18/24 09:35 98 H 16 174/103 H 08/18/24 09:30 91 H 16 179/88 H 08/18/24 09:25 92 H 16 196/108 H 08/18/24 09:20 91 H 16 209/101 H 08/18/24 09:15 94 H 16 194/111 H 08/18/24 09:10 97 H 16 196/99 H 08/18/24 09:05 91 H 16 180/99 H 08/18/24 09:00 92 H 16 191/87 H 08/18/24 08:55 88 16 177/78 H 08/18/24 08:50 91 H 16 180/100 H 08/18/24 08:45 84 16 167/91 H 08/18/24 08:40 84 16 153/100 H 08/18/24 08:35 82 16 163/97 H 08/18/24 08:30 81 16 160/89 H 08/18/24 08:25 88 16 155/78 H 08/18/24 08:20 79 16 161/80 H 08/18/24 08:15 76 16 157/88 H 08/18/24 08:07 82 16 174/100 H 08/18/24 06:01 36.5 C 74 20 174/82 H 08/18/24 05:42 36.5 C 74 20 174/82 H BP Pulse Ox O2 Del Method O2 Flow Rate 08/18/24 17:10 149/65 H 92 Nasal Cannula 2 08/18/24 17:00 147/62 H 92 Nasal Cannula 2 08/18/24 16:50 205/106 H 98 Nasal Cannula 2 08/18/24 16:40 163/73 H 100 Oxymask 8 08/18/24 12:35 75/39 L 100 Nasal Cannula 2 08/18/24 12:25 132/77 100 Nasal Cannula 2 08/18/24 12:15 107/75 99 Nasal Cannula 2 08/18/24 12:05 163/65 H 97 Nasal Cannula 2 08/18/24 11:55 99 Nasal Cannula 2 08/18/24 11:45 93 Nasal Cannula 2 08/18/24 11:35 93 Nasal Cannula 2 08/18/24 11:25 93 Nasal Cannula 2 08/18/24 11:19 99 Room Air 08/18/24 10:27 93 Room Air 0 08/18/24 10:22 94 Room Air 0 08/18/24 10:20 97 Oxymask 4 08/18/24 10:15 98 Oxymask 4 08/18/24 10:10 99 Oxymask 4 08/18/24 10:05 99 Oxymask 4 08/18/24 10:00 98 Oxymask 4 08/18/24 09:55 95 Oxymask 4 08/18/24 09:50 94 Oxymask 4 08/18/24 09:45 92 Oxymask 4 08/18/24 09:40 92 Oxymask 4 08/18/24 09:35 92 Oxymask 4 08/18/24 09:30 97 Oxymask 4 08/18/24 09:25 97 Oxymask 4 08/18/24 09:20 97 Oxymask 4 08/18/24 09:15 96 Oxymask 4 08/18/24 09:10 98 Oxymask 4 08/18/24 09:05 98 Oxymask 4 08/18/24 09:00 98 Oxymask 4 08/18/24 08:55 97 Oxymask 4 08/18/24 08:50 98 Oxymask 4 08/18/24 08:45 99 Oxymask 4 08/18/24 08:40 96 Oxymask 4 08/18/24 08:35 99 Oxymask 4 08/18/24 08:30 99 Oxymask 4 08/18/24 08:25 97 Oxymask 4 08/18/24 08:20 98 Oxymask 4 08/18/24 08:15 100 Oxymask 4 08/18/24 08:07 100 Oxymask 4 08/18/24 06:01 99 Room Air 08/18/24 05:42 99 Room Air Transfer of Care Handoff Completed per policy Notes Mental Status: alert / awake / arousable and participated in evaluation Patient Amnestic to Procedure: Yes Nausea / Vomiting: adequately controlled Pain: adequately controlled Airway Patency, RR, SpO2: stable & adequate BP & HR: stable & adequate Hydration State: stable & adequate Anesthetic Complications: no major complications apparent and Pt Satisfied with anesthetic care
[2024-08-18] MEDS: ceFAZolin 2000MG 2,000 MG/15 ML SYR IV SCH (18:24)
[2024-08-18] MEDS: LABETALOL HCL IV 5 MG/ML 20ML IV ONE (18:32)
[2024-08-18] MEDS: GABAPENTIN 400 MG CAP PO SCH (20:24)
[2024-08-18] MEDS: buPROPion SR 150 MG TABCR PO SCH (20:24)
[2024-08-18 23:23] LABS: Hematocrit (blood only) 24.6 % (37.0-47.0); Hemoglobin 7.7 g/dl (12.0-16.0)
[2024-08-19 04:45] LABS: Hematocrit (blood only) 27.8 % (37.0-47.0); Hemoglobin 9.1 g/dl (12.0-16.0)
[2024-08-19 05:00] LABS: BUN Creatinine Ratio 12.3 (10-20); Calcium 7.8 mg/dl (8.6-10.3); Creatinine Clr Calc Pharmacy 59.7 ml/min; Potassium 4.4 mmol/L (3.5-5.1)
[2024-08-19] MEDS: oxyCODONE/ACETAMINOPHEN 5mg/325mg TAB PO PRN ×2 (05:24→16:05)
--- NOTE | 2024-08-19 07:45 | Critical Care Progress Note ---
Date of Service August 19, 2024 Assessment & Plan (1) Aortoiliac occlusive disease: (2) Chronic obstructive pulmonary disease: (3) Retroperitoneal hematoma: (4) Anemia: Plan Impression: 73-year-old female with peripheral vascular disease status post angioplasty and stenting of the left common femoral artery today complicated by retroperitoneal hematoma requiring reexploration and thrombectomy of the common femoral artery. Recommendations: 1. Retroperitoneal hematoma: [id number] serial hemoglobin and hematocrit (9.1/27.8 on AM Labs). If hemoglobin continues to drop, additional management per vascular surgery. Unclear if the patient would be candidate for IR based therapies. Pain control per vascular surgery 2. Occluded left common femoral artery: Appears patent currently with stable pulses and neurovascular status. Continue to follow. Anticoagulation per vascular surgery. Hold DVT prophylaxis given RP bleed. Distal pulses dopplerable. 3. Anemia: 3 U PRBC total. Follow-up hemoglobin pending. Continue every 6 hour hemoglobin and hematocrit. 4. COPD: Stable. No indication for steroids or antibiotics. Continue albuterol as needed. 5. Hypertension: Can restart home lisinopril now. 6. Prior history of lung cancer: Nodule is stable. No indication for additional evaluation currently. Thank you for allowing us to participate in the care of this patient. Defer to vascular surgery for disposition planning moving forward. Admission and Anticipated Discharge Date Admission Date: August 18, 2024 Supervising Physician Co-Signing Physician Notes Patient seen and examined. EMR reviewed. Discussed on multidisciplinary rounds and with bedside critical care nurse. Patient appears to be improving. She is having some mild discomfort associated with the retroperitoneal hematoma. Management per vascular surgery. Okay to discontinue arterial line. Defer activity orders to vascular surgery as well as antihypertensives and long-term anticoagulation plan. Patient's critical care issues have resolved. Critical care services will sign off. Feel free to contact us with questions or concerns Subjective Patient was seen and evaluated at bedside. She complains of some discomfort at the surgical incision sites and discomfort for having to lay still. Otherwise, she reports no lack of sensation into her extremities. No chest pain, dizziness, or lightheadedness. She reports being hungry and ready for breakfast. Review of Systems Review of Systems: As per HPI Physical Exam Physical Exam: VITAL SIGNS - Vital signs and nursing notes were reviewed. GENERAL - 73-year-old female appearing her stated age who is in no acute distr ess. Communicates well with provider and answers questions appropriately. SKIN - Surgical incision sites in the groin clean, dry, and intact. HEAD - NC/AT. EYES - PERRL with EOMI bilaterally. Sclera anicteric. EARS - No deformities of external structures noted on gross examination bilaterally. NOSE - Midline and without cyanosis. MOUTH/OROPHARYNX - Without perioral cyanosis. NECK - Neck with FROM. LUNGS - Chest wall symmetric without accessory muscle use, intercostals retractions, or central cyanosis. Normal vesicular breath sounds CTA B/L. No wheezes, rales, or rhonchi appreciated. CARDIAC - RRR with S1/S2. No murmur, rubs, or gallops appreciated. ABDOMEN - Abdominal contour flat without pulsations or visible masses. BS normoactive all four quadrants. No tenderness, palpable masses, he patosplenomegaly, or ascites noted. EXTREMITIES - No clubbing or peripheral cyanosis. No pretibial edema present. +3/5 radial with dopplerable DP/PT pulses. +5/5 strength noted in UE/LE bilaterally. NEUROLOGIC - Cranial nerves II through XII grossly intact. Sensory intact to light touch throughout. PSYCH - A&Ox3 and cooperates fully with examiner. Pt is very pleasant and interacts well with examiner. Results & Data Results & Data Vital Signs (Past 12 Hours) Vital Signs Temp Pulse Pulse Resp BP BP Pulse Ox 08/19/24 06:01 98 H 166/91 H 08/19/24 05:51 102 H 20 96 08/19/24 05:12 100 H 19 100 08/19/24 05:00 102 H 26 H 100 08/19/24 05:00 172/90 H 08/19/24 05:00 172/90 H 08/19/24 04:30 100 H 15 98 08/19/24 04:21 97 H 20 98 08/19/24 04:12 37.1 C 102 H 19 98 08/19/24 03:51 104 H 19 98 08/19/24 03:45 104 H 20 97 08/19/24 03:33 96 H 17 95 08/19/24 03:21 100 H 22 100 08/19/24 03:11 37.1 C 100 H 20 180/72 H 97 08/19/24 03:01 182/102 H 08/19/24 02:42 94 H 14 95 08/19/24 02:33 99 H 17 98 08/19/24 02:12 96 H 23 94 08/19/24 02:11 37.0 C 100 H 18 174/68 H 94 08/19/24 02:03 101 H 16 99 08/19/24 02:00 183/75 H 08/19/24 01:57 98 H 14 94 08/19/24 01:51 96 H 14 95 08/19/24 01:27 101 H 19 95 08/19/24 01:12 106 H 21 99 08/19/24 01:11 37.1 C 95 H 18 178/75 H 95 08/19/24 01:00 166/69 H 08/19/24 01:00 97 H 18 93 08/19/24 00:51 102 H 16 92 08/19/24 00:41 37.1 C 100 H 18 154/61 H 96 08/19/24 00:30 104 H 14 95 08/19/24 00:26 37.0 C 98 H 19 157/74 H 96 08/19/24 00:24 105 H 18 92 08/19/24 00:10 37.7 C H 100 H 23 166/64 H 97 08/19/24 00:00 101 H 19 92 08/19/24 00:00 91 H 08/18/24 23:51 99 H 16 95 08/18/24 23:45 96 H 17 95 08/18/24 23:36 92 H 17 96 08/18/24 23:12 96 H 15 99 08/18/24 23:06 94 H 16 98 08/18/24 22:54 96 H 18 100 08/18/24 22:45 93 H 14 100 08/18/24 22:36 92 H 15 99 08/18/24 22:27 97 H 14 97 08/18/24 22:03 93 H 21 97 08/18/24 22:00 171/59 H 08/18/24 22:00 171/59 H 08/18/24 21:54 103 H 17 100 08/18/24 21:51 97 H 17 95 08/18/24 21:33 93 H 23 99 08/18/24 21:24 88 20 99 08/18/24 21:06 87 17 100 08/18/24 21:01 148/107 H 08/18/24 21:01 148/107 H 08/18/24 21:01 148/107 H 08/18/24 20:57 93 H 21 100 08/18/24 20:42 84 16 100 08/18/24 20:36 85 22 100 08/18/24 20:27 87 19 100 08/18/24 20:00 36.7 C 08/18/24 20:00 81 22 100 08/18/24 20:00 08/18/24 19:57 81 16 O2 Del Method O2 Flow Rate 08/19/24 06:01 08/19/24 05:51 08/19/24 05:12 08/19/24 05:00 Room Air 08/19/24 05:00 08/19/24 05:00 08/19/24 04:30 08/19/24 04:21 08/19/24 04:12 Room Air 08/19/24 03:51 08/19/24 03:45 08/19/24 03:33 08/19/24 03:21 08/19/24 03:11 08/19/24 03:01 08/19/24 02:42 08/19/24 02:33 08/19/24 02:12 08/19/24 02:11 08/19/24 02:03 08/19/24 02:00 08/19/24 01:57 08/19/24 01:51 08/19/24 01:27 08/19/24 01:12 08/19/24 01:11 08/19/24 01:00 08/19/24 01:00 Room Air 08/19/24 00:51 08/19/24 00:41 08/19/24 00:30 08/19/24 00:26 08/19/24 00:24 08/19/24 00:10 08/19/24 00:00 08/19/24 00:00 08/18/24 23:51 08/18/24 23:45 Room Air 08/18/24 23:36 08/18/24 23:12 08/18/24 23:06 08/18/24 22:54 08/18/24 22:45 08/18/24 22:36 08/18/24 22:27 08/18/24 22:03 08/18/24 22:00 08/18/24 22:00 08/18/24 21:54 08/18/24 21:51 08/18/24 21:33 08/18/24 21:24 08/18/24 21:06 08/18/24 21:01 08/18/24 21:01 08/18/24 21:01 08/18/24 20:57 08/18/24 20:42 08/18/24 20:36 08/18/24 20:27 08/18/24 20:00 08/18/24 20:00 08/18/24 20:00 Nasal Cannula 2 08/18/24 19:57 Coding Level of Care Code 77415 SUB INP/OBS CARE 2MIN Diagnoses Aortoiliac occlusive disease I74.09 Chronic obstructive pulmonary disease J44.9 Retroperitoneal hematoma K68.3 Anemia, unspecified type D64.9 Anemia type: unspecified type (4) Anemia Anemia type: unspecified type Qualified Code(s): D64.9 - Anemia, unspecified
[2024-08-19] MEDS: ATORVASTATIN 20 MG TAB PO SCH (07:47)
[2024-08-19] MEDS: PANTOprazole 40 MG TAB PO SCH (07:48)
[2024-08-19] MEDS: ASPIRIN 81 MG ECTAB PO SCH (07:48)
[2024-08-19] MEDS: CLOPIDOGREL BISULFATE 75 MG TAB PO SCH (07:48)
[2024-08-19] MEDS: lisinopril 40 MG TAB PO SCH (07:48)
[2024-08-19] MEDS ORDERED: [UNRECOGNIZED DRUG - OTHER] TOP SCH (09:00)
[2024-08-19] MEDS ORDERED: LIDOCAINE 4% TOP SCH (09:00)
[2024-08-19 10:26] LABS: Hematocrit (blood only) 27.3 % (37.0-47.0); Hemoglobin 8.7 g/dl (12.0-16.0)
--- NOTE | 2024-08-19 10:59 | Surgery Progress Note ---
Date of Service August 19, 2024 Assessment & Plan (1) Retroperitoneal hematoma: Plan: Pt with hematoma, has required 3 U PRBC. Hgb stable. Check H&H tomorrow. (2) Acute occlusion of aortoiliac artery due to thromboembolism: Plan: Pt now s/p revascularization, doing well post op. Excellent doppler pulses distally, warm pink feet. Continue to monitor, PT/OT. Likely d/c tomorrow if remains stable. Admission and Anticipated Discharge Date Admission Date: August 18, 2024 Subjective 73 yo f POD #1 after LLE thrombectomy/revascularization after acute arterial occlusion, seen in f/u today. Pt states mild incisional pain and slight tenderness to L foot, but no other complaints. Review of Systems Review of Systems: All systems reviewed & are unremarkable except as noted in HPI & below Physical Exam Constitutional: WD/WN, vitals as above cooperative and comfortable; not in distress Respiratory: normal respiratory effort, lungs clear to auscultation Auscultation: + diminished lung sounds Cardiovascular: Rate/Rhythm: regular rate and regular rhythm Vessels: femoral pulses present, posterior tibial pulses present (dopplerable BLE) and dorsalis pedis pulses present (dopplerable BLE); + abnormal peripheral pulses Extremities: normal capillary refill; no edema Gastrointestinal (Abdomen): Inspection/Auscultation: abdomen normal to inspection and normal bowel sounds Percussion/Palpation: abdomen soft; abdomen nontender Musculoskeletal: no cyanosis or clubbing, extremities motor strength 5/5 Skin: no rashes, warm and dry + incision (L groin prevena intact.) skin crack L great toe Neurologic: moves all extremities and awake; no focal motor deficits and not confused Psychiatric: A+Ox3, euthymic affect Results & Data Vital Signs (Past 12 Hours) Vital Signs Temp Pulse Pulse Resp BP BP Pulse Ox 08/19/24 09:27 93 H 21 167/93 H 92 08/19/24 09:03 99 H 16 169/82 H 93 08/19/24 08:48 106 H 19 97 08/19/24 08:18 08/19/24 08:03 100 H 16 98 08/19/24 08:01 205/79 H 08/19/24 08:00 212/90 H 08/19/24 08:00 98 H 08/19/24 07:48 103 H 18 93 08/19/24 07:00 99 H 18 185/96 H 94 08/19/24 06:21 97 H 18 93 08/19/24 06:01 98 H 166/91 H 08/19/24 05:51 102 H 20 96 08/19/24 05:12 100 H 19 100 08/19/24 05:00 102 H 26 H 100 08/19/24 05:00 172/90 H 08/19/24 05:00 172/90 H 08/19/24 04:30 100 H 15 98 08/19/24 04:21 97 H 20 98 08/19/24 04:12 37.1 C 102 H 19 98 08/19/24 03:51 104 H 19 98 08/19/24 03:45 104 H 20 97 08/19/24 03:33 96 H 17 95 08/19/24 03:21 100 H 22 100 08/19/24 03:11 37.1 C 100 H 20 180/72 H 97 08/19/24 03:01 182/102 H 08/19/24 02:42 94 H 14 95 08/19/24 02:33 99 H 17 98 08/19/24 02:12 96 H 23 94 08/19/24 02:11 37.0 C 100 H 18 174/68 H 94 08/19/24 02:03 101 H 16 99 08/19/24 02:00 183/75 H 08/19/24 01:57 98 H 14 94 08/19/24 01:51 96 H 14 95 08/19/24 01:27 101 H 19 95 08/19/24 01:12 106 H 21 99 08/19/24 01:11 37.1 C 95 H 18 178/75 H 95 08/19/24 01:00 166/69 H 08/19/24 01:00 97 H 18 93 08/19/24 00:51 102 H 16 92 08/19/24 00:41 37.1 C 100 H 18 154/61 H 96 08/19/24 00:30 104 H 14 95 08/19/24 00:26 37.0 C 98 H 19 157/74 H 96 08/19/24 00:24 105 H 18 92 08/19/24 00:10 37.7 C H 100 H 23 166/64 H 97 08/19/24 00:00 101 H 19 92 08/19/24 00:00 91 H 08/18/24 23:51 99 H 16 95 08/18/24 23:45 96 H 17 95 08/18/24 23:36 92 H 17 96 08/18/24 23:12 96 H 15 99 08/18/24 23:06 94 H 16 98 08/18/24 22:54 96 H 18 100 O2 Del Method 08/19/24 09:27 08/19/24 09:03 08/19/24 08:48 08/19/24 08:18 Room Air 08/19/24 08:03 08/19/24 08:01 08/19/24 08:00 08/19/24 08:00 08/19/24 07:48 08/19/24 07:00 08/19/24 06:21 08/19/24 06:01 08/19/24 05:51 08/19/24 05:12 08/19/24 05:00 Room Air 08/19/24 05:00 08/19/24 05:00 08/19/24 04:30 08/19/24 04:21 08/19/24 04:12 Room Air 08/19/24 03:51 08/19/24 03:45 08/19/24 03:33 08/19/24 03:21 08/19/24 03:11 08/19/24 03:01 08/19/24 02:42 08/19/24 02:33 08/19/24 02:12 08/19/24 02:11 08/19/24 02:03 08/19/24 02:00 08/19/24 01:57 08/19/24 01:51 08/19/24 01:27 08/19/24 01:12 08/19/24 01:11 08/19/24 01:00 08/19/24 01:00 Room Air 08/19/24 00:51 08/19/24 00:41 08/19/24 00:30 08/19/24 00:26 08/19/24 00:24 08/19/24 00:10 08/19/24 00:00 08/19/24 00:00 08/18/24 23:51 08/18/24 23:45 Room Air 08/18/24 23:36 08/18/24 23:12 08/18/24 23:06 08/18/24 22:54
[2024-08-19] MEDS: NICOTINE 21 MG/24 HR TDSY TD SCH (12:52)
[2024-08-19] MEDS: cloNIDine HCL 0.1 MG TAB PO PRN (22:57)
[2024-08-20 07:26] LABS: BUN Creatinine Ratio 9.1 (10-20); Creatinine Clr Calc Pharmacy 65.9 ml/min; Potassium 3.9 mmol/L (3.5-5.1)
[2024-08-20 14:05] VITALS: BP 180/82; PULSE 98; RESP 18; TEMP 98.2; O2SAT 98
--- NOTE | 2024-08-20 14:43 | Surgery Progress Note ---
Date of Service August 20, 2024 Assessment & Plan (1) Retroperitoneal hematoma: Plan: Pt with hematoma, has required 3 U PRBC. Hgb stable. (2) Acute occlusion of aortoiliac artery due to thromboembolism: Plan: Pt now s/p revascularization, doing well post op. Excellent doppler pulses distally, warm pink feet. Continue to monitor, PT/OT. D/C home today Admission and Anticipated Discharge Date Admission Date: August 18, 2024 Subjective 73 yo f POD #2 after LLE thrombectomy/revascularization after acute arterial occlusion, seen in f/u today. Pt states mild incisional pain and slight tenderness to L foot, but no other complaints. Review of Systems Review of Systems: All systems reviewed & are unremarkable except as noted in HPI & below Physical Exam Constitutional: WD/WN, vitals as above cooperative and comfortable; not in distress Respiratory: normal respiratory effort, lungs clear to auscultation Auscultation: + diminished lung sounds Cardiovascular: Rate/Rhythm: regular rate and regular rhythm Vessels: femoral pulses present, posterior tibial pulses present (dopplerable BLE) and dorsalis pedis pulses present (dopplerable BLE); + abnormal peripheral pulses Extremities: normal capillary refill; no edema Gastrointestinal (Abdomen): Inspection/Auscultation: abdomen normal to inspection and normal bowel sounds Percussion/Palpation: abdomen soft; abdomen nontender Musculoskeletal: no cyanosis or clubbing, extremities motor strength 5/5 Skin: no rashes, warm and dry + incision (L groin prevena intact.) Neurologic: moves all extremities and awake; no focal motor deficits and not confused Psychiatric: A+Ox3, euthymic affect Results & Data Vital Signs (Past 12 Hours) Vital Signs Temp Pulse Pulse Resp BP Pulse Ox O2 Del Method 08/20/24 14:04 36.8 C 98 H 18 180/82 H 98 Room Air 08/20/24 11:56 36.7 C 72 17 154/78 H 93 Room Air 08/20/24 09:19 161/66 H 08/20/24 08:13 36.9 C 98 H 17 174/84 H 99 Room Air 08/20/24 07:50 37.0 C 70 16 146/62 H 95 Room Air
--- NOTE | 2024-08-20 14:46 | Discharge Summary ---
Date of Service August 20, 2024 Admission HPI Per Admitting Provider Name: BONIFACIO YEAGER Patient Number: [id number] : 1950 Date of Service: 08/07/2024 Chief Complaint: _New patient consultation for PAD HPI: _Ms. Yeager is an elderly female presents to Dr. Zelaya's vascular surgery clinic today as a new patient in consultation for severe PAD. Patient is known to Dr. Zelaya's vascular surgery practice, having undergone a right leg ENGRAVER AUTOMATIC endarterectomy with bovine patch and PATIENT ACCOUNTS MANAGER and stenting of her SFA back in 2018. She did come for a follow-up visit, but canceled all of her subsequent visits after that point. She states that for the past year or so she has been suffering from severe hip thigh and buttock discomfort when ambulating which then goes down into her calf muscles as well. She states the left leg is worse than the right and always hurts first. She also complains of left foot pain and lower leg pain when she is laying in bed at night, this is relieved with hanging her leg off the side of the bed, or if she gets up and walks around. She has some intermittent numbness as well. She does not have rest pain in her right leg. She also states that she has a crack on the side of her left great toe which occurred a few weeks ago, but is not healing. She states she is able to ambulate between 20 to 40 feet before she has to stop, after resting for few minutes, she is able to ambulate again. She does also have some low back pain which she has had chronically for some years, but denies any electric or radiating pain down her legs. She denies headache, fever, chest pain, shortness of breath, abdominal pain, nausea, vomiting, other complaints. Review of systems: Total of 14 systems were reviewed and are negative aside from what is related in her HPI. Imaging: Patient did have a CTA abdomen pelvis with runoff performed at [facility] on 07/25/2024 which demonstrates severe aortoiliac and bilateral lower extremity disease. Her right external iliac artery does have stenosis, and she has an occlusion of her right SFA stents. Additionally she has a left common iliac artery occlusion and significant disease throughout the left leg as well. Current Home Meds: (Last Updated 08/07 10:22) albuterol (Ventolin HFA 90 mcg/inh inhalation aerosol) 2 puff inhaled qid PRN: as needed for wheezing aspirin (aspirin 81 mg oral delayed release tablet) 81 mg PO Daily atorvastatin (atorvastatin 10 mg oral tablet) 10 mg PO qhs buPROPion (buPROPion 150 mg/12 hours (SR) oral tablet, extended release) 150 mg PO bid cloNIDine (cloNIDine 0.2 mg oral tablet) 0.4 mg PO qhs clopidogrel (Plavix 75 mg oral tablet) 75 mg PO Daily gabapentin (Neurontin 400 mg oral capsule) 400 mg PO tid lisinopril (lisinopril 40 mg oral tablet) 40 mg PO Daily pantoprazole (pantoprazole 40 mg oral delayed release tablet) 40 mg PO Daily tiZANidine (tiZANidine 2 mg oral tablet) 8 mg PO q8h Allergies and Sensitivities: No Known Medication Allergies Past Medical History: Problems: Peripheral arterial disease with history of revascularization Atherosclerosis Tobacco user Neuropathy Dyslipidemia Hypertension COPD Carotid stenosis Gastroesophageal reflux disease Cervical cancer Anemia GI bleed Liver cirrhosis Osteoporosis Sciatica Surgical history: Positive for cataract extraction, EGD, excision of lipoma, dilation and curettage, knee surgery, back surgery, foot surgery, tonsillectomy/adenoidectomy, laryngoscopy, dental extraction, right ENGRAVER AUTOMATIC endarterectomy with bovine patch and PATIENT ACCOUNTS MANAGER and stenting of her SFA, hysterectomy, throat surgery, Family history: Positive for Alzheimer's disease in her father Social history: The patient is and lives at home with her . She smokes at least half a pack per day, she drinks 2 glasses of wine at dinner 4 nights a week. She denies any illicit drug use. OBJECTIVE Vitals: Last Updated 08/07/24 10:37 Date Temp BP Location Pulse RR SpO2 Pain 08/07/24 170/80 Right Arm 08/07/24 162/74 Left Arm 83 98 08/07/24 0 Vital Signs are the last 3 documented. No Orthostatic Data Available Height and Weight: Last Updated 05/13/18 14:01 Date BMI Wt(kg) Wt(lb) Method Ht(cm) (ft-in) Method 05/13/18 22.66 56.2 124 Standing Scale 157.48 5-2 Heights and Weights are the last 3 documented. Physical Exam Constitutional: In general patient is a thin but healthy-appearing well- nourished well-developed elderly female in no distress. She is alert and oriented with any focal deficits. Her carotids do demonstrate a bruit. Her heart is regular with a systolic ejection murmur. Her lungs are decreased throughout but clear. Her abdomen is soft and nontender with right bowel sounds in all 4 quadrants. Brachial and radial pulses are +2. Left femoral pulse is nonpalpable. Right femoral pulse is +1. Lower extremities the pulses are nonpalpable. Her right foot capillary refill is 5 seconds, her left foot capillary refill is 6 seconds. Her left foot does demonstrate dependent rubor, as well as pallor with elevation. Her left great toe does have a crack on the medial/plantar surface which appears to be shallow. ASSESSMENT: _ PLAN: _ 1 ) _aortoiliac occlusive disease Patient does appear to have significant aortoiliac disease, as well as peripheral arterial disease. She she is currently suffering from severe hip thigh buttock and calf claudication worse in the left leg than the right. She is also experiencing rest pain in the left foot and has a nonhealing crack in her great toe. Due to the symptoms and the appearance of her arteries on imaging, we recommend that she undergo an aortogram with runoff and left leg intervention at [facility]. The procedure benefits and alternatives were discussed with the patient. The risks of the procedure, including but not limited to bleeding, infection, vessel trauma, loss of limb, , reaction to medication or dye causing allergy or kidney failure, exposure to x-ray radiation, were discussed with the patient by myself at Dr. Zelaya's request. Patient expresses understanding and agreement to proceed. This will be scheduled in the next few weeks at the patient's convenience. 2 ) _severe peripheral arterial disease with rest pain See above I have personally spent_50__ minutes performing [id number] and [id number] activities on this date of service.Time does not include separately reported services. Activities Include: x__ review of the medical record x__ obtaining a history x__ physical exam/evaluation _x_ review labs _x_ review radiology reports _x_ counseling/educating patient/family/caregiver __ discussion/referral to other healthcare professional _x_ documenting care in the medical record __ independent interpretation of results _x_ communication of results to patient/family/caregiver _x_ coordination of care Signature Line Electronic Signature on File CC: Katarina Jimenes MD [address] [place] [address] * Lauren Ames PA-C Author Signature Dt/Tm: 08/07/2024 11:35 AM [facility] [address], [address] [place]. [id number] LM Result Type: .Outpt Ltr Date of Service: August 07, 2024 11:16 EST Authorization Status: Final Author or Import Date: BEN Ames Lynn on August 07, 2024 11:35 EST Verified By: BEN Ames Lynn on August 07, 2024 11:35 EST Encounter info: [id number], [place] [address], Clinic, 08/07/2024 - 08/07/2024 Admission Exam Per Admitting Provider Constitutional: In general patient is a thin but healthy-appearing well- nourished well-developed elderly female in no distress. She is alert and oriented with any focal deficits. Her carotids do demonstrate a bruit. Her heart is regular with a systolic ejection murmur. Her lungs are decreased throughout but clear. Her abdomen is soft and nontender with right bowel sounds in all 4 quadrants. Brachial and radial pulses are +2. Left femoral pulse is nonpalpable. Right femoral pulse is +1. Lower extremities the pulses are nonpalpable. Her right foot capillary refill is 5 seconds, her left foot cap illary refill is 6 seconds. Her left foot does demonstrate dependent rubor, as well as pallor with elevation. Her left great toe does have a crack on the medial/plantar surface which appears to be shallow. Principal Diagnosis 1. s/p open L iliac thrombectomy and ENGRAVER AUTOMATIC endarterectomy with bovine patch 2. Retroperitoneal hematoma 3. L iliac artery acute occlusion 4. s/p aortagram with LLE angio, TIMOTEO stenting Discharge Exam Constitutional WD/WN, vitals as above cooperative and comfortable; not in distress Respiratory normal respiratory effort, lungs clear to auscultation Auscultation: + diminished lung sounds Cardiovascular Rate/Rhythm: regular rate and regular rhythm Vessels: femoral pulses present, posterior tibial pulses present (dopplerable BLE) and dorsalis pedis pulses present (dopplerable BLE); + abnormal peripheral pulses Extremities: normal capillary refill; no edema Gastrointestinal (Abdomen) Inspection/Auscultation: abdomen normal to inspection and normal bowel sounds Percussion/Palpation: abdomen soft; abdomen nontender Musculoskeletal no cyanosis or clubbing, extremities motor strength 5/5 Skin no rashes, warm and dry + incision (L groin prevena intact.) Neurologic moves all extremities and awake; no focal motor deficits and not confused Psychiatric A+Ox3, euthymic affect Discharge Data Allergies Allergy/AdvReac Type Severity Reaction Status Date / Time hydromorphone [From Dilaudid] AdvReac Intermediate Vomiting Verified 08/18/24 05:44 baclofen AdvReac Confusion Verified 08/18/24 05:44 Consultations 08/18/24 16:02 Consult Experimental Electronics Developer Routine Procedures Performed Operation Date: 08/18/24 13:10 Actual Procedures p Left groin exploration, left iliac thrombectomy, left femoral endarterectomy with patch graft.(Left) - Kt Zelaya MD Ordered Studies 08/18/24 07:18 EV angio LE BI Routine US EV guide vascular access Routine 08/18/24 10:52 CT Abd and Pelvis [CT abd pelvis wo con] Stat 08/18/24 14:06 EV angio LE LT Stat Hospital Course (1) Retroperitoneal hematoma: Pt with hematoma, has required 3 U PRBC. Hgb stable. (2) Acute occlusion of aortoiliac artery due to thromboembolism: Pt now s/p revascularization, doing well post op. Excellent doppler pulses distally, warm pink feet. Continue to monitor, PT/OT. D/C home today Total Time Total Time Spent Total Time Spent (In Minutes): 0 Discharge Plan Discharge Items Patient Disposition: Home - Home Health Services Reason For Visit: Aortoiliac Occlusive Disease, Peripehral Artery Di Discharge Diagnosis: 1. s/p open L iliac artery thrombectomy and ENGRAVER AUTOMATIC endarterectomy with bovine patch angioplasty 2. retroperitoneal hematoma 3. L iliac artery acute occlusion 4. s/p aortogram, LLE angio with PATIENT ACCOUNTS MANAGER/stent TIMOTEO Activity: Per Instructions section Lifting: No more than 10 pounds Lifting Comment: for 6 weeks Bathing Comment: May shower after wound vac off. Exercise/Sports: Gradually increase as tolerated Weightbearing: Full weightbearing Non-emergency contact: Primary Care Provider and Surgeon Call non-emergency contact if: you have any medication questions, your symptoms worsen, your pain is not controlled, your pain is concerning for you, you have a fever, your wound has increased redness and your wound has increased drainage Follow-up/Referrals: Kt Zelaya MD [Physician] - (Follow up with Dr Zelaya or Lauren Ames PA-C, in 2-3 weeks for staple removal) Brian Hyman DO [Primary Care Provider] - (Follow up with your PCP within 2 weeks) Diet: Heart Healthy Addtl Attending Provider Instructions: SPECIAL CARE INSTRUCTIONS: Diet: * You may return to previous diet. Medications: * Continue to take your medications as directed. If you have been given a p rescription for Plavix, please fill it immediately and take as directed. Incision Care: 1. L groin prevena wound vac in place. When battery dies, entire unit is removed and thrown away in garbage. 2. NO lifting more than 10 lbs for 6 weeks. 3. MAy shower after prevena wound vac dies and is removed. Possible Complications: * Excessive Swelling - after blood flow is improved you may notice increased swelling in the lower legs. This is a normal response. This usually depends on the amount of blockages in the leg, how long they have been there prior to your procedure and how much blood flow was restored. Elevating your legs will help to improve this. Please notify our office ([phone]) if the swelling does not go away after lying in bed overnight. * Infection/Drainage/Bleeding - Drainage or bleeding from the puncture site should be minimal. If you have excessive bleeding or drainage, call our office ([phone]) right away. * Pain - You may experience some mild pain or soreness at your puncture site. If your pain does not improve, please contact our office ([phone]). Call your doctor and seek emergent treatment if you develop: * Temperature above 101 degrees * Any fever or chills * Any redness or purulent drainage from the puncture site * Any new dusky/blue colored toes or feet with coolness or sharp or aching pain. SKIN IRRITATION: * You may experience some redness and/or swelling in the area where radiation was administered. If any skin irritation occurs, please contact your family physician. FOLLOW UP VISIT: Keep any scheduled doctor appointments. Call [phone] to schedule a follow up appointment if one not already scheduled. Pending Studies at Discharge: No Stand-Alone Forms: My [facility], Smoking Cessation Medications and DC Order Prescriptions: New oxycodone-acetaminophen [Percocet] 5-325 mg Tablet 1 tab PO Q6H PRN (Reason: pain) Qty: 15 0RF Continued acetaminophen 500 mg capsule 1,000 mg PO Q8H PRN (Reason: Pain) Rx Instructions: Take 3 times per day to lessen pain. clopidogrel [Plavix] 75 mg tablet 75 mg PO QAM Qty: 30 5RF Hold Instructions: Resume on 02/21/24. tizanidine 2 mg tablet 2 mg PO TID PRN (Reason: muscle spasticity) Qty: 270 1RF albuterol sulfate [Ventolin HFA] 90 mcg/actuation HFA aerosol inhaler 2 puff INHALATION UD PRN (Reason: as directed) Qty: 6.7 5RF atorvastatin 20 mg tablet 20 mg PO QAM Qty: 90 1RF pantoprazole 40 mg tablet,delayed release (DR/EC) 40 mg PO QAM Qty: 30 2RF gabapentin 400 mg capsule 400 mg PO TID Qty: 90 5RF bupropion HCl 150 mg tablet sustained-release 12 hr 150 mg PO BID 90 Days Qty: 180 3RF aspirin 81 mg Tablet,Delayed Release (Dr/Ec) 81 mg PO QAM Hold Instructions: Resume on 02/28/24. clonidine HCl 0.2 mg tablet 0.2 mg PO UD PRN (Reason: Anxiety) Rx Instructions: TAKE ONE TABLET BY MOUTH TWICE DAILY NEEDED for anxiety lisinopril [Zestril] 40 mg Tablet 40 mg PO QAM 30 Days Qty: 30 0RF lidocaine [Salonpas (lidocaine)] 4 % Adhesive Patch,Medicated 1 patch TOPICAL QAM Discharge Orders: Discharge Order (Routine); Ordered 08/20/24 Ordered By: Lauren Garnett/Other Patient Handouts: Femoral Endarterectomy Dc Admission Data Admit Date/Time: 08/18/24 16:01 Attending Provider: Kt Zelaya Admit Provider: Kt Zelaya Primary Care Provider: Brian Hyman Other Providers: Piter Becerra; Rupert Quevedo; Josh Mercer; Josemanuel Cooper; Sherman Shukla; Ashley Blackman; Perry An; Gabriela Jaramillo; Ana De La Cruz; Suraj Bundy; Memo Carrasco; Adeline Rosario; Rony Martinez [facility] Other Interventions: Discharge Summary Assessment (RN) Last Done: 08/20/24 14:39
--- NOTE | 2024-08-21 06:49 | Coding Query ---
ANEMIA To promote full compliance with coding requirements relating to patient care, physician participation is requested in all cases of market reporter uncertainty. Please assist us with the question(s) below: Coding Question(s): The record reflects the following clinical findings: Anemia documented in progress notes; retroperitoneal hematoma postop - 3UPC transfused. If these findings are indicative of anemia, please specify the known or suspected type by placing an "X" within the parenthesis (x). If other, please document type. Examples are: (x ) Acute blood loss anemia ( ) Acute Postoperative blood loss anemia ( ) Acute postoperative anemia due to dilutional fluids ( ) Chronic blood loss anemia ( ) Anemia of chronic disease ( ) Aplastic anemia ( ) Anemia due to renal disease ( ) Anemia in neoplastic disease ( ) Iron deficient anemia ( ) Anemia, unspecified or other ( ) Other: (please specify) Thank you Flaco HERNANDEZ
== END 2024-08-20 15:22 | disposition home health service (06) | DRG 270 ==
LOC: ASU 05:17 → 1E 16:01 → 3N 08-19 13:16

== ENCOUNTER 2025-04-13 00:11 | Inpatient (IN) ==
[2025-04-13 01:28] LABS: Hematocrit (blood only) 26.2 % (37.0-47.0); Hemoglobin 8.0 g/dl (12.0-16.0); Immature Granulocytes # (auto) 0.08 K/uL (0.01-0.20); Immature Granulocytes % (auto) 0.7 %; Mean Corpuscular Hemoglobin 24.0 pg (25.0-34.0); Mean Corpuscular Volume 78.4 fL (80.0-100.0); Platelet Count 351 K/uL (130-400); RDW Standard Deviation 49.0 fL (36.4-46.3); Red Blood Count 3.34 M/uL (4.20-5.40); White Blood Count 11.41 K/ul (4.8-10.8)
[2025-04-13 01:45] LABS: Alanine Aminotransferase 13 U/L (7-52); Albumin Globulin Ratio 1.4 (0.9-2); Alkaline Phosphatase 87 U/L (34-104); Anion Gap 8 (3-11); Bilirubin,Total 0.3 mg/dl (0.2-1.0); Blood Urea Nitrogen 14 mg/dl (6-23); Calcium 9.0 mg/dl (8.6-10.3); Carbon Dioxide 22 mmol/L (21-32); Chloride 98 mmol/L (98-107); Globulin 2.7 gm/dl (2.5-4.0); Glucose 142 mg/dl (70-99(Fasting)); Potassium 4.6 mmol/L (3.5-5.1); Sodium 128 mmol/L (136-145); Total Protein 6.6 gm/dl (6.0-8.3)
[2025-04-13 01:53] LABS: iSTAT Art Bld Gas Base Excess -2.0 meg/L (-9-1.8)
--- NOTE | 2025-04-13 02:20 | Emergency Department Note ---
Impression & Plan Hypoxia, Pneumonia of both lower lobes, Hyponatremia admit to the [facility] ED Provider Note NAME: BONIFACIO FATIMA AGE: 74 SEX: Female INFORMANT: Patient ED PROVIDER(S): Natalia Campos DO CHIEF COMPLAINT: shortness of breath PLAN: Disposition: admit MEDICAL DECISION MAKING: This is a 74-year-old female patient who presents to the emergency department with a fairly sudden onset of shortness of breath around 3 PM this afternoon. Patient states that she began to feel very hot noting that her family had changed the settings on the air conditioner to 74 degrees instead of 71 degrees. She then began have a panic attack. Since that time she had persistent shortness of breath and began to have significant wheezing. She could not catch her breath. The patient was brought here to the emergency department and was persistently hypoxic. patient also notes an increasing fullness in her epigastrium that seems to exacerbate her shortness of breath. Portable chest x- ray shows questionable infiltrate in the right lung base. laboratory studies reveal a white blood cell count of 11.4. Hemoglobin was 8 which is baseline for this patient. Sodium was low at 128. Glucose of 142. Troponin was elevated at 13.2. Urinalysis was unremarkable. patient went for CT scan of the chest and abdomen. There was no PE present but there was concern for bilateral lower lobe pneumonias. In light of the patient's COPD and current respiratory failure, she will require admission to the hospital, steroids and antibiotics. Care/management discussed with: [facility] Triage Nursing notes: reviewed and agree With them. Vital Signs: reviewed and remarkable for tachycardia and hypoxia Chronic Medical/Social Conditions affecting care: Long history of tobacco abuse. The patient suffered a T12 compression fracture approximately a month ago and states that she quit smoking at that time. She does use inhalers at home. Differential Diagnosis: PE, COPD exacerbation, pneumonia, pneumothorax, bronchitis Diagnostics, independently interpreted by me: ECG: normal sinus rhythm at a rate of [address] segment elevation or signs of ischemia. There is no ectopy. Cardiac Monitoring: Normal sinus rhythm at a rate of 90 Imaging studies: portable chest x-ray: questionable infiltrate in the right lung base as per my independent interpretation CT scan of the chest: As per Imbro CT scan of the abdomen pelvis: As per [facility] HPI: 74 year old Female arrives for evaluation of shortness of breath. fairly sudden onset of shortness of breath around 3 PM this afternoon. Patient states that she began to feel very hot noting that her family had changed the settings on the air conditioner to 74 degrees instead of 71 degrees. She then began have a panic attack. Since that time she had persistent shortness of breath and began to have significant wheezing. She could not catch her breath. PAST MEDICAL HISTORY: See Below, PAST SURGICAL HISTORY: See Below, SOCIAL HISTORY: See Below, HOME MEDICATIONS: see list ALLERGIES: see list VITALS: See Below PHYSICAL EXAMINATION: HEENT: Head - normocephalic and atraumatic. Pupils are equal, round, and reactive to light. Extraocular eye muscles are intact, and sclera are anicteric. Nose - moist nasal mucosa without discharge. Mouth - moist buccal mucosa. Oropharynx is nonerythematous and there is no tonsillar exudate or edema noted. Neck: Supple; no JVD or cervical lymphadenopathy Heart: Regular rate and rhythm. There is a normal S1 and S2 with no murmurs, clicks, or gallops appreciated. Lungs: diminished breath sounds in all lung krishnamurthy Abdomen: Soft, moderately distended but nontender There are no palpable pulsatile masses or hepatosplenomegaly. There is no guarding, rigidity, or rebound noted. Extremities: No evidence of cyanosis, clubbing, or edema. There are easily palpable peripheral pulses. Skin: warm, Pale and dry with good turgor and no rashes. Emergency Department treatment: classroom monitor and supplemental oxygen Emergency department course: The patient was evaluated in room B-10. She was hypoxic without oxygen and remained on oxy mask. She states that she feels much better after receiving nebulizer treatment. Twelve-lead EKG was obtained as described above. An order was placed for continuous cardiac monitoring. The patient was in a normal sinus rhythm at a rate of 90. A portable chest x-ray was performed. She continued to state that she was feeling moderately short of breath but O2 saturations were maintained on the supplemental oxygen Patient went for CT scan of the chest, abdomen/pelvis.. I reviewed laboratory studies with the patient's while we waited for CT results. I discussed the case with the [facility] hospitalist and they will evaluate for further care and order IV antibiotics and steroids for the patient. I have personally spent greater than 30 minutes of critical care time in the direct management of this patient. This includes bedside care, interpretation of diagnostic studies, and testing, discussion with consultants, patient, and family members, and other required patient management activities. This 30 minutes is in excess of all separately billable procedures. Past Med/Surg History Problem List (Updated 04/14/25 @ 12:46 by Natalia Campos DO) Hyponatremia (Acute) Pneumonia of both lower lobes (Acute) Bilateral pneumonia Acute on chronic respiratory failure with hypoxia Hypoxia (Acute) History of lumbar laminectomy for spinal cord decompression Disc degeneration, lumbar Low back pain Confusion (Acute) Generalized weakness (Acute) Acute on chronic back pain (Acute) Wedge compression fracture of T12 vertebra (Acute ~03/16/25) Cerebral atrophy Insomnia Hepatic steatosis Chronic low back pain (Acute) Epidermal cyst of face S/P vascular surgery (08/2024) Left Iliac artery Thrombectomy, Left Femoral Endarterectomy with Patch Graft(Left), stenting of left external iliac arter Hyperlipidemia Hypertension Bilateral carotid artery stenosis Cerebrovascular disease Degenerative lumbar spinal stenosis (Acute) Anemia Thoracic facet syndrome Melena Sinus tachycardia Hypocalcemia Chronic obstructive pulmonary disease Footdrop Left Lung nodule (Chronic) s/p radiation treatments Following with [facility] [place] radiation oncology- monitoring, "stable" Peripheral artery disease S/P SFA stent (2013) S/P right femoral artery endarterectomy/stent (2017) Taking Plavix Medical History Chronic alcohol abuse Leukocytosis Unwitnessed fall Altered mental status Recurrent falls Malnutrition Physical deconditioning Hyponatremia Acute occlusion of aortoiliac artery due to thromboembolism Retroperitoneal hematoma Stroke-like symptoms Myofascial pain Thoracic back pain Smoker Anxiety History of left foot drop "not anymore, resolved" Hypocalcemia pt unsure about this dx, "stated it may have been when she was in the hospital in december 2023" Peripheral arterial disease S/P SFA stent (2013) S/P right femoral artery endarterectomy/stent (2018) Taking Plavix Lung nodule s/p radiation treatments Following with [facility] [place] radiation oncology- monitoring, "stable" History of GI bleed 12/2023, had EGD Hx of sinus tachycardia 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, 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 Cardiac murmur "has had since she was a child, no issues with"; 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 Thoracic facet syndrome History of ankle fracture (10/13/22) Right ankle, Distal fibula avulsion fx, chronic anterior tibia avulsion fx History of anemia Sciatica ongoing Vulvar cancer Remote hx "years ago", treated surgically Cervical cancer Approximately 1979, treated surgically Degenerative disc disease, lumbar Chronic sinusitis Lumbar disc herniation sx to correct Esophageal reflux Occasional Osteoporosis Hx of cirrhosis Hx ETOH abuse/alcoholism per records (0-2 drinks/wine per day per PAT RN phone assessment 05/01/23) Depression Hepatic encephalopathy Remote hx Surgical History History of right-sided carotid endarterectomy History of left cataract extraction History of esophagogastroduodenoscopy (EGD) S/P excision of lipoma (05/09/23) Excision of Intramuscular Back Lipoma - Suraj Kincaid, DO, FACS History of dilatation and curettage History of knee surgery R knee repair (patella fracture) History of back surgery lumbar discectomy History of foot surgery Debridement of left foot ulcer (09/09/18): LMA#4.0 unique, atraumatic at [facility] H/O adenoidectomy removed w/tonsils History of surgery Radical removal of vulva, partial History of laryngoscopy With biopsy History of tooth extraction History of endarterectomy Right femoral artery endarterectomy/stent (05/31/18): Grade view 1, MAC#3, ETT 7.5 at [facility] History of surgery SFA stent (2013) per records Hx of hysterectomy + USO History of throat surgery Benign growth removal History of tonsillectomy Family History Mother , 72yo Smoker "Bad circulation" Father , in his 70s Alzheimer disease Brother No problems noted. Sister No problems noted. Sister No problems noted. Son No problems noted. Daughter No problems noted. Daughter No problems noted. Aunt Cancer Other No pertinent family history Denies family history of Ovarian cancer Prostate cancer Myocardial infarction Breast cancer Colorectal cancer Social History Smoking Status: Former smoker Tobacco Type: Cigarettes Age Started Using Tobacco: 15; Age Quit Using Tobacco: 74; packs per day: 0.5; Cigarettes Per Day: half a pack; Second Hand Exposure: Yes; Do You Dip or Chew Tobacco: No; Hx Alcohol Use: Yes Alcohol type: wine Alcohol Intake Frequency: 4 or More x per/Week Alcohol Intake Frequency Comment: 2 glasses at dinner. 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 How many Children do You have: 3 Feels Safe at Home: Yes Childhood Exposure to Second-Hand Smoke: Yes Diet: regular caffeine: Yes (coffee) during the past year weight has: remained stable Dental Care, Regularly: No Physical Activity Frequency: Does not Exercise Seatbelt Use: always Sunscreen Use: No Assistive Devices: Walker and Wheelchair Allergies Allergies Allergy/AdvReac Type Severity Reaction Status Date / Time hydromorphone [From Dilaudid] AdvReac Intermediate Vomiting Verified 04/01/25 09:54 baclofen AdvReac Confusion Verified 04/01/25 09:54 Home Meds Home Medications Medication Instructions Recorded Confirmed aspirin 81 mg tablet,delayed 81 mg PO QAM 05/16/18 04/13/25 release acetaminophen 500 mg capsule 1,000 mg PO Q8H PRN Pain 02/17/22 04/13/25 lidocaine 4 % topical patch 1 patch topical QAM PRN Pain 02/18/24 04/13/25 (Salonpas (lidocaine)) quetiapine 50 mg tablet 50 mg PO DAILY 04/01/25 04/13/25 mirtazapine 15 mg tablet 15 mg PO DAILY 04/02/25 04/13/25 tizanidine 2 mg capsule 2 mg PO TID PRN Other 04/02/25 04/13/25 Previous Rx's Medication Instructions Recorded lidocaine 5 % topical patch 1 patch topical DAILY PRN pain #15 03/12/25 ea albuterol sulfate 90 mcg/actuation 2 puff inhalation UD PRN as 03/18/25 aerosol inhaler (Ventolin HFA) directed #6.7 grams budesonide-formoterol HFA 80 2 puff inhalation BID #10.2 grams 03/18/25 mcg-4.5 mcg/actuation aerosol inhaler (Symbicort) bupropion HCl 150 mg tablet,12 hr 150 mg PO BID 90 days #180 ea 03/18/25 sustained-release clopidogrel 75 mg tablet (Plavix) 75 mg PO QAM #30 tabs 03/18/25 folic acid 1 mg tablet 1 mg PO DAILY #30 tabs 03/18/25 gabapentin 400 mg capsule 400 mg PO TID #90 caps 03/18/25 hydroxyzine HCl 25 mg tablet 25 mg PO BID PRN anxiety #60 tabs 03/18/25 lisinopril 20 mg tablet 20 mg PO DAILY #90 tabs 03/18/25 nifedipine 60 mg tablet,extended 60 mg PO DAILY #30 tabs 03/18/25 release 24 hr (Procardia XL) pantoprazole 40 mg tablet,delayed 40 mg PO QAM #90 tabs 03/18/25 release rosuvastatin 10 mg tablet 10 mg PO DAILY #30 tabs 03/18/25 thiamine HCl (vitamin B1) 100 mg 100 mg PO BID #60 caps 03/18/25 capsule oxycodone 10 mg tablet 10 mg PO TID PRN pain 2 weeks #42 04/01/25 tabs Results & Data (ED) Vital Signs Vital Signs - 24 hr 04/13/25 00:17 04/13/25 00:17 04/13/25 00:17 Temperature 36.4 C L Temperature Source Oral Pulse Rate 88 Pulse Rate [Right Finger] Pulse Rhythm Pulse Rhythm [Right Finger] Respiratory Rate 20 Respiratory Effort / Characteristics Spontaneous Labored Labored Respiratory Depth Deep Deep Respiratory Pattern Regular Regular Blood Pressure 126/71 Blood Pressure [Left Arm] Blood Pressure Mean 89 Blood Pressure Mean [Left Arm] Pulse Oximetry 93 93 Oxygen Delivery Method Room Air Nasal Cannula Oxygen Flow Rate 2 2 2 Sepsis Recent Fever Within 48 Hours No Sepsis New/Unexplained Change in Mental Status No Sepsis Action Taken by Nursing No Action Required 04/13/25 00:17 04/13/25 00:36 04/13/25 00:36 Temperature 36.4 C L Temperature Source Oral Pulse Rate 90 Pulse Rate [Right Finger] 88 Pulse Rhythm Pulse Rhythm [Right Finger] Respiratory Rate 20 Respiratory Effort / Characteristics Labored Respiratory Depth Deep Respiratory Pattern Blood Pressure Blood Pressure [Left Arm] 126/71 Blood Pressure Mean Blood Pressure Mean [Left Arm] 89 Pulse Oximetry 93 87 L Oxygen Delivery Method Nasal Cannula Nasal Cannula Oxygen Flow Rate 2 2 Sepsis Recent Fever Within 48 Hours Sepsis New/Unexplained Change in Mental Status Sepsis Action Taken by Nursing 04/13/25 00:37 04/13/25 01:01 04/13/25 01:13 Temperature Temperature Source Pulse Rate 90 Pulse Rate [Right Finger] 90 Pulse Rhythm Regular Pulse Rhythm [Right Finger] Respiratory Rate 18 20 Respiratory Effort / Characteristics Respiratory Depth Normal Respiratory Pattern Blood Pressure Blood Pressure [Left Arm] 106/64 Blood Pressure Mean Blood Pressure Mean [Left Arm] 78 Pulse Oximetry 92 95 92 Oxygen Delivery Method Nasal Cannula Oxymask Oxymask Oxygen Flow Rate 4 8 8 Sepsis Recent Fever Within 48 Hours Sepsis New/Unexplained Change in Mental Status Sepsis Action Taken by Nursing 04/13/25 02:39 04/13/25 02:42 04/13/25 03:00 Temperature Temperature Source Pulse Rate Pulse Rate [Right Finger] 98 H 101 H Pulse Rhythm Pulse Rhythm [Right Finger] Respiratory Rate 20 16 Respiratory Effort / Characteristics Respiratory Depth Normal Normal Respiratory Pattern Blood Pressure Blood Pressure [Left Arm] 98/76 L 103/70 Blood Pressure Mean Blood Pressure Mean [Left Arm] 83 81 Pulse Oximetry 95 93 97 Oxygen Delivery Method Oxymask Oxymask Oxymask Oxygen Flow Rate 8 6 7 Sepsis Recent Fever Within 48 Hours Sepsis New/Unexplained Change in Mental Status Sepsis Action Taken by Nursing 04/13/25 03:58 04/13/25 04:36 Temperature Temperature Source Pulse Rate 105 H Pulse Rate [Right Finger] 108 H Pulse Rhythm Pulse Rhythm [Right Finger] Regular Respiratory Rate 18 Respiratory Effort / Characteristics Respiratory Depth Normal Respiratory Pattern Blood Pressure Blood Pressure [Left Arm] 124/90 Blood Pressure Mean Blood Pressure Mean [Left Arm] 101 Pulse Oximetry 94 Oxygen Delivery Method Oxymask Oxygen Flow Rate 7 Sepsis Recent Fever Within 48 Hours Sepsis New/Unexplained Change in Mental Status Sepsis Action Taken by Nursing Laboratory Data 04/14/25 07:07 04/14/25 07:07 Lab Results 04/13/25 04/13/25 04/13/25 Range/Units 00:40 01:32 01:55 WBC 11.41 H (4.8-10.8) K/ul RBC 3.34 L (4.20-5.40) M/uL Hgb 8.0 L (12.0-16.0) g/dl POC Hgb 8.5 L (12.0-16.0) g/dl Hct 26.2 L (37.0-47.0) % POC Hct 25 L (37-47) % MCV 78.4 L (80.0-100.0) fL MCH 24.0 L (25.0-34.0) pg MCHC 30.5 L (32.0-36.0) g/dL RDW Std Deviation 49.0 H (36.4-46.3) fL RDW Coeff of Narendra 17.1 H (11.5-14.5) % Plt Count 351 (130-400) K/uL MPV 8.6 L (9.4-12.4) fL Immature Gran % (Auto) 0.7 % Neut % (Auto) 80.0 % Lymph % (Auto) 8.1 % [place] % (Auto) 8.9 % Eos % (Auto) 1.9 % Baso % (Auto) 0.4 % Neut # (Auto) 9.13 H (1.40-6.50) K/uL Lymph # (Auto) 0.92 L (1.20-3.40) K/uL [place] # (Auto) 1.02 H (0.11-0.59) K/uL Eos # (Auto) 0.22 (0.00-0.50) K/uL Baso # (Auto) 0.04 (0.00-0.20) K/uL Immature Gran # (Auto) 0.08 (0.01-0.20) K/uL POC pH 7.40 (7.35-7.45) POC pCO2 38 (35-46) mmHg POC pO2 39 L (80-95) mmHg POC HCO3 23 (19-24) nasreen/L POC Total CO2 24 (24-31) mmol/L POC Base Excess -2.0 (-9-1.8) nasreen/L POC ABG O2 Sat 73.0 L (90-95) % VBG pH 7.37 (7.36-7.41) VBG pCO2 43 (38-50) mmHg VBG pO2 34 mmHg VBG HCO3 25 mmol/L VBG O2 Saturation < 60.0 % VBG Base Excess -0.6 mEq/L POC Sodium 131 L (135-144) mmol/L Sodium 128 L (136-145) mmol/L POC Potassium 4.1 (3.3-5.0) mmol/L Potassium 4.6 (3.5-5.1) mmol/L Chloride 98 (98-107) mmol/L Carbon Dioxide 22 (21-32) mmol/L Anion Gap 8 (3-11) BUN 14 (6-23) mg/dl Creatinine 1.12 (0.6-1.2) mg/dl Est Cr Clr Drug Dosing Not Reportable eGFR 51.92 BUN/Creatinine Ratio 12.5 (10-20) Glucose 142 H (70-99(Fasting)) mg/dl Calcium 9.0 (8.6-10.3) mg/dl Total Bilirubin 0.3 (0.2-1.0) mg/dl AST 20 (13-39) U/L ALT 13 (7-52) U/L Alkaline Phosphatase 87 (34-104) U/L Troponin I High Sens 13.2 (0-14) pg/ml Total Protein 6.6 (6.0-8.3) gm/dl Albumin 3.9 (3.4-5.0) gm/dl Globulin 2.7 (2.5-4.0) gm/dl Albumin/Globulin Ratio 1.4 (0.9-2) Urine Color Urine Appearance (Clear) Urine pH (4.5-7.5) Ur Specific [place] (1.000-1.030) Urine Protein (Negative) Urine Glucose (UA) (Negative) Urine Ketones (Negative) Urine Blood (Negative) Urine Nitrite (Negative) Urine Bilirubin (Negative) Urine Urobilinogen (Negative) Ur Leukocyte Esterase (Negative) Urine Comment 04/13/25 Range/Units 03:30 WBC (4.8-10.8) K/ul RBC (4.20-5.40) M/uL Hgb (12.0-16.0) g/dl POC Hgb (12.0-16.0) g/dl Hct (37.0-47.0) % POC Hct (37-47) % MCV (80.0-100.0) fL MCH (25.0-34.0) pg MCHC (32.0-36.0) g/dL RDW Std Deviation (36.4-46.3) fL RDW Coeff of Narendra (11.5-14.5) % Plt Count (130-400) K/uL MPV (9.4-12.4) fL Immature Gran % (Auto) % Neut % (Auto) % Lymph % (Auto) % [place] % (Auto) % Eos % (Auto) % Baso % (Auto) % Neut # (Auto) (1.40-6.50) K/uL Lymph # (Auto) (1.20-3.40) K/uL [place] # (Auto) (0.11-0.59) K/uL Eos # (Auto) (0.00-0.50) K/uL Baso # (Auto) (0.00-0.20) K/uL Immature Gran # (Auto) (0.01-0.20) K/uL POC pH (7.35-7.45) POC pCO2 (35-46) mmHg POC pO2 (80-95) mmHg POC HCO3 (19-24) nasreen/L POC Total CO2 (24-31) mmol/L POC Base Excess (-9-1.8) nasreen/L POC ABG O2 Sat (90-95) % VBG pH (7.36-7.41) VBG pCO2 (38-50) mmHg VBG pO2 mmHg VBG HCO3 mmol/L VBG O2 Saturation % VBG Base Excess mEq/L POC Sodium (135-144) mmol/L Sodium (136-145) mmol/L POC Potassium (3.3-5.0) mmol/L Potassium (3.5-5.1) mmol/L Chloride (98-107) mmol/L Carbon Dioxide (21-32) mmol/L Anion Gap (3-11) BUN (6-23) mg/dl Creatinine (0.6-1.2) mg/dl Est Cr Clr Drug Dosing eGFR BUN/Creatinine Ratio (10-20) Glucose (70-99(Fasting)) mg/dl Calcium (8.6-10.3) mg/dl Total Bilirubin (0.2-1.0) mg/dl AST (13-39) U/L ALT (7-52) U/L Alkaline Phosphatase (34-104) U/L Troponin I High Sens (0-14) pg/ml Total Protein (6.0-8.3) gm/dl Albumin (3.4-5.0) gm/dl Globulin (2.5-4.0) gm/dl Albumin/Globulin Ratio (0.9-2) Urine Color Yellow Urine Appearance Clear (Clear) Urine pH 6.5 (4.5-7.5) Ur Specific [place] 1.015 (1.000-1.030) Urine Protein Negative (Negative) Urine Glucose (UA) Negative (Negative) Urine Ketones Negative (Negative) Urine Blood Negative (Negative) Urine Nitrite Negative (Negative) Urine Bilirubin Negative (Negative) Urine Urobilinogen Negative (Negative) Ur Leukocyte Esterase Negative (Negative) Urine Comment Administered Medications Acetaminophen (Acetaminophen 500 Mg Tab) 1,000 mg PO TID [facility] Stop: 05/13/25 20:59 Last Admin: 04/14/25 08:16 Dose: 1,000 mg Documented By: Admin: 04/13/25 20:50 Dose: 1,000 mg Documented By: AIDEN Aspirin (Aspirin 81 Mg Ectab) 81 mg PO [facility] Stop: 05/13/25 08:59 Last Admin: 04/14/25 07:51 Dose: 81 mg Documented By: Admin: 04/13/25 09:30 Dose: 81 mg Documented By: Azithromycin (Azithromycin 250 Mg Tab) 250 mg PO [facility] Stop: 04/17/25 09:01 Last Admin: 04/14/25 07:51 Dose: 250 mg Documented By: FUAD Bupropion HCl (Bupropion Sr 150 Mg Tabcr) 150 mg PO BID [facility] Stop: 05/13/25 08:59 Last Admin: 04/14/25 07:52 Dose: 150 mg Documented By: Admin: 04/13/25 20:49 Dose: 150 mg Documented By: Admin: 04/13/25 09:30 Dose: 150 mg Documented By: Clopidogrel Bisulfate (Clopidogrel Bisulfate 75 Mg Tab) [facility] [place] [facility]: 05/13/25 08:59 Last Admin: 04/14/25 07:51 Dose: 75 mg Documented By: Admin: 04/13/25 09:30 Dose: 75 mg Documented By: Fluticasone/Vilanterol (Fluticasone/Vilanterol 100/25mcg 14 Puffs/Inhaler) 1 puffs INH DAILY [facility]; Protocol Stop: 05/13/25 08:59 Last Admin: 04/14/25 07:49 Dose: 1 puffs Documented By: Admin: 04/13/25 09:26 Dose: 1 puffs Documented By: Folic Acid (Folic Acid 1 Mg Tab) 1 mg PO DAILY [facility] Stop: 05/13/25 08:59 Last Admin: 04/14/25 07:51 Dose: 1 mg Documented By: Admin: 04/13/25 09:30 Dose: 1 mg Documented By: Gabapentin (Gabapentin 400 Mg Cap) 400 mg PO TID [facility] Stop: 05/13/25 08:59 Last Admin: 04/14/25 07:52 Dose: 400 mg Documented By: Admin: 04/13/25 20:49 Dose: 400 mg Documented By: Admin: 04/13/25 15:46 Dose: 400 mg Documented By: Admin: 04/13/25 09:30 Dose: 400 mg Documented By: Guaifenesin (Guaifenesin 600 Mg Tabcr) 600 mg PO Q12 [facility] Stop: 05/13/25 08:59 Last Admin: 04/14/25 07:50 Dose: 600 mg Documented By: Admin: 04/13/25 20:49 Dose: 600 mg Documented By: Admin: 04/13/25 09:30 Dose: 600 mg Documented By: Heparin Sodium (Porcine) (Heparin Sod 5,000 Unit/0.5 Ml Vial) 5,000 units SQ Q12 [facility] Stop: 05/13/25 08:59 Last Admin: 04/14/25 08:15 Dose: 5,000 units Documented By: Admin: 04/13/25 20:50 Dose: 5,000 units Documented By: Admin: 04/13/25 09:43 Dose: 5,000 units Documented By: Piperacillin Sod/Tazobactam Sod (Zosyn) 4.5 gm in 100 mls @ 25 mls/hr IV Q8H [facility]; Protocol Stop: 04/20/25 09:59 Last Admin: 04/14/25 09:57 Dose: 25 mls/hr Documented By: Infusion: 04/14/25 06:22 Dose: Infused Documented By: Admin: 04/14/25 01:21 Dose: 25 mls/hr Documented By: Infusion: 04/13/25 20:39 Dose: Infused Documented By: Admin: 04/13/25 16:44 Dose: 25 mls/hr Documented By: Infusion: 04/13/25 15:11 Dose: Infused Documented By: Admin: 04/13/25 09:47 Dose: 25 mls/hr Documented By: Methylprednisolone 40 mg/ (Syringe) 0.64 mls @ 1.5 mls/min IV DAILY [facility] Stop: 05/14/25 08:59 Last Admin: 04/14/25 07:48 Dose: 1.5 mls/min Documented By: FUAD Mirtazapine (Mirtazapine Tab 15 Mg Tab) 15 mg PO DAILY [facility] Stop: 05/13/25 08:59 Last Admin: 04/14/25 07:50 Dose: 15 mg Documented By: Admin: 04/13/25 09:31 Dose: 15 mg Documented By: Miscellaneous (Remove Lidoderm Patch) 1 each N/A DAILY@2100 [facility] Stop: 05/13/25 20:59 Last Admin: 04/13/25 20:50 Dose: 1 each Documented By: AIDEN Nifedipine (Nifedipine Extended Rel 30 Mg Tabcr) 60 mg PO DAILY [facility] Stop: 05/13/25 08:59 Last Admin: 04/14/25 07:50 Dose: 60 mg Documented By: Admin: 04/13/25 09:31 Dose: 60 mg Documented By: Oxycodone HCl (Oxycodone Hcl Ir 5 Mg Tab (Immediate Release)) 5 mg PO TID PRN PRN Reason: Pain (4-6) Stop: 04/27/25 17:38 Last Admin: 04/14/25 08:58 Dose: 5 mg Documented By: Admin: 04/14/25 01:22 Dose: 5 mg Documented By: AIDEN Pantoprazole Sodium (Pantoprazole 40 Mg Tab) 40 mg PO QAM [facility] Stop: 05/13/25 08:59 Last Admin: 04/14/25 07:52 Dose: 40 mg Documented By: Admin: 04/13/25 09:30 Dose: 40 mg Documented By: Rosuvastatin Calcium (Rosuvastatin Calcium 10 Mg Tab) 10 mg PO DAILY [facility] Stop: 05/13/25 08:59 Last Admin: 04/14/25 07:51 Dose: 10 mg Documented By: Admin: 04/13/25 09:31 Dose: 10 mg Documented By: Thiamine HCl (Thiamine Hcl 100 Mg Tab) 100 mg PO BID [facility] Stop: 05/13/25 08:59 Last Admin: 04/14/25 07:50 Dose: 100 mg Documented By: Admin: 04/13/25 20:49 Dose: 100 mg Documented By: Admin: 04/13/25 09:31 Dose: 100 mg Documented By: Tizanidine HCl (Tizanidine Hcl 4 Mg Tablet) 2 mg PO TID PRN PRN Reason: Muscle Spasm Stop: 05/13/25 06:40 Last Admin: 04/14/25 08:15 Dose: 2 mg Documented By: Admin: 04/13/25 18:35 Dose: 2 mg Documented By: FUAD Discontinued Medications Azithromycin (Azithromycin 250 Mg Tab) 500 mg PO NOW ONE Stop: 04/13/25 11:40 Last Admin: 04/13/25 12:04 Dose: 500 mg Documented By: Cyclobenzaprine HCl (Cyclobenzaprine Hcl 5 Mg Tab) 5 mg PO NOW STA Stop: 04/14/25 09:31 Last Admin: 04/14/25 10:00 Dose: 5 mg Documented By: FUAD Vancomycin HCl 1,250 mg/ (Sodium Chloride) 275 mls @ 200 mls/hr IV NOW STA Stop: 04/13/25 05:59 Last Infusion: 04/13/25 08:07 Dose: Infused Documented By: Admin: 04/13/25 06:14 Dose: 200 mls/hr Documented By: JUICE Piperacillin Sod/Tazobactam Sod (Zosyn) 4.5 gm in 100 mls @ 200 mls/hr IV ONE STA; Protocol Stop: 04/13/25 05:06 Last Infusion: 04/13/25 06:08 Dose: Infused Documented By: Admin: 04/13/25 05:26 Dose: 200 mls/hr Documented By: JUICE Methylprednisolone 40 mg/ (Syringe) 0.64 mls @ 1.5 mls/min IV NOW STA Stop: 04/13/25 16:35 Last Admin: 04/13/25 16:59 Dose: 1.5 mls/min Documented By: FUAD Magnesium Sulfate/Dextrose (Magnesium Sulfate / D5w) 1 gm in 100 mls @ 50 mls/hr IV ONE ONE Stop: 04/14/25 11:28 Last Infusion: 04/14/25 12:01 Dose: Infused Documented By: Admin: 04/14/25 09:53 Dose: 50 mls/hr Documented By: FUAD Ioversol (Optiray 320 125ml) 125 ml IV ONCE ONE Stop: 04/13/25 02:39 Last Admin: 04/13/25 02:38 Dose: 118 ml Documented By: NONA Ipratropium [place] (Ipratropium [place] Neb Soln 0.02% 0.5mg/2.5ml Vial) 0.5 mg NEB Q6R RONNIE Stop: 05/13/25 18:59 Last Admin: 04/14/25 07:25 Dose: Not Given Documented By: Admin: 04/14/25 01:07 Dose: 0.5 mg Documented By: [id number] Admin: 04/13/25 19:20 Dose: 0.5 mg Documented By: [id number] Levalbuterol HCl (Levalbuterol 1.25 Mg/3 Ml Neb) 1.25 mg NEB Q6R RONNIE Stop: 05/13/25 18:59 Last Admin: 04/14/25 07:25 Dose: Not Given Documented By: Admin: 04/14/25 01:07 Dose: 1.25 mg Documented By: [id number] Admin: 04/13/25 19:20 Dose: 1.25 mg Documented By: [id number] Lidocaine (Lidocaine 5% 1 Patch) 1 patch TD NOW STA Stop: 04/14/25 09:27 Last Admin: 04/14/25 09:53 Dose: 1 patch Documented By: FUAD Methylprednisolone (Methylprednisolone 125 Mg/2 Ml Vial) 40 mg IV NOW STA Stop: 04/13/25 16:32 Last Admin: 04/13/25 17:55 Dose: Not Given Documented By: FUAD Oxycodone HCl (Oxycodone Hcl Ir 5 Mg Tab (Immediate Release)) 10 mg PO TID PRN PRN Reason: Moderate Pain (Scale 4, 5, 6) Stop: 04/27/25 06:40 Last Admin: 04/13/25 16:45 Dose: 10 mg Documented By: Admin: 04/13/25 09:43 Dose: 10 mg Documented By: MSDomo Sodium Chloride (Sodium Chlor 7% 4 Ml Neb) 4 ml NEB BIDR RONNIE Stop: 05/13/25 18:59 Last Admin: 04/14/25 07:25 Dose: Not Given Documented By: Admin: 04/13/25 20:37 Dose: Not Given Documented By: [id number] Imaging Data Radiologist's Impression: Abdomen/Pelvis CT 04/13/25 01:13 EXAM: CT abd pelvis IV con only CLINICAL HISTORY: eval epigastric fullness TECHNIQUE: Contiguous axial images were obtained from the level of the diaphragm to the pubic symphysis with intravenous contrast. Coronal and sagittal reconstructions were likewise performed and indicated to increase the sensitivity for detecting clinically relevant pathology. If IV contrast material had not been administered, the likelihood of detecting abnormalities relevant to the patient's condition would have been substantially decreased. CT scan was performed according to ALARA (as low as reasonable achievable). COMPARISON: 15:37:00 [employer]EE LEAD FINDINGS: Collapse /consolidations are noted involving bilateral basal segment. Minimal left sided pleural effusion. The liver is normal in size and diffusely decreased in attenuation. No focal liver lesions are seen. There is no intra or extrahepatic biliary ductal dilatation. Hepatic vasculature is patent. The gallbladder is well distended with multiple calculi within, largest measuring ~4.6mm The spleen, pancreas, and adrenal glands are unremarkable. The kidneys are normal in size and attenuation. There is no hydronephrosis or perinephric fat stranding. Right kidney shows non-obstructing calculus of size 1-2 mm in mid and lower calyx. Left kidney shows few 2-3 mm sized calculi in upper, mid and lower calyx.- at least 5 calculi seen. Cortical scarring is noted involving interpolar posterior cortex of right kidney.-stable. Vascular calcifications are noted in bilateral kidneys. The ureters are normal in caliber and no ureteral calculi are seen. The bladder is normal in contour. Pelvic viscera are unremarkable. No focal or diffuse bowel wall thickening or evidence of bowel obstruction is identified. Abdominal and pelvic vasculature is patent. No adenopathy or fluid collections are seen. No aggressive appearing osseous lesions are identified. IMPRESSION: 1. Uncomplicated cholelithiasis.-stable. 2. Collapse / consolidations involving bilateral basal segments-new finding. 3. Minimal left sided pleural effusion.-new finding. 4. Bilateral non obstructive renal calculi as described. 5. Cortical scarring is noted involving interpolar posterior cortex of right kidney.-stable. Electronically signed by Ayala Jose Armando 04-13-2025 03:25 AM Chest CTA 04/13/25 01:13 EXAM: CT angio chest PE protocol CLINICAL HISTORY: Pulmonary embolism. TECHNIQUE: Contiguous 3.[address] angiographic images of the chest were acquired with the administration of intravenous contrast. Coronal and sagittal reconstructions were obtained. One of these 3D techniques was utilized: Maximum Intensity Pixel (MIP), 3D Reconstructed Images, Volume Rendered Images, Surface Shaded Rendering. One of the following dose reduction techniques were utilized for this exam: Automated exposure control, adjustment of the mA and or kV according to patient size, and use of iterative reconstruction. 118 ml optiray 320 was given as an IV contrast. COMPARISON: CR same date reviewed, CT thoracic spine dated 03/14/2025 reviewed FINDINGS: Pulmonary Arteries: No evidence of pulmonary embolism in the visualised arterial tree. Aorta: The thoracic aorta shows atherosclerotic changes. Mediastinum: Subcentimetric mediastinal nodes noted. Heart: Normal size and morphology of the heart. No pericardial effusion. Lungs: There are bilateral subpleural subsegmental atelectasis with linear heaptization of the lung parenchyma in both posterior segments of the lower lobes. There are bilateral peribronchovascular reticular densities in both lower lobes with associated bronchial wall thickenings and linear fibrotic bands, which are suspicious for acute inflammatory/infectious etiology. Thin streak of left-sided pleural effusion. Centrilobular emphysematous changes in bilateral lung krishnamurthy, predominantly in the upper lobes. Bones: Severe degenerative changes in the thoracic spine. Compression fracture of T12 vertebral body again noted with interval reduction of height, up to 70%-80% reduction of height with flattening seen at present study in comparison to 10%-15% on prior CT study. Mild pre and paravertebral soft tissue thickening with fat stranding in this region. Soft Tissues: Normal appearance of the visualized soft tissues. No abnormal masses or fluid collections. Upper Abdomen: Please refer to the dedicated CT abdomen report. IMPRESSION: 1. Subpleural subsegmental atelectasis with hepatization of both posterior segments of the lower lobes, which are likely chronic post-infectious changes. New interval findings when compared to visualized lungs on prior CT thoracic spine study. Recommended clinical correlation 2. Bilateral peribronchovascular reticular densities in both lower lobes with associated bronchial wall thickenings and linear fibrotic bands, which are suspicious for acute inflammatory/infectious etiology. New interval findings when compared to visualized lungs on prior CT thoracic spine study. Recommended clinical correlation 3. Thin streak of left-sided pleural effusion. Interval new. 4. Centrilobular emphysematous changes in bilateral lung krishnamurthy, predominantly in the upper lobes. 5. Compression fracture of T12 vertebral body again noted with interval reduction of height, up to 70%-80% reduction of height with flattening seen at present study in comparison to 10%-15% on prior CT study. Mild pre- and paravertebral soft tissue thickening with fat stranding in this region. 6. The findings concur with CR. Electronically signed by Aaron Kwan 04-13-2025 04:08 AM Chest X-Ray 04/13/25 01:13 EXAM: XR chest 1V portable CLINICAL HISTORY: Dyspnea. TECHNIQUE: An X-ray image of the chest is obtained in AP projection. COMPARISON: Radiograph dated 03/14/2025. FINDINGS: Pulmonary Parenchyma: Small patchy airspace opacity in the right lower zone may represent infective/inflammatory infiltrate. No evidence of consolidation or collapse. Right basal atelectatic changes. Minimally blunted costophrenic angles may represent small pleural effusions/thickening. Heart and Mediastinum: The heart size appears mildly enlarged. No mediastinal widening or masses. No hilar or mediastinal lymphadenopathy. Bony Thorax: Bony thorax appears intact without fractures or deformities. Soft Tissues: Soft tissues overlying the chest wall are unremarkable. Multiple overlying chest leads are seen. Tiny calcific densities are seen projected over the axillary regions, unchanged. Metallic surgical clips in the right neck region. IMPRESSION: 1. Small patchy airspace opacity in the right lower zone may represent infective/inflammatory infiltrate. (new). 2. Minimally blunted costophrenic angles may represent small pleural effusions/thickening(new). 3. Clinical/lab correlation and follow-up are suggested. Electronically signed by Aaron Kwan 04-13-2025 02:59 AM Discharge Plan Visit Data Chief Complaint: Shortness of Breath/Dyspnea Stated Complaint: SOB, L Breast Pain ED Provider: Natalia Campos Discharge Problem: Hypoxia, Pneumonia of both lower lobes, Hyponatremia Patient Disposition: Admitted As Inpatient Condition: Critical Discharge Instructions Interventions: ED Discharge Assessment Last Done: 04/13/25 06:42
[2025-04-13 02:22] LABS: Base Excess VBG -0.6 mEq/L; HCO3 VBG 25 mmol/L; Oxygen Saturation VBG < 60.0 %; PCO2 VBG 43 mmHg (38-50); PO2 VBG 34 mmHg; pH VBG 7.37 (7.36-7.41)
[2025-04-13] MEDS: OPTIRAY 320 125ml IV ONE (02:38)
--- NOTE | 2025-04-13 03:00 | XRay Report ---
EXAM: XR chest 1V portable CLINICAL HISTORY: Dyspnea. TECHNIQUE: An X-ray image of the chest is obtained in AP projection. COMPARISON: Radiograph dated 03/14/2025. FINDINGS: Pulmonary Parenchyma: Small patchy airspace opacity in the right lower zone may represent infective/inflammatory infiltrate. No evidence of consolidation or collapse. Right basal atelectatic changes. Minimally blunted costophrenic angles may represent small pleural effusions/thickening. Heart and Mediastinum: The heart size appears mildly enlarged. No mediastinal widening or masses. No hilar or mediastinal lymphadenopathy. Bony Thorax: Bony thorax appears intact without fractures or deformities. Soft Tissues: Soft tissues overlying the chest wall are unremarkable. Multiple overlying chest leads are seen. Tiny calcific densities are seen projected over the axillary regions, unchanged. Metallic surgical clips in the right neck region. IMPRESSION: 1. Small patchy airspace opacity in the right lower zone may represent infective/inflammatory infiltrate. (new). 2. Minimally blunted costophrenic angles may represent small pleural effusions/thickening(new). 3. Clinical/lab correlation and follow-up are suggested. Electronically signed by Aaron Kwan 04-13-2025 02:59 AM
--- NOTE | 2025-04-13 03:26 | CT Scan Report ---
EXAM: CT abd pelvis IV con only CLINICAL HISTORY: eval epigastric fullness TECHNIQUE: Contiguous axial images were obtained from the level of the diaphragm to the pubic symphysis with intravenous contrast. Coronal and sagittal reconstructions were likewise performed and indicated to increase the sensitivity for detecting clinically relevant pathology. If IV contrast material had not been administered, the likelihood of detecting abnormalities relevant to the patient's condition would have been substantially decreased. CT scan was performed according to ALARA (as low as reasonable achievable). 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 Minimal left sided pleural effusion. The liver is normal in size and diffusely decreased in attenuation. No focal liver lesions are seen. There is no intra or extrahepatic biliary ductal dilatation. Hepatic vasculature is patent. The gallbladder is well distended with multiple calculi within, largest measuring ~4.6mm The spleen, pancreas, and adrenal glands are unremarkable. The kidneys are normal in size and attenuation. There is no hydronephrosis or perinephric fat stranding. Right kidney shows non-obstructing calculus of size 1-2 mm in mid and lower calyx. Left kidney shows few 2-3 mm sized calculi in upper, mid and lower calyx.- at least 5 calculi seen. Cortical scarring is noted involving interpolar posterior cortex of right kidney.-stable. Vascular calcifications are noted in bilateral kidneys. The ureters are normal in caliber and no ureteral calculi are seen. The bladder is normal in contour. Pelvic viscera are unremarkable. No focal or diffuse bowel wall thickening or evidence of bowel obstruction is identified. Abdominal and pelvic vasculature is patent. No adenopathy or fluid collections are seen. No aggressive appearing osseous lesions are identified. IMPRESSION: 1. Uncomplicated cholelithiasis.-stable. 2. Collapse / consolidations involving bilateral basal segments-new finding. 3. Minimal left sided pleural effusion.-new finding. 4. Bilateral non obstructive renal calculi as described. 5. Cortical scarring is noted involving interpolar posterior cortex of right kidney.-stable. Electronically signed by Jose Armando Ayala 04-13-2025 03:25 AM
[2025-04-13 03:45] LABS: Appearance Urine Clear (Clear); Glucose Urine UA Negative (Negative)
--- NOTE | 2025-04-13 04:09 | CT Scan Report ---
EXAM: CT angio chest PE protocol CLINICAL HISTORY: Pulmonary embolism. TECHNIQUE: Contiguous 3.[address] angiographic images of the chest were acquired with the administration of intravenous contrast. Coronal and sagittal reconstructions were obtained. One of these 3D techniques was utilized: Maximum Intensity Pixel (MIP), 3D Reconstructed Images, Volume Rendered Images, Surface Shaded Rendering. One of the following dose reduction techniques were utilized for this exam: Automated exposure control, adjustment of the mA and or kV according to patient size, and use of iterative reconstruction. 118 ml optiray 320 was given as an IV contrast. COMPARISON: CR same date reviewed, CT thoracic spine dated 03/14/2025 reviewed FINDINGS: Pulmonary Arteries: No evidence of pulmonary embolism in the visualised arterial tree. Aorta: The thoracic aorta shows atherosclerotic changes. Mediastinum: Subcentimetric mediastinal nodes noted. Heart: Normal size and morphology of the heart. No pericardial effusion. Lungs: There are bilateral subpleural subsegmental atelectasis with linear heaptization of the lung parenchyma in both posterior segments of the lower lobes. There are bilateral peribronchovascular reticular densities in both lower lobes with associated bronchial wall thickenings and linear fibrotic bands, which are suspicious for acute inflammatory/infectious etiology. Thin streak of left-sided pleural effusion. Centrilobular emphysematous changes in bilateral lung krishnamurthy, predominantly in the upper lobes. Bones: Severe degenerative changes in the thoracic spine. Compression fracture of T12 vertebral body again noted with interval reduction of height, up to 70%-80% reduction of height with flattening seen at present study in comparison to 10%-15% on prior CT study. Mild pre and paravertebral soft tissue thickening with fat stranding in this region. Soft Tissues: Normal appearance of the visualized soft tissues. No abnormal masses or fluid collections. Upper Abdomen: Please refer to the dedicated CT abdomen report. IMPRESSION: 1. Subpleural subsegmental atelectasis with hepatization of both posterior segments of the lower lobes, which are likely chronic post-infectious changes. New interval findings when compared to visualized lungs on prior CT thoracic spine study. Recommended clinical correlation 2. Bilateral peribronchovascular reticular densities in both lower lobes with associated bronchial wall thickenings and linear fibrotic bands, which are suspicious for acute inflammatory/infectious etiology. New interval findings when compared to visualized lungs on prior CT thoracic spine study. Recommended clinical correlation 3. Thin streak of left-sided pleural effusion. Interval new. 4. Centrilobular emphysematous changes in bilateral lung krishnamurthy, predominantly in the upper lobes. 5. Compression fracture of T12 vertebral body again noted with interval reduction of height, up to 70%-80% reduction of height with flattening seen at present study in comparison to 10%-15% on prior CT study. Mild pre- and paravertebral soft tissue thickening with fat stranding in this region. 6. The findings concur with CR. Electronically signed by Aaron Kwan 04-13-2025 04:08 AM
[2025-04-13] MEDS ORDERED: ALBUT/IPRATROP 3MG/0.5MG NEB 3 ML VIAL NEB PRN (04:28)
[2025-04-13] MEDS ORDERED: VANCOMYCIN CONSULT ACTIVE PRN (04:28)
--- NOTE | 2025-04-13 04:39 | History & Physical Report ---
Date of Service April 13, 2025 Assessment & Plan (1) Acute on chronic respiratory failure with hypoxia: (2) Wedge compression fracture of T12 vertebra: (3) Hypertension: (4) Chronic obstructive pulmonary disease: (5) Chronic alcohol abuse: (6) Bilateral pneumonia: Plan The patient is a 74-year-old female with a past medical history including lumbar laminectomy for spinal cord decompression, generalized weakness, T12 vertebral compression fracture, hepatic steatosis, hyperlipidemia, hypertension, cerebrovascular disease, COPD, peripheral arterial disease, and most recent hospitalization from 02/02-02/19/2025 for confusion, hyponatremia, and alcohol abuse. The patient presented to the emergency department today due to acute onset of shortness of breath, feeling hot, progression of significant wheezing, and dyspnea on exertion that began at 3 PM in the afternoon. Upon arrival to the emergency department she was found to be significantly hypoxic, with pulse ox 87% on room air. She was placed on oxy mask and titrated up to 7 L, to obtain a pulse ox of 94%. Chest x-ray showed a right middle and right lower lobe pneumonia. CT angiography chest was negative for PE, but did show bibasilar infiltrates, left greater than right. She was then referred [facility] Acute on chronic respiratory failure with hypoxia/bilateral pneumonia, hospital associated/COPD Continue oxygen mask with 7 L for now, and titrate downward if symptoms improve Continue Symbicort, albuterol sulfate HFA Vancomycin IV per pharmacokinetic monitoring Zosyn 4.5 g IV every 8 hours DuoNebs every 2 hours as needed Guaifenesin extended release 600 mg p.o. every 12 hours Zofran 4 mg IV every 6 hours as needed T12 compression fracture- CT notes progressive flattening to 70 to 80%- Patient feels that she can continue to follow-up with pain management Continue outpatient pain regimen: Acetaminophen 650 mg by mouth every 6 hours as needed for mild pain or fever Oxycodone 10 mg p.o. 3 times daily as needed moderate to severe pain Vascular dementia/alcoholic encephalopathy/hypertension- Appears to be stable from recent admission Continue aspirin 81 mg every morning, clopidogrel 75 mg every morning, nifedipine 60 mg p.o. daily, thiamine 100 mg p.o. twice daily and folic acid 1 mg p.o. daily Hold lisinopril Mood disorder- Continue bupropion, gabapentin, hydroxyzine, mirtazapine, quetiapine. GERD- Continue pantoprazole History of Present Illness Chief Complaint: The patient is brought to the emergency department with concerns regarding acute shortness of breath that began around 3 PM this afternoon. She reports that she also became very hot, and then began to have a panic attack. She then developed significant wheezing, could not catch her breath, and was brought to the emergency department for assessment. In emergency department she was found to be significantly hypoxic, and was placed on a oxy mask initially at 5 L then increased to 7 L/min. To get oxygen saturation from 87 up to 94%. Primary Care Provider: Brian Hyman DO The patient is a 74-year-old female with a past medical history including lumbar laminectomy for spinal cord decompression, generalized weakness, T12 vertebral compression fracture, hepatic steatosis, hyperlipidemia, hypertension, cerebrovascular disease, COPD, peripheral arterial disease, and most recent hospitalization from 02/02-02/19/2025 for confusion, hyponatremia, and alcohol abuse. The patient presented to the emergency department today due to acute onset of shortness of breath, feeling hot, progression of significant wheezing, and dyspnea on exertion that began at 3 PM in the afternoon. Upon arrival to the emergency department she was found to be significantly hypoxic, with pulse ox 87% on room air. She was placed on oxy mask and titrated up to 7 L, to obtain a pulse ox of 94%. Chest x-ray showed a right middle and right lower lobe pneumonia. CT angiography chest was negative for PE, but did show bibasilar infiltrates, left greater than right. She was then [facility]. Allergies Allergy/AdvReac Type Severity Reaction Status Date / Time hydromorphone [From Dilaudid] AdvReac Intermediate Vomiting Verified 04/01/25 09:54 baclofen AdvReac Confusion Verified 04/01/25 09:54 Home Medications Medication Instructions Recorded Confirmed Type aspirin 81 mg tablet,delayed 81 mg PO QAM 05/16/18 04/13/25 History release acetaminophen 500 mg capsule 1,000 mg PO Q8H PRN Pain 02/17/22 04/13/25 History lidocaine 4 % topical patch 1 patch topical QAM PRN Pain 02/18/24 04/13/25 History (Salonpas (lidocaine)) lidocaine 5 % topical patch 1 patch topical DAILY PRN pain #15 03/12/25 04/13/25 Rx ea albuterol sulfate 90 mcg/actuation 2 puff inhalation UD PRN as 03/18/25 04/13/25 Rx aerosol inhaler (Ventolin HFA) directed #6.7 grams budesonide-formoterol HFA 80 2 puff inhalation BID #10.2 grams 03/18/25 04/13/25 Rx mcg-4.5 mcg/actuation aerosol inhaler (Symbicort) bupropion HCl 150 mg tablet,12 hr 150 mg PO BID 90 days #180 ea 03/18/25 04/13/25 Rx sustained-release clopidogrel 75 mg tablet (Plavix) 75 mg PO QAM #30 tabs 03/18/25 04/13/25 Rx folic acid 1 mg tablet 1 mg PO DAILY #30 tabs 03/18/25 04/13/25 Rx gabapentin 400 mg capsule 400 mg PO TID #90 caps 03/18/25 04/13/25 Rx hydroxyzine HCl 25 mg tablet 25 mg PO BID PRN anxiety #60 tabs 03/18/25 04/13/25 Rx lisinopril 20 mg tablet 20 mg PO DAILY #90 tabs 03/18/25 04/13/25 Rx nifedipine 60 mg tablet,extended 60 mg PO DAILY #30 tabs 03/18/25 04/13/25 Rx release 24 hr (Procardia XL) pantoprazole 40 mg tablet,delayed 40 mg PO QAM #90 tabs 03/18/25 04/13/25 Rx release rosuvastatin 10 mg tablet 10 mg PO DAILY #30 tabs 03/18/25 04/13/25 Rx thiamine HCl (vitamin B1) 100 mg 100 mg PO BID #60 caps 03/18/25 04/13/25 Rx capsule oxycodone 10 mg tablet 10 mg PO TID PRN pain 2 weeks #42 04/01/25 04/13/25 Rx tabs quetiapine 50 mg tablet 50 mg PO DAILY 04/01/25 04/13/25 History mirtazapine 15 mg tablet 15 mg PO DAILY 04/02/25 04/13/25 History tizanidine 2 mg capsule 2 mg PO TID PRN Other 04/02/25 04/13/25 History Past Med/Surg History Problem List (Updated 04/13/25 @ 05:01 by Jaspreet Bridges MD) Bilateral pneumonia Acute on chronic respiratory failure with hypoxia Hypoxia (Acute) History of lumbar laminectomy for spinal cord decompression Disc degeneration, lumbar Low back pain Confusion (Acute) Generalized weakness (Acute) Acute on chronic back pain (Acute) Wedge compression fracture of T12 vertebra (Acute ~03/16/25) Cerebral atrophy Insomnia Hepatic steatosis Chronic low back pain (Acute) Epidermal cyst of face S/P vascular surgery (08/2024) Left Iliac artery Thrombectomy, Left Femoral Endarterectomy with Patch Graft(Left), stenting of left external iliac arter Hyperlipidemia Hypertension Bilateral carotid artery stenosis Cerebrovascular disease Degenerative lumbar spinal stenosis (Acute) Anemia Thoracic facet syndrome Melena Sinus tachycardia Hypocalcemia Chronic obstructive pulmonary disease Footdrop Left Lung nodule (Chronic) s/p radiation treatments Following with [facility] [place] radiation oncology- monitoring, "stable" Peripheral artery disease S/P SFA stent (2013) S/P right femoral artery endarterectomy/stent (2017) Taking Plavix Medical History Chronic alcohol abuse Leukocytosis Unwitnessed fall Altered mental status Recurrent falls Malnutrition Physical deconditioning Hyponatremia Acute occlusion of aortoiliac artery due to thromboembolism Retroperitoneal hematoma Stroke-like symptoms Myofascial pain Thoracic back pain Smoker Anxiety History of left foot drop "not anymore, resolved" Hypocalcemia pt unsure about this dx, "stated it may have been when she was in the hospital in december 2023" Peripheral arterial disease S/P SFA stent (2013) S/P right femoral artery endarterectomy/stent (2017) Taking Plavix Lung nodule s/p radiation treatments Following with [facility] [place] radiation oncology- monitoring, "stable" History of GI bleed 12/2023, had EGD Hx of sinus tachycardia 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, 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 Cardiac murmur "has had since she was a child, no issues with"; 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 Thoracic facet syndrome History of ankle fracture (10/13/22) Right ankle, Distal fibula avulsion fx, chronic anterior tibia avulsion fx History of anemia Sciatica ongoing Vulvar cancer Remote hx "years ago", treated surgically Cervical cancer Approximately 1979, treated surgically Degenerative disc disease, lumbar Chronic sinusitis Lumbar disc herniation sx to correct Esophageal reflux Occasional Osteoporosis Hx of cirrhosis Hx ETOH abuse/alcoholism per records (0-2 drinks/wine per day per PAT RN phone assessment 05/01/23) Depression Hepatic encephalopathy Remote hx Surgical History History of right-sided carotid endarterectomy History of left cataract extraction History of esophagogastroduodenoscopy (EGD) S/P excision of lipoma (05/09/23) Excision of Intramuscular Back Lipoma - Suraj Kincaid, DO, FACS History of dilatation and curettage History of knee surgery R knee repair (patella fracture) History of back surgery lumbar discectomy History of foot surgery Debridement of left foot ulcer (09/09/18): LMA#4.0 unique, atraumatic at [facility] H/O adenoidectomy removed w/tonsils History of surgery Radical removal of vulva, partial History of laryngoscopy With biopsy History of tooth extraction History of endarterectomy Right femoral artery endarterectomy/stent (05/31/18): Grade view 1, MAC#3, ETT 7.5 at [facility] History of surgery SFA stent (2013) per records Hx of hysterectomy + USO History of throat surgery Benign growth removal History of tonsillectomy Family History Mother , 72yo Smoker "Bad circulation" Father , in his 70s Alzheimer disease Brother No problems noted. Sister No problems noted. Sister No problems noted. Son No problems noted. Daughter No problems noted. Daughter No problems noted. Aunt Cancer Other No pertinent family history Denies family history of Ovarian cancer Prostate cancer Myocardial infarction Breast cancer Colorectal cancer Social History Smoking Status: Former smoker Tobacco Type: Cigarettes Age Started Using Tobacco: 15; Age Quit Using Tobacco: 74; packs per day: 0.5; Cigarettes Per Day: half a pack; Second Hand Exposure: Yes; Do You Dip or Chew Tobacco: No; Hx Alcohol Use: Yes Alcohol type: wine Alcohol Intake Frequency: 4 or More x per/Week Alcohol Intake Frequency Comment: 2 glasses at dinner. 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 How many Children do You have: 3 Feels Safe at Home: Yes Childhood Exposure to Second-Hand Smoke: Yes Diet: regular caffeine: Yes (coffee) during the past year weight has: remained stable Dental Care, Regularly: No Physical Activity Frequency: Does not Exercise Seatbelt Use: always Sunscreen Use: No Assistive Devices: Walker and Wheelchair Review of Systems Review of Systems: The patient denies chest pain, palpitations, lower extremity swelling, sore throat, fevers, chills, sweats, nausea, vomiting, diarrhea , constipation, abdominal pain, pelvic pain, blood in urine or stool, dysuria, urinary frequency or urgency, lightheadedness, dizziness, headache, loss of consciousness, rash, abnormal bruising or bleeding, Focal weakness, numbness or tingling in arms or legs, generalized arthralgias or myalgias, neck pain, or night sweats. The review of systems is otherwise negative other than for that already noted above, and at least 10 systems have been reviewed. Physical Exam Physical Exam: The patient is awake, alert and oriented 3, well developed and well nourished, normocephalic and atraumatic, lying in bed and in no acute distress. HEENT--PERRL, EOMI, mucous membranes and oropharynx normal Neck--supple. No JVD. No bruits. Thyroid normal, trachea midline, no adenopathy. Heart--normal S1 and S2. No murmurs, rubs or gallops. Lungs--coarse breath sounds at the bases bilaterally with scattered wheezes. No respiratory distress, no accessory muscle use. Abdomen--normal bowel sounds and soft. Nontender. Nondistended Extremities--No edema. Dermatologic--normal skin turgor, normal color, no abnormal lymph nodes, no rash. Neurologic--cranial nerves II through XII grossly intact. Rheumatologic--normal range of motion. Psychiatric--normal affect. Results & Data Results & Data Vital Signs (Past 12 Hours) Vital Signs Temp Pulse Pulse Resp BP BP Pulse Ox 04/13/25 04:36 105 H 04/13/25 03:58 108 H 18 124/90 94 04/13/25 03:00 101 H 16 103/70 97 04/13/25 02:42 93 04/13/25 02:39 98 H 20 98/76 L 95 04/13/25 01:13 90 20 92 04/13/25 01:01 90 18 106/64 95 04/13/25 00:37 92 04/13/25 00:36 90 04/13/25 00:36 87 L 04/13/25 00:17 36.4 C L 88 20 126/71 93 04/13/25 00:17 93 04/13/25 00:17 36.4 C L 88 20 126/71 93 04/13/25 00:17 O2 Del Method O2 Flow Rate 04/13/25 04:36 04/13/25 03:58 Oxymask 7 04/13/25 03:00 Oxymask 7 04/13/25 02:42 Oxymask 6 04/13/25 02:39 Oxymask 8 04/13/25 01:13 Oxymask 8 04/13/25 01:01 Oxymask 8 04/13/25 00:37 Nasal Cannula 4 04/13/25 00:36 04/13/25 00:36 Nasal Cannula 2 04/13/25 00:17 Nasal Cannula 2 04/13/25 00:17 Nasal Cannula 2 04/13/25 00:17 2 04/13/25 00:17 Room Air 2 Laboratory Results Laboratory Results WBC 11.41 K/ul (4.8-10.8) H 04/13/25 00:40 RBC 3.34 M/uL (4.20-5.40) L 04/13/25 00:40 Hgb 8.0 g/dl (12.0-16.0) L 04/13/25 00:40 POC Hgb 8.5 g/dl (12.0-16.0) L 04/13/25 01:32 Hct 26.2 % (37.0-47.0) L 04/13/25 00:40 POC Hct 25 % (37-47) L 04/13/25 01:32 MCV 78.4 fL (80.0-100.0) L 04/13/25 00:40 MCH 24.0 pg (25.0-34.0) L 04/13/25 00:40 MCHC 30.5 g/dL (32.0-36.0) L 04/13/25 00:40 RDW Std Deviation 49.0 fL (36.4-46.3) H 04/13/25 00:40 RDW Coeff of Narendra 17.1 % (11.5-14.5) H 04/13/25 00:40 Plt Count 351 K/uL (130-400) 04/13/25 00:40 MPV 8.6 fL (9.4-12.4) L 04/13/25 00:40 Immature Gran % (Auto) 0.7 % 04/13/25 00:40 Neut % (Auto) 80.0 % 04/13/25 00:40 Lymph % (Auto) 8.1 % 04/13/25 00:40 [place] % (Auto) 8.9 % 04/13/25 00:40 Eos % (Auto) 1.9 % 04/13/25 00:40 Baso % (Auto) 0.4 % 04/13/25 00:40 Neut # (Auto) 9.13 K/uL (1.40-6.50) H 04/13/25 00:40 Lymph # (Auto) 0.92 K/uL (1.20-3.40) L 04/13/25 00:40 [place] # (Auto) 1.02 K/uL (0.11-0.59) H 04/13/25 00:40 Eos # (Auto) 0.22 K/uL (0.00-0.50) 04/13/25 00:40 Baso # (Auto) 0.04 K/uL (0.00-0.20) 04/13/25 00:40 Immature Gran # (Auto) 0.08 K/uL (0.01-0.20) 04/13/25 00:40 POC pH 7.40 (7.35-7.45) 04/13/25 01:32 POC pCO2 38 mmHg (35-46) 04/13/25 01:32 POC pO2 39 mmHg (80-95) L 04/13/25 01:32 POC HCO3 23 nasreen/L (19-24) 04/13/25 01:32 POC Total CO2 24 mmol/L (24-31) 04/13/25 01:32 POC Base Excess -2.0 nasreen/L (-9-1.8) 04/13/25 01:32 POC ABG O2 Sat 73.0 % (90-95) L 04/13/25 01:32 VBG pH 7.37 (7.36-7.41) 04/13/25 01:55 VBG pCO2 43 mmHg (38-50) 04/13/25 01:55 VBG pO2 34 mmHg 04/13/25 01:55 VBG HCO3 25 mmol/L 04/13/25 01:55 VBG O2 Saturation < 60.0 % 04/13/25 01:55 VBG Base Excess -0.6 mEq/L 04/13/25 01:55 POC Sodium 131 mmol/L (135-144) L 04/13/25 01:32 Sodium 128 mmol/L (136-145) L 04/13/25 00:40 POC Potassium 4.1 mmol/L (3.3-5.0) 04/13/25 01:32 Potassium 4.6 mmol/L (3.5-5.1) 04/13/25 00:40 Chloride 98 mmol/L (98-107) 04/13/25 00:40 Carbon Dioxide 22 mmol/L (21-32) 04/13/25 00:40 Anion Gap 8 (3-11) 04/13/25 00:40 BUN 14 mg/dl (6-23) 04/13/25 00:40 Creatinine 1.12 mg/dl (0.6-1.2) 04/13/25 00:40 Est Cr Clr Drug Dosing Not Reportable 04/13/25 00:40 eGFR 51.92 04/13/25 00:40 BUN/Creatinine Ratio 12.5 (10-20) 04/13/25 00:40 Glucose 142 mg/dl (70-99(Fasting)) H 04/13/25 00:40 Calcium 9.0 mg/dl (8.6-10.3) 04/13/25 00:40 Total Bilirubin 0.3 mg/dl (0.2-1.0) 04/13/25 00:40 AST 20 U/L (13-39) 04/13/25 00:40 ALT 13 U/L (7-52) 04/13/25 00:40 Alkaline Phosphatase 87 U/L (34-104) 04/13/25 00:40 Troponin I High Sens 13.2 pg/ml (0-14) 04/13/25 00:40 Total Protein 6.6 gm/dl (6.0-8.3) 04/13/25 00:40 Albumin 3.9 gm/dl (3.4-5.0) 04/13/25 00:40 Globulin 2.7 gm/dl (2.5-4.0) 04/13/25 00:40 Albumin/Globulin Ratio 1.4 (0.9-2) 04/13/25 00:40 Urine Color Yellow 04/13/25 03:30 Urine Appearance Clear (Clear) 04/13/25 03:30 Urine pH 6.5 (4.5-7.5) 04/13/25 03:30 Ur Specific [place] 1.015 (1.000-1.030) 04/13/25 03:30 Urine Protein Negative (Negative) 04/13/25 03:30 Urine Glucose (UA) Negative (Negative) 04/13/25 03:30 Urine Ketones Negative (Negative) 04/13/25 03:30 Urine Blood Negative (Negative) 04/13/25 03:30 Urine Nitrite Negative (Negative) 04/13/25 03:30 Urine Bilirubin Negative (Negative) 04/13/25 03:30 Urine Urobilinogen Negative (Negative) 04/13/25 03:30 Ur Leukocyte Esterase Negative (Negative) 04/13/25 03:30 Urine Comment 04/13/25 03:30 Impressions Abdomen/Pelvis CT 04/13/25 01:13 EXAM: CT abd pelvis IV con only CLINICAL HISTORY: eval epigastric fullness TECHNIQUE: Contiguous axial images were obtained from the level of the diaphragm to the pubic symphysis with intravenous contrast. Coronal and sagittal reconstructions were likewise performed and indicated to increase the sensitivity for detecting clinically relevant pathology. If IV contrast material had not been administered, the likelihood of detecting abnormalities relevant to the patient's condition would have been substantially decreased. CT scan was performed according to ALARA (as low as reasonable achievable). COMPARISON: 15:37:00 TRAVELING AUDITOR FINDINGS: Collapse /consolidations are noted involving bilateral basal segment. Minimal left sided pleural effusion. The liver is normal in size and diffusely decreased in attenuation. No focal liver lesions are seen. There is no intra or extrahepatic biliary ductal dilatation. Hepatic vasculature is patent. The gallbladder is well distended with multiple calculi within, largest measuring ~4.6mm The spleen, pancreas, and adrenal glands are unremarkable. The kidneys are normal in size and attenuation. There is no hydronephrosis or perinephric fat stranding. Right kidney shows non-obstructing calculus of size 1-2 mm in mid and lower calyx. Left kidney shows few 2-3 mm sized calculi in upper, mid and lower calyx.- at least 5 calculi seen. Cortical scarring is noted involving interpolar posterior cortex of right kidney.-stable. Vascular calcifications are noted in bilateral kidneys. The ureters are normal in caliber and no ureteral calculi are seen. The bladder is normal in contour. Pelvic viscera are unremarkable. No focal or diffuse bowel wall thickening or evidence of bowel obstruction is identified. Abdominal and pelvic vasculature is patent. No adenopathy or fluid collections are seen. No aggressive appearing osseous lesions are identified. IMPRESSION: 1. Uncomplicated cholelithiasis.-stable. 2. Collapse / consolidations involving bilateral basal segments-new finding. 3. Minimal left sided pleural effusion.-new finding. 4. Bilateral non obstructive renal calculi as described. 5. Cortical scarring is noted involving interpolar posterior cortex of right kidney.-stable. Electronically signed by Jose Armando Ayala 04-13-2025 03:25 AM Chest CTA 04/13/25 01:13 EXAM: CT angio chest PE protocol CLINICAL HISTORY: Pulmonary embolism. TECHNIQUE: Contiguous 3.[address] angiographic images of the chest were acquired with the administration of intravenous contrast. Coronal and sagittal reconstructions were obtained. One of these 3D techniques was utilized: Maximum Intensity Pixel (MIP), 3D Reconstructed Images, Volume Rendered Images, Surface Shaded Rendering. One of the following dose reduction techniques were utilized for this exam: Automated exposure control, adjustment of the mA and or kV according to patient size, and use of iterative reconstruction. 118 ml optiray 320 was given as an IV contrast. COMPARISON: CR same date reviewed, CT thoracic spine dated 03/14/2025 reviewed FINDINGS: Pulmonary Arteries: No evidence of pulmonary embolism in the visualised arterial tree. Aorta: The thoracic aorta shows atherosclerotic changes. Mediastinum: Subcentimetric mediastinal nodes noted. Heart: Normal size and morphology of the heart. No pericardial effusion. Lungs: There are bilateral subpleural subsegmental atelectasis with linear heaptization of the lung parenchyma in both posterior segments of the lower lobes. There are bilateral peribronchovascular reticular densities in both lower lobes with associated bronchial wall thickenings and linear fibrotic bands, which are suspicious for acute inflammatory/infectious etiology. Thin streak of left-sided pleural effusion. Centrilobular emphysematous changes in bilateral lung krishnamurthy, predominantly in the upper lobes. Bones: Severe degenerative changes in the thoracic spine. Compression fracture of T12 vertebral body again noted with interval reduction of height, up to 70%-80% reduction of height with flattening seen at present study in comparison to 10%-15% on prior CT study. Mild pre and paravertebral soft tissue thickening with fat stranding in this region. Soft Tissues: Normal appearance of the visualized soft tissues. No abnormal masses or fluid collections. Upper Abdomen: Please refer to the dedicated CT abdomen report. IMPRESSION: 1. Subpleural subsegmental atelectasis with hepatization of both posterior segments of the lower lobes, which are likely chronic post-infectious changes. New interval findings when compared to visualized lungs on prior CT thoracic spine study. Recommended clinical correlation 2. Bilateral peribronchovascular reticular densities in both lower lobes with associated bronchial wall thickenings and linear fibrotic bands, which are suspicious for acute inflammatory/infectious etiology. New interval findings when compared to visualized lungs on prior CT thoracic spine study. Recommended clinical correlation 3. Thin streak of left-sided pleural effusion. Interval new. 4. Centrilobular emphysematous changes in bilateral lung krishnamurthy, predominantly in the upper lobes. 5. Compression fracture of T12 vertebral body again noted with interval reduction of height, up to 70%-80% reduction of height with flattening seen at present study in comparison to 10%-15% on prior CT study. Mild pre- and paravertebral soft tissue thickening with fat stranding in this region. 6. The findings concur with CR. Electronically signed by Aaron Kwan 04-13-2025 04:08 AM Chest X-Ray 04/13/25 01:13 EXAM: XR chest 1V portable CLINICAL HISTORY: Dyspnea. TECHNIQUE: An X-ray image of the chest is obtained in AP projection. COMPARISON: Radiograph dated 03/14/2025. FINDINGS: Pulmonary Parenchyma: Small patchy airspace opacity in the right lower zone may represent infective/inflammatory infiltrate. No evidence of consolidation or collapse. Right basal atelectatic changes. Minimally blunted costophrenic angles may represent small pleural effusions/thickening. Heart and Mediastinum: The heart size appears mildly enlarged. No mediastinal widening or masses. No hilar or mediastinal lymphadenopathy. Bony Thorax: Bony thorax appears intact without fractures or deformities. Soft Tissues: Soft tissues overlying the chest wall are unremarkable. Multiple overlying chest leads are seen. Tiny calcific densities are seen projected over the axillary regions, unchanged. Metallic surgical clips in the right neck region. IMPRESSION: 1. Small patchy airspace opacity in the right lower zone may represent infective/inflammatory infiltrate. (new). 2. Minimally blunted costophrenic angles may represent small pleural effusions/thickening(new). 3. Clinical/lab correlation and follow-up are suggested. Electronically signed by Aaron Kwan 04-13-2025 02:59 AM Code Status & VTE Plan Code Status DNR/DNI VTE Prophylaxis Plan VTE Prophylaxis will be ordered: Yes PG Care Time/CCT Total # of Minutes Spent Total Time Spent with Patient: Total time spent is greater than 50% in coordination of care (as documented) at patient's floor/unit and/or counseling patient: Coding Level of Care Code 22222 INT INP/OBS CARE 3/75MIN Diagnoses Acute on chronic respiratory failure with hypoxia J96.21 Wedge compression fracture of T12 vertebra S22.080A Encounter type: subsequent encounter Fracture type: closed Hypertension I10 Hypertension type: essential hypertension Chronic obstructive pulmonary disease J44.9 Chronic alcohol abuse F10.10 Bilateral pneumonia J18.9 (2) Wedge compression fracture of T12 vertebra Encounter type: subsequent encounter Fracture type: closed (3) Hypertension Hypertension type: essential hypertension Qualified Code(s): I10 - Essential (primary) hypertension
[2025-04-13] MEDS: PIPERACILLIN/TAZOBACTAM 4.5 GM/100 ML BAG IV STA (05:26)
[2025-04-13] MEDS: VANCOMYCIN HCL 1,250 MG in SODIUM CHLORIDE 0.9% 250 ML IV STA (06:14)
[2025-04-13] MEDS ORDERED: ACETAMINOPHEN 325 MG TAB PO PRN (06:41)
[2025-04-13] MEDS ORDERED: [UNRECOGNIZED DRUG - OTHER] TOP PRN (06:41)
[2025-04-13] MEDS ORDERED: ONDANSETRON INJ 2 MG/ML 2 ML VIAL IV PRN (06:41)
[2025-04-13] MEDS ORDERED: ALBUTEROL HFA 8 GM INHALER INH PRN (06:41)
[2025-04-13] MEDS ORDERED: LIDOCAINE 5% 1 PATCH TD PRN (06:41)
[2025-04-13] MEDS ORDERED: LIDOCAINE 4% TOP PRN (06:41)
--- NOTE | 2025-04-13 08:51 | Hospitalist Progress Note ---
"Date of Service April 13, 2025 Assessment & Plan (1) Acute on chronic respiratory failure with hypoxia: (2) Wedge compression fracture of T12 vertebra: (3) Hypertension: (4) Chronic obstructive pulmonary disease: (5) Chronic alcohol abuse: (6) Bilateral pneumonia: Plan The patient is a 74-year-old female with a past medical history including lumbar laminectomy for spinal cord decompression, generalized weakness, T12 vertebral compression fracture, hepatic steatosis, hyperlipidemia, hypertension, cerebrovascular disease, COPD, peripheral arterial disease, and most recent hospitalization from 02/02-02/19/2025 for confusion, hyponatremia, and alcohol abuse. The patient presented to the emergency department today due to acute onset of shortness of breath, feeling hot, progression of significant wheezing, and dyspnea on exertion that began at 3 PM in the afternoon. Upon arrival to the emergency department she was found to be significantly hypoxic, with pulse ox 87% on room air. She was placed on oxy mask and titrated up to 7 L, to obtain a pulse ox of 94%. Chest x-ray showed a right middle and right lower lobe pneumonia. CT angiography chest was negative for PE, but did show bibasilar infiltrates, left greater than right. [facility] #Acute on chronic respiratory failure with hypoxia | bilateral pneumonia, hospital associated | wheezing | mucuos plugging Continue oxygen mask with 7 L for now, and titrate downward if symptoms improve Continue Symbicort, albuterol sulfate HFA MRSA swab negative; vancomycin discontinued on 04/13 Continue Zosyn 4.5 g IV q8h Guaifenesin extended release 600 mg p.o. every 12 hours Hypertonic 7% nebulizers BID Reportedly hypoxic down to 79% on up ambulating in the room Activity: bedrest + bedside commode overnight Continuous pulse oximetry + titatrate supplemental O2 PRN CPAP PRN Signed out to overnight team A.mDarien VBG #Acute COPD exacerbation Solu-Medrol 40 mg IV QAM Initiate azithromycin 250 mg p.o. daily for atypical coverage Levalbuterol scheduled IS, flutter #T12 compression [address] notes progressive flattening to 70 to 80%- Patient feels that she can continue to follow-up with pain management Current pain regimen: Acetaminophen 650 mg by mouth every 6 hours as needed for mild pain or fever Dose reduce oxycodone from 10 mg p.o. TID -> 5mg TID in the setting of hypoxia #Vascular dementia/alcoholic encephalopathy/hypertension Appears to be stable from recent admission Continue aspirin 81 mg every morning, clopidogrel 75 mg every morning, nifedipine 60 mg p.o. daily, thiamine 100 mg p.o. twice daily and folic acid 1 mg p.o. daily Hold lisinopril #Hyponatremia Na 128 Suspect hyponatremia in the setting of acute illness Trend BMP #Anemia Chronic; Hgb 8.0 No signs of active bleeding Trend CBC #Mood disorder Continue bupropion, gabapentin, hydroxyzine, mirtazapine Continue quetiapine HS #GERD Continue pantoprazole Disposition: Continued stay on PCU telemetry Admission and Anticipated Discharge Date Admission Date: April 13, 2025 Supervising Physician Co-Signing Physician Notes The patient was not seen by me. The chart was reviewed. Case discussed with FRANDY Stanford. Agree with assessment and plan Subjective Patient reports she is doing better today when compared to yesterday. She reports that she developed new onset of HERNADEZ this afternoon, which is largely resolved today. She denies any episodes of SOB at rest. Ongoing dry cough. No sick contacts. No submental oxygen at baseline. No CPAP night. No history of DVT/PE. She has been told that she has a history of COPD, and she is a former tobacco cigarette smoker, but quit recently. ROS: Patient endorses dizziness/lightheadedness on feet, HERNADEZ, dry cough, back pain, and pleuritic CP (based on position). Patient denies fever, chills, night-sweats, chest pain, chest palpitations, SOB at rest, abdominal pain, N/V/D, burning with urination, or blood in the urine/stool. Review of Systems Review of Systems: See HPI above Physical Exam Physical Exam: General: Mild respiratory distress; pleasant affect; non-toxic appearing; frail- appearing; cooperative; SpO2 97% on 6L NC HEENT: normocephalic, atraumatic; no scleral icterus; PERRLA w/ EOMs intact; vision and hearing grossly intact Neck: supple; no lymphadenopathy; trachea midline Skin: warm, dry without signs of tenting; no cyanosis; no rashes, bruising, lesions, or erythema noted CV: chest wall NTP; RRR; S1/S2 normal; no murmurs/rubs/gallops; pulses intact and symmetric at radial, DP, and PT Lungs: Mild respiratory distress; labored breathing with movement; symmetrical chest wall expansion; mild expiratory wheeze in the lower lung krishnamurthy bilaterally ABD: Soft, NTP; BS present; no rebound/guarding; no distention MSK: no tics or fasciculations; no edema noted in the LEs b/l, nonerythematous Neuro: A&Ox3; normal mood and affect; fluent speech; no focal deficits; sensation grossly intact in the LEs b/l Results & Data Results & Data Vital Signs (Past 12 Hours) Vital Signs Temp Pulse Pulse Resp BP BP Pulse Ox 04/13/25 08:42 04/13/25 08:10 103 H 22 145/103 H 97 04/13/25 08:10 103 H 22 143/103 H 97 04/13/25 08:10 04/13/25 07:28 103 H 04/13/25 06:00 107 H 18 120/82 96 04/13/25 05:00 105 H 18 143/85 H 98 04/13/25 04:36 105 H 04/13/25 03:58 108 H 18 124/90 94 04/13/25 03:00 101 H 16 103/70 97 04/13/25 02:42 93 04/13/25 02:39 98 H 20 98/76 L 95 04/13/25 01:13 90 20 92 04/13/25 01:01 90 18 106/64 95 04/13/25 00:37 92 04/13/25 00:36 90 04/13/25 00:36 87 L 04/13/25 00:17 36.4 C L 88 20 126/71 93 04/13/25 00:17 93 04/13/25 00:17 36.4 C L 88 20 126/71 93 04/13/25 00:17 Pulse Ox O2 Del Method O2 Del Method O2 Flow Rate O2 Flow Rate 04/13/25 08:42 97 Nasal Cannula 6 04/13/25 08:10 Nasal Cannula 6 04/13/25 08:10 Nasal Cannula 6 04/13/25 08:10 Nasal Cannula 6 04/13/25 07:28 04/13/25 06:00 Oxymask 7 04/13/25 05:00 Oxymask 7 04/13/25 04:36 04/13/25 03:58 Oxymask 7 04/13/25 03:00 Oxymask 7 04/13/25 02:42 Oxymask 6 04/13/25 02:39 Oxymask 8 04/13/25 01:13 Oxymask 8 04/13/25 01:01 Oxymask 8 04/13/25 00:37 Nasal Cannula 4 04/13/25 00:36 04/13/25 00:36 Nasal Cannula 2 04/13/25 00:17 Nasal Cannula 2 04/13/25 00:17 Nasal Cannula 2 04/13/25 00:17 2 04/13/25 00:17 Room Air 2 PG Care Time/CCT Total # of Minutes Spent Total Time Spent with Patient: Total time spent is greater than 50% in coordination of care (as documented) at patient's floor/unit and/or counseling patient: Coding [place] [address] SUB INP/OBS CARE 3/50MIN Patient Type Established Medical Decision Making High Complexity Diagnoses Acute on chronic respiratory failure with hypoxia J96.21 Wedge compression fracture of T12 vertebra S22.080A Encounter type: subsequent encounter Fracture type: closed Hypertension I10 Hypertension type: essential hypertension Chronic obstructive pulmonary disease J44.9 Chronic alcohol abuse F10.10 Bilateral pneumonia J18.9 (2) Wedge compression fracture of T12 vertebra Encounter type: subsequent encounter Fracture type: closed (3) Hypertension Hypertension type: essential hypertension Qualified Code(s): I10 - Essential (primary) hypertension"
[2025-04-13] MEDS: FLUTICASONE/VILANTEROL 100/25MCG 14 PUFFS/INHALER INH SCH (09:26)
[2025-04-13] MEDS: ASPIRIN 81 MG ECTAB PO SCH (09:30)
[2025-04-13] MEDS: FOLIC ACID 1 MG TAB PO SCH (09:30)
[2025-04-13] MEDS: CLOPIDOGREL BISULFATE 75 MG TAB PO SCH (09:30)
[2025-04-13] MEDS: GABAPENTIN 400 MG CAP PO SCH (09:30)
[2025-04-13] MEDS: guaiFENesin 600 MG TABCR PO SCH (09:30)
[2025-04-13] MEDS: NIFEdipine EXTENDED REL 30 MG TABCR PO SCH (09:31)
[2025-04-13] MEDS: ROSUVASTATIN CALCIUM 10 MG TAB PO SCH (09:31)
[2025-04-13] MEDS: MIRTAZAPINE TAB 15 MG TAB PO SCH (09:31)
[2025-04-13] MEDS: THIAMINE HCL 100 MG TAB PO SCH (09:31)
[2025-04-13] MEDS: HEPARIN SOD 5,000 UNIT/0.5 ML VIAL SQ SCH (09:43)
[2025-04-13] MEDS: PIPERACILLIN/TAZOBACTAM 4.5 GM/100 ML BAG IV SCH (09:47)
--- NOTE | 2025-04-13 11:30 | Pharmacy Report ---
Pharmacy PK ABX Note - Date of Service April 13, 2025 - Assessment and Plan Assessment 74 year old F receiving Vancomycin and Zosyn for treatment of empiric pulmonary infection. * Day #1 of antimicrobial therapy. Recent admission back in February of this year for confusion. Presented with acute onset of shortness of breath. Imaging concerning for pneumonia. * Mild Leukocytosis. No fever. SCr 1.12 mg/dL which is elevated from baseline of ~0.8-0.9 mg/dL. * No cultures, procal, or lactate drawn. Is requiring 6 L of oxygen currently, not on oxygen at baseline. * MRSA nasal swab is negative. Plan Vancomycin * Loading dose: 1250 mg IV x 1 * Maintenance dose: 1000 mg IV every 24 hours * Regimen is predicted to achieve target AUC/KRANTHI of 400-600 mg/L.hr * Level will only be ordered if therapy extends beyond 48 hours. Zosyn * 4.5 g IV every 8 hours Pharmacy will continue to follow and will adjust dose/frequency as necessary. Thank you. Pharmacy has transitioned to AUC monitoring for vancomycin. AUC/KRANTHI is the preferred PK/PD target and is associated with decreased risk of nephrotoxicity compared to traditional trough targets.
[2025-04-13] MEDS ORDERED: LEVALBUTEROL 1.25 MG/3 ML NEB NEB PRN (11:45)
[2025-04-13] MEDS: AZITHROMYCIN 250 MG TAB PO ONE (12:04)
--- NOTE | 2025-04-13 12:07 | Electrocardiogram Report ---
Test Reason : Blood Pressure : */* mmHG Vent. Rate : 87 BPM Atrial Rate : 87 BPM P-R Int : 142 ms QRS Dur : 68 ms QT Int : 366 ms P-R-T Axes : 58 29 52 degrees QTcB Int : 440 ms Normal sinus rhythm Normal ECG When compared with ECG of 02-Apr-2025 13:43, No significant change was found Confirmed by Kaden Delcid ([id number]) on 04/13/2025 12:07:08 PM Referred By: REFERRED SELF Confirmed By: Kaden Delcid
[2025-04-13 13:07] LABS: Influenza A virus by PCR Negative (Neg); Influenza B virus by PCR Negative (Neg); SARS CoV2 RNA(COVID-19) Ceph NEGATIVE (Negative)
[2025-04-13] MEDS: LEVALBUTEROL 1.25 MG/3 ML NEB NEB SCH (19:20)
[2025-04-13] MEDS: IPRATROPIUM BROMIDE NEB SOLN 0.02% 0.5MG/2.5ML VIAL NEB SCH (19:20)
[2025-04-13] MEDS: SODIUM CHLOR 7% 4 ML NEB NEB SCH (20:37)
[2025-04-13] MEDS: ACETAMINOPHEN 500 MG TAB PO SCH (20:50)
[2025-04-13] MEDS: REMOVE LIDODERM PATCH SCH (20:50)
[2025-04-14 07:18] LABS: Hematocrit (blood only) 28.9 % (37.0-47.0); Hemoglobin 8.8 g/dl (12.0-16.0); Immature Granulocytes # (auto) 0.07 K/uL (0.01-0.20); Immature Granulocytes % (auto) 0.5 %; Mean Corpuscular Hemoglobin 24.0 pg (25.0-34.0); Mean Corpuscular Volume 78.7 fL (80.0-100.0); Platelet Count 343 K/uL (130-400); RDW Standard Deviation 47.7 fL (36.4-46.3); Red Blood Count 3.67 M/uL (4.20-5.40); White Blood Count 12.77 K/ul (4.8-10.8)
[2025-04-14 07:38] LABS: Anion Gap 7.0 (3-11); Blood Urea Nitrogen 13.0 mg/dl (6-23); Calcium 9.1 mg/dl (8.6-10.3); Carbon Dioxide 27.0 mmol/L (21-32); Chloride 104.0 mmol/L (98-107); Creatinine Clr Calc Pharmacy 49.0 ml/min; Glucose 104.0 mg/dl (70-99(Fasting)); Magnesium 2.2 mg/dl (1.7-2.4); Potassium 4.5 mmol/L (3.5-5.1); Sodium 138.0 mmol/L (136-145)
[2025-04-14] MEDS: AZITHROMYCIN 250 MG TAB PO SCH (07:51)
[2025-04-14 08:13] LABS: Base Excess VBG 2.0 mEq/L; HCO3 VBG 28 mmol/L; Oxygen Saturation VBG < 60.0 %; PCO2 VBG 47 mmHg (38-50); PO2 VBG 28 mmHg; pH VBG 7.38 (7.36-7.41)
[2025-04-14] MEDS: LIDOCAINE 5% 1 PATCH TD STA (09:53)
[2025-04-14] MEDS: MAGNESIUM SULFATE / D5W 1 GM/100 ML BAG IV ONE (09:53)
[2025-04-14] MEDS: CYCLOBENZAPRINE HCL 5 MG TAB PO STA (10:00)
[2025-04-14] MEDS ORDERED: SODIUM CHLOR 7% 4 ML NEB NEB PRN (10:27)
--- NOTE | 2025-04-14 12:41 | Hospitalist Progress Note ---
Date of Service April 14, 2025 Assessment & Plan (1) Acute on chronic respiratory failure with hypoxia: (2) Wedge compression fracture of T12 vertebra: (3) Chronic alcohol abuse: (4) Bilateral pneumonia: (5) Acute exacerbation of chronic obstructive pulmonary disease (COPD): (6) Intractable back pain: (7) Anemia: Plan The patient is a 74-year-old female with a past medical history including lumbar laminectomy for spinal cord decompression, generalized weakness, T12 vertebral compression fracture, hepatic steatosis, hyperlipidemia, hypertension, cerebrovascular disease, COPD, peripheral arterial disease, and most recent hospitalization from 02/02-02/19/2025 for confusion, hyponatremia, and alcohol abuse. The patient presented to the emergency department today due to acute onset of shortness of breath, feeling hot, progression of significant wheezing, and dyspnea on exertion that began at 3 PM in the afternoon. Upon arrival to the emergency department she was found to be significantly hypoxic, with pulse ox 87% on room air. She was placed on oxy mask and titrated up to 7 L, to obtain a pulse ox of 94%. Chest x-ray showed a right middle and right lower lobe pneumonia. CT angiography chest was negative for PE, but did show bibasilar infiltrates, left greater than right. [facility] #Acute on chronic respiratory failure with hypoxia | bilateral pneumonia, hospit al associated | mucous plugging (improving) Continue oxygen mask with 7 L for now, and titrate downward if symptoms improve Continue Symbicort, albuterol sulfate HFA MRSA swab negative; vancomycin discontinued on 04/13 Downgraded from Zosyn -> Unasyn 3000 mg IV q6h on 04/14 Guaifenesin extended release 600 mg p.o. every 12 hours Hypertonic 7% nebulizers BID Reportedly hypoxic down to 79% on up ambulating in the room on 04/13 Activity: bedrest + bedside commode overnight CPAP HS PRN Update on 04/14: significant improvement in breathing, patient was weaned off of supplemental oxygen; SpO2 92% on RA Continuous pulse oximetry + titrate supplemental oxygen as needed #Acute COPD exacerbation Solu-Medrol 40 mg IV QAM Initiate azithromycin 250 mg p.o. daily for atypical coverage Levalbuterol PRN IS, flutter valve #T12 compression fracture Multiple episodes of intractable lower back pain on 04/14 leading to complete debilitation CT notes progressive flattening to 70 to 80% Current pain regimen: Acetaminophen 650 mg by mouth every 6 hours as needed for mild pain or fever Oxycodone initially dose reduced from 10 mg p.o. TID -> 5mg TID in the setting of hypoxia Will increase oxycodone back to 10 mg TID PRN Initiate Calcitonin NA daily Continue tizanidine TID PRN Continue gabapentin 400 mg TID Lidocaine patch QAM Patient was seen by orthopedic spine surgery on 04/10; recommended conservative measures for now Pain management consult appreciated for potential nerve block AM vitamin D level ordered #Depression Pulled aside by patient's on 04/14, who expressed concern that today the patient said that she wanted someone to "shoot her" Spoke with patient independently; at this time, she denies any suicidal ideations, thoughts of self-harm, or thoughts of harming others She reports that if her LBP were under control and not debilitating, she would have no thoughts such as shooting herself Resources were offered at this time; patient appreciative conversation; declined resources at this time #Vascular dementia | h/o alcoholic encephalopathy | hypertension Appears to be stable from recent admission Continue aspirin 81 mg every morning, clopidogrel 75 mg every morning, nifedipine 60 mg p.o. daily, thiamine 100 mg p.o. twice daily and folic acid 1 mg p.o. daily Hold lisinopril #Anemia Chronic / stable; Hgb trend 8.0 -> 8.8 MCV < 80 A.m. iron panel, B12, and folate ordered No signs of active bleeding Trend H&H #Mood disorder Continue bupropion, gabapentin, hydroxyzine, mirtazapine Continue quetiapine HS #GERD Continue pantoprazole #Hyponatremia - resolved Disposition: Continued stay on PCU telemetry Updated patient's at bedside on 04/14. Updated patient's daughter (Chanell) over the phone on 04/14. Admission and Anticipated Discharge Date Admission Date: April 13, 2025 Supervising Physician Co-Signing Physician Notes The patient was not seen by me. The chart was reviewed. Case discussed with FRANDY Stanford. Agree with assessment and plan Subjective Patient assessed multiple points throughout the day. Alerted by nursing staff around 0900 the patient was "doubled over in pain" due to acute onset of back pain. Upon entering the room, patient does report 10 out of 10 pain. She reports it feels like a "muscle spasm" in her mid to lower central back. No radiation down the legs. No numbness or tingling in the legs or groin region. She reports that she does have a history of muscle spasms in her back, but mainly it is confined to the hips. She also does report that she has been having episodes of debilitating pain at home related to her T12 compression fracture. Patient was given Flexeril, magnesium, and a lidocaine patch, and her symptoms did improve on reassessment. On reassessment, patient reports that she slept okay last night. She is eating and drinking well this morning. Her breathing is much improved from yesterday, but she still feels that it is labored at times. She denies SOB at rest or with exertion. No cough. ROS: Patient endorses episodes of intractable back pain/spasms. Patient denies fever, chills, dizziness, headache, chest pain, SOB, pleuritic CP, cough, abdominal pain, N/V/D, saddle anesthesia, burning with urination, blood in the urine or stool, or changes in urinary or bowel habits. Alerted at 1500 the patient had another episode of severe, intractable back pain. Reassessed patient at bedside. Spoke with at bedside, who did express concerns that the patient had reported she wanted someone to "shoot her". is concerned for this, and, as he is known other people with history of back pain that have expressed suicidal ideations. Spoke independently with the patient, who reports that the comment was directed specifically at the pain, and that if she were to become pain-free, she would have not set it. She denies any thoughts of self-harm, suicide ideations, or thoughts of harming others. While resources were offered this time for depression and living with chronic pain, patient declined additional resources at this time. Physical Exam Physical Exam: General: Mild respiratory distress; pleasant affect; non-toxic appearing; frail- appearing; cooperative; SpO2 97% on 6L NC HEENT: normocephalic, atraumatic; no scleral icterus; PERRLA w/ EOMs intact; vision and hearing grossly intact Neck: supple; no lymphadenopathy; trachea midline Skin: warm, dry without signs of tenting; no cyanosis; no rashes, bruising, lesions, or erythema noted CV: chest wall NTP; RRR; S1/S2 normal; no murmurs/rubs/gallops; pulses intact and symmetric at radial, DP, and PT Lungs: Mild respiratory distress; labored breathing with movement; symmetrical chest wall expansion; mild expiratory wheeze in the lower lung krishnamurthy bilaterally ABD: Soft, NTP; BS present; no rebound/guarding; no distention MSK: no tics or fasciculations; no edema noted in the LEs b/l, nonerythematous Neuro: A&Ox3; normal mood and affect; fluent speech; no focal deficits; sensation grossly intact in the LEs b/l Results & Data Results & Data Vital Signs (Past 12 Hours) Vital Signs Temp Pulse Pulse Resp BP Pulse Ox O2 Del Method 04/14/25 12:30 36.5 C 103 H 22 132/76 94 Room Air 04/14/25 07:34 36.6 C 95 H 22 145/85 H 92 Room Air 04/14/25 02:37 36.6 C 93 H 18 103/66 94 Nasal Cannula 04/14/25 01:09 102 H 21 95 Nasal Cannula O2 Flow Rate 04/14/25 12:30 04/14/25 07:34 04/14/25 02:37 04/14/25 01:09 3 PG Care Time/CCT Total # of Minutes Spent Total Time Spent with Patient: Total time spent is greater than 50% in coordination of care (as documented) at patient's floor/unit and/or counseling patient: Coding [place] [address] SUB INP/OBS CARE 3/50MIN Patient Type Established Medical Decision Making High Complexity Diagnoses Acute on chronic respiratory failure with hypoxia J96.21 Wedge compression fracture of T12 vertebra S22.080A Encounter type: subsequent encounter Fracture type: closed Chronic alcohol abuse F10.10 Bilateral pneumonia J18.9 Acute exacerbation of chronic obstructive pulmonary disease (COPD) J44.1 Intractable back pain M54.9 Anemia, unspecified type D64.9 Anemia type: unspecified type (2) Wedge compression fracture of T12 vertebra Encounter type: subsequent encounter Fracture type: closed (7) Anemia Anemia type: unspecified type Qualified Code(s): D64.9 - Anemia, unspecified
[2025-04-14] MEDS: CALCITONIN SALMON NA 200 IU/AC 3.7 ML BTL STA (16:21)
[2025-04-14] MEDS: REMOVE LIDODERM PATCH SCH (21:11)
[2025-04-14] MEDS: AMPICILLIN/SULBACTAM SOD 3,000 MG/100 ML BAG IV SCH (21:12)
[2025-04-15 07:12] LABS: Hematocrit (blood only) 32.2 % (37.0-47.0); Hemoglobin 9.4 g/dl (12.0-16.0); Immature Granulocytes # (auto) 0.05 K/uL (0.01-0.20); Immature Granulocytes % (auto) 0.5 %; Mean Corpuscular Hemoglobin 23.4 pg (25.0-34.0); Mean Corpuscular Volume 80.1 fL (80.0-100.0); Platelet Count 385 K/uL (130-400); RDW Standard Deviation 48.3 fL (36.4-46.3); Red Blood Count 4.02 M/uL (4.20-5.40); White Blood Count 10.22 K/ul (4.8-10.8)
[2025-04-15 07:27] LABS: Anion Gap 7.0 (3-11); Blood Urea Nitrogen 14.0 mg/dl (6-23); Calcium 8.9 mg/dl (8.6-10.3); Carbon Dioxide 27.0 mmol/L (21-32); Chloride 104.0 mmol/L (98-107); Creatinine Clr Calc Pharmacy 48.4 ml/min; Glucose 104.0 mg/dl (70-99(Fasting)); Iron 26.0 mcg/dl (35-150); Magnesium 2.0 mg/dl (1.7-2.4); Potassium 3.9 mmol/L (3.5-5.1); Sodium 138.0 mmol/L (136-145); Total Iron Binding Cap Calc 399.0 mcg/dl (250-450); Transferrin 285.0 mg/dl (200-360); Transferrin (FE) Percent Satur 7.0 % (15-50)
[2025-04-15 07:47] LABS: Ferritin 18.7 ng/ml (8-388)
[2025-04-15 07:54] LABS: Folate (Folic Acid),Ser orPlas > 22.30 ng/ml (>5.38)
[2025-04-15 07:55] LABS: Vitamin B12 310 pg/ml (180-914)
--- NOTE | 2025-04-15 08:43 | Pain Management Consultation ---
Date of Consultation April 15, 2025 Assessment & Plan (1) Intractable back pain: (2) Bilateral pneumonia: (3) Acute on chronic respiratory failure with hypoxia: (4) History of lumbar laminectomy for spinal cord decompression: (5) Wedge compression fracture of T12 vertebra: Encounter type: subsequent encounter Fracture healing: with delayed healing Fracture type: closed Qualified Code(s): S22.080G - Wedge compression fracture of T11-T12 vertebra, subsequent encounter for fracture with delayed healing Plan 1. Due to the patient's bilateral pneumonia she is a poor candidate for any interventional treatment options at this time. Once infection is cleared patient can be reevaluated to determine her potential candidacy for any interventional treatment options if she is able to successfully hold clopidogrel safely. 2. Recommend initiation of Butrans patch 10 mcg/h dosing. Butrans should have limited impact on her respiratory status and attempt to provide her with better overall pain control. Dosing choice based on her morphine milligram equivalents of her use of Oxy IR. Most recent EKG completed on 04/13/2025 revealed a QTc interval 440 ms which is appropriate and acceptable. Patient will need repeat EKG at 1 month for monitoring of QTc interval. 3. Recommend patient continue with Oxy IR 5-10 mg for as needed breakthrough pain which she appears to be tolerating without notable side effects 4. Will add MiraLAX for bowel regimen 5. Recommend discharge home with naloxone Thank you for allowing us to participate in the care of Mrs. Fatima. History of Present Illness Reason for Consultation: Intractable low back pain Requesting Physician: Destin Sunshine PA-C Attending Physician: Dameon Livingston MD History of Present Illness Mrs. Fatima is a 74 year old white female who was admitted with primary complaint of shortness of breath and was found to have bilateral pneumonia with COPD exacerbation admitted for respiratory care with IV antibiotic therapy who also has complaints of intractable chronic low back pain. She has past medical history significant for recent discovery of T12 compression fracture recommended with conservative treatment per orthospine, hepatic steatosis, hyperlipidemia, cerebrovascular disease, hypertension, COPD, PAD, generalized weakness, lumbar spine surgery (remote) and a recent hospitalization on 02/19/2025 for confusion, hyponatremia and alcohol abuse. Patient reports that her back pain has been significant over the past few months without known injury or fall. Her pain is 100% axial in the lumbosacral region without radiculopathy. She describes the pain as aching and episodically sharp not typically based on movement or activity although movement can occasionally cause sharp pain. Patient was utilizing Oxy IR initially 5 mg in the outpatient setting with minimal benefit which was subsequent transition to 10 mg with moderate benefit per her report. Patient reports that she was tolerating the medication without notable side effects. She denies bowel/bladder incontinence or saddle anesthesia. Patient is uncertain if tizanidine is providing benefit and has had prior side effects to baclofen with confusion. She denies pain at the thoracolumbar junction at site of her compression fracture. Patient reports she is most comfortable lying flat. Patient has no further constitutional complaints. Plan of care discussed with Dr. Guidry. Pain Assessment Full Body Front + Back: 2 1. Axial lumbosacral spine Pain scale - at its best (0-10): 4 Pain scale - at its worst (0-10): 9 Allergies Allergy/AdvReac Type Severity Reaction Status Date / Time hydromorphone [From Dilaudid] AdvReac Intermediate Vomiting Verified 04/01/25 09:54 baclofen AdvReac Confusion Verified 04/01/25 09:54 Home Medications Medication Instructions Recorded Confirmed Type aspirin 81 mg tablet,delayed 81 mg PO QAM 05/16/18 04/13/25 History release acetaminophen 500 mg capsule 1,000 mg PO Q8H PRN Pain 02/17/22 04/13/25 History lidocaine 4 % topical patch 1 patch topical QAM PRN Pain 02/18/24 04/13/25 History (Salonpas (lidocaine)) lidocaine 5 % topical patch 1 patch topical DAILY PRN pain #15 03/12/25 04/13/25 Rx ea albuterol sulfate 90 mcg/actuation 2 puff inhalation UD PRN as 03/18/25 04/13/25 Rx aerosol inhaler (Ventolin HFA) directed #6.7 grams budesonide-formoterol HFA 80 2 puff inhalation BID #10.2 grams 03/18/25 04/13/25 Rx mcg-4.5 mcg/actuation aerosol inhaler (Symbicort) bupropion HCl 150 mg tablet,12 hr 150 mg PO BID 90 days #180 ea 03/18/25 04/13/25 Rx sustained-release clopidogrel 75 mg tablet (Plavix) 75 mg PO QAM #30 tabs 03/18/25 04/13/25 Rx folic acid 1 mg tablet 1 mg PO DAILY #30 tabs 03/18/25 04/13/25 Rx gabapentin 400 mg capsule 400 mg PO TID #90 caps 03/18/25 04/13/25 Rx hydroxyzine HCl 25 mg tablet 25 mg PO BID PRN anxiety #60 tabs 03/18/25 04/13/25 Rx lisinopril 20 mg tablet 20 mg PO DAILY #90 tabs 03/18/25 04/13/25 Rx nifedipine 60 mg tablet,extended 60 mg PO DAILY #30 tabs 03/18/25 04/13/25 Rx release 24 hr (Procardia XL) pantoprazole 40 mg tablet,delayed 40 mg PO QAM #90 tabs 03/18/25 04/13/25 Rx release rosuvastatin 10 mg tablet 10 mg PO DAILY #30 tabs 03/18/25 04/13/25 Rx thiamine HCl (vitamin B1) 100 mg 100 mg PO BID #60 caps 03/18/25 04/13/25 Rx capsule oxycodone 10 mg tablet 10 mg PO TID PRN pain 2 weeks #42 04/01/25 04/13/25 Rx tabs quetiapine 50 mg tablet 50 mg PO DAILY 04/01/25 04/13/25 History mirtazapine 15 mg tablet 15 mg PO DAILY 04/02/25 04/13/25 History tizanidine 2 mg capsule 2 mg PO TID PRN Other 04/02/25 04/13/25 History Pain History Pain Intensity Pain scale - at its best (0-10): 4 Pain scale - at its worst (0-10): 9 Patient History Medical History Chronic alcohol abuse Leukocytosis Unwitnessed fall Altered mental status Recurrent falls Malnutrition Physical deconditioning Hyponatremia Acute occlusion of aortoiliac artery due to thromboembolism Retroperitoneal hematoma Stroke-like symptoms Myofascial pain Thoracic back pain Smoker Anxiety History of left foot drop "not anymore, resolved" Hypocalcemia pt unsure about this dx, "stated it may have been when she was in the hospital in december 2023" Peripheral arterial disease S/P SFA stent (2013) S/P right femoral artery endarterectomy/stent (2018) Taking Plavix Lung nodule s/p radiation treatments Following with [facility] radiation oncology- monitoring, "stable" History of GI bleed 12/2023, had EGD Hx of sinus tachycardia no cloth bale header, 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 Cardiac murmur "has had since she was a child, no issues with"; no cloth bale header Thoracic facet syndrome History of ankle fracture (10/13/22) Right ankle, Distal fibula avulsion fx, chronic anterior tibia avulsion fx History of anemia Sciatica ongoing Vulvar cancer Remote hx "years ago", treated surgically Cervical cancer Approximately 1979, treated surgically Degenerative disc disease, lumbar Chronic sinusitis Lumbar disc herniation sx to correct Esophageal reflux Occasional Osteoporosis Hx of cirrhosis Hx ETOH abuse/alcoholism per records (0-2 drinks/wine per day per PAT RN phone assessment 05/01/23) Depression Hepatic encephalopathy Remote hx Surgical History History of right-sided carotid endarterectomy History of left cataract extraction History of esophagogastroduodenoscopy (EGD) S/P excision of lipoma (05/09/23) Excision of Intramuscular Back Lipoma - Suraj Kincaid, DO, FACS History of dilatation and curettage History of knee surgery R knee repair (patella fracture) History of back surgery lumbar discectomy History of foot surgery Debridement of left foot ulcer (09/09/18): LMA#4.0 unique, atraumatic at [facility] H/O adenoidectomy removed w/tonsils History of surgery Radical removal of vulva, partial History of laryngoscopy With biopsy History of tooth extraction History of endarterectomy Right femoral artery endarterectomy/stent (05/31/18): Grade view 1, MAC#3, ETT 7.5 at [facility] History of surgery SFA stent (2013) per records Hx of hysterectomy + USO History of throat surgery Benign growth removal History of tonsillectomy Family History Mother , 72yo Smoker "Bad circulation" Father , in his 70s Alzheimer disease Brother No problems noted. Sister No problems noted. Sister No problems noted. Son No problems noted. Daughter No problems noted. Daughter No problems noted. Aunt Cancer Other No pertinent family history Denies family history of Ovarian cancer Prostate cancer Myocardial infarction Breast cancer Colorectal cancer Social History Smoking Status: Former smoker Tobacco Type: Cigarettes Age Started Using Tobacco: 15; Age Quit Using Tobacco: 74; packs per day: 0.5; Cigarettes Per Day: half a pack; Second Hand Exposure: Yes; Do You Dip or Chew Tobacco: No; Hx Alcohol Use: Yes Alcohol type: wine Alcohol Intake Frequency: 4 or More x per/Week Alcohol Intake Frequency Comment: 2 glasses at dinner. 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 Speech and thought process appropriate. Mood and affect appropriate. Cognition intact. Patient is thin and frail in physical appearance. Head: Normocephalic and atraumatic. ENT: No evidence of nasal or oral mucosal lesions. Mucous membranes are moist. Poor dentition is noted. Eyes: Pupils equal round reactive to light. Neck: Supple without adenopathy and full range of motion. Abdomen: Soft and nondistended. No organomegaly. Bowel sounds active. Back/spine: Complete loss of lumbar lordosis. Nontender over the midline to palpation or percussion at the thoracolumbar junction. There is no midline tenderness of the lower lumbar spine. Patient is tender in the lumbar paravertebral and to provocative testing of the lumbar facet joints at the L4-S1 level bilaterally. No focal SI joint tenderness was appreciated. Minimal paravertebral spasm appreciated. Nontender throughout the quadratus lumborum or gluteal musculature. Range of motion limited in all planes with increased axial pain. Well-healed surgical incision in the lower lumbar spine. Lower extremities: SLR negative bilaterally send increase in axial pain. Sensation is intact distally to sharp and dull. No appreciable edema. Strength testing 5/5 with dorsiflexion, plantarflexion, EHL testing and hip flexion/extension. Increased axial pain was appreciated with hip flexion and extension. Hips nontender with internal/external rotation. Neurologic: Cranial nerves grossly intact. Ambulatory function not witnessed. Results (Pain Clinic) Diagnostic Review CT Findings: [facility], [place] [phone] CT Scan Report Patient: BONIFACIO FATIMA Admit Date: 03/14/25 MR#: [id number] Address1: [address] Acct ID:[id number] Address2: Date: 1950 [facility] Zip: [place] [address] Age: 74 Location: ED Sex: F Room/Bed: Att Phy: Diagnosis: FALL, BACK PAIN, BLOOD THINNER Rosalba Phy: Brian Hyman DO Service Date: 03/14/25 Fam Phy: Interpreting Phy: Jose Armando Chung MDAdmit Phy: Ordering Phy: Sintia Rivera PA-C cc: ~ EXAM: CT lumbar spine wo con CLINICAL HISTORY: fall, pain TECHNIQUE: Multiple contiguous axial images were obtained through the lumbar spine without IV contrast. Sagittal and coronal reformatted images were obtained from the axial data. CT scan was performed according to ALARA (as low as reasonable achievable). COMPARISON: march 13:09:31 INTERIOR WIRER . FINDINGS: Evidence of compression fracture is noted along the superior endplate of T12 vertebra causes about 10% reduction of vertebral body height. Loss of lumbar lordosis - suggest possibility of muscle spasm/positional. Degenerative changes involving lumbar spine in the form of multilevel marginal osteophytes, disc space reduction, vaccum phenomenon and facetal arthrosis. Lumbar vertebral bodies are maintained in height and alignment. Minimal retrolisthesis of L2 over L3 and L3 over L4 vertebra. Grade I anterolisthesis of L5 over S1 vertebra. No vertebral estructive changes are seen. Sclerosis with irregularity are noted involving is noted involving adjoining endplates of L2-L3 and L4-L5 level- suggestive of degenerative changes. Posterior disc osteophyte complex is noted at the L2-L3 to L5-S1 level which indenting ventral thecal sac and causing bilateral lateral recess and neural foraminal narrowing at respective levels. Paravertebral soft tissues are unremarkable. IMPRESSION: 1. Evidence of compression fracture is noted along the superior endplate of T12 vertebra causes about 10% reduction of vertebral body height.-stable. 2. Lumbar spondylosis changes as described.-stable. Electronically signed by Jose Armando Chung 03-14-2025 07:41 AM Dictated: 03/14/25 0554 Transcribed: [facility] [place] [phone] CT Scan Report Patient: BONIFACIO FATIMA Admit Date: 04/13/25 MR#: [id number] Address1: [facility] [address] Acct ID:[id number] Address2: Date: 1950 [facility] [address] Age: 74 Location: [facility] Sex: F Room/Bed: [place] [address] Att Phy: Dameon Bansal MD Diagnosis: BILATERAL HAP Rosalba Phy: Brian Hyman DO Service Date: 04/13/25 Fam Phy: Interpreting Phy: Aaron Kwan MDAdmit Phy: Jaspreet Bridges MD Ordering Phy: Natalia Campos D.O. cc: ~ ADDENDUM Addendum Report EXAM: CT angio chest PE protocol ADDENDUM: The results were sent successfully via fax at [phone] at 6:01 AM [facility], 04/13/2025. Electronically signed by Aaron Kwan 04-13-2025 08:32 AM ADDENDUM END EXAM: CT angio chest PE protocol CLINICAL HISTORY: Pulmonary embolism. TECHNIQUE: Contiguous 3.[address] angiographic images of the chest were acquired with the administration of intravenous contrast. Coronal and sagittal reconstructions were obtained. One of these 3D techniques was utilized: Maximum Intensity Pixel (MIP), 3D Reconstructed Images, Volume Rendered Images, Surface Shaded Rendering. One of the following dose reduction techniques were utilized for this exam: Automated exposure control, adjustment of the mA and or kV according to patient size, and use of iterative reconstruction. 118 ml optiray 320 was given as an IV contrast. COMPARISON: CR same date reviewed, CT thoracic spine dated 03/14/2025 reviewed FINDINGS: Pulmonary Arteries: No evidence of pulmonary embolism in the visualised arterial tree. Aorta: The thoracic aorta shows atherosclerotic changes. Mediastinum: Subcentimetric mediastinal nodes noted. Heart: Normal size and morphology of the heart. No pericardial effusion. Lungs: There are bilateral subpleural subsegmental atelectasis with linear heaptization of the lung parenchyma in both posterior segments of the lower lobes. There are bilateral peribronchovascular reticular densities in both lower lobes with associated bronchial wall thickenings and linear fibrotic bands, which are suspicious for acute inflammatory/infectious etiology. Thin streak of left-sided pleural effusion. Centrilobular emphysematous changes in bilateral lung krishnamurthy, predominantly in the upper lobes. Bones: Severe degenerative changes in the thoracic spine. Compression fracture of T12 vertebral body again noted with interval reduction of height, up to 70%-80% reduction of height with flattening seen at present study in comparison to 10%-15% on prior CT study. Mild pre and paravertebral soft tissue thickening with fat stranding in this region. Soft Tissues: Normal appearance of the visualized soft tissues. No abnormal masses or fluid collections. Upper Abdomen: Please refer to the dedicated CT abdomen report. IMPRESSION: 1. Subpleural subsegmental atelectasis with hepatization of both posterior segments of the lower lobes, which are likely chronic post-infectious changes. New interval findings when compared to visualized lungs on prior CT thoracic spine study. Recommended clinical correlation 2. Bilateral peribronchovascular reticular densities in both lower lobes with associated bronchial wall thickenings and linear fibrotic bands, which are suspicious for acute inflammatory/infectious etiology. New interval findings when compared to visualized lungs on prior CT thoracic spine study. Recommended clinical correlation 3. Thin streak of left-sided pleural effusion. Interval new. 4. Centrilobular emphysematous changes in bilateral lung krishnamurthy, predominantly in the upper lobes. 5. Compression fracture of T12 vertebral body again noted with interval reduction of height, up to 70%-80% reduction of height with flattening seen at present study in comparison to 10%-15% on prior CT study. Mild pre- and paravertebral soft tissue thickening with fat stranding in this region. 6. The findings concur with CR. Electronically signed by Aaron Kwan 04-13-2025 04:08 AM Dictated: 04/13/25 0225 Transcribed:
[2025-04-15] MEDS ORDERED: POLYETHYLENE (MIRALAX) 17 GM PACK PO PRN (09:05)
[2025-04-15] MEDS: CALCITONIN SALMON NA 200 IU/AC 3.7 ML BTL SCH (09:19)
[2025-04-15] MEDS: BUPRENORPHINE 10 MCG/HR TDSY TD SCH (09:30)
--- NOTE | 2025-04-15 10:27 | Hospitalist Progress Note ---
Date of Service April 15, 2025 Assessment & Plan (1) Wedge compression fracture of T12 vertebra: (2) Intractable back pain: (3) Acute on chronic respiratory failure with hypoxia: (4) Acute exacerbation of chronic obstructive pulmonary disease (COPD): (5) Bilateral pneumonia: (6) Chronic alcohol abuse: (7) Anemia: Plan The patient is a 74-year-old female with a past medical history including lumbar laminectomy for spinal cord decompression, generalized weakness, T12 vertebral compression fracture, hepatic steatosis, hyperlipidemia, hypertension, cerebrovascular disease, COPD, peripheral arterial disease, and most recent hospitalization from 02/02-02/19/2025 for confusion, hyponatremia, and alcohol abuse. The patient presented to the emergency department today due to acute onset of shortness of breath, feeling hot, progression of significant wheezing, and dyspnea on exertion that began at 3 PM in the afternoon. Upon arrival to the emergency department she was found to be significantly hypoxic, with pulse ox 87% on room air. She was placed on oxy mask and titrated up to 7 L, to obtain a pulse ox of 94%. Chest x-ray showed a right middle and right lower lobe pneumonia. CT angiography chest was negative for PE, but did show bibasilar infiltrates, left greater than right. She was then referred for evaluation for admission to the [facility]ist service. #T12 compression fracture Multiple episodes of intractable / debilitating LBP where patient is hunched over on side of bed, unable to move CT notes progressive flattening to 70 to 80% Current pain regimen: Acetaminophen 650 mg by mouth every 6 hours as needed for mild pain or fever Oxycodone initially dose reduced from 10 mg p.o. TID -> 5mg TID in the setting of hypoxia Will increase oxycodone back to 10 mg TID PRN Initiate Calcitonin NA daily Continue tizanidine TID PRN Continue gabapentin 400 mg TID Lidocaine patch QAM Patient was seen by orthopedic spine surgery on 04/10; recommended conservative measures for now Pain management consult appreciated Will defer intervention due to acute infection Trial of Butrans patch on 04/15 MiraLAX PRN for bowel regimen Vitamin D level WNL on 04/15 #Acute on chronic respiratory failure with hypoxia | bilateral pneumonia, hospital associated | mucous plugging (improving) Continue oxygen mask with 7 L for now, and titrate downward if symptoms improve Continue Symbicort, albuterol sulfate HFA MRSA swab negative; vancomycin discontinued on 04/13 Unasyn 3000 mg IV q6h Guaifenesin extended release 600 mg p.o. every 12 hours Hypertonic 7% nebulizers BID Reportedly hypoxic down to 79% on up ambulating in the room on 04/13 Activity: bedrest + bedside commode overnight CPAP HS PRN Update on 04/14 + 04/15: significant improvement in breathing, patient was weaned off of supplemental oxygen; SpO2 92% on RA Continuous pulse oximetry + titrate supplemental oxygen as needed #Acute COPD exacerbation (improving) Solu-Medrol 40 mg IV QAM Azithromycin 250 mg p.o. daily for atypical coverage Levalbuterol PRN IS, flutter valve #Depression Pulled aside by patient's on 04/14, who expressed concern that today the patient said that she wanted someone to "shoot her" Spoke with patient independently; at this time, she denies any suicidal ideations, thoughts of self-harm, or thoughts of harming others She reports that if her LBP were under control and not debilitating, she would have no thoughts such as shooting herself Resources were offered at this time; patient appreciative conversation; declined resources at this time #Vascular dementia | h/o alcoholic encephalopathy | hypertension Appears to be stable from recent admission Continue aspirin 81 mg every morning, clopidogrel 75 mg every morning, nifedipi ne 60 mg p.o. daily, thiamine 100 mg p.o. twice daily and folic acid 1 mg p.o. daily Hold lisinopril # Iron deficiency anemia Chronic / stable; Hgb trend 8.0 -> 8.8 -> 9.4 MCV < 80 Vitamin B12 and folate levels are WNL Iron low at 26 on 04/15 No signs of active bleeding Patient denies melena Most recent colonoscopy on 08/14/2024 with [facility] d/t GEOVANNY Two 10 mm polyps in the transverse colon removed; no pathology report available (will try to obtain); patient reports colonoscopy was unremarkable Initiate iron supplements Trend H&H #Mood disorder Continue bupropion, gabapentin, hydroxyzine, mirtazapine Continue quetiapine HS #GERD Continue pantoprazole #Hyponatremia - resolved Disposition: Continued in hospital stay; downgrade to [facility] on 04/15 Updated patient's at bedside on 04/14. Updated patient's daughter (Chanell) over the phone on 04/14. Admission and Anticipated Discharge Date Admission Date: April 13, 2025 Supervising Physician Co-Signing Physician Notes Attending Attestation - Chart reviewed, care plan d/w FRANDY Sunshine. I agree w/ the james components of his documentation. Dameon Livingston MD Subjective Mrs. Yeager reports she is doing better today compared to yesterday. She was able to sleep until around 3 AM, but then woke up from her back pain. She did have an additional episode this morning where she was "bent over in pain", but her pain has improved after taking tizanidine this morning. Again, she characterizes the pain as "like a muscle spasm". No radiation down the back. It stays in her lower/central back. Patient has also happy to report that she had a bowel movement this morning. She reports no respiratory symptoms at this time. Patient reports she has had a colonoscopy in the last year, but reports it was unremarkable. ROS: Patient endorses episodes of intractable back pain. Patient denies fevers, chills, night sweats, chest pain, pleuritic CP, SOB, HERNADEZ, abdominal pain, N/V/C, saddle anesthesia, urinary incontinence, fecal incontinence, burning with urination, pain radiation down the legs, or changes in urinary bowel habits. Review of Systems Review of Systems: See HPI above Physical Exam Physical Exam: General: Mild respiratory distress; pleasant affect; sitting upright in bed watching TV; non-toxic appearing; frail-appearing; cooperative; SpO2 97% on 6L NC HEENT: normocephalic, atraumatic; no scleral icterus; PERRLA w/ EOMs intact; vision and hearing grossly intact Neck: supple; no lymphadenopathy; trachea midline Skin: warm, dry without signs of tenting; no cyanosis; no rashes, bruising, lesions, or erythema noted CV: chest wall NTP; RRR; S1/S2 normal; no murmurs/rubs/gallops; pulses intact and symmetric at radial, DP, and PT Lungs: Mild respiratory distress; labored breathing with movement; symmetrical chest wall expansion; mild expiratory wheeze in the lower lung krishnamurthy bilaterally ABD: Soft, NTP; BS present; no rebound/guarding; no distention Back: Upper spine NTP; lower spine TTP with point tenderness MSK: no tics or fasciculations; no edema noted in the LEs b/l, nonerythematous patient demonstrates ability to wiggle toes bilaterally; 5/5 strength when plantar flexing/dorsiflex bilaterally Neuro: A&Ox3; normal mood and affect; fluent speech; no focal deficits; patient reports sensation is intact and symmetric in the lower extremities bilaterally assessed via light touch Results & Data Results & Data Vital Signs (Past 12 Hours) Vital Signs Temp Pulse Pulse Pulse Resp BP Pulse Ox 04/15/25 07:45 04/15/25 07:45 36.4 C L 97 H 18 154/89 H 96 04/15/25 02:31 36.6 C 95 H 18 137/69 98 04/14/25 22:41 36.6 C 94 H 18 109/71 95 04/14/25 22:34 100 H O2 Del Method 04/15/25 07:45 Room Air 04/15/25 07:45 Room Air 04/15/25 02:31 Room Air 04/14/25 22:41 Room Air 04/14/25 22:34 PG Care Time/CCT Total # of Minutes Spent Total Time Spent with Patient: Total time spent is greater than 50% in coordination of care (as documented) at patient's floor/unit and/or counseling patient: Coding [place] [address] SUB INP/OBS CARE 3/50MIN Patient Type Established Medical Decision Making High Complexity Diagnoses Closed wedge compression fracture of T12 vertebra with delayed healing, subsequent encounter S22.080G Encounter type: subsequent encounter Fracture healing: with delayed healing Fracture type: closed Intractable back pain M54.9 Acute on chronic respiratory failure with hypoxia J96.21 Acute exacerbation of chronic obstructive pulmonary disease (COPD) J44.1 Bilateral pneumonia J18.9 Chronic alcohol abuse F10.10 Anemia, unspecified type D64.9 Anemia type: unspecified type (1) Wedge compression fracture of T12 vertebra Encounter type: subsequent encounter Fracture healing: with delayed healing Fracture type: closed Qualified Code(s): S22.080G - Wedge compression fracture of T11-T12 vertebra, subsequent encounter for fracture with delayed healing (7) Anemia Anemia type: unspecified type Qualified Code(s): D64.9 - Anemia, unspecified
[2025-04-15] MEDS: CHECK BUPRENORPHINE PATCH SCH (15:37)
[2025-04-16 08:02] LABS: Hematocrit (blood only) 28.6 % (37.0-47.0); Hemoglobin 8.2 g/dl (12.0-16.0); Immature Granulocytes # (auto) 0.05 K/uL (0.01-0.20); Immature Granulocytes % (auto) 0.6 %; Mean Corpuscular Hemoglobin 22.9 pg (25.0-34.0); Mean Corpuscular Volume 79.9 fL (80.0-100.0); Platelet Count 333 K/uL (130-400); RDW Standard Deviation 48.7 fL (36.4-46.3); Red Blood Count 3.58 M/uL (4.20-5.40); White Blood Count 8.70 K/ul (4.8-10.8)
[2025-04-16 08:27] LABS: Anion Gap 7.0 (3-11); Blood Urea Nitrogen 10.0 mg/dl (6-23); Calcium 8.7 mg/dl (8.6-10.3); Carbon Dioxide 27.0 mmol/L (21-32); Chloride 105.0 mmol/L (98-107); Creatinine Clr Calc Pharmacy 47.7 ml/min; Glucose 137.0 mg/dl (70-99(Fasting)); Magnesium 1.7 mg/dl (1.7-2.4); Potassium 3.8 mmol/L (3.5-5.1); Sodium 139.0 mmol/L (136-145)
[2025-04-16] MEDS: FERROUS SULFATE 325 MG TAB PO SCH (08:32)
[2025-04-16] MEDS: MAGNESIUM SULFATE / D5W 1 GM/100 ML BAG IV ONE (10:50)
[2025-04-16 12:18] VITALS: RESP 16; TEMP 97.3
--- NOTE | 2025-04-16 14:01 | Discharge Summary ---
Discharge Summary Date of Service April 16, 2025 Principal Dx & Hospital Course #1 = Principal Diagnosis (1) Wedge compression fracture of T12 vertebra: (2) Intractable back pain: (3) Acute on chronic respiratory failure with hypoxia: (4) Acute exacerbation of chronic obstructive pulmonary disease (COPD): (5) Bilateral pneumonia: (6) Chronic alcohol abuse: (7) Anemia: Plan The patient is a 74-year-old female with a past medical history including lumbar laminectomy for spinal cord decompression, generalized weakness, T12 vertebral compression fracture, hepatic steatosis, hyperlipidemia, hypertension, cerebrovascular disease, COPD, peripheral arterial disease, and most recent hospitalization from 02/02-02/19/2025 for confusion, hyponatremia, and alcohol abuse. The patient presented to the emergency department today due to acute onset of shortness of breath, feeling hot, progression of significant wheezing, and dyspnea on exertion that began at 3 PM in the afternoon. Upon arrival to the emergency department she was found to be significantly hypoxic, with pulse ox 87% on room air. She was placed on oxy mask and titrated up to 7 L, to obtain a pulse ox of 94%. Chest x-ray showed a right middle and right lower lobe pneumonia. CT angiography chest was negative for PE, but did show bibasilar infiltrates, left greater than right. She was then referred for evaluation for admission to the [facility]. Day of discharge 04/16: Mildly tachycardic around 99 bpm; vitals otherwise stable Mrs. Yeager reports she is doing well this morning. All respiratory complaints have resolved. She slept well last night. Eating well this morning. She did have an additional episode of intractable back pain that started around 9 AM this morning, however it is now better controlled after receiving oxycodone. Overall, the patient feels that the Butrans patch worked for her yesterday. She is eager to return home at this time if possible. ROS: Patient endorses episodes of intractable lower back pain/spasm. Patient denies fever, chills, night sweats, dizziness/lightheadedness when getting up and ambulating, headaches, chest pain, chest palpitations, SOB, cough, abdominal pain, N/V/D, saddle anesthesia, or changes in urinary or bowel habits. #T12 compression fracture Multiple episodes of intractable / debilitating LBP where patient is hunched over on side of bed, unable to move CT notes progressive flattening to 70 to 80% Current pain regimen: Acetaminophen 650 mg by mouth every 6 hours as needed for mild pain or fever Oxycodone initially dose reduced from 10 mg p.o. TID -> 5mg TID in the setting of hypoxia Increased oxycodone back to 10 mg TID PRN Initiate Calcitonin NA daily Continue tizanidine TID PRN Continue gabapentin 400 mg TID Lidocaine patch QAM Patient was seen by orthopedic spine surgery on 04/10; recommended conservative measures for now Pain management consult appreciated Will defer intervention due to acute infection Trial of Butrans patch on 04/15 was successful Our case management team touch base with patient's PCP (Dr. Hyman) regarding continuing buprenorphine patch going forward Will plan to send patient home on buprenorphine patch + naloxone PRN (per pain management recommendation) CM to work on setting up pain management appointment outpatient MiraLAX PRN for bowel regimen Vitamin D level WNL on 04/15 #Acute on chronic respiratory failure with hypoxia | bilateral pneumonia, hospital associated | mucous plugging Continue oxygen mask with 7 L for now, and titrate downward if symptoms improve Continue Symbicort, albuterol sulfate HFA MRSA swab negative; vancomycin discontinued on 04/13 Unasyn 3000 mg IV q6h Guaifenesin extended release 600 mg p.o. every 12 hours Hypertonic 7% nebulizers BID Reportedly hypoxic down to 79% on up ambulating in the room on 04/13 Activity: bedrest + bedside commode overnight CPAP HS PRN Update 04/14 - 04/16: significant improvement in breathing, patient was fully weaned off of supplemental oxygen; SpO2 97% on RA at time of discharge #Acute COPD exacerbation (resolved) Solu-Medrol 40 mg IV QAM Azithromycin 250 mg p.o. daily for atypical coverage Levalbuterol PRN IS, flutter valve #?Depression Pulled aside by patient's on 04/14, who expressed concern that today the patient said that she wanted someone to "shoot her" Spoke with patient independently; at this time, she denies any suicidal ideations, thoughts of self-harm, or thoughts of harming others She reports that if her LBP were under control and not debilitating, she would have no thoughts such as shooting herself Resources were offered at this time; patient appreciative conversation; declined resources at this time # Iron deficiency anemia Chronic / stable; Hgb trend 8.0 -> 8.8 -> 9.4 -> 8.2 MCV < 80 Vitamin B12 and folate levels are WNL Iron low at 26 on 04/15 No signs of active bleeding Patient denies melena Most recent colonoscopy on 08/14/2024 with [facility] d/t GEOVANNY Two 10 mm polyps in the transverse colon removed Per pathology report 08/20/2024: Growing serrated adenomatous polyps; benign, but recommended follow-up within next 3 years Initiate iron supplements Ferrous sulfate 325 mg p.o. q48h prescribed at time of discharge Follow-up CBC outpatient #Vascular dementia | h/o alcoholic encephalopathy | hypertension Appears to be stable from recent admission Continue aspirin 81 mg every morning, clopidogrel 75 mg every morning, nifed ipine 60 mg p.o. daily, thiamine 100 mg p.o. twice daily and folic acid 1 mg p.o. daily Resume lisinopril at time of discharge #Mood disorder Continue bupropion, gabapentin, hydroxyzine, mirtazapine Continue quetiapine HS #GERD Continue pantoprazole #Hyponatremia - resolved Disposition: Discharge home with [facility] for PT/OT Updated patient's (Bill) at bedside on 04/14. Updated patient's daughter (Chanell) over the phone on 04/14. Called patient's on the phone on 04/16 and provided updates regarding discharge planning. Notes For Next Care Provider Mrs. Yeager was hospitalized from 04/12 - 04/16 for acute hypoxic respiratory failure secondary to pneumonia + an acute COPD exacerbation. While she required supplemental oxygen on arrival, she was quickly weaned off, and reports no respiratory symptoms at time of discharge. She had a prolonged stay at the hospital due to episodes of intractable lower back pain that left debilitated "hunched over" in her bed writhing in pain. Pain management was consulted, and given she had an acute infection (pneumonia), a nerve block was deferred. Instead we trialed a Butrans patch, which patient reported significant relief while wearing. Will plan to send patient home on Butrans patch + naloxone. Additionally, patient has chronically low, but stable hemoglobin at 8.2 at time of discharge. Iron mildly low at 26 during hospitalization. Patient was started on ferrous sulfate tabs q48h. Continued on discharge. Please plan to have a repeat CBC drawn prior to transitional care appointment. Admission HPI Per Admitting Provider The patient is a 74-year-old female with a past medical history including lumbar laminectomy for spinal cord decompression, generalized weakness, T12 vertebral compression fracture, hepatic steatosis, hyperlipidemia, hypertension, cerebrovascular disease, COPD, peripheral arterial disease, and most recent hospitalization from 02/02-02/19/2025 for confusion, hyponatremia, and alcohol abuse. The patient presented to the emergency department today due to acute onset of shortness of breath, feeling hot, progression of significant wheezing, and dyspnea on exertion that began at 3 PM in the afternoon. Upon arrival to the emergency department she was found to be significantly hypoxic, with pulse ox 87% on room air. She was placed on oxy mask and titrated up to 7 L, to o btain a pulse ox of 94%. Chest x-ray showed a right middle and right lower lobe pneumonia. CT angiography chest was negative for PE, but did show bibasilar infiltrates, left greater than right. She was then referred for evaluation for admission to the [facility]. Admission Exam Per Admitting Provider The patient is awake, alert and oriented 3, well developed and well nourished, normocephalic and atraumatic, lying in bed and in no acute distress. HEENT--PERRL, EOMI, mucous membranes and oropharynx normal Neck--supple. No JVD. No bruits. Thyroid normal, trachea midline, no adenopathy. Heart--normal S1 and S2. No murmurs, rubs or gallops. Lungs--coarse breath sounds at the bases bilaterally with scattered wheezes. No respiratory distress, no accessory muscle use. Abdomen--normal bowel sounds and soft. Nontender. Nondistended Extremities--No edema. Dermatologic--normal skin turgor, normal color, no abnormal lymph nodes, no rash. Neurologic--cranial nerves II through XII grossly intact. Rheumatologic--normal range of motion. Psychiatric--normal affect. Discharge Exam General: No acute distress; pleasant affect; sitting upright in bed watching TV; non-toxic appearing; frail-appearing; cooperative; SpO2 97% on RA HEENT: normocephalic, atraumatic; no scleral icterus; PERRLA w/ EOMs intact; vision and hearing intact Neck: supple; no lymphadenopathy; trachea midline Skin: warm, dry without signs of tenting; no cyanosis; no rashes, bruising, lesions, or erythema noted CV: chest wall NTP; RRR; S1/S2 normal; pulses intact and symmetric at radial, DP, and PT Lungs: no acute respiratory distress; symmetrical chest wall expansion; clear breath sounds across all lung krishnamurthy w/o adventitious sounds; no wheezing ABD: Soft, NTP; BS present; no rebound/guarding; no distention Back: Upper spine NTP; lower spine TTP with point tenderness MSK: no tics or fasciculations; no edema noted in the LEs b/l, nonerythematous patient demonstrates ability to wiggle toes bilaterally; 5/5 strength when plantar flexing/dorsiflex bilaterally Neuro: A&Ox3; normal mood and affect; fluent speech; no focal deficits; patient reports sensation is intact and symmetric in the lower extremities bilaterally assessed via light touch Discharge Plan Discharge Items Patient Disposition: Home - Home Health Services Reason For Visit: BILATERAL HAP Discharge Diagnosis: Pneumonia, COPD exacerbation, back pain Condition on Discharge: Fair Activity: As commented below Activity Comment: Gradually resume previous activity as tolerated Non-emergency contact: Primary Care Provider Call non-emergency contact if: you have any medication questions, your symptoms worsen, your pain is not controlled, your pain is worsening and you have a fever Follow-up/Referrals: Brian Hyman DO [Primary Care Provider] - Diet: Heart Healthy Addtl Attending Provider Instructions: You were hospitalized at [facility] from 04/12 - 04/16 for difficulty breathing. Imaging of your chest on arrival did not show any blood clots in the lungs, but did show consolidation suggestive of pneumonia. Additionally, you were wheezing on arrival, and there appeared to be inflammation in your lungs on imaging (which suggest you might of been in an acute COPD exacerbation). You were treated with the following medications: Solu-Medrol (steroids), Unasyn (antibiotic), azithromycin (antibiotic), guaifenesin (anti-cough medication), and an albuterol nebulizer. You completed your full course of azithromycin while in the hospital (with last dose being given just the evening prior to discharge). While you required supplemental oxygen on arrival, you were quickly weaned off of supplemental oxygen, and reported no additional respiratory complaints over the course of your hospital stay. Your hospital stay was then prolonged by episodes of intractable back pain and muscle spasms. It is suspected that this pain is due to your T12 compression fracture. Our pain management team was consulted, and they recommended a buprenorphine (or "Butrans") patch. While a nerve block was also considered, this could not be performed due to your acute pneumonia/infection, as well as very low hemoglobin level. Your hemoglobin level is chronically low, but is stable at time of discharge. Please plan to follow-up with your PCP in the next 1 to 2 weeks for a transitional care appointment. Our case worker are also working to set up a follow-up appointment with the pain management team. Prior to your PCP appointment, it is recommended that you have blood work drawn to ensure stability of your hemoglobin levels (this test is called an H&H). New prescriptions on discharge: - Ferrous sulfate (iron tablets) 325 mg to be taken every other day - Augmentinclavulanate 875-125 mg twice daily x 2 days to complete full antibiotic course for pneumonia - Butrans patch 10 mcg/hr apply to the back once every 7 days - Naloxone 4mg/actuation Nasal spray to be used in the setting of respiratory depression or opioid overdose When using, apply 1 spray to 1 nostril Can repeat every 2 to 3 minutes until clinical effect is seen If you develop any new or worsening symptoms, such as difficulty breathing at rest, chest pain with deep breaths, intractable back pain, fevers, chills, urinary/bowel incontinence, or numbness or tingling in the groin or legs, please return to the emergency department immediately. It was a pleasure taking care of you. Please reach out with any questions or concerns. Sincerely, The Hospital medicine team at [facility] Pending Studies at Discharge: No Stand-Alone Forms: My [facility], Smoking Cessation Medications and DC Order Prescriptions: New ferrous sulfate 325 mg (65 mg iron) Tablet,Delayed Release (Dr/Ec) 325 mg PO Q48H Qty: 14 0RF Rx Instructions: Take 1 tablet by mouth every other day buprenorphine [Butrans] 10 mcg/hour Patch Weekly 1 patch transdermal Q7D Qty: 4 0RF Rx Instructions: 10 mcg/hour patch applied to back once every 7 days (DME) Check Buprenorphine Patch [Butrans Patch Check] See Rx Instructions .Route .MEDSUPPLY Qty: 1 1RF Rx Instructions: As directed naloxone [Narcan] 4 mg/actuation spray,non-aerosol 1 spray intranasal ONCE PRN (Reason: opioid overdose) Qty: 2 0RF Rx Instructions: 1 spray into 1 nostril; use in the setting of opioid overdose If needed, may repeat every 2 to 3 minutes until clinical effect is seen amoxicillin-pot clavulanate 875-125 mg tablet 1 tab PO BID Qty: 4 0RF Rx Instructions: Take 1 tablet by mouth twice daily x 2 days to complete antibiotic course Continued acetaminophen 500 mg capsule 1,000 mg PO Q8H PRN (Reason: Pain) albuterol sulfate [Ventolin HFA] 90 mcg/actuation HFA aerosol inhaler 2 puff INHALATION UD PRN (Reason: as directed) Qty: 6.7 5RF budesonide-formoterol [Symbicort] 80-4.5 mcg/actuation HFA aerosol inhaler 2 puff inhalation BID Qty: 10.2 0RF bupropion HCl 150 mg tablet sustained-release 12 hr 150 mg PO BID 90 Days Qty: 180 3RF clopidogrel [Plavix] 75 mg tablet 75 mg PO QAM Qty: 30 5RF Hold Instructions: Resume on 02/21/24. folic acid 1 mg tablet 1 mg PO DAILY Qty: 30 2RF gabapentin 400 mg capsule 400 mg PO TID Qty: 90 5RF hydroxyzine HCl 25 mg tablet 25 mg PO BID PRN (Reason: anxiety) Qty: 60 1RF lisinopril 20 mg tablet 20 mg PO DAILY Qty: 90 1RF nifedipine [Procardia XL] 60 mg tablet extended release 24hr 60 mg PO DAILY Qty: 30 2RF rosuvastatin 10 mg tablet 10 mg PO DAILY Qty: 30 2RF thiamine HCl (vitamin B1) 100 mg capsule 100 mg PO BID Qty: 60 3RF pantoprazole 40 mg tablet,delayed release (DR/EC) 40 mg PO QAM Qty: 90 1RF quetiapine 50 mg tablet 50 mg PO DAILY oxycodone 10 mg tablet 10 mg PO TID PRN (Reason: pain) 14 Days Qty: 42 0RF aspirin 81 mg Tablet,Delayed Release (Dr/Ec) 81 mg PO QAM Hold Instructions: Resume on 02/28/24. lidocaine 5 % adhesive patch,medicated 1 patch TOP DAILY PRN (Reason: pain) Qty: 15 0RF Rx Instructions: leave on most painful area for 12 hrs lidocaine [Salonpas (lidocaine)] 4 % Adhesive Patch,Medicated 1 patch TOPICAL QAM PRN (Reason: Pain) mirtazapine 15 mg tablet 15 mg PO DAILY tizanidine 2 mg capsule 2 mg PO TID PRN (Reason: Other) Discharge Orders: Discharge Order (Routine); Ordered 04/16/25 Ordered By: Destin Garnett/Other Patient Handouts: Compression Fx Admission Data Admit Date/Time: 04/13/25 04:38 Attending Provider: Dameon Livingston Admit Provider: Jaspreet Bridges Primary Care Provider: Brian Hyman Other Providers: Jaspreet Bridges; Rony Martinez [facility]; [facility] Stay Data Consultations 04/13/25 04:19 ED Decision to Admit Stat 04/14/25 16:06 Consult Pain Management Routine Diagnostic Imagining Performed 04/13/25 01:13 CT Abd and Pelvis [CT abd pelvis IV con only] Stat CT angio chest PE protocol Stat Pending Results Patient Have Any Pending Studies at Discharge: No Discharge Instructions Given to Patient (Per Discharging Provider) You were hospitalized at [facility] from 04/12 - 04/16 for difficulty breathing. Imaging of your chest on arrival did not show any blood clots in the lungs, but did show consolidation suggestive of pneumonia. Additionally, you were wheezing on arrival, and there appeared to be inflammation in your lungs on imaging (which suggest you might of been in an acute COPD exacerbation). You were treated with the following medications: Solu-Medrol (steroids), Unasyn (antibiotic), azithromycin (antibiotic), guaifenesin (anti-cough medication), and an albuterol nebulizer. You completed your full course of azithromycin while in the hospital (with last dose being given just the evening prior to discharge). While you required supplemental oxygen on arrival, you were quickly weaned off of supplemental oxygen, and reported no additional respiratory complaints over the course of your hospital stay. Your hospital stay was then prolonged by episodes of intractable back pain and muscle spasms. It is suspected that this pain is due to your T12 compression fracture. Our pain management team was consulted, and they recommended a buprenorphine (or "Butrans") patch. While a nerve block was also considered, this could not be performed due to your acute pneumonia/infection, as well as very low hemoglobin level. Your hemoglobin level is chronically low, but is stable at time of discharge. Please plan to follow-up with your PCP in the next 1 to 2 weeks for a transitional care appointment. Our case worker are also working to set up a follow-up appointment with the pain management team. Prior to your PCP appointment, it is recommended that you have blood work drawn to ensure stability of your hemoglobin levels (this test is called an H&H). New prescriptions on discharge: - Ferrous sulfate (iron tablets) 325 mg to be taken every other day - Augmentinclavulanate 875-125 mg twice daily x 2 days to complete full antibiotic course for pneumonia - Butrans patch 10 mcg/hr apply to the back once every 7 days - Naloxone 4mg/actuation Nasal spray to be used in the setting of respiratory depression or opioid overdose When using, apply 1 spray to 1 nostril Can repeat every 2 to 3 minutes until clinical effect is seen If you develop any new or worsening symptoms, such as difficulty breathing at rest, chest pain with deep breaths, intractable back pain, fevers, chills, urinary/bowel incontinence, or numbness or tingling in the groin or legs, please return to the emergency department immediately. It was a pleasure taking care of you. Please reach out with any questions or concerns. Sincerely, The Hospital medicine team at [facility] Total Time Total Time Spent Total Time Spent (In Minutes): 45 Coding Level of Care Code 31613 INP/OBS DISCH >30 MIN Diagnoses Closed wedge compression fracture of T12 vertebra with delayed healing, subsequent encounter S22.080G Encounter type: subsequent encounter Fracture healing: with delayed healing Fracture type: closed Intractable back pain M54.9 Acute on chronic respiratory failure with hypoxia J96.21 Acute exacerbation of chronic obstructive pulmonary disease (COPD) J44.1 Bilateral pneumonia J18.9 Chronic alcohol abuse F10.10 Anemia, unspecified type D64.9 Anemia type: unspecified type
[2025-04-16] MEDS: AZITHROMYCIN 250 MG TAB PO ONE (15:25)
[2025-04-16 16:14] VITALS: BP 142/76; PULSE 95; O2SAT 98
== END 2025-04-16 16:44 | disposition home health service (06) | DRG 193 ==
LOC: ED 00:11 → EDINP 04:38 → SUATTDRO 04:38 → 2S 06:42
DX: I67.9 Cerebrovascular disease, unspecified; I10 Essential (primary) hypertension; F10.10 Alcohol abuse, uncomplicated; Z79.82 Long term (current) use of aspirin; J44.0 Chronic obstructive pulmonary disease with (acute) lower respiratory infection; J44.1 Chronic obstructive pulmonary disease with (acute) exacerbation; X58.XXXD Exposure to other specified factors, subsequent encounter; G31.2 Degeneration of nervous system due to alcohol; Z87.891 Personal history of nicotine dependence; Z79.51 Long term (current) use of inhaled steroids; Z88.5 Allergy status to narcotic agent; Z66 Do not resuscitate; Z79.899 Other long term (current) drug therapy; E87.1 Hypo-osmolality and hyponatremia; Y95 Nosocomial condition; D50.9 Iron deficiency anemia, unspecified; M54.50 Low back pain, unspecified; G89.29 Other chronic pain; S22.080G Wedge compression fracture of T11-T12 vertebra, subsequent encounter for fracture with delayed healing; J18.9 Pneumonia, unspecified organism; Z88.8 Allergy status to other drugs, medicaments and biological substances; E78.5 Hyperlipidemia, unspecified; J96.21 Acute and chronic respiratory failure with hypoxia; F01.50 Vascular dementia, unspecified severity, without behavioral disturbance, psychotic disturbance, mood disturbance, and anxiety; K21.9 Gastro-esophageal reflux disease without esophagitis; I73.9 Peripheral vascular disease, unspecified; Z79.02 Long term (current) use of antithrombotics/antiplatelets; F39 Unspecified mood [affective] disorder